=== PATIENT | male | born 1960 ===

== ENCOUNTER 2018-04-27 16:42 | Inpatient (IN) | payer OTHER ==
[2018-04-27] MEDS ORDERED: Piperacillin/Tazobact 3.375 GM in Sodium Chloride 0.9% 100 ML IVPB STA (17:17)
[2018-04-27] MEDS ORDERED: Piperacillin/Tazobact 3.375 gm Inj IVPB ONE (17:22)
--- NOTE | 2018-04-27 17:34 | RAD ---
Date of service: 04/27/2018 PROCEDURE: CHEST RADIOGRAPH, 1 VIEW HISTORY: AMS COMPARISON: None available. FINDINGS: LUNGS: Left basilar dense curvilinear opacity. Hazy change involving the mid/ lower left lung. PLEURA: No pneumothorax or pleural fluid seen. CARDIOVASCULAR: Prior sternotomy with sternal wires and surgical clips in place. Atherosclerotic aortic calcifications. Cardiomediastinal silhouette within normal limits. OSSEOUS STRUCTURES: Degenerative changes. VISUALIZED UPPER ABDOMEN: Normal. OTHER FINDINGS: None. IMPRESSION: Left basilar dense curvilinear opacity. Hazy change involving the mid/ lower left lung.
--- NOTE | 2018-04-27 17:46 | ED PDOC ---
HPI: Altered Mental Status Time Seen by Provider: 04/27/18 17:20 Chief Complaint (Nursing): Altered Mental Status Chief Complaint (Provider): Altered Mental Status History Per: Patient, Family History/Exam Limitations: None Onset/Duration Of Symptoms: Days Current Symptoms Are (Timing): Still Present Associated Symptoms: denies: Fever, Chills, Chest Pain, Vomiting, Diarrhea Additional Complaint(s): Mr. Roni Garnica is a 58 year old male who is presenting to the ED with altered mental status for 1day. History as per neighbor/friend who has been taking care of patient. As per Jose, b2b account executive/friend (NO POA), patient was discharged from [facility] yesterday and was noted to be very lethargic, weak, and difficult to arouse all day yesterday. Family and b2b account executive expressed concern that he was taking opiates aggressively and patient still appears to be partaking in alcohol consumption. Patient states that he has had fluids taken out of him (paracentesis) but otherwise he states that he feels fine. --pt positive for diarrhea --pt denied dizziness/lightheadedness, no LOC --pt denied nausea/vomiting/chills/sweats/abdominal pain --pt denied sob/chest pain/palpitations --pt denied fall/trauma/sick contact, no travel --pt denies alcohol use or medical complaints --pt is here for further eval Spoke to sister on the phone who alluded to patient's alcohol dependencies and also expressed concern of aggressive opioid use since discharge. Sister is aware that patient should not be at home given the amount of medical care needed but based on patients wishes, he has been allowed to go home (to be with his mother). Patient has been staying at home with his mother; mother was also recently admitted to the hospital and has fallen ill resulting in her inability to take care of the patient. Of note, patient arrived to ED with extensive backside pressure sores. PCP: none provided Pain Doctor: Dr. David + hx of cirrhosis + alcohol dependency + chronic pain (back) + b/l lower leg amputee Past Medical History Reviewed: Historical Data, Nursing Documentation, Vital Signs Vital Signs: Last Vital Signs Temp 98.8 F 04/27/18 16:52 Pulse 128 H 04/27/18 16:52 Resp 22 04/27/18 16:52 BP 128/70 04/27/18 16:52 Pulse Ox 98 04/27/18 16:52 - Medical History PMH: Chronic Pain - Surgical History Surgical History: No Surg Hx - Family History Family History: States: Unknown Family Hx - Living Arrangements Living Arrangements: With Family (mother) - Social History Current smoker - smoking cessation education provided: No Ex-Smoker (has not smoked in the last 12 months): Yes Alcohol: Other (Patient denies, family states he does drink) Drugs: Denies - Home Medications Home Medications: Ambulatory Orders Medication Instructions Recorded Morphine Sulfate [Arymo ER] 60 mg PO Q8 04/27/18 oxyCODONE [oxyCODONE Immediate 30 mg PO Q4 PRN 04/27/18 Release Tab] - Allergies Allergies/Adverse Reactions: Allergies Allergy/AdvReac Type Severity Reaction Status Date / Time No Known Allergies Allergy Verified 04/27/18 16:51 Review of Systems ROS Statement: Except As Marked, All Systems Reviewed And Found Negative Constitutional: Positive for: Chills, Weakness, Malaise. Negative for: Fever, Sweats Eyes: Negative for: Pain ENT: Negative for: Ear Pain, Ear Discharge Cardiovascular: Negative for: Chest Pain, Palpitations Respiratory: Negative for: Cough, Shortness of Breath, SOB with Exertion Gastrointestinal: Positive for: Diarrhea. Negative for: Nausea, Vomiting, Abdominal Pain Musculoskeletal: Positive for: Back Pain Skin: Positive for: Other (pressure sores on back) Neurological: Positive for: Weakness, Confusion, Altered Mental Status, Other ( increased lethargy) Physical Exam - Reviewed Nursing Documentation Reviewed: Yes Vital Signs Reviewed: Yes (elevated HR, mildly elevated TEMP) - Physical Exam Appears: Positive for: Non-toxic, No Acute Distress, Uncomfortable (alert/awake , GCS = 15, oriented x 2 (not to date/time), NAD, uncomfortable, follows command , cooperative) Head Exam: Positive for: ATRAUMATIC, NORMOCEPHALIC. Negative for: NORMAL INSPECTION ((+) minor bitemporal wasting) Skin: Positive for: Warm (with capillary refill at approximately 1 second), Dry (with no NIKOSKY's sign noted; + slightly diffuse tenderness over the rash site , stage I-II saccral decubitus), Pallor (slightly), Jaundice. Negative for: Normal Color ((+) back: large almost covering pt whole back skin erythema noted edges of back, petechiae, no bullae no blisters no vesicles noted) Eye Exam: Positive for: EOMI, PERRL (no pinpoint pupils noted ), Scleral icterus , Other (visual field intact no photophobia ). Negative for: Nystagmus ENT: Positive for: Normal ENT Inspection, Other (lightly moist oral mucosa with poor dentitions, no drooling no stridor, slight coarseness of voice) Neck: Positive for: Normal, Painless ROM, Supple, Trachea Midline Cardiovascular/Chest: Positive for: Chest Non Tender, Other (+S1, +S2, + tachy; + regular rhythm). Negative for: Murmur Respiratory: Positive for: Normal Breath Sounds, Other (CTA b/l, no w/r/r, no accessory muscle use noted, no tachypenia). Negative for: Decreased Breath Sounds, Respiratory Distress Pulses-Carotid (L): 2+ Pulses-Carotid (R): 2+ Gastrointestinal/Abdominal: Positive for: Bowel Sounds (decreased), Soft, Distended (slightly), Other (hepatomegaly detected, no rigidity). Negative for : Mass, Guarding, Rebound Back: Positive for: Other (no gross deformity, see skin exam). Negative for: L CVA Tenderness, R CVA Tenderness, Vertebral Tenderness Extremity: Positive for: Other (bilateral amputee above the knee) Neurologic/Psych: Positive for: Alert, unix system administrator II-XII (normal ), Oriented (x2( not to date and time) ), Other (responding normallly to commands, cooperative, no slurred speech). Negative for: Motor/Sensory Deficits, Facial Droop (no facial assymetry) - Laboratory Results Result Diagrams: 04/28/18 07:50 04/28/18 07:50 Interpretation Of Abn Labs: elevated lactate, gluc - ECG ECG: Positive for: Interpreted By Me, Viewed By Me Interpretation Of Abn EKG: SINUS tach at 125bpm, normal axis, no ectopy, diffuse low voltage inf leads, non-specific st-t changes, ABNL EKG; O2 Sat by Pulse Oximetry: 98 (RA) Pulse Ox Interpretation: Normal - Radiology X-Ray: Interpreted by Me, Viewed By Me, Read By Radiologist - Progress ED Course And Treament: pt is made aware of his medical results pt initially refused to stay but was instructed by his friend (JOSE) and sister to stay in the hospital pt/family are made aware of his medical results agrees with admission 6:30pm - I spoke to Dr Ahuja, online education manager PCP, made aware, agrees with admission Date of service: 04/27/2018 PROCEDURE: CHEST RADIOGRAPH, 1 VIEW HISTORY: AMS COMPARISON: None available. FINDINGS: LUNGS: Left basilar dense curvilinear opacity. Hazy change involving the mid/ lower left lung. PLEURA: No pneumothorax or pleural fluid seen. CARDIOVASCULAR: Prior sternotomy with sternal wires and surgical clips in place. Atherosclerotic aortic calcifications. Cardiomediastinal silhouette within normal limits. OSSEOUS STRUCTURES: Degenerative changes. VISUALIZED UPPER ABDOMEN: Normal. OTHER FINDINGS: None. IMPRESSION: Left basilar dense curvilinear opacity. Hazy change involving the mid/ lower left lung. Date of service: 04/27/2018 PROCEDURE: CT HEAD WITHOUT CONTRAST. HISTORY: fell off chair, posterior scalp swelling, no loc COMPARISON: None available. TECHNIQUE: Axial computed tomography images were obtained through the head/brain without intravenous contrast. Radiation dose: Total exam DLP = 1132.3 mGy-cm. This CT exam was performed using one or more of the following dose reduction techniques: Automated exposure control, adjustment of the mA and/or kV according to patient size, and/or use of iterative reconstruction technique. FINDINGS: HEMORRHAGE: No intracranial hemorrhage. BRAIN: No mass effect or edema. Atrophy. Chronic microvascular ischemic changes. VENTRICLES: Prominent. No hydrocephalus. CALVARIUM: Unremarkable. PARANASAL SINUSES: Unremarkable as visualized. No significant inflammatory changes. MASTOID AIR CELLS: Unremarkable as visualized. No inflammatory changes. OTHER FINDINGS: None. IMPRESSION: No acute intracranial pathology. Age-related changes. Re-evaluation Time: 18:54 Condition: Re-examined, Unchanged - Physician Consult Information Time Consulting Physican Contacted: 18:35 Physician Contacted: Cristopher Ahuja - Critical Care Total Time (In Min): 35 Comments: critical care time: 35min, excluding procedure time, excluding time teaching residents/students/mid-level providers; including initial eval/diagnosis, diagnostic interpretation, re-eval, consultations, final disposition Notes:: Orders: --Venuous Blood Gas --CT Head --EKG --Alcohol Serum --Ammonia --B-Type Natriuretic Peptide --BMP --CMP --Drug Screen --Lipase --Thyroid Stimulating Hormone --Troponin --CBC --Coag --Chest X-Ray --Glucose, POC --Enulose 20 gm PO --Vancomycin Inj --Zosyn 3.375 gm IVPB --Blood Culture Chest X-Ray: FINDINGS: LUNGS: Left basilar dense curvilinear opacity. Hazy change involving the mid/ lower left lung. PLEURA: No pneumothorax or pleural fluid seen. CARDIOVASCULAR: Prior sternotomy with sternal wires and surgical clips in place. Atherosclerotic aortic calcifications. Cardiomediastinal silhouette within normal limits. OSSEOUS STRUCTURES: Degenerative changes. VISUALIZED UPPER ABDOMEN: Normal. OTHER FINDINGS: None. IMPRESSION: Left basilar dense curvilinear opacity. Hazy change involving the mid/ lower left lung. Consult: Dr. Ahuja made aware of patient's case. He agrees with ED management and treatment. Will continue to monitor patient and Dr. Ahuja would like GI consulted for medical complaints. Will admit patient under his service. CT Head: FINDINGS: BRAIN: Involutional changes. Periventricular hypoattenuation suggestive of chronic ischemic changes. No hemorrhage. VENTRICLES: No ventriculomegaly. BONES/JOINTS: Unremarkable. No acute fracture. SOFT TISSUES: Unremarkable. VASCULATURE: Atherosclerosis. SINUSES: Unremarkable as visualized. No acute sinusitis. MASTOID AIR CELLS: Unremarkable as visualized. No mastoid effusion. IMPRESSION: Involutional changes. Periventricular hypoattenuation suggestive of chronic ischemic changes. Medical Decision Making Medical Decision Making: Impression: Altered Mental Status Differential Diagnosis: I have considered all the differential diagnosis regarding pt's chief medical complaints/clinical findings, including but are not limited to: altered mental status, unspecified hepatic encephalopathy, fever adverse sepsis, cellulitis, alcohol and drug dependency, dehydration, and unlikely [place] will continue to asses Plan: - EKG, labs CXR - supportive care - observe Scribe Attestation: Documented by, Arin Norwood acting as a scribe for Jeremy Reese MD. Provider Scribe Attestation: All medical record entries made by the Scribe were at my direction and personally dictated by me. I have reviewed the chart and agree that the record accurately reflects my personal performance of the history, physical exam, medical decision making, and the department course for this patient. I have also personally directed, reviewed, and agree with the discharge instructions and disposition. Disposition - Clinical Impression Clinical Impression: Altered mental status, unspecified, At risk for sepsis, Pneumonia, Cellulitis of back, Sacral decubitus ulcer, stage II, Dehydration, Cirrhosis, Alcohol abuse , Opioid dependence - Patient ED Disposition Is Patient to be Admitted: Yes Discussed With : Cristopher Ahuja Counseled Patient/Family Regarding: Studies Performed, Diagnosis, Need For Followup, Rx Given - Disposition Disposition Time: 18:45 Condition: STABLE - Pt Status Changed To: Hospital Disposition Of: Inpatient - Admit Certification Admit to Inpatient:: After my assessment, the patient will require hospitalization for at least two midnights. This is because of the severity of symptoms shown, intensity of services needed, and/or the medical risk in this patient being treated as an outpatient.
[2018-04-27] MEDS ORDERED: Sodium Chloride 0.9% 500 ML IV ONE (18:01)
[2018-04-27 18:03] LABS: VENOUS BLOOD GAS BASE EXCESS -2.8 mmol/L (0.0-2.0); VENOUS BLOOD GAS PCO2 32 mmHg (40-60); VENOUS BLOOD GAS PO2 29 mm/Hg (30-55); VENOUS BLOOD PH 7.42 (7.32-7.43)
[2018-04-27 18:16] LABS: BASO % 0.2 % (0.0-2.0); EOS % 0.1 % (0.0-4.0); HEMOGLOBIN 13.1 g/dL (12.0-18.0); LYMPH # 1.3 K/uL (1.0-4.3); LYMPH % 10.4 % (20.0-40.0); MEAN CELL VOLUME 89.5 fl (80.0-94.0); MEAN CORPUSCULAR HEMOGLOBIN 28.3 pg (27.0-31.0); MEAN CORPUSCULAR HGB CONC 31.7 g/dL (33.0-37.0); MEAN PLATELET VOLUME 8.2 fl (7.2-11.7); MONO # 1.6 K/uL (0.0-0.8); MONO % 13.4 % (0.0-10.0); NEUT # 9.2 K/uL (1.8-7.0); NEUT % 75.9 % (50.0-75.0); NRBC % 0.1 % (0.0-0.0); RBC 4.64 Mil/uL (4.40-5.90); RED CELL DISTRIBUTION WIDTH 21.5 % (11.5-14.5); WHITE BLOOD COUNT 12.2 K/uL (4.8-10.8)
[2018-04-27 18:21] LABS: INR 1.1 (0.9-1.2); PARTIAL THROMBOPLASTIN TIME 28.1 Seconds (25.6-37.1); PROTHROMBIN TIME 12.4 Seconds (9.8-13.1)
[2018-04-27 18:35] LABS: B-TYPE NATRIURETIC PEPTIDE 7390 pg/ml (0-900)
[2018-04-27 18:36] LABS: ALB/GLOB RATIO 0.6 (1.0-2.1); ALBUMIN 2.6 g/dL (3.5-5.0); ALT/SGPT 17 U/L (21-72); AST/SGOT 27 U/L (17-59); BLOOD UREA NITROGEN 14 mg/dl (9-20); CALCIUM 8.5 mg/dL (8.4-10.2); GFR AFRICAN-AMERICAN > 60; GFR NON-AFRICAN AMERICAN > 60; LIPASE 21 U/L (23-300)
[2018-04-27] MEDS ORDERED: Vancomycin 1 g Inj ONE (18:49)
[2018-04-27 21:14] LABS: VENOUS BLOOD GAS BASE EXCESS -5.4 mmol/L (0.0-2.0); VENOUS BLOOD GAS PCO2 38 mmHg (40-60); VENOUS BLOOD GAS PO2 24 mm/Hg (30-55); VENOUS BLOOD PH 7.33 (7.32-7.43)
[2018-04-28 08:13] LABS: HEMOGLOBIN 11.9 g/dL (12.0-18.0); MEAN CELL VOLUME 87.3 fl (80.0-94.0); MEAN CORPUSCULAR HEMOGLOBIN 28.5 pg (27.0-31.0); MEAN CORPUSCULAR HGB CONC 32.6 g/dL (33.0-37.0); RBC 4.18 Mil/uL (4.40-5.90); WHITE BLOOD COUNT 12.9 K/uL (4.8-10.8)
[2018-04-28 08:34] LABS: LDL CHOLESTEROL 53 mg/dL (0-129)
[2018-04-28 08:40] LABS: T4 6.94 ug/dl (5.5-11.0)
--- NOTE | 2018-04-28 08:46 | CT ---
Date of service: 04/27/2018 PROCEDURE: CT HEAD WITHOUT CONTRAST. HISTORY: fell off chair, posterior scalp swelling, no loc COMPARISON: None available. TECHNIQUE: Axial computed tomography images were obtained through the head/brain without intravenous contrast. Radiation dose: Total exam DLP = 1132.3 mGy-cm. This CT exam was performed using one or more of the following dose reduction techniques: Automated exposure control, adjustment of the mA and/or kV according to patient size, and/or use of iterative reconstruction technique. FINDINGS: HEMORRHAGE: No intracranial hemorrhage. BRAIN: No mass effect or edema. Atrophy. Chronic microvascular ischemic changes. VENTRICLES: Prominent. No hydrocephalus. CALVARIUM: Unremarkable. PARANASAL SINUSES: Unremarkable as visualized. No significant inflammatory changes. MASTOID AIR CELLS: Unremarkable as visualized. No inflammatory changes. OTHER FINDINGS: None. IMPRESSION: No acute intracranial pathology. Age-related changes.
[2018-04-28 09:18] LABS: ALB/GLOB RATIO 0.6 (1.0-2.1); ALBUMIN 2.6 g/dL (3.5-5.0); ALT/SGPT 13 U/L (21-72); AST/SGOT 38 U/L (17-59); BLOOD UREA NITROGEN 17 mg/dl (9-20); CALCIUM 8.2 mg/dL (8.4-10.2); GFR AFRICAN-AMERICAN > 60; GFR NON-AFRICAN AMERICAN > 60; HDL CHOLESTEROL 15 MG/DL (30-70)
[2018-04-28] MEDS ORDERED: Dextrose 5%/0.9% NS 1,000 ML IV SCH (12:45)
--- NOTE | 2018-04-28 13:05 | CP.PCM.CON ---
History of Present Illness - History of Present Illness History of Present Illness: consult requested for altered mental status Mr. Roni Garnica is a 58 year old male brought to to the ED with altered mental status f History as per neighbor/friend who has been taking care of patient and his motherreportedly patient was discharged from [facility] day before he was brought to ER and was noted to be very lethargic, weak, and difficult to arouse all day yesterday. Family and proof machine operator supervisor expressed concern that he was taking opiates aggressively and patient still appears to be consuming alcohol pt has hx of bilateral below knee amputation on evaluation pt is lethargic, oriented to person, speech underproductive, no eye contact, when asked about circumstances leading to hospitalization. pt only noding , asked if he overdosed he nodded yes, asked if it was on purpose he nodded yes unable to further assess mental status as pt is uncooperative Past Patient History - Past Social History Alcohol: Other (Patient denies, family states he does drink) Drugs: Denies - CARDIAC Hx Cardiac Disorders: Yes - PULMONARY Hx Respiratory Disorders: Yes - NEUROLOGICAL Hx Neurological Disorder: Yes - ENDOCRINE/METABOLIC Hx Diabetes Mellitus Type 2: Yes - HEMATOLOGICAL/ONCOLOGICAL Hx Blood Disorders: Yes - MUSCULOSKELETAL/RHEUMATOLOGICAL Hx Falls: Yes (in the past) Hx Herniated Disk: Yes - PSYCHIATRIC Hx Psychophysiologic Disorder: Yes - SURGICAL HISTORY Other/Comment: pacemaker, bka b/l - ANESTHESIA Hx Anesthesia: Yes Hx Anesthesia Reactions: No Hx Malignant Hyperthermia: No Has any member of the family had a problem w/ anesthesia?: No Meds Allergies/Adverse Reactions: Allergies Allergy/AdvReac Type Severity Reaction Status Date / Time No Known Allergies Allergy Verified 04/27/18 16:51 - Medications Medications: Current Medications Dextrose/Sodium Chloride (Dextrose 5%/0.9% Ns 1000 Ml) 1,000 mls @ 60 mls/hr IV .[id number] NOHEMI Stop: 04/29/18 12:34 Lactulose (Enulose) 20 gm PO BID NOHEMI Morphine Sulfate (Morphine) 4 mg IVP Q4 PRN PRN Reason: Pain, severe (8-10) Results - Vital Signs Recent Vital Signs: Last Vital Signs Temp 97.8 F 04/28/18 12:11 Pulse 124 H 04/28/18 12:11 Resp 18 07/29/18 12:11 BP 118/81 04/28/18 12:11 Pulse Ox 95 04/28/18 12:11 - Labs Result Diagrams: 04/28/18 07:50 04/28/18 07:50 Labs: Laboratory Results - last 24 hr 04/27/18 04/27/18 04/27/18 17:15 17:39 17:39 WBC 12.2 H RBC 4.64 Hgb 13.1 Hct 41.5 MCV 89.5 MCH 28.3 MCHC 31.7 L RDW 21.5 H Plt Count 331 MPV 8.2 Neut % (Auto) 75.9 H Lymph % (Auto) 10.4 L Weber % (Auto) 13.4 H Eos % (Auto) 0.1 Baso % (Auto) 0.2 Neut # (Auto) 9.2 H Lymph # (Auto) 1.3 Weber # (Auto) 1.6 H Eos # (Auto) 0.0 Baso # (Auto) 0.0 PT INR APTT pO2 VBG pH VBG pCO2 VBG HCO3 VBG Total CO2 VBG O2 Sat (Calc) VBG Base Excess VBG Potassium Glucose Lactate FiO2 Crit Value Called To Crit Value Called By Crit Value Read Back Blood Gas Notified Time Sodium 141 Potassium 4.4 Chloride 106 Carbon Dioxide 19 L Anion Gap 20 BUN 14 Creatinine 1.0 Est GFR ( Amer) > 60 Est GFR (Non-Af Amer) > 60 POC Glucose (mg/dL) 170 H Random Glucose 163 H Calcium 8.5 Total Bilirubin 1.1 AST 27 ALT 17 L Alkaline Phosphatase 80 Ammonia Troponin I 0.0910 NT-Pro-B Natriuret Pep 7390 H Total Protein 6.9 Albumin 2.6 L Globulin 4.2 H Albumin/Globulin Ratio 0.6 L Triglycerides Cholesterol LDL Cholesterol Direct HDL Cholesterol Lipase 21 L Thyroxine (T4) TSH 3rd Generation 7.01 H Venous Blood Potassium Alcohol, Quantitative < 10 04/27/18 04/27/18 04/27/18 17:39 17:39 17:56 WBC RBC Hgb Hct MCV MCH MCHC RDW Plt Count MPV Neut % (Auto) Lymph % (Auto) Weber % (Auto) Eos % (Auto) Baso % (Auto) Neut # (Auto) Lymph # (Auto) Weber # (Auto) Eos # (Auto) Baso # (Auto) PT 12.4 INR 1.1 APTT 28.1 pO2 29 L VBG pH 7.42 VBG pCO2 32 L VBG HCO3 21.6 VBG Total CO2 21.8 L VBG O2 Sat (Calc) 46.7 VBG Base Excess -2.8 L VBG Potassium Glucose 165 H Lactate 3.4 H FiO2 21.0 Crit Value Called To Dr delilah partida Crit Value Called By 6075 Crit Value Read Back Y Blood Gas Notified Time 1802 Sodium 184.0 H* Potassium Chloride 117.0 H Carbon Dioxide Anion Gap BUN Creatinine Est GFR ( Amer) Est GFR (Non-Af Amer) POC Glucose (mg/dL) Random Glucose Calcium Total Bilirubin AST ALT Alkaline Phosphatase Ammonia 11 L Troponin I NT-Pro-B Natriuret Pep Total Protein Albumin Globulin Albumin/Globulin Ratio Triglycerides Cholesterol LDL Cholesterol Direct HDL Cholesterol Lipase Thyroxine (T4) TSH 3rd Generation Venous Blood Potassium Alcohol, Quantitative 04/27/18 04/27/18 04/28/18 21:11 21:55 04:09 WBC RBC Hgb Hct MCV MCH MCHC RDW Plt Count MPV Neut % (Auto) Lymph % (Auto) Weber % (Auto) Eos % (Auto) Baso % (Auto) Neut # (Auto) Lymph # (Auto) Weber # (Auto) Eos # (Auto) Baso # (Auto) PT INR APTT pO2 24 L VBG pH 7.33 VBG pCO2 38 L VBG HCO3 19.1 VBG Total CO2 21.2 L VBG O2 Sat (Calc) 31.6 L VBG Base Excess -5.4 L VBG Potassium 5.8 H Glucose 142 H Lactate 2.9 H FiO2 21.0 Crit Value Called To Crit Value Called By Crit Value Read Back Blood Gas Notified Time Sodium 138.0 Potassium Chloride 107.0 Carbon Dioxide Anion Gap BUN Creatinine Est GFR ( Amer) Est GFR (Non-Af Amer) POC Glucose (mg/dL) 140 H 152 H Random Glucose Calcium Total Bilirubin AST ALT Alkaline Phosphatase Ammonia Troponin I NT-Pro-B Natriuret Pep Total Protein Albumin Globulin Albumin/Globulin Ratio Triglycerides Cholesterol LDL Cholesterol Direct HDL Cholesterol Lipase Thyroxine (T4) TSH 3rd Generation Venous Blood Potassium 5.8 H Alcohol, Quantitative 04/28/18 04/28/18 04/28/18 07:50 07:50 07:50 WBC 12.9 H RBC 4.18 L Hgb 11.9 L Hct 36.5 MCV 87.3 D MCH 28.5 MCHC 32.6 L RDW 20.0 H Plt Count 302 MPV Neut % (Auto) Lymph % (Auto) Weber % (Auto) Eos % (Auto) Baso % (Auto) Neut # (Auto) Lymph # (Auto) Weber # (Auto) Eos # (Auto) Baso # (Auto) PT INR APTT pO2 VBG pH VBG pCO2 VBG HCO3 VBG Total CO2 VBG O2 Sat (Calc) VBG Base Excess VBG Potassium Glucose Lactate FiO2 Crit Value Called To Crit Value Called By Crit Value Read Back Blood Gas Notified Time Sodium 142 Potassium 5.6 H Chloride 109 H Carbon Dioxide 21 L Anion Gap 18 BUN 17 Creatinine 1.0 Est GFR ( Amer) > 60 Est GFR (Non-Af Amer) > 60 POC Glucose (mg/dL) Random Glucose 133 H Calcium 8.2 L Total Bilirubin 1.1 AST 38 ALT 13 L D Alkaline Phosphatase 62 Ammonia 15 L D Troponin I NT-Pro-B Natriuret Pep Total Protein 6.8 Albumin 2.6 L Globulin 4.3 H Albumin/Globulin Ratio 0.6 L Triglycerides 149 Cholesterol 89 LDL Cholesterol Direct 53 HDL Cholesterol 15 L Lipase Thyroxine (T4) 6.94 TSH 3rd Generation 5.79 H Venous Blood Potassium Alcohol, Quantitative 04/28/18 11:05 WBC RBC Hgb Hct MCV MCH MCHC RDW Plt Count MPV Neut % (Auto) Lymph % (Auto) Weber % (Auto) Eos % (Auto) Baso % (Auto) Neut # (Auto) Lymph # (Auto) Weber # (Auto) Eos # (Auto) Baso # (Auto) PT INR APTT pO2 VBG pH VBG pCO2 VBG HCO3 VBG Total CO2 VBG O2 Sat (Calc) VBG Base Excess VBG Potassium Glucose Lactate FiO2 Crit Value Called To Crit Value Called By Crit Value Read Back Blood Gas Notified Time Sodium Potassium Chloride Carbon Dioxide Anion Gap BUN Creatinine Est GFR ( Amer) Est GFR (Non-Af Amer) POC Glucose (mg/dL) 129 H Random Glucose Calcium Total Bilirubin AST ALT Alkaline Phosphatase Ammonia Troponin I NT-Pro-B Natriuret Pep Total Protein Albumin Globulin Albumin/Globulin Ratio Triglycerides Cholesterol LDL Cholesterol Direct HDL Cholesterol Lipase Thyroxine (T4) TSH 3rd Generation Venous Blood Potassium Alcohol, Quantitative Assessment & Plan - Assessment and Plan (Free Text) Assessment: delirium opiate abuse alcohol abuse Plan: pt was vague when asked if the overdose was accidental or on purpose patient needs to be placed on 1:1 for safety unable to further assess mental status as pt is lethargic please further consult with psychiatry when pt is more alert
--- NOTE | 2018-04-28 13:49 | CP.PCM.HP ---
History of Present Illness - History of Present Illness History of Present Illness: CC: AMS. 58 y/o M, Hx of Cirrhosis, Alcohol dependence, B/L BKA, Chronic low back pain, PPM, [facility] via EMS to be evaluated for first onset of AMS that began 2 days [employer], increased episode on DOA with no improvement. After evaluation, Pt was admitted to telemetry floor. As per friend/procurement coordinator, Pt was discharged from [facility] 2 days prior to arrival to [facility] and since that date Pt appeared above normal mental base line associated to weaknesses, very lethargic, slurred speech, forgetful, confused. Worsening symptoms: Alcohol abuse/ aggressive opiates user since discharged( Oxycodone, Morphine). Rapid HR, generalized edema. As per friend, expressing that he wants to . Aggravated factor; Poor historian, vague response 2nd to clinical condition. No: Fever, chills, nausea, vomiting, but stool and urinary incontinence, No abdominal pain, dysuria, CP, SOB, cough, sick contact, recent travel out of [facility]. Head CT: No intracranial pathology. CXR: Left basilar dense curvilinear opacity, hazy change envolving the mid/ lower left lung. Present on Admission - Present on Admission Any Indicators Present on Admission: No Review of Systems - Review of Systems Systems not reviewed;Unavailable: Acuity of Condition, Altered Mental Status Past Patient History - Past Medical History & Family History Pertinent Family History: Unknown - Past Social History Smoking Status: Former Smoker Alcohol: Other (Patient denies, family states he does drink) Drugs: Denies Home Situation {Lives}: Alone - CARDIAC Hx Cardiac Disorders: Yes Hx Pacemaker: Yes - PULMONARY Hx Respiratory Disorders: Yes Hx Asthma: Yes - NEUROLOGICAL Hx Neurological Disorder: Yes Hx Dizziness: Yes - HEENT Hx HEENT Problems: No - RENAL Hx Chronic Kidney Disease: No - ENDOCRINE/METABOLIC Hx Endocrine Disorders: Yes Hx Diabetes Mellitus Type 2: Yes - HEMATOLOGICAL/ONCOLOGICAL Hx Blood Disorders: Yes Hx Cirrhosis: Yes - MUSCULOSKELETAL/RHEUMATOLOGICAL Hx Musculoskeletal Disorders: Yes Hx Back Pain: Yes Hx Falls: Yes (in the past) Hx Herniated Disk: Yes - GASTROINTESTINAL Hx Gastrointestinal Disorders: Yes - GENITOURINARY/GYNECOLOGICAL Hx Genitourinary Disorders: Yes Hx Incontinence: Yes - PSYCHIATRIC Hx Psychophysiologic Disorder: Yes Hx Anxiety: Yes Hx Depression: Yes - SURGICAL HISTORY Hx Surgeries: Yes Other/Comment: pacemaker, bka b/l - ANESTHESIA Hx Anesthesia: Yes Hx Anesthesia Reactions: No Hx Malignant Hyperthermia: No Has any member of the family had a problem w/ anesthesia?: No Meds Allergies/Adverse Reactions: Allergies Allergy/AdvReac Type Severity Reaction Status Date / Time No Known Allergies Allergy Verified 04/27/18 16:51 Physical Exam - Constitutional Appears: Chronically Ill (Generalized edema.) - Head Exam Head Exam: NORMAL INSPECTION - Eye Exam Additional comments: Unable to keep eyes open - ENT Exam ENT Exam: Normal Exam - Neck Exam Neck exam: Positive for: Normal Inspection - Respiratory Exam Respiratory Exam: NORMAL BREATHING PATTERN - Cardiovascular Exam Cardiovascular Exam: REGULAR RHYTHM - GI/Abdominal Exam GI & Abdominal Exam: Normal Bowel Sounds, Soft - Extremities Exam Additional comments: B/L BKA - Back Exam Additional comments: Sacral decubitus ulcer/DTI - Neurological Exam Additional comments: Awake, Lethargic, Ox1, forgetful, confused, generalized weakness, - Psychiatric Exam Psychiatric exam: Agitated - Skin Skin Exam: Pallor (jaundice.), Warm Additional comments: Sacral DTI Results - Vital Signs Recent Vital Signs: Last Vital Signs Temp 97.8 F 04/28/18 12:11 Pulse 124 H 04/28/18 12:11 Resp 18 04/28/18 12:11 BP 118/81 04/28/18 12:11 Pulse Ox 95 04/28/18 12:11 reviewed J.P. - Labs Result Diagrams: 04/28/18 07:50 04/28/18 22:40 Labs: Laboratory Results - last 24 hr 04/27/18 04/27/18 04/27/18 17:15 17:39 17:39 WBC 12.2 H RBC 4.64 Hgb 13.1 Hct 41.5 MCV 89.5 MCH 28.3 MCHC 31.7 L RDW 21.5 H Plt Count 331 MPV 8.2 Neut % (Auto) 75.9 H Lymph % (Auto) 10.4 L [place] % (Auto) 13.4 H Eos % (Auto) 0.1 Baso % (Auto) 0.2 Neut # (Auto) 9.2 H Lymph # (Auto) 1.3 [place] # (Auto) 1.6 H Eos # (Auto) 0.0 Baso # (Auto) 0.0 PT INR APTT pO2 VBG pH VBG pCO2 VBG HCO3 VBG Total CO2 VBG O2 Sat (Calc) VBG Base Excess VBG Potassium Glucose Lactate FiO2 Crit Value Called To Crit Value Called By Crit Value Read Back Blood Gas Notified Time Sodium 141 Potassium 4.4 Chloride 106 Carbon Dioxide 19 L Anion Gap 20 BUN 14 Creatinine 1.0 Est GFR ( Amer) > 60 Est GFR (Non-Af Amer) > 60 POC Glucose (mg/dL) 170 H Random Glucose 163 H Calcium 8.5 Total Bilirubin 1.1 AST 27 ALT 17 L Alkaline Phosphatase 80 Ammonia Troponin I 0.0910 NT-Pro-B Natriuret Pep 7390 H Total Protein 6.9 Albumin 2.6 L Globulin 4.2 H Albumin/Globulin Ratio 0.6 L Triglycerides Cholesterol LDL Cholesterol Direct HDL Cholesterol Lipase 21 L Thyroxine (T4) TSH 3rd Generation 7.01 H Venous Blood Potassium Alcohol, Quantitative < 10 04/27/18 04/27/18 04/27/18 17:39 17:39 17:56 WBC RBC Hgb Hct MCV MCH MCHC RDW Plt Count MPV Neut % (Auto) Lymph % (Auto) [place] % (Auto) Eos % (Auto) Baso % (Auto) Neut # (Auto) Lymph # (Auto) [place] # (Auto) Eos # (Auto) Baso # (Auto) PT 12.4 INR 1.1 APTT 28.1 pO2 29 L VBG pH 7.42 VBG pCO2 32 L VBG HCO3 21.6 VBG Total CO2 21.8 L VBG O2 Sat (Calc) 46.7 VBG Base Excess -2.8 L VBG Potassium Glucose 165 H Lactate 3.4 H FiO2 21.0 Crit Value Called To Dr delilah partida Crit Value Called By 6075 Crit Value Read Back Y Blood Gas Notified Time 1802 Sodium 184.0 H* Potassium Chloride 117.0 H Carbon Dioxide Anion Gap BUN Creatinine Est GFR ( Amer) Est GFR (Non-Af Amer) POC Glucose (mg/dL) Random Glucose Calcium Total Bilirubin AST ALT Alkaline Phosphatase Ammonia 11 L Troponin I NT-Pro-B Natriuret Pep Total Protein Albumin Globulin Albumin/Globulin Ratio Triglycerides Cholesterol LDL Cholesterol Direct HDL Cholesterol Lipase Thyroxine (T4) TSH 3rd Generation Venous Blood Potassium Alcohol, Quantitative 04/27/18 04/27/18 04/28/18 21:11 21:55 04:09 WBC RBC Hgb Hct MCV MCH MCHC RDW Plt Count MPV Neut % (Auto) Lymph % (Auto) [place] % (Auto) Eos % (Auto) Baso % (Auto) Neut # (Auto) Lymph # (Auto) [place] # (Auto) Eos # (Auto) Baso # (Auto) PT INR APTT pO2 24 L VBG pH 7.33 VBG pCO2 38 L VBG HCO3 19.1 VBG Total CO2 21.2 L VBG O2 Sat (Calc) 31.6 L VBG Base Excess -5.4 L VBG Potassium 5.8 H Glucose 142 H Lactate 2.9 H FiO2 21.0 Crit Value Called To Crit Value Called By Crit Value Read Back Blood Gas Notified Time Sodium 138.0 Potassium Chloride 107.0 Carbon Dioxide Anion Gap BUN Creatinine Est GFR ( Amer) Est GFR (Non-Af Amer) POC Glucose (mg/dL) 140 H 152 H Random Glucose Calcium Total Bilirubin AST ALT Alkaline Phosphatase Ammonia Troponin I NT-Pro-B Natriuret Pep Total Protein Albumin Globulin Albumin/Globulin Ratio Triglycerides Cholesterol LDL Cholesterol Direct HDL Cholesterol Lipase Thyroxine (T4) TSH 3rd Generation Venous Blood Potassium 5.8 H Alcohol, Quantitative 04/28/18 04/28/18 04/28/18 07:50 07:50 07:50 WBC 12.9 H RBC 4.18 L Hgb 11.9 L Hct 36.5 MCV 87.3 D MCH 28.5 MCHC 32.6 L RDW 20.0 H Plt Count 302 MPV Neut % (Auto) Lymph % (Auto) [place] % (Auto) Eos % (Auto) Baso % (Auto) Neut # (Auto) Lymph # (Auto) [place] # (Auto) Eos # (Auto) Baso # (Auto) PT INR APTT pO2 VBG pH VBG pCO2 VBG HCO3 VBG Total CO2 VBG O2 Sat (Calc) VBG Base Excess VBG Potassium Glucose Lactate FiO2 Crit Value Called To Crit Value Called By Crit Value Read Back Blood Gas Notified Time Sodium 142 Potassium 5.6 H Chloride 109 H Carbon Dioxide 21 L Anion Gap 18 BUN 17 Creatinine 1.0 Est GFR ( Amer) > 60 Est GFR (Non-Af Amer) > 60 POC Glucose (mg/dL) Random Glucose 133 H Calcium 8.2 L Total Bilirubin 1.1 AST 38 ALT 13 L D Alkaline Phosphatase 62 Ammonia 15 L D Troponin I NT-Pro-B Natriuret Pep Total Protein 6.8 Albumin 2.6 L Globulin 4.3 H Albumin/Globulin Ratio 0.6 L Triglycerides 149 Cholesterol 89 LDL Cholesterol Direct 53 HDL Cholesterol 15 L Lipase Thyroxine (T4) 6.94 TSH 3rd Generation 5.79 H Venous Blood Potassium Alcohol, Quantitative 04/28/18 11:05 WBC RBC Hgb Hct MCV MCH MCHC RDW Plt Count MPV Neut % (Auto) Lymph % (Auto) [place] % (Auto) Eos % (Auto) Baso % (Auto) Neut # (Auto) Lymph # (Auto) [place] # (Auto) Eos # (Auto) Baso # (Auto) PT INR APTT pO2 VBG pH VBG pCO2 VBG HCO3 VBG Total CO2 VBG O2 Sat (Calc) VBG Base Excess VBG Potassium Glucose Lactate FiO2 Crit Value Called To Crit Value Called By Crit Value Read Back Blood Gas Notified Time Sodium Potassium Chloride Carbon Dioxide Anion Gap BUN Creatinine Est GFR ( Amer) Est GFR (Non-Af Amer) POC Glucose (mg/dL) 129 H Random Glucose Calcium Total Bilirubin AST ALT Alkaline Phosphatase Ammonia Troponin I NT-Pro-B Natriuret Pep Total Protein Albumin Globulin Albumin/Globulin Ratio Triglycerides Cholesterol LDL Cholesterol Direct HDL Cholesterol Lipase Thyroxine (T4) TSH 3rd Generation Venous Blood Potassium Alcohol, Quantitative reviewed J.P. - Imaging and Cardiology Chest x-ray Status: Report reviewed by me (Brett.) CT scan - head Status: Report reviewed by me (Shobha) Assessment & Plan (1) Altered mental status, unspecified Status: Acute Priority: High (2) Alcohol abuse Status: Chronic Priority: High (3) Opioid dependence Status: Chronic Priority: High (4) Sacral decubitus ulcer, stage II Status: Acute Priority: High (5) Hx of cirrhosis Status: Chronic Priority: High (6) S/P BKA (below knee amputation) bilateral Status: Chronic Priority: High (7) Hyperglycemia Status: Acute Priority: High (8) DMII (diabetes mellitus, type 2) Status: Chronic Priority: High (9) History of pacemaker Status: Chronic Priority: High - Assessment and Plan (Free Text) Plan: F/U EKG, Abd/Pelv U-S, Blood C-S. U C-S, keep in 1:1 closed observation, continue Dextrose, Lactulose, Humalin and rest of Tx. Psychiatric consult appreciated. GI consult. - Date & Time Date: 04/28/18 Time: 11:40
[2018-04-28 23:27] LABS: ALB/GLOB RATIO 0.6 (1.0-2.1); ALBUMIN 2.6 g/dL (3.5-5.0); ALT/SGPT 21 U/L (21-72); AST/SGOT 43 U/L (17-59); BLOOD UREA NITROGEN 18 mg/dl (9-20); CALCIUM 8.5 mg/dL (8.4-10.2); GFR AFRICAN-AMERICAN > 60; GFR NON-AFRICAN AMERICAN > 60
--- NOTE | 2018-04-29 00:42 | CON ---
DATE: 04/28/2018 HISTORY OF PRESENT ILLNESS: All my history is from the ER notes as at the time of my evaluation, today, the patient although follows commands, he is not at this point very verbal or able to speak to me in terms of verbal communication, and there are no family members or friends present. However, in the ER apparently yesterday afternoon when he came in, it was quite extensive as they were able to speak with sister and shoe repairman or a friend of this patient who were with him apparently. He was brought in for altered mental status. He had chest pain at Hospital and had been discharged, but he was very lethargic and weak, and the family was concerned because the patient has known significant history of alcohol abuse, and he had been taking significant amount of opiates. He has a history of liver disease and multiple other medical problems which is why he was then admitted because of his lethargy and change in mental status. Here on my evaluation, as mentioned, he does follow commands, but he does not verbalize, and he does seem to be very lethargic, unable to assess how oriented he is, although he does respond appropriately to my questions by shaking his head yes or no and does follow my commands. Here, he was started on morphine p.r.n. as well as lactulose. ALLERGIES: APPARENTLY, HE HAS NO KNOWN DRUG ALLERGIES. PAST MEDICAL HISTORY: Extensive apparently, and it appears he has a history of coronary artery disease. He has had a peripheral vascular disease and he has a history of liver disease and alcohol abuse. PAST SURGICAL HISTORY: He has bilateral [id number] amputations of his lower extremities. He appears to have a scar from coronary artery bypass graft and other scars on the abdomen which were unclear to me what they are from. FAMILY HISTORY: Noncontributory. SOCIAL HISTORY: As mentioned, he has a history of alcohol abuse and apparently he has been abusing opioids. PHYSICAL EXAMINATION: GENERAL: He is a well-appearing male, as mentioned very lethargic, unable to verbalize, but does not appear to be in any distress. He does follow commands. VITAL SIGNS: Presently, his vital signs are stable although his pulses are in 120s. Blood pressure and respiratory rate are normal. He is afebrile. CARDIOPULMONARY: He has decreased breath sounds bilaterally. HEART: Heart rate, he is tachycardic. ABDOMEN: His abdomen is distended. There is a fluid wave appreciated. It is not tender, but it is distended from this fluid. EXTREMITIES: As mentioned on physical, his lower extremity has [id number] amputations on both sides, almost complete amputations all the way up almost to the hip bone. LABORATORY DATA: His white count is 12.9 today with an H and H of 11.9 and 33.5. His platelet count is normal at 302,000. His SMA-7 is remarkable for potassium of 5.6, chloride up to 109 with carbon dioxide of 21. BUN and creatinine however normal. LFTs are unremarkable except his albumin is low at 2.6. His ammonia is low at 15 today, was 11 last night. His alk phos was also low. Lipase was low. Alcohol level on admission was less than 10. They did a CT of the brain which apparently is unremarkable. Chest x-ray shows some opacities in the left lower lung. IMPRESSION AND PLAN: This is a complicated 58-year-old gentleman with a history apparently of alcohol abuse and opioid abuse recently who is admitted with lethargy, change in mental status. Unfortunately we do not have a urine toxicology as yet, but I suspect that his change in mental status is probably from opioid, particularly since yesterday, the sister and a friend who have been with him stated he was taking significant amount of opioids over the last 24 hours or so. At this point in time, we will hydrate the patient, monitor him carefully with vital signs. He presently is on a diet; however, given his mental status, that needs to be monitored, feedings, to see if he can tolerate this well or appropriately. I am continuing with his present care for now and await a urine drug screening and follow this patient along with you. In terms of his liver disease, he probably has ascites from that on exam that is appreciable. I would suspect that this is chronic; however, we will simply follow for now. I will not change any treatment until his mental status improves which most likely will over time as the opiates are cleared from the system. We will follow along with you. Bryan Draper MD [facility] # [id number]
--- NOTE | 2018-04-29 10:08 | CP.PCM.CON ---
History of Present Illness - History of Present Illness History of Present Illness: Psychiatry consult follow-up note CC: "I want to go home." HPI: 58 yo male w/ h/o opiate and alcohol use disorders, presented w/ altered mental status, now improving. Patient is A + O x self, "[facility]", but not date (only 2018). He reports that he uses oxycodone, but is currently minimizing his drug/etoh abuse. He denies acute depression/anxiety/AH/VH/ paranoia/SI/HI. He denies attempting suicide. He has poor insight/judgment into his medical condition and states that he wants to be discharged back to home. MSE: A + O x self, 2018, "[facility] calm, cooperative, good eye contact, speech-mumbles at times, thought process- coherent, denies AH/VH/paranoia/ delusions, poor insight/judgment, no SI/HI Impression: 58 yo male w/ opiate and alcohol use disorder, with gradually improving mental status; patient may also have chronic neurocognitive impairment. Patient denies acute suicidal ideation/plan/intent/attempt. -No 1:1 indicated for suicide precautions; patient may need 1:1 for fall precautions if primary team believes it is indicated -If ETOH withdrawal symptoms present, treat as per CIWA protocol; patient currently states that he does not abuse ETOH to health underwriter and denies acute symptoms of withdrawal -Patient has poor insight/judgment re: medical conditions and does not comprehend his medical problems or why he needs medical treatment; he does not have capacity to leave the hospital AMA Past Patient History - Past Social History Alcohol: Other (Patient denies, family states he does drink) Drugs: Denies - CARDIAC Hx Cardiac Disorders: Yes - PULMONARY Hx Respiratory Disorders: Yes - NEUROLOGICAL Hx Neurological Disorder: Yes - ENDOCRINE/METABOLIC Hx Diabetes Mellitus Type 2: Yes - HEMATOLOGICAL/ONCOLOGICAL Hx Blood Disorders: Yes - MUSCULOSKELETAL/RHEUMATOLOGICAL Hx Falls: Yes (in the past) Hx Herniated Disk: Yes - PSYCHIATRIC Hx Psychophysiologic Disorder: Yes - SURGICAL HISTORY Other/Comment: pacemaker, bka b/l - ANESTHESIA Hx Anesthesia: Yes Hx Anesthesia Reactions: No Hx Malignant Hyperthermia: No Has any member of the family had a problem w/ anesthesia?: No Meds Allergies/Adverse Reactions: Allergies Allergy/AdvReac Type Severity Reaction Status Date / Time No Known Allergies Allergy Verified 04/27/18 16:51 - Medications Medications: Current Medications Dextrose/Sodium Chloride (Dextrose 5%/0.9% Ns 1000 Ml) 1,000 mls @ 60 mls/hr IV .[id number] [facility] Stop: 04/29/18 12:34 Last Admin: 04/28/18 16:12 Dose: 60 mls/hr Lactulose (Enulose) 20 gm PO BID NOHEMI Last Admin: 04/29/18 09:07 Dose: 20 gm Morphine Sulfate (Morphine) 4 mg IVP Q4 PRN PRN Reason: Pain, severe (8-10) Results - Vital Signs Recent Vital Signs: Last Vital Signs Temp 98.2 F 04/29/18 04:00 Pulse 101 H 04/29/18 04:00 Resp 18 04/29/18 04:00 BP 125/80 04/29/18 04:00 Pulse Ox 98 04/29/18 04:00 - Labs Result Diagrams: 04/28/18 07:50 04/28/18 22:40 Labs: Laboratory Results - last 24 hr 04/28/18 04/28/18 04/28/18 11:05 16:23 21:14 Sodium Potassium Chloride Carbon Dioxide Anion Gap BUN Creatinine Est GFR ( Amer) Est GFR (Non-Af Amer) POC Glucose (mg/dL) 129 H 132 H 146 H Random Glucose Calcium Total Bilirubin AST ALT Alkaline Phosphatase Total Protein Albumin Globulin Albumin/Globulin Ratio 04/28/18 04/29/18 22:40 06:03 Sodium 144 Potassium 3.7 Chloride 110 H Carbon Dioxide 21 L Anion Gap 17 BUN 18 Creatinine 0.9 Est GFR ( Amer) > 60 Est GFR (Non-Af Amer) > 60 POC Glucose (mg/dL) 145 H Random Glucose 142 H Calcium 8.5 Total Bilirubin 0.9 AST 43 ALT 21 D Alkaline Phosphatase 78 Total Protein 6.7 Albumin 2.6 L Globulin 4.2 H Albumin/Globulin Ratio 0.6 L
[2018-04-29] MEDS ORDERED: Dextrose 50% SYRINGE Inj (50 ml) IV PRN (12:15)
[2018-04-29] MEDS ORDERED: Glucagon Recombinant 1 mg Inj IM PRN (12:15)
--- NOTE | 2018-04-29 12:20 | CP.PCM.PN ---
Subjective - Date & Time of Evaluation Date of Evaluation: 04/29/18 Time of Evaluation: 12:19 - Subjective Subjective: lethagic, but arousable Objective - Vital Signs/Intake and Output Vital Signs (last 24 hours): Temp Pulse Resp BP Pulse Ox 98.2 F 101 H 18 125/80 98 04/29/18 04:00 04/29/18 04:00 04/29/18 04:00 04/29/18 04:00 04/29/18 04:00 - Medications Medications: Current Medications Dextrose (Dextrose 50% Inj) 0 ml IV STAT PRN; Protocol PRN Reason: Hypoglycemia Protocol Dextrose (Glutose 15) 0 gm PO ONCE PRN; Protocol PRN Reason: Hypoglycemia Protocol Glucagon (Glucagen Diagnostic Kit) 0 mg IM STAT PRN; Protocol PRN Reason: Hypoglycemia Protocol Dextrose/Sodium Chloride (Dextrose 5%/0.9% Ns 1000 Ml) 1,000 mls @ 60 mls/hr IV .[id number] NOHEMI Stop: 04/29/18 12:34 Last Admin: 04/28/18 16:12 Dose: 60 mls/hr Insulin Human Regular (Humulin R) 0 units SC ACHS NOHEMI PRN Reason: Protocol Lactulose (Enulose) 20 gm PO QID NOHEMI Morphine Sulfate (Morphine) 4 mg IVP Q4 PRN PRN Reason: Pain, severe (8-10) Rifaximin (Xifaxan) 550 mg PO BID NOHEMI PRN Reason: Protocol - Labs Labs: 04/28/18 07:50 04/28/18 22:40 PT 12.4 Seconds (9.8-13.1) 04/27/18 17:39 INR 1.1 (0.9-1.2) 04/27/18 17:39 APTT 28.1 Seconds (25.6-37.1) 04/27/18 17:39 - Head Exam Head Exam: NORMAL INSPECTION, NORMOCEPHALIC - Neck Exam Neck Exam: Normal Inspection - Respiratory Exam Respiratory Exam: Clear to Ausculation Bilateral, NORMAL BREATHING PATTERN - GI/Abdominal Exam GI & Abdominal Exam: Soft, Normal Bowel Sounds Assessment and Plan - Assessment and Plan (Free Text) Assessment: 68 o male with mental status changes increase lactulose to QID add xifaxan 550 bid utox
[2018-04-29] MEDS ORDERED: Iohexol 240 (50 ml) PO ONE (13:56)
--- NOTE | 2018-04-29 16:46 | CARD ---
APPROVED REPORT Date of service: 04/29/2018 EXAM: Two-dimensional and M-mode echocardiogram with Doppler and color Doppler. Other Information Quality : GoodRhythm : Tachycardia INDICATION Elevated PRO BNP 2D DIMENSIONS IVSd1.02 (0.7-1.1cm)LVDd4.20 (3.9-5.9cm) LVOT Diameter1.93 (1.8-2.4cm)PWd0.96 (0.7-1.1cm) IVSs0.91 (0.8-1.2cm)LVDs4.45 (2.5-4.0cm) FS (%) 5.9 %PWs0.79 (0.8-1.2cm) M-Mode DIMENSIONS Left Atrium (MM)3.56 (2.5-4.0cm)IVSd0.81 (0.7-1.1cm) Aortic Root3.19 (2.2-3.7cm)LVDd5.56 (4.0-5.6cm) Aortic Cusp Exc.1.88 (1.5-2.0cm)PWd0.75 (0.7-1.1cm) IVSs1.16 cmFS (%) 16 % LVDs4.69 (2.0-3.8cm)PWs1.06 cm Aortic Valve AoV Peak Ymdvetms30.7cm/sAoV VTI12.6cmAO Peak GR.4mmHg LVOT Peak Ldahncud13.7cm/sLVOT VTI11.53cmAO Mean GR.2mmHg NICHOLAS (VMAX)1.51xa8PTR (VTI)1.65cm2 Mitral Valve MV E Fybdmmui79.3cm/sMV DECEL BELA450asRA A Sikkhnlw860.7cm/s MV FEJ626udA/A ratio0.6MVA (PHT)1.99cm2 TDI Lateral E' Peak V9.78cm/sMedial E' Peak V5.46cm/sE/Lateral E'6.2 E/Medial E'11.0 Pulmonary Valve PV Peak Giublxpf86.1cm/s Tricuspid Valve TR Peak Zjxjrfqt91fc/sRAP OPYFFKRF98lsUmZW Peak Gr.2mmHg QTMH10glZm LEFT VENTRICLE The left ventricle is normal size. There is borderline to mild concentric left ventricular hypertrophy. Left ventricle systolic function is mildly impaired. The Ejection Fraction is 45-50%. There is normal LV segmental wall motion. Transmitral Doppler flow pattern is Grade I-abnormal relaxation pattern. RIGHT VENTRICLE The right ventricle is normal size. The right ventricular systolic function is normal. ATRIA The left atrium is mildly dilated. The right atrium size is normal. AORTIC VALVE The aortic valve is normal in structure. No aortic regurgitation is present. There is no aortic valvular stenosis. MITRAL VALVE The mitral valve is normal in structure. There is no mitral valve stenosis. Mitral regurgitation is trace to mild. TRICUSPID VALVE The tricuspid valve is normal in structure. There is mild tricuspid regurgitation. PULMONIC VALVE The pulmonary valve is normal in structure. There is no pulmonic valvular regurgitation. GREAT VESSELS The aortic root is normal in size. The IVC is normal in size and collapses >50% with inspiration. PERICARDIAL EFFUSION The pericardium appears normal. <Conclusion> Left ventricle systolic function is mildly impaired. The Ejection Fraction is 45-50%. Transmitral Doppler flow pattern is Grade I-abnormal relaxation pattern. Mitral regurgitation is trace to mild. There is mild tricuspid regurgitation.
--- NOTE | 2018-04-29 17:55 | CARD ---
APPROVED REPORT Date of service: 04/27/2018 EKG Measurement Heart [id number] <Conclusion> Sinus tachycardia with occasional premature ventricular complexes Low voltage QRS Cannot rule out Anterior infarct, age undetermined Abnormal ECG
[2018-04-29] MEDS: Insulin Regular 100 units/ml SC SCH ×2 (18:42→22:28)
[2018-04-29] MEDS: Multivitamin With Minerals Tab PO SCH (18:43)
--- NOTE | 2018-04-29 18:48 | CP.PCM.PN ---
Subjective - Date & Time of Evaluation Date of Evaluation: 04/29/18 Time of Evaluation: 12:00 - Subjective Subjective: F/U AMS AO X 2, Patient states wants to sign AMA, 1:1 was DC Objective - Vital Signs/Intake and Output Vital Signs (last 24 hours): Temp Pulse Resp BP Pulse Ox 97.6 F 99 H 20 116/77 96 04/29/18 15:36 04/29/18 15:36 04/29/18 15:36 04/29/18 15:36 04/29/18 15:36 Intake and Output: 04/29/18 04/29/18 06:59 18:59 Intake Total 1200 Balance 1200 - Medications Medications: Current Medications Chlordiazepoxide (Librium) 25 mg PO Q4H PRN PRN Reason: Withdrawl Dextrose (Dextrose 50% Inj) 0 ml IV STAT PRN; Protocol PRN Reason: Hypoglycemia Protocol Dextrose (Glutose 15) 0 gm PO ONCE PRN; Protocol PRN Reason: Hypoglycemia Protocol Folic Acid (Folic Acid) 1 mg PO DAILY REPLACED BY [facility] Last Admin: 04/29/18 18:41 Dose: 1 mg Glucagon (Glucagen Diagnostic Kit) 0 mg IM STAT PRN; Protocol PRN Reason: Hypoglycemia Protocol Insulin Human Regular (Humulin R) 0 units SC ACHS [facility]HEMI PRN Reason: Protocol Last Admin: 04/29/18 18:42 Dose: 1 units Lactulose (Enulose) 20 gm PO QID REPLACED BY [facility] Last Admin: 04/29/18 18:40 Dose: Not Given Morphine Sulfate (Morphine) 4 mg IVP Q4 PRN PRN Reason: Pain, severe (8-10) Multivitamins/Minerals (Therapeutic-M Tab) 1 tab PO DAILY REPLACED BY [facility] Last Admin: 04/29/18 18:43 Dose: 1 tab Rifaximin (Xifaxan) 550 mg PO BID [facility] PRN Reason: Protocol Last Admin: 04/29/18 18:44 Dose: 550 mg Thiamine HCl (Vitamin B1 Tab) 100 mg PO DAILY REPLACED BY [facility] Last Admin: 04/29/18 18:43 Dose: 100 mg - Labs Labs: 04/28/18 07:50 04/28/18 22:40 PT 12.4 Seconds (9.8-13.1) 04/27/18 17:39 INR 1.1 (0.9-1.2) 04/27/18 17:39 APTT 28.1 Seconds (25.6-37.1) 04/27/18 17:39 - Constitutional Appears: No Acute Distress, Other (Generalized edema 2+ non pitting.) - Head Exam Head Exam: NORMAL INSPECTION - Eye Exam Eye Exam: PERRL - ENT Exam ENT Exam: Normal Exam - Neck Exam Neck Exam: Normal Inspection - Respiratory Exam Respiratory Exam: NORMAL BREATHING PATTERN - Cardiovascular Exam Cardiovascular Exam: REGULAR RHYTHM - GI/Abdominal Exam GI & Abdominal Exam: Soft, Normal Bowel Sounds - Extremities Exam Additional comments: B/L BKA - Back Exam Additional comments: Sacral decubitus ulcer/ DTI - Neurological Exam Neurological Exam: Awake Additional comments: Ox1, Confused, forgetful, generalized weakness - Skin Skin Exam: Warm Additional comments: Jaundice. Assessment and Plan (1) Altered mental status, unspecified Status: Acute (2) Alcohol abuse Status: Chronic (3) Opioid dependence Status: Chronic (4) Sacral decubitus ulcer, stage II Status: Acute (5) Hx of cirrhosis Status: Chronic (6) S/P BKA (below knee amputation) bilateral Status: Chronic (7) Hyperglycemia Status: Acute (8) DMII (diabetes mellitus, type 2) Status: Chronic (9) History of pacemaker Status: Chronic - Assessment and Plan (Free Text) Plan: no IV access as reported by Nurse, refused PICC line, Rifaxan added by GI, continue Librium, Lactulose, Morphine, folic acid, Thiamine, and rest of treatment, f/u [facility] , Hgb A1C
[2018-04-30 06:11] LABS: HEMOGLOBIN 11.5 g/dL (12.0-18.0); MEAN CELL VOLUME 87.9 fl (80.0-94.0); MEAN CORPUSCULAR HEMOGLOBIN 28.7 pg (27.0-31.0); MEAN CORPUSCULAR HGB CONC 32.6 g/dL (33.0-37.0); RED CELL DISTRIBUTION WIDTH 19.7 % (11.5-14.5); WHITE BLOOD COUNT 9.5 K/uL (4.8-10.8)
[2018-04-30 06:23] LABS: BLOOD UREA NITROGEN 14 mg/dl (9-20); CALCIUM 8.2 mg/dL (8.4-10.2); GFR AFRICAN-AMERICAN > 60; GFR NON-AFRICAN AMERICAN > 60
--- NOTE | 2018-04-30 11:21 | CP.PCM.PN ---
Subjective - Date & Time of Evaluation Date of Evaluation: 04/30/18 Time of Evaluation: 11:00 - Subjective Subjective: I had an extensive discussion with the patient yesterday. He's a long-time patient at the pain clinic. According to his sister, patient is non-compliant with his medications and continues to consume EtOH despite being on high dose opioids. Patient had denied these accusations from his families to me in the past, and he hadn't exhibited any self-destructive behaviors before. However, over the phone, patient's sister was adamant that he abuses his pain medications at home as well as EtOH. His home regimen had been MS contin 100mg q8h and Roxicodone 30mg, 5 tablets per day, along with Neurontin 1200mg q8h. Tox screens as outpatient didn't show EtOH, but family members did discuss with me over the years of his EtOH use. Prior to this admission for overdose, he had been following up with me regularly, without coming in early for early refills, except for when he's been hospitalized. His pain conditions include cervical and lumbar radiculopathy from severe spinal stenosis, bilateral LE stump and phantom pain, and prior to amputations ischemic leg pain. Objective - Vital Signs/Intake and Output Vital Signs (last 24 hours): Temp Pulse Resp BP Pulse Ox 98.3 F 110 H 20 110/66 95 04/30/18 08:29 04/30/18 08:29 04/30/18 08:29 04/30/18 08:29 04/30/18 08:29 - Medications Medications: Current Medications Chlordiazepoxide (Librium) 25 mg PO Q4H PRN PRN Reason: Withdrawl Dextrose (Dextrose 50% Inj) 0 ml IV STAT PRN; Protocol PRN Reason: Hypoglycemia Protocol Dextrose (Glutose 15) 0 gm PO ONCE PRN; Protocol PRN Reason: Hypoglycemia Protocol Folic Acid (Folic Acid) 1 mg PO DAILY [facility] Last Admin: 04/29/18 18:41 Dose: 1 mg Glucagon (Glucagen Diagnostic Kit) 0 mg IM STAT PRN; Protocol PRN Reason: Hypoglycemia Protocol Insulin Human Regular (Humulin R) 0 units SC ACHS [facility] PRN Reason: Protocol Last Admin: 04/29/18 22:28 Dose: Not Given Lactulose (Enulose) 20 gm PO QID [facility] Last Admin: 04/29/18 22:28 Dose: 20 gm Morphine Sulfate (Morphine) 4 mg IVP Q4 PRN PRN Reason: Pain, severe (8-10) Multivitamins/Minerals (Therapeutic-M Tab) 1 tab PO DAILY [facility] Last Admin: 04/29/18 18:43 Dose: 1 tab Rifaximin (Xifaxan) 550 mg PO BID NOHEMI PRN Reason: Protocol Last Admin: 04/29/18 18:44 Dose: 550 mg Thiamine HCl (Vitamin B1 Tab) 100 mg PO DAILY [facility] Last Admin: 04/29/18 18:43 Dose: 100 mg - Labs Labs: 04/30/18 05:00 04/30/18 05:00 PT 12.4 Seconds (9.8-13.1) 04/27/18 17:39 INR 1.1 (0.9-1.2) 04/27/18 17:39 APTT 28.1 Seconds (25.6-37.1) 04/27/18 17:39 - Constitutional Appears: No Acute Distress, Unkempt, Older Than Stated Age Assessment and Plan (1) Altered mental status, unspecified Assessment & Plan: 58 yo man w/ multiple medical problems with chronic pain, non-compliant with pain medications. I have informed the patient that I can no longer see him as an outpatient for pain management. His only options at this time would be placement in half-way where pain medication can be administered in a controlled setting or detox program and continual outpatient follow-up with non- opioid treatment. - psych f/u - strongly recommend half-way placement - I can no longer management patient's pain as an outpatient as he has been non- compliant with my treatment Status: Acute
[2018-04-30] MEDS: Insulin Regular 100 units/ml SC SCH ×4 (12:19→22:00)
[2018-04-30 12:21] LABS: HEPATITIS B SURFACE AG Negative (NEGATIVE)
[2018-04-30] MEDS: Multivitamin With Minerals Tab PO SCH (12:22)
[2018-04-30 12:27] LABS: HEPATITIS A IGM NEGATIVE (NEGATIVE); HEPATITIS B CORE AB NEGATIVE (NEGATIVE)
[2018-04-30 12:58] LABS: HEPATITIS C ANTIBODY REACTIVE (NEGATIVE)
--- NOTE | 2018-04-30 15:25 | CP.PCM.PN ---
Subjective - Date & Time of Evaluation Date of Evaluation: 04/30/18 Time of Evaluation: 10:40 - Subjective Subjective: F/U AMS refusing medications, denies pain Objective - Vital Signs/Intake and Output Vital Signs (last 24 hours): Temp Pulse Resp BP Pulse Ox 98.3 F 115 H 20 121/80 96 04/30/18 13:01 04/30/18 13:01 04/30/18 13:01 04/30/18 13:01 04/30/18 13:01 - Medications Medications: Current Medications Chlordiazepoxide (Librium) 25 mg PO Q4H PRN PRN Reason: Withdrawl Dextrose (Dextrose 50% Inj) 0 ml IV STAT PRN; Protocol PRN Reason: Hypoglycemia Protocol Dextrose (Glutose 15) 0 gm PO ONCE PRN; Protocol PRN Reason: Hypoglycemia Protocol Folic Acid (Folic Acid) 1 mg PO DAILY [facility] Last Admin: 04/30/18 12:23 Dose: 1 mg Glucagon (Glucagen Diagnostic Kit) 0 mg IM STAT PRN; Protocol PRN Reason: Hypoglycemia Protocol Insulin Human Regular (Humulin R) 0 units SC ACHS [facility] PRN Reason: Protocol Last Admin: 04/30/18 12:20 Dose: Not Given Lactulose (Enulose) 20 gm PO QID [facility] Last Admin: 04/30/18 12:45 Dose: Not Given Morphine Sulfate (Morphine) 4 mg IVP Q4 PRN PRN Reason: Pain, severe (8-10) Multivitamins/Minerals (Therapeutic-M Tab) 1 tab PO DAILY [facility] Last Admin: 04/30/18 12:22 Dose: 1 tab Rifaximin (Xifaxan) 550 mg PO BID [facility] PRN Reason: Protocol Last Admin: 04/30/18 12:21 Dose: 550 mg Thiamine HCl (Vitamin B1 Tab) 100 mg PO DAILY [facility] Last Admin: 04/30/18 12:22 Dose: 100 mg - Labs Labs: 04/30/18 05:00 04/30/18 05:00 PT 12.4 Seconds (9.8-13.1) 04/27/18 17:39 INR 1.1 (0.9-1.2) 04/27/18 17:39 APTT 28.1 Seconds (25.6-37.1) 04/27/18 17:39 - Constitutional Appears: No Acute Distress - Head Exam Head Exam: NORMAL INSPECTION - Eye Exam Eye Exam: PERRL - ENT Exam ENT Exam: Normal Oropharynx - Neck Exam Neck Exam: Normal Inspection - Respiratory Exam Respiratory Exam: NORMAL BREATHING PATTERN - Cardiovascular Exam Cardiovascular Exam: REGULAR RHYTHM - GI/Abdominal Exam GI & Abdominal Exam: Soft, Normal Bowel Sounds - Extremities Exam Additional comments: B/L BKA, edema - Back Exam Additional comments: Sacral decubitus ulcer/ DTI - Neurological Exam Neurological Exam: Alert Additional comments: Ox1, confused, gerneralized weakness - Psychiatric Exam Psychiatric exam: Anxious - Skin Skin Exam: Warm Assessment and Plan (1) Altered mental status, unspecified Status: Acute (2) Alcohol abuse Status: Chronic (3) Opioid dependence Status: Chronic (4) Sacral decubitus ulcer, stage II Status: Acute (5) Hx of cirrhosis Status: Chronic (6) S/P BKA (below knee amputation) bilateral Status: Chronic (7) Hyperglycemia Status: Acute (8) DMII (diabetes mellitus, type 2) Status: Chronic (9) History of pacemaker Status: Chronic (10) Hepatitis C Status: Chronic (11) Liver cirrhosis Status: Acute (12) Pneumonia Status: Acute - Assessment and Plan (Free Text) Plan: CT Chest PNA, Patient is refusing medications, Social Service for [facility] placement
--- NOTE | 2018-04-30 17:52 | CT ---
Date of service: 04/30/2018 PROCEDURE: CT Chest without contrast HISTORY: Left basilar dense opasity/AMS COMPARISON: Prior chest x-ray dated 03/28/2018 TECHNIQUE: Contiguous axial images were obtained through the chest without intravenous contrast enhancement. Sagittal and coronal reconstructions were performed. Radiation dose (DLP): 494.9 mGy-cm. This CT exam was performed using one or more of the following dose reduction techniques: Automated exposure control, adjustment of the mA and/or kV according to patient size, and/or use of iterative reconstruction technique. FINDINGS: LUNGS: Partial atelectasis of the left lower lobe due to pleural effusion. Airspace consolidation associated with bronchiectasis at the superior segment of the left lower lobe may represent a pneumonia aspiration or neoplasm. There is 9 millimeter nodule at the right lung upper lobe/or right apex. MEDIASTINUM: Unremarkable thoracic aorta. No aneurysm. Normal sized heart. Main pulmonary artery is mildly enlarged. Mild pulmonary vascular congestion is noted. Mildly enlarged pre maryellen and AP window lymph nodes noted. Diffuse esophageal mucosal thickening and mild dilate a wilks is noted. PLEURA: There is moderate to large left pleural effusion. BONES: No fracture. No destructive lesion. Status post sternotomy. UPPER ABDOMEN: CT of the abdomen and pelvis was obtained concurrently and reported separately. Ascites OTHER FINDINGS: None. IMPRESSION: Mass like airspace consolidation noted at the left lung lower lobe may represent a pneumonia versus neoplasm or atelectasis. [id number] left pleural effusion. Mild pulmonary vascular congestion. 9 millimeter nodule at the right lung apex.
--- NOTE | 2018-04-30 17:59 | CT ---
Date of service: 04/30/2018 PROCEDURE: CT Abdomen and Pelvis with Oral contrast. HISTORY: abd pain hepatic encephalopathy COMPARISON: None. TECHNIQUE: Contiguous axial images of the abdomen and pelvis. Oral contrast was administered. No IV contrast given. Coronal and Sagittal reformats generated. Radiation dose: Total exam DLP = 963.7 mGy-cm. This CT exam was performed using one or more of the following dose reduction techniques: Automated exposure control, adjustment of the mA and/or kV according to patient size, and/or use of iterative reconstruction technique. FINDINGS: LOWER THORAX: Left pleural effusion and left lower lobe consolidation are noted. CT of the chest was obtained concurrently and reported separately. LIVER: Cirrhotic manifestation of the liver are noted. Suspicious for slightly low-attenuation mass lesion at the peripheral portion of the right liver lobe best seen on image 52 series 3 measures 5.6 x 2.9 centimeter. The possibility of malignant neoplasm of the liver should be considered. GALLBLADDER AND BILE DUCTS: Mild gallbladder wall thickening. PANCREAS: Unremarkable. No mass. No ductal dilatation. SPLEEN: Unremarkable. No splenomegaly. ADRENALS: Unremarkable. KIDNEYS AND URETERS: Unremarkable. No stone or hydronephrosis. BLADDER: Grossly unremarkable. REPRODUCTIVE: Unremarkable. APPENDIX: Unremarkable. BOWEL: Unremarkable. No obstruction. No gross mural thickening. PERITONEUM: Large ascites is noted in the lower abdomen and pelvis. No evidence of free air. LYMPH NODES: Unremarkable. No enlarged lymph nodes. VASCULATURE: IVC filter is seen in place. . No aortic aneurysm. BONES: No fracture or destructive lesion. OTHER FINDINGS: None. IMPRESSION: Cirrhotic manifestation of the liver. Suspicious for right lower lobe mass. Further assessment by ultrasound and or MRI is suggested. The possibility of malignant neoplasm of the liver should be excluded. [id number] ascites in the abdomen and pelvis. [id number] anasarca.
[2018-05-01] MEDS: Insulin Regular 100 units/ml SC SCH ×4 (09:11→22:00)
[2018-05-01] MEDS: Multivitamin With Minerals Tab PO SCH (09:14)
--- NOTE | 2018-05-01 13:44 | PQF ---
PROVIDER RESPONSE TEXT: Secondary to delirium and opioid abuse REVIEWER QUERY TEXT: Altered Mental Status - Underlying Cause A mental status change is documented in the Medical Record. Please specify the underlying cause : if known after the work up is completed Such as: -- Due to medication -- Cardiac condition: please specify diagnosis -- Electrolyte/metabolic imbalance -- Infectious process:please specify diagnosis -- Neurologic condition; please specify diagnosis -- Psychiatric condition: please specify diagnosis -- Respiratory condition: please specify diagnosis H and P: - Altered mental status, unspecified Status: Acute - Alcohol abuse Status: Chronic - Opioid dependence Status: Chronic - Sacral decubitus ulcer, stage II Status: Acute - Hx of cirrhosis Status: Chronic - S/P BKA (below knee amputation) bilateral Status: Chronic - Hyperglycemia Status: Acute - DMII (diabetes mellitus, type 2) Status: Chronic - Hx of pacemaker Status: Chronic ER note: Spoke to sister on the phone who alluded to patient's alcohol dependencies and also expresse d concern of aggressive opioid use since discharge. Impression: Altered mental status, unspecified, At risk for sepsis, Pneumonia, Cellulitis of back, Sa cral decubitus ulcer, stage II, Dehydration, Cirrhosis, Alcohol abuse, Opioid dependence 04/28 Psych: Assess;delirium ,opiate abuse ,alcohol abuse Plan: pt was vague when asked if the overdos e was accidental or on purpose patient needs to be placed on 1:1 for safety 04/28 GI: admitted with lethargy, change in mental status;Unfortunately we do not have a urine toxico logy as yet, but I suspect that his change in mental status is probably from opioid, particularly sin ce yesterday, the sister and a friend who have been with him stated he was taking significant amount of opioids over the last 24 hours or so In terms of his liver disease, he probably has ascites 04/29 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
--- NOTE | 2018-05-01 13:58 | PQF ---
PROVIDER RESPONSE TEXT: Pneumonia. POA, documented follow up Ct scan chest REVIEWER QUERY TEXT: Clarification of Clinical Diagnostic Findings In agreement with the following diagnoses as documented in the ER record: 1.Pneumonia and 2. Cellulitus of the back and 3. At risk for Sepsis as documented in the ER record OR: Ruled out ? WBC: 12.2->12.9->9.5 left shift Pulse:128->122->123->123->119->126->.124->127 Bld cultures x 2: prelim. no growth after 48 hrs CXR; Impression: Left basilar dense curvilinear opacity. Hazy change involving the mid/ lower left josette ng. OR: Disagree ER: Clinical Impression: Altered mental status, unspecified, At risk for sepsis, Pneumonia, Celluliti s of back, Sacral decubitus ulcer, stage II, Dehydration, Cirrhosis, Alcohol abuse, Opioid dependence H and P: - Altered mental status, unspecified Status: Acute - Alcohol abuse Status: Chronic - Opioid dependence Status: Chronic - Sacral decubitus ulcer, stage II Status: Acute - Hx of cirrhosis Status: Chronic - S/P BKA (below knee amputation) bilateral Status: Chronic - Hyperglycemia Status: Acute - DMII (diabetes mellitus, type 2) Status: Chronic - Hx of pacemaker Status: Chronic vanco and piperacillin D/Matt, xifaxan po BID The patient's Clinical Indicators include: xx Query created by: Judy Garcia on 04/30/2018 10:40 AM Electronically signed by: Cristopher Ahuja MD 05/01/2018 1:55 PM
--- NOTE | 2018-05-01 15:14 | CP.PCM.PN ---
Subjective - Date & Time of Evaluation Date of Evaluation: 05/01/18 Time of Evaluation: 13:55 - Subjective Subjective: F/U AMS. Pt refusing all medications and Tx. Objective - Vital Signs/Intake and Output Vital Signs (last 24 hours): Temp Pulse Resp BP Pulse Ox 97.9 F 107 H 18 109/77 98 05/01/18 12:37 05/01/18 12:37 05/01/18 12:37 05/01/18 12:37 05/01/18 12:37 - Medications Medications: Current Medications Chlordiazepoxide (Librium) 25 mg PO Q4H PRN PRN Reason: Withdrawl Dextrose (Dextrose 50% Inj) 0 ml IV STAT PRN; Protocol PRN Reason: Hypoglycemia Protocol Dextrose (Glutose 15) 0 gm PO ONCE PRN; Protocol PRN Reason: Hypoglycemia Protocol Folic Acid (Folic Acid) 1 mg PO DAILY [facility] Last Admin: 05/01/18 14:51 Dose: Not Given Glucagon (Glucagen Diagnostic Kit) 0 mg IM STAT PRN; Protocol PRN Reason: Hypoglycemia Protocol Clindamycin in NS (Clindamycin 300 Mg/50 Ml-Ns) 300 mg in 50 mls @ 50 mls/hr IVPB Q8 [facility] PRN Reason: Protocol Piperacillin Sod/Tazobactam (Sod 3.375 gm/ Sodium Chloride) 100 mls @ 100 mls/ hr IVPB Q8 [facility] PRN Reason: Protocol Insulin Human Regular (Humulin R) 0 units SC ACHS [facility] PRN Reason: Protocol Last Admin: 05/01/18 14:51 Dose: Not Given Lactulose (Enulose) 20 gm PO QID [facility] Last Admin: 05/01/18 14:51 Dose: Not Given Multivitamins/Minerals (Therapeutic-M Tab) 1 tab PO DAILY [facility] Last Admin: 05/01/18 09:14 Dose: 1 tab Rifaximin (Xifaxan) 550 mg PO BID [facility] PRN Reason: Protocol Last Admin: 05/01/18 09:14 Dose: 550 mg Thiamine HCl (Vitamin B1 Tab) 100 mg PO DAILY [facility] Last Admin: 05/01/18 09:14 Dose: 100 mg - Labs Labs: 04/30/18 05:00 04/30/18 05:00 PT 12.4 Seconds (9.8-13.1) 04/27/18 17:39 INR 1.1 (0.9-1.2) 04/27/18 17:39 APTT 28.1 Seconds (25.6-37.1) 04/27/18 17:39 - Constitutional Appears: No Acute Distress - Head Exam Head Exam: NORMAL INSPECTION - Eye Exam Eye Exam: PERRL - ENT Exam ENT Exam: Normal Oropharynx - Neck Exam Neck Exam: Normal Inspection - Respiratory Exam Respiratory Exam: NORMAL BREATHING PATTERN - Cardiovascular Exam Cardiovascular Exam: REGULAR RHYTHM - GI/Abdominal Exam GI & Abdominal Exam: Soft, Normal Bowel Sounds - Extremities Exam Additional comments: B/L BKA, edema - Back Exam Additional comments: Sacral decubitus ulcer/DTI - Neurological Exam Neurological Exam: Alert Additional comments: Ox1, confused, forgetful, generalized weakness - Psychiatric Exam Psychiatric exam: Anxious - Skin Skin Exam: Warm Assessment and Plan (1) Altered mental status, unspecified Status: Acute (2) Alcohol abuse Status: Chronic (3) Opioid dependence Status: Chronic (4) Sacral decubitus ulcer, stage II Status: Acute (5) Hx of cirrhosis Status: Chronic (6) S/P BKA (below knee amputation) bilateral Status: Chronic (7) Hyperglycemia Status: Acute (8) DMII (diabetes mellitus, type 2) Status: Chronic (9) History of pacemaker Status: Chronic (10) Hepatitis C Status: Chronic (11) Liver cirrhosis Status: Acute (12) Pneumonia Status: Acute - Assessment and Plan (Free Text) Plan: Continue all Tx, Social Service working for detention placement.
[2018-05-01] MEDS: Piperacillin/Tazobact 3.375 GM in Sodium Chloride 0.9% 100 ML IVPB SCH (18:02)
[2018-05-01] MEDS: Clindamycin in NS 300 MG/50 ML BAG IVPB SCH (18:02)
[2018-05-02] MEDS: Clindamycin in NS 300 MG/50 ML BAG IVPB SCH ×3 (00:02→16:52)
[2018-05-02] MEDS: Piperacillin/Tazobact 3.375 GM in Sodium Chloride 0.9% 100 ML IVPB SCH ×3 (00:02→16:56)
[2018-05-02] MEDS: Proshield Plus GEL TOP SCH ×3 (01:38→16:54)
[2018-05-02] MEDS: Insulin Regular 100 units/ml SC SCH ×4 (06:34→21:40)
[2018-05-02] MEDS: Multivitamin With Minerals Tab PO SCH (15:03)
--- NOTE | 2018-05-02 16:22 | CP.PCM.PN ---
Subjective - Date & Time of Evaluation Date of Evaluation: 05/02/18 Time of Evaluation: 11:50 - Subjective Subjective: F/U AMS Pt awake, oriented x1, keeps saying he wants to go home. Objective - Vital Signs/Intake and Output Vital Signs (last 24 hours): Temp Pulse Resp BP Pulse Ox 98 F 104 H 20 117/81 96 05/02/18 15:35 05/02/18 15:35 05/02/18 15:35 05/02/18 15:35 05/02/18 15:35 - Medications Medications: Current Medications Dextrose (Dextrose 50% Inj) 0 ml IV STAT PRN; Protocol PRN Reason: Hypoglycemia Protocol Dextrose (Glutose 15) 0 gm PO ONCE PRN; Protocol PRN Reason: Hypoglycemia Protocol Dimethicone (Proshield Plus Skin Protectant) 1 applic TOP Q8 [facility] Last Admin: 05/02/18 15:05 Dose: 1 applic Folic Acid (Folic Acid) 1 mg PO DAILY [facility] Last Admin: 05/02/18 15:03 Dose: Not Given Glucagon (Glucagen Diagnostic Kit) 0 mg IM STAT PRN; Protocol PRN Reason: Hypoglycemia Protocol Clindamycin in NS (Clindamycin 300 Mg/50 Ml-Ns) 300 mg in 50 mls @ 50 mls/hr IVPB Q8 [facility]HE[facility] PRN Reason: Protocol Last Admin: 05/02/18 15:02 Dose: Not Given Piperacillin Sod/Tazobactam (Sod 3.375 gm/ Sodium Chloride) 100 mls @ 100 mls/ hr IVPB Q8 [facility] PRN Reason: Protocol Last Admin: 05/02/18 15:04 Dose: Not Given Insulin Human Regular (Humulin R) 0 units SC ACHS [facility] PRN Reason: Protocol Last Admin: 05/02/18 15:03 Dose: Not Given Lactulose (Enulose) 20 gm PO QID [facility] Last Admin: 05/02/18 15:02 Dose: Not Given Multivitamins/Minerals (Therapeutic-M Tab) 1 tab PO DAILY [facility] Last Admin: 05/02/18 15:03 Dose: Not Given Rifaximin (Xifaxan) 550 mg PO BID [facility] PRN Reason: Protocol Last Admin: 05/02/18 15:04 Dose: Not Given Thiamine HCl (Vitamin B1 Tab) 100 mg PO DAILY [facility] Last Admin: 05/02/18 15:04 Dose: Not Given - Labs Labs: 04/30/18 05:00 04/30/18 05:00 PT 12.4 Seconds (9.8-13.1) 04/27/18 17:39 INR 1.1 (0.9-1.2) 04/27/18 17:39 APTT 28.1 Seconds (25.6-37.1) 04/27/18 17:39 - Constitutional Appears: No Acute Distress - Head Exam Head Exam: NORMAL INSPECTION - Eye Exam Eye Exam: PERRL - ENT Exam ENT Exam: Normal Oropharynx - Neck Exam Neck Exam: Normal Inspection - Respiratory Exam Respiratory Exam: Clear to Ausculation Bilateral - Cardiovascular Exam Cardiovascular Exam: REGULAR RHYTHM - GI/Abdominal Exam GI & Abdominal Exam: Soft, Normal Bowel Sounds - Extremities Exam Additional comments: B/L BKA, edema - Back Exam Additional comments: Sacral decubitus ulcer/DTI - Neurological Exam Neurological Exam: Alert, Awake Additional comments: Ox1, confused, generalized weakness. - Psychiatric Exam Psychiatric exam: Anxious - Skin Skin Exam: Warm Assessment and Plan (1) Altered mental status, unspecified Status: Acute (2) Alcohol abuse Status: Chronic (3) Opioid dependence Status: Chronic (4) Sacral decubitus ulcer, stage II Status: Acute (5) Hx of cirrhosis Status: Chronic (6) S/P BKA (below knee amputation) bilateral Status: Chronic (7) Hyperglycemia Status: Acute (8) DMII (diabetes mellitus, type 2) Status: Chronic (9) History of pacemaker Status: Chronic (10) Hepatitis C Status: Chronic (11) Liver cirrhosis Status: Acute (12) Pneumonia Status: Acute - Assessment and Plan (Free Text) Plan: Pt uncooperative, continue refusing medications and any type of procedure.
--- NOTE | 2018-05-02 16:29 | CP.PCM.PN ---
Subjective - Date & Time of Evaluation Date of Evaluation: 04/30/18 Time of Evaluation: 18:30 - Subjective Subjective: no overnight events Objective - Vital Signs/Intake and Output Vital Signs (last 24 hours): Temp Pulse Resp BP Pulse Ox 98 F 104 H 20 117/81 96 05/02/18 15:35 05/02/18 15:35 05/02/18 15:35 05/02/18 15:35 05/02/18 15:35 - Medications Medications: Current Medications Dextrose (Dextrose 50% Inj) 0 ml IV STAT PRN; Protocol PRN Reason: Hypoglycemia Protocol Dextrose (Glutose 15) 0 gm PO ONCE PRN; Protocol PRN Reason: Hypoglycemia Protocol Dimethicone (Proshield Plus Skin Protectant) 1 applic TOP Q8 [facility] Last Admin: 05/02/18 15:05 Dose: 1 applic Folic Acid (Folic Acid) 1 mg PO DAILY [facility] Last Admin: 05/02/18 15:03 Dose: Not Given Glucagon (Glucagen Diagnostic Kit) 0 mg IM STAT PRN; Protocol PRN Reason: Hypoglycemia Protocol Clindamycin in NS (Clindamycin 300 Mg/50 Ml-Ns) 300 mg in 50 mls @ 50 mls/hr IVPB Q8 [facility] PRN Reason: Protocol Last Admin: 05/02/18 15:02 Dose: Not Given Piperacillin Sod/Tazobactam (Sod 3.375 gm/ Sodium Chloride) 100 mls @ 100 mls/ hr IVPB Q8 [facility] PRN Reason: Protocol Last Admin: 05/02/18 15:04 Dose: Not Given Insulin Human Regular (Humulin R) 0 units SC ACHS [facility] PRN Reason: Protocol Last Admin: 05/02/18 15:03 Dose: Not Given Lactulose (Enulose) 20 gm PO QID [facility] Last Admin: 05/02/18 15:02 Dose: Not Given Multivitamins/Minerals (Therapeutic-M Tab) 1 tab PO DAILY [facility] Last Admin: 05/02/18 15:03 Dose: Not Given Rifaximin (Xifaxan) 550 mg PO BID [facility] PRN Reason: Protocol Last Admin: 05/02/18 15:04 Dose: Not Given Thiamine HCl (Vitamin B1 Tab) 100 mg PO DAILY [facility] Last Admin: 05/02/18 15:04 Dose: Not Given - Labs Labs: 04/30/18 05:00 04/30/18 05:00 PT 12.4 Seconds (9.8-13.1) 04/27/18 17:39 INR 1.1 (0.9-1.2) 04/27/18 17:39 APTT 28.1 Seconds (25.6-37.1) 04/27/18 17:39 - ENT Exam ENT Exam: Normal Exam - Neck Exam Neck Exam: Normal Inspection - Respiratory Exam Respiratory Exam: Clear to Ausculation Bilateral, NORMAL BREATHING PATTERN - Cardiovascular Exam Cardiovascular Exam: REGULAR RHYTHM Assessment and Plan - Assessment and Plan (Free Text) Assessment: 48 yo male with mental status changes suspect HE liver imaging pending continue lactulose
[2018-05-03] MEDS: Proshield Plus GEL TOP SCH ×2 (00:31→10:17)
[2018-05-03] MEDS: Piperacillin/Tazobact 3.375 GM in Sodium Chloride 0.9% 100 ML IVPB SCH ×2 (01:30→10:18)
[2018-05-03] MEDS: Clindamycin in NS 300 MG/50 ML BAG IVPB SCH ×2 (01:30→10:17)
[2018-05-03] MEDS: Insulin Regular 100 units/ml SC SCH (06:50)
[2018-05-03] MEDS: Multivitamin With Minerals Tab PO SCH (10:17)
[2018-05-03 13:30] VITALS: RESP 18
[2018-05-03 15:42] VITALS: BP 102/71; PULSE 114; TEMP 97.9; O2SAT 98
--- NOTE | 2018-05-03 16:00 | CP.PCM.CON ---
History of Present Illness - History of Present Illness History of Present Illness: follow up consult requested as pt has been refusing care pt has been evaluated prior by psychiatry and found not to have capacity to make decision in reference to medical treatment pt on evaluation awake and alert , pt however has trouble to concentrate on conversation. oriented to person only not oriented to place, and when asked about season, reported it is fall time pt responded that he is currently in an elevator and needs to be escorted to his bed room, speech at times irrelevant and thought process not goal directed pt irritable, and anxious, denied suicidal or homicidal ideation denied perceptual disturbances Past Patient History - Past Social History Smoking Status: Former Smoker Alcohol: Other (Patient denies, family states he does drink) Drugs: Denies Home Situation {Lives}: Alone - CARDIAC Hx Cardiac Disorders: Yes Hx Pacemaker: Yes - PULMONARY Hx Respiratory Disorders: Yes Hx Asthma: Yes - NEUROLOGICAL Hx Neurological Disorder: Yes Hx Dizziness: Yes - HEENT Hx HEENT Problems: No - RENAL Hx Chronic Kidney Disease: No - ENDOCRINE/METABOLIC Hx Endocrine Disorders: Yes Hx Diabetes Mellitus Type 2: Yes - HEMATOLOGICAL/ONCOLOGICAL Hx Blood Disorders: Yes Hx Cirrhosis: Yes - MUSCULOSKELETAL/RHEUMATOLOGICAL Hx Musculoskeletal Disorders: Yes Hx Back Pain: Yes Hx Falls: Yes (in the past) Hx Herniated Disk: Yes - GASTROINTESTINAL Hx Gastrointestinal Disorders: Yes - GENITOURINARY/GYNECOLOGICAL Hx Genitourinary Disorders: Yes Hx Incontinence: Yes - PSYCHIATRIC Hx Psychophysiologic Disorder: Yes Hx Anxiety: Yes Hx Depression: Yes - SURGICAL HISTORY Hx Surgeries: Yes Other/Comment: pacemaker, bka b/l - ANESTHESIA Hx Anesthesia: Yes Hx Anesthesia Reactions: No Hx Malignant Hyperthermia: No Has any member of the family had a problem w/ anesthesia?: No Meds Home Medications: Home Medication List Medication Instructions Recorded Confirmed Type Azithromycin [Zithromax] 500 mg PO DAILY #5 tablet 05/02/18 Rx Dimethicone [Proshield Plus Skin 1 applic TOP Q8 gel 05/02/18 Rx Protectant] Folic Acid 1 mg PO DAILY tab 05/02/18 Rx Insulin Human Regular [HumuLIN R] 0 units SC ACHS ml 05/02/18 Rx Lactulose [Enulose] 20 gm PO QID udc 05/02/18 Rx Multimineral/Multivitamin 1 tab PO DAILY tab 05/02/18 Rx [Therapeutic-M Tab] rifAXIMin [Xifaxan] 550 mg PO BID tab 05/02/18 Rx Allergies/Adverse Reactions: Allergies Allergy/AdvReac Type Severity Reaction Status Date / Time No Known Allergies Allergy Verified 04/27/18 16:51 - Medications Medications: Current Medications Dextrose (Dextrose 50% Inj) 0 ml IV STAT PRN; Protocol PRN Reason: Hypoglycemia Protocol Dextrose (Glutose 15) 0 gm PO ONCE PRN; Protocol PRN Reason: Hypoglycemia Protocol Dimethicone (Proshield Plus Skin Protectant) 1 applic TOP Q8 [facility] Last Admin: 05/03/18 10:17 Dose: Not Given Folic Acid (Folic Acid) 1 mg PO DAILY [facility] Last Admin: 05/03/18 10:17 Dose: Not Given Glucagon (Glucagen Diagnostic Kit) 0 mg IM STAT PRN; Protocol PRN Reason: Hypoglycemia Protocol Clindamycin in NS (Clindamycin 300 Mg/50 Ml-Ns) 300 mg in 50 mls @ 50 mls/hr IVPB Q8 [facility] PRN Reason: Protocol Last Admin: 05/03/18 10:17 Dose: Not Given Piperacillin Sod/Tazobactam (Sod 3.375 gm/ Sodium Chloride) 100 mls @ 100 mls/ hr IVPB Q8 [facility] PRN Reason: Protocol Last Admin: 05/03/18 10:18 Dose: Not Given Insulin Human Regular (Humulin R) 0 units SC ACHS [facility] PRN Reason: Protocol Last Admin: 05/03/18 06:50 Dose: Not Given Lactulose (Enulose) 20 gm PO QID [facility] Last Admin: 05/03/18 10:17 Dose: Not Given Multivitamins/Minerals (Therapeutic-M Tab) 1 tab PO DAILY [facility] Last Admin: 05/03/18 10:17 Dose: Not Given Rifaximin (Xifaxan) 550 mg PO BID [facility] PRN Reason: Protocol Last Admin: 05/03/18 10:18 Dose: Not Given Thiamine HCl (Vitamin B1 Tab) 100 mg PO DAILY [facility] Last Admin: 05/03/18 10:18 Dose: Not Given Results - Vital Signs Recent Vital Signs: Last Vital Signs Temp 97.9 F 05/03/18 08:05 Pulse 85 05/03/18 09:00 Resp 19 05/03/18 08:05 BP 113/78 05/03/18 08:05 Pulse Ox 98 05/03/18 08:05 - Labs Result Diagrams: 04/30/18 05:00 04/30/18 05:00 Labs: Laboratory Results - last 24 hr 05/02/18 05/02/18 05/03/18 16:13 21:03 05:05 POC Glucose (mg/dL) 93 94 75 05/03/18 05/03/18 05/03/18 06:38 11:23 12:36 POC Glucose (mg/dL) 89 77 83 Assessment & Plan - Assessment and Plan (Free Text) Assessment: mood disorder due to medical condition with depressive features rule out hypo active delirium 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
--- NOTE | 2018-05-03 19:20 | CP.PCM.DIS ---
Provider - Provider Date of Admission: 04/27/18 18:36 Attending physician: Cristopher Ahuja MD Diagnosis - Discharge Diagnosis (1) Altered mental status, unspecified Status: Acute Priority: High (2) Alcohol abuse Status: Chronic Priority: High (3) Opioid dependence Status: Chronic Priority: High (4) Sacral decubitus ulcer, stage II Status: Acute Priority: High (5) Hx of cirrhosis Status: Chronic Priority: High (6) S/P BKA (below knee amputation) bilateral Status: Chronic Priority: High (7) Hyperglycemia Status: Acute Priority: High (8) DMII (diabetes mellitus, type 2) Status: Chronic Priority: High (9) History of pacemaker Status: Chronic Priority: High (10) Hepatitis C Status: Chronic (11) Liver cirrhosis Status: Acute (12) Pneumonia Status: Acute Hospital Course - Lab Results Lab Results: Micro Results 04/27/18 17:49 Blood Blood Culture - Final NO GROWTH AFTER 5 DAYS 04/27/18 17:49 Blood Gram Stain - Final TEST NOT PERFORMED 04/27/18 17:39 Blood Blood Culture - Final NO GROWTH AFTER 5 DAYS 04/27/18 17:39 Blood Gram Stain - Final TEST NOT PERFORMED Most Recent Lab Values WBC 9.5 K/uL (4.8-10.8) 04/30/18 05:00 RBC 4.00 Mil/uL (4.40-5.90) L 04/30/18 05:00 Hgb 11.5 g/dL (12.0-18.0) L 04/30/18 05:00 Hct 35.2 % (35.0-51.0) 04/30/18 05:00 MCV 87.9 fl (80.0-94.0) 04/30/18 05:00 MCH 28.7 pg (27.0-31.0) 04/30/18 05:00 MCHC 32.6 g/dL (33.0-37.0) L 04/30/18 05:00 RDW 19.7 % (11.5-14.5) H 04/30/18 05:00 Plt Count 296 K/uL (130-400) 04/30/18 05:00 MPV 8.2 fl (7.2-11.7) 04/27/18 17:39 Neut % (Auto) 75.9 % (50.0-75.0) H 04/27/18 17:39 Lymph % (Auto) 10.4 % (20.0-40.0) L 04/27/18 17:39 [place] % (Auto) 13.4 % (0.0-10.0) H 04/27/18 17:39 Eos % (Auto) 0.1 % (0.0-4.0) 04/27/18 17:39 Baso % (Auto) 0.2 % (0.0-2.0) 04/27/18 17:39 Neut # (Auto) 9.2 K/uL (1.8-7.0) H 04/27/18 17:39 Lymph # (Auto) 1.3 K/uL (1.0-4.3) 04/27/18 17:39 [place] # (Auto) 1.6 K/uL (0.0-0.8) H 04/27/18 17:39 Eos # (Auto) 0.0 K/uL (0.0-0.7) 04/27/18 17:39 Baso # (Auto) 0.0 K/uL (0.0-0.2) 04/27/18 17:39 PT 12.4 Seconds (9.8-13.1) 04/27/18 17:39 INR 1.1 (0.9-1.2) 04/27/18 17:39 APTT 28.1 Seconds (25.6-37.1) 04/27/18 17:39 pO2 24 mm/Hg (30-55) L 04/27/18 21:11 VBG pH 7.33 (7.32-7.43) 04/27/18 21:11 VBG pCO2 38 mmHg (40-60) L 04/27/18 21:11 VBG HCO3 19.1 mmol/L 04/27/18 21:11 VBG Total CO2 21.2 mmol/L (22-28) L 04/27/18 21:11 VBG O2 Sat (Calc) 31.6 % (40-65) L 04/27/18 21:11 VBG Base Excess -5.4 mmol/L (0.0-2.0) L 04/27/18 21:11 VBG Potassium 5.8 mmol/L (3.6-5.2) H 04/27/18 21:11 Sodium 138.0 mmol/L (132-148) 04/27/18 21:11 Chloride 107.0 mmol/L (98-107) 04/27/18 21:11 Glucose 142 mg/dL (75-110) H 04/27/18 21:11 Lactate 2.9 mmol/L (0.7-2.1) H 04/27/18 21:11 FiO2 21.0 % 04/27/18 21:11 Crit Value Called To Dr delilah partida 04/27/18 17:56 Crit Value Called By [id number] 04/27/18 17:56 Crit Value Read Back Y 04/27/18 17:56 Blood Gas Notified Time 18004/27/18 17:56 Sodium 146 mmol/l (132-148) 04/30/18 05:00 Potassium 3.4 MMOL/L (3.6-5.0) L 04/30/18 05:00 Chloride 112 mmol/L (98-107) H 04/30/18 05:00 Carbon Dioxide 24 mmol/L (22-30) 04/30/18 05:00 Anion Gap 13 (10-20) 04/30/18 05:00 BUN 14 mg/dl (9-20) 04/30/18 05:00 Creatinine 0.9 mg/dl (0.8-1.5) 04/30/18 05:00 Est GFR ( Amer) > 60 04/30/18 05:00 Est GFR (Non-Af Amer) > 60 04/30/18 05:00 POC Glucose (mg/dL) 82 mg/dL (65-110) 05/03/18 16:05 Random Glucose 129 mg/dL (75-110) H 04/30/18 05:00 Hemoglobin A1c 5.6 % (4.2-6.5) 04/30/18 05:00 Calcium 8.2 mg/dL (8.4-10.2) L 04/30/18 05:00 Total Bilirubin 0.9 mg/dl (0.2-1.3) 04/28/18 22:40 AST 43 U/L (17-59) 04/28/18 22:40 ALT 21 U/L (21-72) D 04/28/18 22:40 Alkaline Phosphatase 78 U/L (38-126) 04/28/18 22:40 Ammonia 15 umo/L (16-60) L D 04/28/18 07:50 Troponin I 0.0910 ng/mL (0.00-0.120) 04/27/18 17:39 NT-Pro-B Natriuret Pep 7390 pg/ml (0-900) H 04/27/18 17:39 Total Protein 6.7 G/DL (6.3-8.2) 04/28/18 22:40 Albumin 2.6 g/dL (3.5-5.0) L 04/28/18 22:40 Globulin 4.2 gm/dL (2.2-3.9) H 04/28/18 22:40 Albumin/Globulin Ratio 0.6 (1.0-2.1) L 04/28/18 22:40 Triglycerides 149 mg/DL (0-149) 04/28/18 07:50 Cholesterol 89 mg/dL (0-199) 04/28/18 07:50 LDL Cholesterol Direct 53 mg/dL (0-129) 04/28/18 07:50 HDL Cholesterol 15 MG/DL (30-70) L 04/28/18 07:50 Lipase 21 U/L (23-300) L 04/27/18 17:39 Carcinoembryonic Ag 53.8 ng/mL (0-3.0) H 04/30/18 05:00 Free T4 1.35 ng/dL (0.78-2.19) 04/30/18 05:00 Thyroxine (T4) 6.94 ug/dl (5.5-11.0) 04/28/18 07:50 Free T3 pg/mL 4.02 pg/mL (2.77-5.27) 04/30/18 05:00 TSH 3rd Generation 5.79 mIU/ML (0.46-4.68) H 04/28/18 07:50 Venous Blood Potassium 5.8 mmol/L (3.6-5.2) H 04/27/18 21:11 Alcohol, Quantitative < 10 mg/dl (0-10) 04/27/18 17:39 Thyroperoxidase Ab 1 IU/mL (<9) 04/30/18 05:00 Thyroglobulin Antibody <1 IU/mL (< OR = 1) 04/30/18 05:00 Hepatitis A IgM Ab Negative (NEGATIVE) 04/30/18 05:00 Hep Bs Antigen Negative (NEGATIVE) 04/30/18 05:00 Hep B Core IgM Ab Negative (NEGATIVE) 04/30/18 05:00 Hepatitis C Antibody Reactive (NEGATIVE) 04/30/18 05:00 Discharge Exam - Head Exam Head Exam: NORMAL INSPECTION Discharge Plan - Discharge Medications Prescriptions: Azithromycin [Zithromax] 500 mg PO DAILY #5 tablet - Follow Up Plan Condition: STABLE Disposition: REHAB FACILITY/REHAB UNIT Additional Instructions: pt. cleared for discharge to [facility] today by
== END 2018-05-03 16:45 | DRG 541 ==
LOC: H.ER 16:42 → H.ERHOLD 18:36 → H.TEL 21:51
PROVIDERS: ADMIT Internal Medicine Pulmonary Disease; ATTEND Internal Medicine Pulmonary Disease
DX: J18.9 Pneumonia, unspecified organism (principal); L89.152 Pressure ulcer of sacral region, stage 2; B18.2 Chronic viral hepatitis C; F11.20 Opioid dependence, uncomplicated; F06.31 Mood disorder due to known physiological condition with depressive features; K70.31 Alcoholic cirrhosis of liver with ascites; E11.51 Type 2 diabetes mellitus with diabetic peripheral angiopathy without gangrene; R32 Unspecified urinary incontinence; E11.65 Type 2 diabetes mellitus with hyperglycemia; F02.80 Dementia in other diseases classified elsewhere, unspecified severity, without behavioral disturbance, psychotic disturbance, mood disturbance, and anxiety; F10.20 Alcohol dependence, uncomplicated; G89.29 Other chronic pain; I25.10 Atherosclerotic heart disease of native coronary artery without angina pectoris; Z91.14 Patient's other noncompliance with medication regimen; Z95.0 Presence of cardiac pacemaker; Z95.1 Presence of aortocoronary bypass graft; Z89.611 Acquired absence of right leg above knee; Z89.612 Acquired absence of left leg above knee; Z87.891 Personal history of nicotine dependence; F32.9 Major depressive disorder, single episode, unspecified; F41.9 Anxiety disorder, unspecified

== ENCOUNTER 2018-08-22 07:34 | Emergency (ER) | payer OTHER ==
[2018-08-22 07:45] VITALS: RESP 18
[2018-08-22] MEDS ORDERED: Albuterol-Ipratrop 3 mg / 0.5 (3 ml) UD IH STA (07:53)
[2018-08-22] MEDS ORDERED: DiphenhydrAMINE 50 mg/ml Inj IM STA (07:54)
--- NOTE | 2018-08-22 07:59 | ED PDOC ---
HPI: General Adult Time Seen by Provider: 08/22/18 07:40 Chief Complaint (Provider): Cough, Chest Pain, Shortness of Breath History Per: Patient History/Exam Limitations: no limitations Onset/Duration Of Symptoms: Days (x2) Current Symptoms Are (Timing): Still Present Additional Complaint(s): Roni Garnica is a 58 year old male, with a PMHx of CAD, s/p CABG, COPD, diabetes, and s/p bilateral AKA, presenting for evaluation of a cough productive of yellow sputum associated with chest pain and shortness of breath x2 days. Patient reports his symptom began yesterday and states he's been using sublingual Nitro and inhalers with no improvement of symptoms. Past Medical History Reviewed: Historical Data, Nursing Documentation, Vital Signs Vital Signs: Last Vital Signs Temp 98.0 F 08/22/18 07:44 Pulse 119 H 08/22/18 07:44 Resp 18 08/22/18 07:44 BP 148/98 H 08/22/18 07:44 Pulse Ox 93 L 08/22/18 07:44 - Medical History PMH: Anxiety, Asthma, CAD, COPD, Depression, Diabetes, HTN, Chronic Pain Denies: Chronic Kidney Disease - Surgical History Surgical History: CABG, Pacemaker Other surgeries: Bilateral AKA - Family History Family History: States: Unknown Family Hx - Home Medications Home Medications: Ambulatory Orders Medication Instructions Recorded Azithromycin [Zithromax] 500 mg PO DAILY #5 tablet 05/02/18 Dimethicone [Proshield Plus Skin 1 applic TOP Q8 gel 05/02/18 Protectant] Folic Acid 1 mg PO DAILY tab 05/02/18 Insulin Human Regular [HumuLIN R] 0 units SC ACHS ml 05/02/18 Lactulose [Enulose] 20 gm PO QID udc 05/02/18 Multimineral/Multivitamin 1 tab PO DAILY tab 05/02/18 [Therapeutic-M Tab] rifAXIMin [Xifaxan] 550 mg PO BID tab 05/02/18 Amoxicillin/Potassium Clav 1 tab PO TID #30 tab 08/22/18 [Augmentin 500 mg-125 mg] Cetirizine HCl [Zyrtec] 10 mg PO DAILY #10 capsule 08/22/18 - Allergies Allergies/Adverse Reactions: Allergies Allergy/AdvReac Type Severity Reaction Status Date / Time No Known Allergies Allergy Verified 04/27/18 16:51 Review of Systems ROS Statement: Except As Marked, All Systems Reviewed And Found Negative Cardiovascular: Positive for: Chest Pain Respiratory: Positive for: Cough, Shortness of Breath, Sputum (yellow) Physical Exam - Reviewed Nursing Documentation Reviewed: Yes Vital Signs Reviewed: Yes - Physical Exam Appears: Positive for: Non-toxic, No Acute Distress Head Exam: Positive for: ATRAUMATIC, NORMAL INSPECTION, NORMOCEPHALIC Skin: Positive for: Normal Color, Warm, Dry. Negative for: Rash Eye Exam: Positive for: EOMI, Normal appearance, PERRL ENT: Positive for: Normal ENT Inspection Neck: Positive for: Normal, Painless ROM, Supple Cardiovascular/Chest: Positive for: Tachycardia Respiratory: Positive for: Rhonchi, Wheezing (bilateral expiratory wheezing) Gastrointestinal/Abdominal: Positive for: Normal Exam, Soft. Negative for: Tenderness Back: Positive for: Normal Inspection. Negative for: L CVA Tenderness, R CVA Tenderness, Vertebral Tenderness Extremity: Positive for: Deformity (bilateral AKA with putting edema and erythema at stump sites) Neurologic/Psych: Positive for: Alert, Oriented (c3). Negative for: Motor/Sensory Deficits - Laboratory Results Result Diagrams: 08/22/18 08:30 08/22/18 08:30 - ECG O2 Sat by Pulse Oximetry: 93 (RA) Medical Decision Making Medical Decision Makin Plan: -VBG Shock Panel -CMP -Troponin -Urine dip -CBC -CXR -Benadryl 50mg IM -Albuterol 3mL IH -Blood culture -Peak flow pre/post-treatment -Reevaluation Advised admission for pneumonia, hypoxia and tachycardia. Pt wishes to go home aware of risks including respiratory failure sepsis and Scribe Attestation: Documented by Zhou Curtis, acting as a scribe for Bartolo Quezada MD. Provider Scribe Attestation: All medical record entries made by the Scribe were at my direction and personally dictated by me. I have reviewed the chart and agree that the record accurately reflects my personal performance of the history, physical exam, medical decision making, and the department course for this patient. I have also personally directed, reviewed, and agree with the discharge instructions and disposition. Disposition - Clinical Impression Clinical Impression: Pneumonia - Patient ED Disposition Is Patient to be Admitted: No Counseled Patient/Family Regarding: Studies Performed, Diagnosis, Need For Followup, Rx Given - Disposition Referrals: [facility] [Outside] Disposition: Routine/Home Disposition Time: 10:36 Condition: FAIR Prescriptions: Amoxicillin/Potassium Clav [Augmentin 500 mg-125 mg] 1 tab PO TID #30 tab Cetirizine HCl [Zyrtec] 10 mg PO DAILY #10 capsule Instructions: Pneumonia in Adults
[2018-08-22] MEDS ORDERED: Albuterol-Ipratrop 3 mg / 0.5 (3 ml) UD ONE (08:03)
[2018-08-22] MEDS ORDERED: DiphenhydrAMINE 50 mg/ml Inj ONE (08:04)
[2018-08-22 08:42] LABS: VENOUS BLOOD GAS PCO2 48 mmHg (40-60); VENOUS BLOOD GAS PO2 53 mm/Hg (30-55); VENOUS BLOOD PH 7.36 (7.32-7.43)
[2018-08-22 08:54] LABS: BASO # 0.1 K/uL (0.0-0.2); BASO % 0.9 % (0.0-2.0); EOS % 0.4 % (0.0-4.0); HEMOGLOBIN 12.1 g/dL (12.0-18.0); LYMPH # 1.1 K/uL (1.0-4.3); LYMPH % 11.1 % (20.0-40.0); MEAN CELL VOLUME 89.7 fl (80.0-94.0); MEAN CORPUSCULAR HEMOGLOBIN 28.5 pg (27.0-31.0); MEAN CORPUSCULAR HGB CONC 31.8 g/dL (33.0-37.0); MEAN PLATELET VOLUME 8.2 fl (7.2-11.7); MONO # 0.7 K/uL (0.0-0.8); NEUT # 7.7 K/uL (1.8-7.0); NEUT % 80.6 % (50.0-75.0); NRBC % 0.1 % (0.0-0.0); RBC 4.25 Mil/uL (4.40-5.90); RED CELL DISTRIBUTION WIDTH 17.9 % (11.5-14.5); WHITE BLOOD COUNT 9.6 K/uL (4.8-10.8)
[2018-08-22 09:02] LABS: ALB/GLOB RATIO 0.8 (1.0-2.1); ALBUMIN 3.8 g/dL (3.5-5.0); ALT/SGPT 23 U/L (21-72); AST/SGOT 29 U/L (17-59); BLOOD UREA NITROGEN 11 mg/dl (9-20); CALCIUM 8.7 mg/dL (8.4-10.2); GFR NON-AFRICAN AMERICAN > 60
[2018-08-22] MEDS ORDERED: Piperacillin/Tazobact 3.375 GM in Sodium Chloride 0.9% 100 ML IVPB STA (09:53)
[2018-08-22] MEDS ORDERED: Sodium Chloride 0.9% 1,000 ML IV STA (09:54)
[2018-08-22] MEDS ORDERED: Piperacillin/Tazobact 3.375 gm Inj IVPB ONE (10:04)
[2018-08-22] MEDS ORDERED: Vancomycin 1 g Inj ONE (10:04)
--- NOTE | 2018-08-22 12:41 | RAD ---
Date of service: 08/22/2018 HISTORY: Cough. COMPARISON: 04/27/2018 FINDINGS: LUNGS: Progressive consolidative changes primarily affecting left lower lobe. PLEURA: Left pleural effusion inseparable from left lower lobe infiltrate. CARDIOVASCULAR: No atherosclerotic calcification present Cardiomegaly, median sternotomy changes. OSSEOUS STRUCTURES: No significant abnormalities. VISUALIZED UPPER ABDOMEN: Normal. OTHER FINDINGS: None. IMPRESSION: Worsening left lower lobe infiltrate/left pleural effusion.
[2018-08-22 13:37] VITALS: BP 127/76; PULSE 89; TEMP 98; O2SAT 97
== END 2018-08-22 13:25 | disposition home or self-care (01) ==
LOC: H.ER 07:34
DX: J18.9 Pneumonia, unspecified organism (principal); J44.0 Chronic obstructive pulmonary disease with (acute) lower respiratory infection; I10 Essential (primary) hypertension; E11.9 Type 2 diabetes mellitus without complications; Z86.59 Personal history of other mental and behavioral disorders; G89.29 Other chronic pain; Z89.611 Acquired absence of right leg above knee; Z95.0 Presence of cardiac pacemaker; Z95.1 Presence of aortocoronary bypass graft; Z89.612 Acquired absence of left leg above knee
CPT/HCPCS: 71045; 80053; 82803; 84484; 85025; 87040; 94640; 96372; 96374; 96375; 99283; J1200; J2543; J7030

== ENCOUNTER 2018-09-10 12:15 | Inpatient (IN) | payer OTHER ==
[2018-09-10] MEDS ORDERED: Morphine 4 MG/ML VIAL IV STA (13:25)
[2018-09-10] MEDS ORDERED: Morphine 4 MG/ML VIAL ONE ×2 (13:46→19:59)
[2018-09-10 13:52] LABS: VENOUS BLOOD GAS BASE EXCESS 0.5 mmol/L (0.0-2.0); VENOUS BLOOD GAS PCO2 41 mmHg (40-60); VENOUS BLOOD GAS PO2 35 mm/Hg (30-55)
[2018-09-10 13:54] LABS: BASO % 0.3 % (0.0-2.0); EOS % 0.1 % (0.0-4.0); HEMOGLOBIN 12.1 g/dL (12.0-18.0); LYMPH # 0.7 K/uL (1.0-4.3); LYMPH % 6.8 % (20.0-40.0); MEAN CELL VOLUME 88.4 fl (80.0-94.0); MEAN CORPUSCULAR HEMOGLOBIN 27.6 pg (27.0-31.0); MEAN CORPUSCULAR HGB CONC 31.3 g/dL (33.0-37.0); MEAN PLATELET VOLUME 8.5 fl (7.2-11.7); MONO # 0.5 K/uL (0.0-0.8); MONO % 5.2 % (0.0-10.0); NEUT # 8.4 K/uL (1.8-7.0); NEUT % 87.6 % (50.0-75.0); PLATELET COUNT 245 K/uL (130-400); RBC 4.39 Mil/uL (4.40-5.90); RED CELL DISTRIBUTION WIDTH 18.1 % (11.5-14.5); WHITE BLOOD COUNT 9.6 K/uL (4.8-10.8)
[2018-09-10 14:10] LABS: ALB/GLOB RATIO 0.8 (1.0-2.1); ALBUMIN 3.6 g/dL (3.5-5.0); ALT/SGPT 20 U/L (21-72); AST/SGOT 43 U/L (17-59); BLOOD UREA NITROGEN 13 mg/dl (9-20); CALCIUM 8.4 mg/dL (8.4-10.2); GFR NON-AFRICAN AMERICAN > 60; LIPASE 52 U/L (23-300)
[2018-09-10 14:11] LABS: INR 1.1; PROTHROMBIN TIME 12.9 Seconds (9.8-13.1)
[2018-09-10 14:19] LABS: B-TYPE NATRIURETIC PEPTIDE 13200 pg/ml (0-900)
--- NOTE | 2018-09-10 14:22 | ED PDOC ---
HPI: Chest Pain Time Seen by Provider: 09/10/18 12:31 Chief Complaint (Nursing): Chest Pain Chief Complaint (Provider): Chest pain, diffuse, abdominal swelling History Per: Patient History/Exam Limitations: no limitations Onset/Duration Of Symptoms: Days (began last night ) Additional Complaint(s): 58 yo male with CAD with open heart surgery, high cholesterol liver cirrhosis and DM with bilateral amputation presents with chest pain since last night. Pt denies cough. PT states he also Past Medical History Vital Signs: Last Vital Signs Temp 98.5 F 09/10/18 12:22 Pulse 109 H 09/10/18 12:22 Resp 17 09/10/18 12:22 BP 141/96 H 09/10/18 12:22 Pulse Ox 97 09/10/18 12:22 - Medical History PMH: Anxiety, Asthma, CAD, COPD, Depression, Diabetes, HTN, Chronic Pain Denies: Chronic Kidney Disease - Surgical History Surgical History: CABG, Pacemaker - Family History Family History: States: Unknown Family Hx - Home Medications Home Medications: Ambulatory Orders Medication Instructions Recorded Atorvastatin [Lipitor] 80 mg PO HS 09/10/18 Famotidine [Pepcid] 20 mg PO DAILY 09/10/18 MetFORMIN [glucoPHAGE] 1,000 mg PO BID 09/10/18 Metoprolol Succinate XL [Toprol XL] 25 mg PO DAILY 09/10/18 Nitroglycerin [Nitrostat] 0.4 mg SL Q5MIN PRN 09/10/18 Pyridoxine [Vitamin B6] 100 mg PO DAILY 09/10/18 Thiamine [Vitamin B1 Tab] 100 mg PO DAILY 09/10/18 oxyCODONE [oxyCODONE Immediate 20 mg PO Q8 09/10/18 Release Tab] - Allergies Allergies/Adverse Reactions: Allergies Allergy/AdvReac Type Severity Reaction Status Date / Time No Known Allergies Allergy Verified 04/27/18 16:51 - Laboratory Results Result Diagrams: 09/10/18 13:45 09/10/18 13:45 - ECG O2 Sat by Pulse Oximetry: 97 Medical Decision Making Medical Decision Makin08/20/18 - #90 oxycodone [address] Hernandez for admission due to chest pain, effusion, pneumonia and cardic history. Disposition - Clinical Impression Clinical Impression: Chest pain, Pneumonia, Alcohol withdrawal, Pleural effusion - Patient ED Disposition Is Patient to be Admitted: No - Disposition Disposition: Routine/Home Disposition Time: 16:53 Condition: GOOD Forms: [employer] (Mongolian) - Pt Status Changed To: Hospital Disposition Of: Inpatient - Admit Certification Admit to Inpatient:: After my assessment, the patient will require hospitalization for at least two midnights. This is because of the severity of symptoms shown, intensity of services needed, and/or the medical risk in this patient being treated as an outpatient. - POA Present On Arrival: None
[2018-09-10] MEDS ORDERED: cefTRIAXone (Rocephin) 1 gm Inj ONE (15:12)
--- NOTE | 2018-09-10 15:15 | RAD ---
Date of service: 09/10/2018 HISTORY: chest pain COMPARISON: 08/22/2018. FINDINGS: LUNGS: The right lung is well inflated and clear. There is compressive atelectasis in the left lower lobe. PLEURA: No change in moderate left pleural effusion. No pneumothorax. CARDIOVASCULAR: Mild cardiomegaly. Status post CABG no aortic atherosclerotic calcification present. OSSEOUS STRUCTURES: Within normal limits for the patient's age. VISUALIZED UPPER ABDOMEN: Normal. OTHER FINDINGS: None. IMPRESSION: Little interval change in moderate left pleural effusion and compressive atelectasis in the left lower lobe.
[2018-09-10 15:32] LABS: LYMPHOCYTE 4 % (20-50); MONOCYTE 6 % (0-10); NEUTROPHIL 90 % (42-75); TOTAL CELLS COUNTED 100
[2018-09-10 15:33] LABS: PLATELET ESTIMATE NORMAL (NORMAL)
[2018-09-10] MEDS ORDERED: Morphine 4 MG/ML VIAL IVP ONE ×2 (16:34→19:51)
[2018-09-10] MEDS ORDERED: OXYCODONE 20 MG PO SCH (20:15)
[2018-09-10] MEDS ORDERED: Alum-Mag Hydrox-Simethicone Susp (30 mL) PO PRN (20:19)
[2018-09-10] MEDS ORDERED: Iohexol 300 100 ML IJ ONE (20:35)
[2018-09-10] MEDS ORDERED: Sodium Chloride 0.9% 50 ML IV ONE (20:35)
[2018-09-10] MEDS: oxyCODONE 10 mg Immediate Release Tab PO PRN (21:48)
[2018-09-10 22:34] LABS: BENZODIAZEPINES, UR NEGATIVE (NEGATIVE)
[2018-09-10 22:43] LABS: BARBITURATES, UR NEGATIVE (NEGATIVE); OPIATES, UR POSITIVE (NEGATIVE); PHENCYCLIDINE, UR NEGATIVE (NEGATIVE)
[2018-09-11 05:47] LABS: HEMOGLOBIN 11.5 g/dL (12.0-18.0); MEAN CELL VOLUME 85.3 fl (80.0-94.0); MEAN CORPUSCULAR HEMOGLOBIN 27.6 pg (27.0-31.0); MEAN CORPUSCULAR HGB CONC 32.4 g/dL (33.0-37.0); RBC 4.18 Mil/uL (4.40-5.90); RED CELL DISTRIBUTION WIDTH 17.9 % (11.5-14.5); WHITE BLOOD COUNT 7.7 K/uL (4.8-10.8)
[2018-09-11 05:55] LABS: B-TYPE NATRIURETIC PEPTIDE 19300 pg/ml (0-900)
[2018-09-11 06:04] LABS: LDL CHOLESTEROL 46 mg/dL (0-129)
[2018-09-11 06:05] LABS: BLOOD UREA NITROGEN 12 mg/dl (9-20); GFR NON-AFRICAN AMERICAN > 60
[2018-09-11 06:06] LABS: ALB/GLOB RATIO 0.8 (1.0-2.1); ALBUMIN 3.2 g/dL (3.5-5.0); ALT/SGPT 25 U/L (21-72); AST/SGOT 33 U/L (17-59); CALCIUM 8.2 mg/dL (8.4-10.2); HDL CHOLESTEROL 34 MG/DL (30-70)
[2018-09-11] MEDS: oxyCODONE 10 mg Immediate Release Tab PO PRN ×2 (06:11→22:07)
[2018-09-11] MEDS: Enoxaparin 40 mg Syringe SC SCH (08:43)
[2018-09-11] MEDS: Pyridoxine 100 mg Tab PO SCH (08:45)
[2018-09-11] MEDS: Multivitamin With Minerals Tab PO SCH (08:45)
[2018-09-11] MEDS ORDERED: Metoprolol Succinate 25 mg XL Tab PO SCH (09:00)
--- NOTE | 2018-09-11 11:25 | CT ---
Date of service: 09/10/2018 PROCEDURE: CT Chest with contrast HISTORY: pleural effusion, h/o mass COMPARISON: 04/30/2018 TECHNIQUE: Contiguous axial images were obtained through the chest with intravenous contrast enhancement. Sagittal and coronal reconstructions were performed. IV contrast: 90 mL Omnipaque 300 Radiation dose: Total exam DLP = 597.89 mGy-cm. This CT exam was performed using one or more of the following dose reduction techniques: Automated exposure control, adjustment of the mA and/or kV according to patient size, and/or use of iterative reconstruction technique. FINDINGS: LUNGS: There is interval increased compared compression atelectasis from the interval increased left pleural effusion noted on the prior study. This now I right pleural effusions well. MEDIASTINUM: A subcarinal mass with some exerting mass effect on the posterior right pulmonary artery (axial series 4, image 25 is noted. This is also slightly right paraspinal and has been noted as such on the preliminary [facility] report. This measures at least 3.8 x 2.8 cm in size. And is 3.7 cm in cephalo caudal extent. This also exerts some mass effect on the esophagus.. No aneurysm or dissection. The heart is probably mildly enlarged. No pericardial effusion noted. Main pulmonary artery unremarkable. No vascular congestion. There is interval increased precarinal mediastinal lymphadenopathy measuring on the right 1.6 by 1.6 cm and on the left 0.9 by 1.5 cm. Coronary artery calcifications also noted. There is presence of aortic atherosclerotic calcification and mural plaque on cross sectional studies. PLEURA: The thorax. Bilateral pleural effusions which have increased since the prior exam. Also some nodular contour to the left pleural effusion on the current study also present on the prior study. BONES: No fracture. No destructive lesion. UPPER ABDOMEN: Grossly unremarkable. OTHER FINDINGS: Subcutaneous tissues are notable for extreme and sarcoma subcutaneous edema. Tip of an IVC filter noted as before. IMPRESSION: The large subcarinal/slightly right paraspinal mass is hree noted on this exam. With the after mentioned effects. There is interval increase in the extent of the prior left pleural effusion and interval increase in the extent of the left compressive atelectasis. There is now a right pleural effusion as well. Interval increasing mediastinal lymphadenopathy. Other findings as above. Concordant results (preliminary interpretation) provided by [facility].
--- NOTE | 2018-09-11 12:59 | CP.PCM.CON ---
History of Present Illness - History of Present Illness History of Present Illness: 58 y/o male with diagnosis of chronic pain, presents to ED for evaluation of left sided chest pain and difficulty breathing x1 day. Denies cough, fever, chills, LE edema, pt reported feeling down as his mother three days ago , pt was asked to leave the senior housing currently homeless. He has generalized body pain VAS 6/10 in the chest and back. Pain is sharp and intermittent. He denies inciting event but says movement worsens pain. Rest and pain medication improve pain. Review of Systems - Constitutional Constitutional: As Per HPI. absent: Anorexia, Chills, Daytime Sleepiness, Excessive Sweating, Fatigue, Fever, Frequent Falls, Headache, Increased Appetite, Lethargy, Malaise, Night Sweats, Snoring, Sleep Apnea, Weight Gain, Weight Loss, Weakness, Other - EENT Eyes: As Per HPI. absent: Blind Spots, Blurred Vision, Change in Vision, Decreased Night Vision, Diplopia, Discharge, Dry Eye, Exophthalmos, Floaters, Irritation, Itchy Eyes, Loss of Peripheral Vision, Pain, Photophobia, Requires Corrective Lenses, Sees Flashes, Spots in Vision, Tunnel Vision, Other Visual Disturbances, Loss of Vision, Other Ears: As Per HPI. absent: Decreased Hearing, Ear Discharge, Ear Pain, Tinnitus, Abnormal Hearing, Disequilibrium, Dizziness, Other Nose/Mouth/Throat: As Per HPI. absent: Epistaxis, Nasal Congestion, Nasal Discharge, Nasal Obstruction, Nasal Trauma, Nose Pain, Post Nasal Drip, Sinus Pain, Sinus Pressure, Bleeding Gums, Change in Voice, Dental Pain, Dry Mouth, Dysphagia, Halitosis, Hoarsness, Lip Swelling, Mouth Lesions, Mouth Pain, Odynophagia, Sore Throat, Throat Swelling, Tongue Swelling, Facial Pain, Neck Pain, Neck Mass, Other - Cardiovascular Cardiovascular: As Per HPI, Chest Pain with Activity, Dyspnea. absent: Acrocyanosis, Chest Pain, Chest Pain at Rest, Claudication, Diaphoresis, Dyspnea on Exertion, Edema, Irregular Heart Rhythm, Pain Radiating to Arm/Neck/Jaw, Leg Edema, Leg Ulcers, Lightheadedness, Orthopnea, Palpitations, Paroxysmal Nocturnal Dyspnea, Pedal Edema, Radiating Pain, Rapid Heart Rate, Slow Heart Rate, Syncope, Other - Respiratory Respiratory: As Per HPI. absent: Cough, Dyspnea, Hemoptysis, Dyspnea on Exertion, Wheezing, Snoring, Stridor, Pain on Inspiration, Chest Congestion, Excessive Mucous Production, Change in Mucous Color, Pain with Coughing, Other - Gastrointestinal Gastrointestinal: As Per HPI. absent: Abdominal Pain, Belching, Bloating, Change in Bowel Habits, Change in Stool Character, Coffee Ground Emesis, Constipation, Cramping, Diarrhea, Dyspepsia, Dysphagia, Early Satiety, Excessive Flatus, Fecal Incontinence, Heartburn, Hematemesis, Hematochezia, Loose Stools, Melena, Nausea, Odynophagia, Temesmus, Vomiting, Other - Genitourinary Genitourinary: As Per HPI. absent: Change in Urinary Stream, Difficulty Urinating, Dysuria, Flank Pain, Hematuria, Pyuria, Nocturia, Urinary Incontinence, Urinary Frequency, Urinary Hesitance, Urinary Urgency, Voiding Freq/Small Amts, Freq UTI, Hx Renal/Bladder Calculi, Hx /Renal Surgery, Bladder Distension, Other - Reproductive: Male Reproductive:Male: As Per HPI - Musculoskeletal Musculoskeletal: As Per HPI. absent: Abnormal Gait, Arthralgias, Atrophy, Back Pain, Deformity, Joint Swelling, Limited Range of Motion, Loss of Height, Muscle Cramps, Muscle Weakness, Myalgias, Neck Pain, Numbness, Radiating Pain into Limb, Stiffness, Tingling, Other - Integumentary Integumentary: As Per HPI. absent: Acne, Alopecia, Bleeding Lesions, Change in Hair, Change in Nails, Change in Pigmentation, Changing Lesions, Dry Skin, Erythema, Furuncle, Hirsutism, Lesions, New Lesions, Non-Healing Lesions, Photosensitivity, Pruritus, Rash, Skin Pain, Skin Ulcer, Sores, Striae, Swelling, Unusual Bruising, Wounds, Jaundice, Other - Neurological Neurological: As Per HPI. absent: Abnormal Gait, Abnormal Hearing, Abnormal Movements, Abnormal Speech, Behavioral Changes, Burning Sensations, Confusion, Convulsions, Disequilibrium, Dizziness, Numbness, Focal Weakness, Frequent Falls, Headaches, Lack of Coordination, Loss of Vision, Memory Loss, Paresthesias, Radicular Pain, Restless Legs, Sensory Deficit, Syncope, Tingling, Tremor, Vertigo, Weakness, Other Visual Disturbances, Other - Psychiatric Psychiatric: As Per HPI. absent: Abnormal Sleep Pattern, Anhedonia, Anxiety, Auditory Hallucinations, Behavioral Changes, Change in Appetite, Change in Libido, Confusion, Depression, Difficulty Concentrating, Hallucinations, Homicidal Ideation, Hopelessness, Irritability, Memory Loss, Mood Swings, Panic Attacks, Paranoia, Suicidal Ideation, Visual Hallucinations, Tactile Hallucinations, Other - Endocrine Endocrine: As Per HPI. absent: Change in Body Appearance, Change in Libido, Cold Intolorance, Deepening of Voice, Excessive Sweating, Fatigue, Flushing, Heat Intolorance, Increase in Ring/Shoe/Hat Size, Palpitations, Polydipsia, Polyphagia, Polyuria, Other - Hematologic/Lymphatic Hematologic: As Per HPI. absent: Easy Bleeding, Easy Bruising, Lymphadenopathy, Other Past Patient History - Tetanus Immunizations Tetanus Immunization: Unknown - Past Medical History & Family History Past Medical History?: Yes Past Family History: Reviewed and not pertinent - Past Social History Smoking Status: Heavy Smoker > 10 Cigarettes Daily Alcohol: None Drugs: Denies Home Situation {Lives}: Homeless Domestic Violence: Negative - CARDIAC Hx Hypercholesterolemia: Yes Hx Hypertension: Yes - PULMONARY Hx Asthma: Yes Hx Chronic Obstructive Pulmonary Disease (COPD): Yes - NEUROLOGICAL Hx Neurological Disorder: Yes Hx Dizziness: Yes - HEENT Hx HEENT Problems: No - RENAL Hx Chronic Kidney Disease: No - ENDOCRINE/METABOLIC Hx Endocrine Disorders: Yes Hx Diabetes Mellitus Type 2: Yes - HEMATOLOGICAL/ONCOLOGICAL Hx Blood Disorders: Yes Hx Cirrhosis: Yes - MUSCULOSKELETAL/RHEUMATOLOGICAL Hx Falls: Yes - GASTROINTESTINAL Hx Gastrointestinal Disorders: Yes - GENITOURINARY/GYNECOLOGICAL Hx Genitourinary Disorders: Yes Hx Incontinence: Yes - PSYCHIATRIC Hx Substance Use: Yes - SURGICAL HISTORY Hx Coronary Artery Bypass Graft: Yes - ANESTHESIA Hx Anesthesia: Yes Hx Anesthesia Reactions: No Hx Malignant Hyperthermia: No Meds Home Medications: Home Medication List Medication Instructions Recorded Confirmed Type Albuterol/Ipratropium [Duoneb 3 3 ml INH RTID PRN #30 neb 10/11/18 Rx mg/0.5 mg (3 ml) UD] Carvedilol [Coreg] 12.5 mg PO Q12 tab 10/11/18 Rx Enalapril Maleate [Vasotec] 2.5 mg PO DAILY tab 10/11/18 Rx Folic Acid 1 mg PO DAILY tab 10/11/18 Rx Furosemide [Lasix] 40 mg PO DAILY tab 10/11/18 Rx Gabapentin [Neurontin] 600 mg PO TID tab 10/11/18 Rx Multimineral/Multivitamin 1 tab PO DAILY tab 10/11/18 Rx [Therapeutic-M Tab] Nicotine 21 mg/24 hr [Nicoderm Cq] 1 patch TD DAILY patch 10/11/18 Rx Polyethylene Glycol/Polyvinyl 2 drop OU Q6 PRN bottle 10/11/18 Rx [Artificial Tears] Promethazine/Codeine 10 ml PO TID PRN #30 udc 10/11/18 Rx [Phenergan/Codeine Oral Syrup] Sennosides A and B [Senokot Tab] 17.2 mg PO HS tab 10/11/18 Rx hydrOXYzine HCl [Atarax] 25 mg PO Q12 PRN tab 10/11/18 Rx oxyCODONE [oxyCONTIN Extended 30 mg PO Q6 #10 tab 10/11/18 Rx Release Tab] traZODone [Desyrel] 50 mg PO HS tab 10/11/18 Rx Allergies/Adverse Reactions: Allergies Allergy/AdvReac Type Severity Reaction Status Date / Time No Known Allergies Allergy Verified 04/27/18 16:51 - Medications Medications: Current Medications Acetaminophen (Tylenol 325mg Tab) 650 mg PO Q4 PRN PRN Reason: Pain, Mild (1-3) Al Hydrox/Mg Hydrox/Simethicone (Maalox Plus 30 Ml) 30 ml PO QID PRN PRN Reason: Abdominal Discomfort Atorvastatin Calcium (Lipitor) 80 mg PO HS [facility] Last Admin: 09/11/18 00:30 Dose: Not Given Chlordiazepoxide (Librium) 25 mg PO Q8 PRN PRN Reason: tremors Last Admin: 09/11/18 12:28 Dose: 25 mg Clonidine HCl (Catapres) 0.1 mg PO Q4H PRN PRN Reason: Symptoms of alcohol withdrawl Last Admin: 09/10/18 21:33 Dose: 0.1 mg Enoxaparin Sodium (Lovenox) 40 mg SC DAILY [facility]; Protocol Last Admin: 09/11/18 08:43 Dose: 40 mg Famotidine (Pepcid) 20 mg PO DAILY [facility] Last Admin: 09/11/18 08:43 Dose: 20 mg Folic Acid (Folic Acid) 1 mg PO DAILY [facility] Last Admin: 09/11/18 08:43 Dose: 1 mg Furosemide (Lasix) 40 mg IVP BID [facility] Ketorolac Tromethamine (Toradol) 30 mg IVP Q6 PRN PRN Reason: Pain, moderate (4-7) Last Admin: 09/11/18 12:31 Dose: 30 mg Loperamide HCl (Imodium) 2 mg PO Q4 PRN PRN Reason: After Loose Bowel Movement Lorazepam (Ativan) 1 mg IVP Q4H PRN PRN Reason: Symptoms of alcohol withdrawl Last Admin: 09/11/18 08:42 Dose: 1 mg Metformin HCl (Glucophage) 1,000 mg PO BID [facility] Last Admin: 09/11/18 08:43 Dose: 1,000 mg Metoprolol Succinate (Toprol Xl) 25 mg PO DAILY [facility] Last Admin: 09/11/18 08:44 Dose: 25 mg Multivitamins/Minerals (Therapeutic-M Tab) 1 tab PO DAILY [facility] Last Admin: 09/11/18 08:45 Dose: 1 tab Nitroglycerin (Nitrostat Sl Tab) 0.4 mg SL Q5MIN PRN PRN Reason: Chest pain Ondansetron HCl (Zofran Inj) 4 mg IVP Q6 PRN PRN Reason: Nausea/Vomiting Oxycodone HCl (Oxycodone Immediate Release Tab) 20 mg PO Q8 PRN PRN Reason: Pain, severe (8-10) Last Admin: 09/11/18 06:11 Dose: 20 mg Pyridoxine HCl (Vitamin B6) 100 mg PO DAILY [facility] Last Admin: 09/11/18 08:45 Dose: 100 mg Sennosides (Senokot Tab) 17.2 mg PO [facility] Thiamine HCl (Vitamin B1 Tab) 100 mg PO DAILY [facility] Last Admin: 09/11/18 08:45 Dose: 100 mg Physical Exam - Constitutional Appears: Non-toxic - Head Exam Head Exam: ATRAUMATIC, NORMAL INSPECTION, NORMOCEPHALIC - Eye Exam Eye Exam: EOMI, Normal appearance, PERRL. absent: Conjunctival injection, Nystagmus, Periorbital swelling, Periorbital tenderness, Scleral icterus Pupil Exam: NORMAL ACCOMODATION, PERRL. absent: Fixed, Irregular, Miosis, Mydriatic, Unequal - ENT Exam ENT Exam: Mucous Membranes Moist, Normal Exam. absent: Mucous Membranes Dry, Normal External Ear Exam, Normal Oropharynx, TM's Normal Bilaterally - Neck Exam Neck exam: Positive for: Normal Inspection. Negative for: Full Rom, Lymp hadenopathy, Meningismus, Tenderness, Thyromegaly - Respiratory Exam Respiratory Exam: Clear to Auscultation Bilateral, NORMAL BREATHING PATTERN. absent: Accessory Muscle Use, Chest Wall Tenderness, Decreased Breath Sounds, Prolonged Expiratory Phase, Rales, Rhonchi, Wheezes, Respiratory Distress, Stridor - Cardiovascular Exam Cardiovascular Exam: REGULAR RHYTHM, +S1, +S2, Systolic Murmur. absent: Bradycardia, Tachycardia, Clicks, Diastolic murmur, Gallop, Irregular Rhythm, JVD, RRR, Rubs, +S4 - GI/Abdominal Exam GI & Abdominal Exam: Normal Bowel Sounds, Soft. absent: Bruit, Diminished Bowel Sounds, Distended, Firm, Guarding, Hernia, Hyperactive Bowel Sounds, Hypoactive Bowel Sounds, Mass, Organomegaly, Pulsatile Mass, Rebound, Rigid, Tenderness - Rectal Exam Rectal Exam: Deferred - Extremities Exam Extremities exam: Positive for: normal inspection. Negative for: calf tenderness, full ROM, joint swelling, normal capillary refill, pedal edema, tenderness, pedal pulses present - Back Exam Back exam: NORMAL INSPECTION. absent: CVA tenderness (L), CVA tenderness (R), FULL ROM, muscle spasm, paraspinal tenderness, rash noted, tenderness, vertebral tenderness - Psychiatric Exam Psychiatric exam: Normal Affect, Normal Mood - Skin Skin Exam: Dry, Intact, Normal Color, Warm Results - Vital Signs Recent Vital Signs: Last Vital Signs Temp 97.8 F 09/11/18 12:18 Pulse 99 H 09/11/18 12:18 Resp 20 09/11/18 12:18 BP 120/77 09/11/18 12:18 Pulse Ox 100 09/11/18 12:18 - Labs Result Diagrams: 10/09/18 11:50 10/09/18 11:50 Labs: Laboratory Results - last 24 hr 09/10/18 09/10/18 09/10/18 12:38 13:32 13:45 WBC 9.6 RBC 4.39 L Hgb 12.1 Hct 38.8 MCV 88.4 MCH 27.6 MCHC 31.3 L RDW 18.1 H Plt Count 245 MPV 8.5 Neut % (Auto) 87.6 H Lymph % (Auto) 6.8 L [place] % (Auto) 5.2 Eos % (Auto) 0.1 Baso % (Auto) 0.3 Neut # (Auto) 8.4 H Lymph # (Auto) 0.7 L [place] # (Auto) 0.5 Eos # (Auto) 0.0 Baso # (Auto) 0.0 Neutrophils % (Manual) 90 H Lymphocytes % (Manual) 4 L Monocytes % (Manual) 6 Platelet Estimate Normal RBC Morphology Normal PT INR APTT pO2 35 VBG pH 7.40 VBG pCO2 41 VBG HCO3 24.5 VBG Total CO2 26.7 VBG O2 Sat (Calc) 70.6 H VBG Base Excess 0.5 VBG Potassium 4.5 Sodium 137.0 Chloride 106.0 Glucose 151 H Lactate 2.8 H FiO2 21.0 Potassium Carbon Dioxide Anion Gap BUN Creatinine Est GFR ( Amer) Est GFR (Non-Af Amer) POC Glucose (mg/dL) 133 H Random Glucose Hemoglobin A1c Lactic Acid Calcium Total Bilirubin AST ALT Alkaline Phosphatase Troponin I NT-Pro-B Natriuret Pep Total Protein Albumin Globulin Albumin/Globulin Ratio Triglycerides Cholesterol LDL Cholesterol Direct HDL Cholesterol Lipase Procalcitonin Venous Blood Potassium 4.5 Urine Opiates Screen Urine Methadone Screen Ur Barbiturates Screen Ur Phencyclidine Scrn Ur Amphetamines Screen U Benzodiazepines Scrn U Oth Cocaine Metabols U Cannabinoids Screen Alcohol, Quantitative 09/10/18 09/10/18 09/10/18 13:45 13:45 21:24 WBC RBC Hgb Hct MCV MCH MCHC RDW Plt Count MPV Neut % (Auto) Lymph % (Auto) [place] % (Auto) Eos % (Auto) Baso % (Auto) Neut # (Auto) Lymph # (Auto) [place] # (Auto) Eos # (Auto) Baso # (Auto) Neutrophils % (Manual) Lymphocytes % (Manual) Monocytes % (Manual) Platelet Estimate RBC Morphology PT 12.9 INR 1.1 APTT 36.0 pO2 VBG pH VBG pCO2 VBG HCO3 VBG Total CO2 VBG O2 Sat (Calc) VBG Base Excess VBG Potassium Sodium 141 Chloride 111 H Glucose Lactate FiO2 Potassium 4.8 Carbon Dioxide 24 Anion Gap 11 BUN 13 Creatinine 0.6 L Est GFR ( Amer) > 60 Est GFR (Non-Af Amer) > 60 POC Glucose (mg/dL) Random Glucose 145 H Hemoglobin A1c Lactic Acid Calcium 8.4 Total Bilirubin 0.5 AST 43 ALT 20 L Alkaline Phosphatase 127 H Troponin I 0.0140 0.0200 NT-Pro-B Natriuret Pep 11929 H Total Protein 8.2 Albumin 3.6 Globulin 4.6 H Albumin/Globulin Ratio 0.8 L Triglycerides Cholesterol LDL Cholesterol Direct HDL Cholesterol Lipase 52 Procalcitonin Venous Blood Potassium Urine Opiates Screen Urine Methadone Screen Ur Barbiturates Screen Ur Phencyclidine Scrn Ur Amphetamines Screen U Benzodiazepines Scrn U Oth Cocaine Metabols U Cannabinoids Screen Alcohol, Quantitative 09/10/18 09/10/18 09/11/18 21:24 22:00 05:00 WBC 7.7 RBC 4.18 L Hgb 11.5 L Hct 35.6 MCV 85.3 D MCH 27.6 MCHC 32.4 L RDW 17.9 H Plt Count 233 MPV Neut % (Auto) Lymph % (Auto) [place] % (Auto) Eos % (Auto) Baso % (Auto) Neut # (Auto) Lymph # (Auto) [place] # (Auto) Eos # (Auto) Baso # (Auto) Neutrophils % (Manual) Lymphocytes % (Manual) Monocytes % (Manual) Platelet Estimate RBC Morphology PT INR APTT pO2 VBG pH VBG pCO2 VBG HCO3 VBG Total CO2 VBG O2 Sat (Calc) VBG Base Excess VBG Potassium Sodium Chloride Glucose Lactate FiO2 Potassium Carbon Dioxide Anion Gap BUN Creatinine Est GFR ( Amer) Est GFR (Non-Af Amer) POC Glucose (mg/dL) Random Glucose Hemoglobin A1c Lactic Acid Calcium Total Bilirubin AST ALT Alkaline Phosphatase Troponin I NT-Pro-B Natriuret Pep Total Protein Albumin Globulin Albumin/Globulin Ratio Triglycerides Cholesterol LDL Cholesterol Direct HDL Cholesterol Lipase Procalcitonin Venous Blood Potassium Urine Opiates Screen Positive H Urine Methadone Screen Negative Ur Barbiturates Screen Negative Ur Phencyclidine Scrn Negative Ur Amphetamines Screen Negative U Benzodiazepines Scrn Negative U Oth Cocaine Metabols Negative U Cannabinoids Screen Negative Alcohol, Quantitative < 10 09/11/18 09/11/18 09/11/18 05:00 05:00 05:00 WBC RBC Hgb Hct MCV MCH MCHC RDW Plt Count MPV Neut % (Auto) Lymph % (Auto) [place] % (Auto) Eos % (Auto) Baso % (Auto) Neut # (Auto) Lymph # (Auto) [place] # (Auto) Eos # (Auto) Baso # (Auto) Neutrophils % (Manual) Lymphocytes % (Manual) Monocytes % (Manual) Platelet Estimate RBC Morphology PT INR APTT pO2 VBG pH VBG pCO2 VBG HCO3 VBG Total CO2 VBG O2 Sat (Calc) VBG Base Excess VBG Potassium Sodium 140 Chloride 103 Glucose Lactate FiO2 Potassium 4.0 Carbon Dioxide 28 Anion Gap 13 BUN 12 Creatinine 0.7 L Est GFR ( Amer) > 60 Est GFR (Non-Af Amer) > 60 POC Glucose (mg/dL) Random Glucose 91 Hemoglobin A1c 6.5 Lactic Acid Calcium 8.2 L Total Bilirubin 0.5 AST 33 ALT 25 Alkaline Phosphatase 123 Troponin I 0.0230 NT-Pro-B Natriuret Pep 16218 H Total Protein 7.3 Albumin 3.2 L Globulin 4.1 H Albumin/Globulin Ratio 0.8 L Triglycerides 68 D Cholesterol 74 LDL Cholesterol Direct 46 HDL Cholesterol 34 Lipase Procalcitonin < 0.05 L Venous Blood Potassium Urine Opiates Screen Urine Methadone Screen Ur Barbiturates Screen Ur Phencyclidine Scrn Ur Amphetamines Screen U Benzodiazepines Scrn U Oth Cocaine Metabols U Cannabinoids Screen Alcohol, Quantitative 09/11/18 09/11/18 05:00 05:44 WBC RBC Hgb Hct MCV MCH MCHC RDW Plt Count MPV Neut % (Auto) Lymph % (Auto) [place] % (Auto) Eos % (Auto) Baso % (Auto) Neut # (Auto) Lymph # (Auto) [place] # (Auto) Eos # (Auto) Baso # (Auto) Neutrophils % (Manual) Lymphocytes % (Manual) Monocytes % (Manual) Platelet Estimate RBC Morphology PT INR APTT pO2 VBG pH VBG pCO2 VBG HCO3 VBG Total CO2 VBG O2 Sat (Calc) VBG Base Excess VBG Potassium Sodium Chloride Glucose Lactate FiO2 Potassium Carbon Dioxide Anion Gap BUN Creatinine Est GFR ( Amer) Est GFR (Non-Af Amer) POC Glucose (mg/dL) 86 Random Glucose Hemoglobin A1c Lactic Acid 1.1 Calcium Total Bilirubin AST ALT Alkaline Phosphatase Troponin I NT-Pro-B Natriuret Pep Total Protein Albumin Globulin Albumin/Globulin Ratio Triglycerides Cholesterol LDL Cholesterol Direct HDL Cholesterol Lipase Procalcitonin Venous Blood Potassium Urine Opiates Screen Urine Methadone Screen Ur Barbiturates Screen Ur Phencyclidine Scrn Ur Amphetamines Screen U Benzodiazepines Scrn U Oth Cocaine Metabols U Cannabinoids Screen Alcohol, Quantitative Assessment & Plan (1) Acute on chronic systolic and diastolic heart failure, NYHA class 3 Status: Resolved (2) Pleural effusion Status: Acute (3) DMII (diabetes mellitus, type 2) Status: Chronic Priority: High (4) History of pacemaker Status: Chronic Priority: High - Assessment and Plan (Free Text) Plan: ECHO IMAGES PERSONALLY REVIEWED RECOMMEND COREG INSTEAD OF CLONIDINE AND METOPROLOL cont other meds ro mi monitor lytes 45 min
--- NOTE | 2018-09-11 13:49 | CP.PCM.CON ---
History of Present Illness - History of Present Illness History of Present Illness: 58yM with hx of EtOH abuse, CAD, chronic pain who has seen Dr David in the past. He is admitted for treatment of alcohol withdrawal and chest pain. He has generalized body pain VAS 5-6/10 which is better with rest and medications. The re is no inciting event or specific aggravating trigger for his body pain. He states he has pain in his neck, chest, abdomen, stumps and lower back. His main concern is that he feels jittery because of possible alcohol withdrawal; his last alcohol intake was yesterday. Past Patient History - Past Social History Smoking Status: Heavy Smoker > 10 Cigarettes Daily - CARDIAC Hx Hypercholesterolemia: Yes Hx Hypertension: Yes - PULMONARY Hx Asthma: Yes Hx Chronic Obstructive Pulmonary Disease (COPD): Yes - NEUROLOGICAL Hx Neurological Disorder: Yes Hx Dizziness: Yes - HEENT Hx HEENT Problems: No - RENAL Hx Chronic Kidney Disease: No - ENDOCRINE/METABOLIC Hx Endocrine Disorders: Yes Hx Diabetes Mellitus Type 2: Yes - HEMATOLOGICAL/ONCOLOGICAL Hx Blood Disorders: Yes Hx Cirrhosis: Yes - MUSCULOSKELETAL/RHEUMATOLOGICAL Hx Falls: Yes - GASTROINTESTINAL Hx Gastrointestinal Disorders: Yes - GENITOURINARY/GYNECOLOGICAL Hx Genitourinary Disorders: Yes Hx Incontinence: Yes - PSYCHIATRIC Hx Substance Use: Yes - SURGICAL HISTORY Hx Coronary Artery Bypass Graft: Yes - ANESTHESIA Hx Anesthesia: Yes Hx Anesthesia Reactions: No Hx Malignant Hyperthermia: No Meds Allergies/Adverse Reactions: Allergies Allergy/AdvReac Type Severity Reaction Status Date / Time No Known Allergies Allergy Verified 04/27/18 16:51 - Medications Medications: Current Medications Acetaminophen (Tylenol 325mg Tab) 650 mg PO Q4 PRN PRN Reason: Pain, Mild (1-3) Al Hydrox/Mg Hydrox/Simethicone (Maalox Plus 30 Ml) 30 ml PO QID PRN PRN Reason: Abdominal Discomfort Atorvastatin Calcium (Lipitor) 80 mg PO HS NOHEMI Last Admin: 09/11/18 00:30 Dose: Not Given Carvedilol (Coreg) 12.5 mg PO Q12 NOHEMI Chlordiazepoxide (Librium) 25 mg PO Q8 PRN PRN Reason: tremors Last Admin: 09/11/18 12:28 Dose: 25 mg Enoxaparin Sodium (Lovenox) 40 mg SC DAILY NOHEMI; Protocol Last Admin: 09/11/18 08:43 Dose: 40 mg Famotidine (Pepcid) 20 mg PO DAILY [facility] Last Admin: 09/11/18 08:43 Dose: 20 mg Folic Acid (Folic Acid) 1 mg PO DAILY [facility] Last Admin: 09/11/18 08:43 Dose: 1 mg Furosemide (Lasix) 40 mg IVP BID [facility] Ketorolac Tromethamine (Toradol) 30 mg IVP Q6 PRN PRN Reason: Pain, moderate (4-7) Last Admin: 09/11/18 12:31 Dose: 30 mg Loperamide HCl (Imodium) 2 mg PO Q4 PRN PRN Reason: After Loose Bowel Movement Lorazepam (Ativan) 1 mg IVP Q4H PRN PRN Reason: Symptoms of alcohol withdrawl Last Admin: 09/11/18 08:42 Dose: 1 mg Metformin HCl (Glucophage) 1,000 mg PO BID [facility] Last Admin: 09/11/18 08:43 Dose: 1,000 mg Multivitamins/Minerals (Therapeutic-M Tab) 1 tab PO DAILY [facility] Last Admin: 09/11/18 08:45 Dose: 1 tab Nitroglycerin (Nitrostat Sl Tab) 0.4 mg SL Q5MIN PRN PRN Reason: Chest pain Ondansetron HCl (Zofran Inj) 4 mg IVP Q6 PRN PRN Reason: Nausea/Vomiting Oxycodone HCl (Oxycodone Immediate Release Tab) 20 mg PO Q8 PRN PRN Reason: Pain, severe (8-10) Last Admin: 09/11/18 06:11 Dose: 20 mg Pyridoxine HCl (Vitamin B6) 100 mg PO DAILY [facility] Last Admin: 09/11/18 08:45 Dose: 100 mg Sennosides (Senokot Tab) 17.2 mg PO [facility] Thiamine HCl (Vitamin B1 Tab) 100 mg PO DAILY [facility] Last Admin: 09/11/18 08:45 Dose: 100 mg Physical Exam - Constitutional Appears: No Acute Distress, Older Than Stated Age - Neck Exam Additional comments: limited ROM, negative spurlings - GI/Abdominal Exam GI & Abdominal Exam: Soft - Extremities Exam Additional comments: MAEW, handgrip 5/5, sensation intact - Back Exam Additional comments: limited ROM, mild tenderness over SI joints, mildly tender to palpation over lumbar paraspinals - Psychiatric Exam Psychiatric exam: Normal Affect Results - Vital Signs Recent Vital Signs: Last Vital Signs Temp 97.8 F 09/11/18 12:18 Pulse 99 H 09/11/18 12:18 Resp 20 09/11/18 12:18 BP 120/77 09/11/18 12:18 Pulse Ox 100 09/11/18 12:18 - Labs Result Diagrams: 09/11/18 05:00 09/11/18 05:00 Labs: Laboratory Results - last 24 hr 09/10/18 09/10/18 09/10/18 12:38 13:32 13:45 WBC 9.6 RBC 4.39 L Hgb 12.1 Hct 38.8 MCV 88.4 MCH 27.6 MCHC 31.3 L RDW 18.1 H Plt Count 245 MPV 8.5 Neut % (Auto) 87.6 H Lymph % (Auto) 6.8 L [place] % (Auto) 5.2 Eos % (Auto) 0.1 Baso % (Auto) 0.3 Neut # (Auto) 8.4 H Lymph # (Auto) 0.7 L [place] # (Auto) 0.5 Eos # (Auto) 0.0 Baso # (Auto) 0.0 Neutrophils % (Manual) 90 H Lymphocytes % (Manual) 4 L Monocytes % (Manual) 6 Platelet Estimate Normal RBC Morphology Normal PT INR APTT pO2 35 VBG pH 7.40 VBG pCO2 41 VBG HCO3 24.5 VBG Total CO2 26.7 VBG O2 Sat (Calc) 70.6 H VBG Base Excess 0.5 VBG Potassium 4.5 Sodium 137.0 Chloride 106.0 Glucose 151 H Lactate 2.8 H FiO2 21.0 Potassium Carbon Dioxide Anion Gap BUN Creatinine Est GFR ( Amer) Est GFR (Non-Af Amer) POC Glucose (mg/dL) 133 H Random Glucose Hemoglobin A1c Lactic Acid Calcium Total Bilirubin AST ALT Alkaline Phosphatase Troponin I NT-Pro-B Natriuret Pep Total Protein Albumin Globulin Albumin/Globulin Ratio Triglycerides Cholesterol LDL Cholesterol Direct HDL Cholesterol Lipase Procalcitonin Venous Blood Potassium 4.5 Urine Opiates Screen Urine Methadone Screen Ur Barbiturates Screen Ur Phencyclidine Scrn Ur Amphetamines Screen U Benzodiazepines Scrn U Oth Cocaine Metabols U Cannabinoids Screen Alcohol, Quantitative 09/10/18 09/10/18 09/10/18 13:45 13:45 21:24 WBC RBC Hgb Hct MCV MCH MCHC RDW Plt Count MPV Neut % (Auto) Lymph % (Auto) [place] % (Auto) Eos % (Auto) Baso % (Auto) Neut # (Auto) Lymph # (Auto) [place] # (Auto) Eos # (Auto) Baso # (Auto) Neutrophils % (Manual) Lymphocytes % (Manual) Monocytes % (Manual) Platelet Estimate RBC Morphology PT 12.9 INR 1.1 APTT 36.0 pO2 VBG pH VBG pCO2 VBG HCO3 VBG Total CO2 VBG O2 Sat (Calc) VBG Base Excess VBG Potassium Sodium 141 Chloride 111 H Glucose Lactate FiO2 Potassium 4.8 Carbon Dioxide 24 Anion Gap 11 BUN 13 Creatinine 0.6 L Est GFR ( Amer) > 60 Est GFR (Non-Af Amer) > 60 POC Glucose (mg/dL) Random Glucose 145 H Hemoglobin A1c Lactic Acid Calcium 8.4 Total Bilirubin 0.5 AST 43 ALT 20 L Alkaline Phosphatase 127 H Troponin I 0.0140 0.0200 NT-Pro-B Natriuret Pep 25679 H Total Protein 8.2 Albumin 3.6 Globulin 4.6 H Albumin/Globulin Ratio 0.8 L Triglycerides Cholesterol LDL Cholesterol Direct HDL Cholesterol Lipase 52 Procalcitonin Venous Blood Potassium Urine Opiates Screen Urine Methadone Screen Ur Barbiturates Screen Ur Phencyclidine Scrn Ur Amphetamines Screen U Benzodiazepines Scrn U Oth Cocaine Metabols U Cannabinoids Screen Alcohol, Quantitative 09/10/18 09/10/18 09/11/18 21:24 22:00 05:00 WBC 7.7 RBC 4.18 L Hgb 11.5 L Hct 35.6 MCV 85.3 D MCH 27.6 MCHC 32.4 L RDW 17.9 H Plt Count 233 MPV Neut % (Auto) Lymph % (Auto) [place] % (Auto) Eos % (Auto) Baso % (Auto) Neut # (Auto) Lymph # (Auto) [place] # (Auto) Eos # (Auto) Baso # (Auto) Neutrophils % (Manual) Lymphocytes % (Manual) Monocytes % (Manual) Platelet Estimate RBC Morphology PT INR APTT pO2 VBG pH VBG pCO2 VBG HCO3 VBG Total CO2 VBG O2 Sat (Calc) VBG Base Excess VBG Potassium Sodium Chloride Glucose Lactate FiO2 Potassium Carbon Dioxide Anion Gap BUN Creatinine Est GFR ( Amer) Est GFR (Non-Af Amer) POC Glucose (mg/dL) Random Glucose Hemoglobin A1c Lactic Acid Calcium Total Bilirubin AST ALT Alkaline Phosphatase Troponin I NT-Pro-B Natriuret Pep Total Protein Albumin Globulin Albumin/Globulin Ratio Triglycerides Cholesterol LDL Cholesterol Direct HDL Cholesterol Lipase Procalcitonin Venous Blood Potassium Urine Opiates Screen Positive H Urine Methadone Screen Negative Ur Barbiturates Screen Negative Ur Phencyclidine Scrn Negative Ur Amphetamines Screen Negative U Benzodiazepines Scrn Negative U Oth Cocaine Metabols Negative U Cannabinoids Screen Negative Alcohol, Quantitative < 10 09/11/18 09/11/18 09/11/18 05:00 05:00 05:00 WBC RBC Hgb Hct MCV MCH MCHC RDW Plt Count MPV Neut % (Auto) Lymph % (Auto) [place] % (Auto) Eos % (Auto) Baso % (Auto) Neut # (Auto) Lymph # (Auto) [place] # (Auto) Eos # (Auto) Baso # (Auto) Neutrophils % (Manual) Lymphocytes % (Manual) Monocytes % (Manual) Platelet Estimate RBC Morphology PT INR APTT pO2 VBG pH VBG pCO2 VBG HCO3 VBG Total CO2 VBG O2 Sat (Calc) VBG Base Excess VBG Potassium Sodium 140 Chloride 103 Glucose Lactate FiO2 Potassium 4.0 Carbon Dioxide 28 Anion Gap 13 BUN 12 Creatinine 0.7 L Est GFR ( Amer) > 60 Est GFR (Non-Af Amer) > 60 POC Glucose (mg/dL) Random Glucose 91 Hemoglobin A1c 6.5 Lactic Acid Calcium 8.2 L Total Bilirubin 0.5 AST 33 ALT 25 Alkaline Phosphatase 123 Troponin I 0.0230 NT-Pro-B Natriuret Pep 21503 H Total Protein 7.3 Albumin 3.2 L Globulin 4.1 H Albumin/Globulin Ratio 0.8 L Triglycerides 68 D Cholesterol 74 LDL Cholesterol Direct 46 HDL Cholesterol 34 Lipase Procalcitonin < 0.05 L Venous Blood Potassium Urine Opiates Screen Urine Methadone Screen Ur Barbiturates Screen Ur Phencyclidine Scrn Ur Amphetamines Screen U Benzodiazepines Scrn U Oth Cocaine Metabols U Cannabinoids Screen Alcohol, Quantitative 09/11/18 09/11/18 05:00 05:44 WBC RBC Hgb Hct MCV MCH MCHC RDW Plt Count MPV Neut % (Auto) Lymph % (Auto) [place] % (Auto) Eos % (Auto) Baso % (Auto) Neut # (Auto) Lymph # (Auto) [place] # (Auto) Eos # (Auto) Baso # (Auto) Neutrophils % (Manual) Lymphocytes % (Manual) Monocytes % (Manual) Platelet Estimate RBC Morphology PT INR APTT pO2 VBG pH VBG pCO2 VBG HCO3 VBG Total CO2 VBG O2 Sat (Calc) VBG Base Excess VBG Potassium Sodium Chloride Glucose Lactate FiO2 Potassium Carbon Dioxide Anion Gap BUN Creatinine Est GFR ( Amer) Est GFR (Non-Af Amer) POC Glucose (mg/dL) 86 Random Glucose Hemoglobin A1c Lactic Acid 1.1 Calcium Total Bilirubin AST ALT Alkaline Phosphatase Troponin I NT-Pro-B Natriuret Pep Total Protein Albumin Globulin Albumin/Globulin Ratio Triglycerides Cholesterol LDL Cholesterol Direct HDL Cholesterol Lipase Procalcitonin Venous Blood Potassium Urine Opiates Screen Urine Methadone Screen Ur Barbiturates Screen Ur Phencyclidine Scrn Ur Amphetamines Screen U Benzodiazepines Scrn U Oth Cocaine Metabols U Cannabinoids Screen Alcohol, Quantitative Assessment & Plan - Assessment and Plan (Free Text) Assessment: 58yM with hx of chronic pain admitted for EtOH withdrawal and chest pain Plan: 1. PT 2. Continue current RX. Patient may have dilaudid 1mg IV q3h prn breakthrough, severe pain, gabapentin 300mg po BID 3. Care as per primary team
--- NOTE | 2018-09-11 14:07 | CP.PCM.HP ---
History of Present Illness - History of Present Illness History of Present Illness: Pt is a 58 y/o male with hx of Cirrhosis, Alcohol and Opiod Abuser, presents to ED for evaluation of left sided chest pain and difficulty breathing x1 day. Denies cough, fever, chills, LE edema, recent drug use. Last Alcoholic drink 1 day ago. PMD: None Pain: Dr. 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 ProBMP 19 Troponin x3 negative Present on Admission - Present on Admission Any Indicators Present on Admission: No Past Patient History - Past Social History Smoking Status: Heavy Smoker > 10 Cigarettes Daily - CARDIAC Hx Hypercholesterolemia: Yes Hx Hypertension: Yes - PULMONARY Hx Asthma: Yes Hx Chronic Obstructive Pulmonary Disease (COPD): Yes - NEUROLOGICAL Hx Neurological Disorder: Yes Hx Dizziness: Yes - HEENT Hx HEENT Problems: No - RENAL Hx Chronic Kidney Disease: No - ENDOCRINE/METABOLIC Hx Endocrine Disorders: Yes Hx Diabetes Mellitus Type 2: Yes - HEMATOLOGICAL/ONCOLOGICAL Hx Blood Disorders: Yes Hx Cirrhosis: Yes - MUSCULOSKELETAL/RHEUMATOLOGICAL Hx Falls: Yes - GASTROINTESTINAL Hx Gastrointestinal Disorders: Yes - GENITOURINARY/GYNECOLOGICAL Hx Genitourinary Disorders: Yes Hx Incontinence: Yes - PSYCHIATRIC Hx Substance Use: Yes - SURGICAL HISTORY Hx Coronary Artery Bypass Graft: Yes - ANESTHESIA Hx Anesthesia: Yes Hx Anesthesia Reactions: No Hx Malignant Hyperthermia: No Meds Allergies/Adverse Reactions: Allergies Allergy/AdvReac Type Severity Reaction Status Date / Time No Known Allergies Allergy Verified 04/27/18 16:51 Physical Exam - Constitutional Appears: No Acute Distress, Older Than Stated Age, Chronically Ill - Head Exam Head Exam: NORMAL INSPECTION - Eye Exam Eye Exam: Normal appearance. absent: Scleral icterus - ENT Exam ENT Exam: Mucous Membranes Moist - Neck Exam Neck exam: Positive for: Full Rom. Negative for: Meningismus - Respiratory Exam Respiratory Exam: Decreased Breath Sounds. absent: Rales, Wheezes - Cardiovascular Exam Cardiovascular Exam: Tachycardia, +S1, +S2. absent: JVD, Systolic Murmur - GI/Abdominal Exam GI & Abdominal Exam: Normal Bowel Sounds, Soft. absent: Tenderness - Extremities Exam Additional comments: BL BKA - Neurological Exam Neurological exam: Alert, Oriented x3 - Psychiatric Exam Psychiatric exam: Anxious - Skin Skin Exam: Normal Color Results - Vital Signs Recent Vital Signs: Last Vital Signs Temp 97.8 F 09/11/18 12:18 Pulse 99 H 09/11/18 12:18 Resp 20 09/11/18 12:18 BP 120/77 09/11/18 12:18 Pulse Ox 100 09/11/18 12:18 - Labs Result Diagrams: 09/11/18 05:00 09/11/18 05:00 Labs: Laboratory Results - last 24 hr 09/10/18 09/10/18 09/10/18 12:38 13:45 13:45 WBC RBC Hgb Hct MCV MCH MCHC RDW Plt Count Neutrophils % (Manual) 90 H Lymphocytes % (Manual) 4 L Monocytes % (Manual) 6 Platelet Estimate Normal RBC Morphology Normal PT INR APTT Sodium 141 Potassium 4.8 Chloride 111 H Carbon Dioxide 24 Anion Gap 11 BUN 13 Creatinine 0.6 L Est GFR ( Amer) > 60 Est GFR (Non-Af Amer) > 60 POC Glucose (mg/dL) 133 H Random Glucose 145 H Hemoglobin A1c Lactic Acid Calcium 8.4 Total Bilirubin 0.5 AST 43 ALT 20 L Alkaline Phosphatase 127 H Troponin I 0.0140 NT-Pro-B Natriuret Pep 06460 H Total Protein 8.2 Albumin 3.6 Globulin 4.6 H Albumin/Globulin Ratio 0.8 L Triglycerides Cholesterol LDL Cholesterol Direct HDL Cholesterol Lipase 52 Procalcitonin Urine Opiates Screen Urine Methadone Screen Ur Barbiturates Screen Ur Phencyclidine Scrn Ur Amphetamines Screen U Benzodiazepines Scrn U Oth Cocaine Metabols U Cannabinoids Screen Alcohol, Quantitative 09/10/18 09/10/18 09/10/18 13:45 21:24 21:24 WBC RBC Hgb Hct MCV MCH MCHC RDW Plt Count Neutrophils % (Manual) Lymphocytes % (Manual) Monocytes % (Manual) Platelet Estimate RBC Morphology PT 12.9 INR 1.1 APTT 36.0 Sodium Potassium Chloride Carbon Dioxide Anion Gap BUN Creatinine Est GFR ( Amer) Est GFR (Non-Af Amer) POC Glucose (mg/dL) Random Glucose Hemoglobin A1c Lactic Acid Calcium Total Bilirubin AST ALT Alkaline Phosphatase Troponin I 0.0200 NT-Pro-B Natriuret Pep Total Protein Albumin Globulin Albumin/Globulin Ratio Triglycerides Cholesterol LDL Cholesterol Direct HDL Cholesterol Lipase Procalcitonin Urine Opiates Screen Urine Methadone Screen Ur Barbiturates Screen Ur Phencyclidine Scrn Ur Amphetamines Screen U Benzodiazepines Scrn U Oth Cocaine Metabols U Cannabinoids Screen Alcohol, Quantitative < 10 09/10/18 09/11/18 09/11/18 22:00 05:00 05:00 WBC 7.7 RBC 4.18 L Hgb 11.5 L Hct 35.6 MCV 85.3 D MCH 27.6 MCHC 32.4 L RDW 17.9 H Plt Count 233 Neutrophils % (Manual) Lymphocytes % (Manual) Monocytes % (Manual) Platelet Estimate RBC Morphology PT INR APTT Sodium 140 Potassium 4.0 Chloride 103 Carbon Dioxide 28 Anion Gap 13 BUN 12 Creatinine 0.7 L Est GFR ( Amer) > 60 Est GFR (Non-Af Amer) > 60 POC Glucose (mg/dL) Random Glucose 91 Hemoglobin A1c Lactic Acid Calcium 8.2 L Total Bilirubin 0.5 AST 33 ALT 25 Alkaline Phosphatase 123 Troponin I 0.0230 NT-Pro-B Natriuret Pep 38478 H Total Protein 7.3 Albumin 3.2 L Globulin 4.1 H Albumin/Globulin Ratio 0.8 L Triglycerides 68 D Cholesterol 74 LDL Cholesterol Direct 46 HDL Cholesterol 34 Lipase Procalcitonin Urine Opiates Screen Positive H Urine Methadone Screen Negative Ur Barbiturates Screen Negative Ur Phencyclidine Scrn Negative Ur Amphetamines Screen Negative U Benzodiazepines Scrn Negative U Oth Cocaine Metabols Negative U Cannabinoids Screen Negative Alcohol, Quantitative 09/11/18 09/11/18 09/11/18 05:00 05:00 05:00 WBC RBC Hgb Hct MCV MCH MCHC RDW Plt Count Neutrophils % (Manual) Lymphocytes % (Manual) Monocytes % (Manual) Platelet Estimate RBC Morphology PT INR APTT Sodium Potassium Chloride Carbon Dioxide Anion Gap BUN Creatinine Est GFR ( Amer) Est GFR (Non-Af Amer) POC Glucose (mg/dL) Random Glucose Hemoglobin A1c 6.5 Lactic Acid 1.1 Calcium Total Bilirubin AST ALT Alkaline Phosphatase Troponin I NT-Pro-B Natriuret Pep Total Protein Albumin Globulin Albumin/Globulin Ratio Triglycerides Cholesterol LDL Cholesterol Direct HDL Cholesterol Lipase Procalcitonin < 0.05 L Urine Opiates Screen Urine Methadone Screen Ur Barbiturates Screen Ur Phencyclidine Scrn Ur Amphetamines Screen U Benzodiazepines Scrn U Oth Cocaine Metabols U Cannabinoids Screen Alcohol, Quantitative 09/11/18 05:44 WBC RBC Hgb Hct MCV MCH MCHC RDW Plt Count Neutrophils % (Manual) Lymphocytes % (Manual) Monocytes % (Manual) Platelet Estimate RBC Morphology PT INR APTT Sodium Potassium Chloride Carbon Dioxide Anion Gap BUN Creatinine Est GFR ( Amer) Est GFR (Non-Af Amer) POC Glucose (mg/dL) 86 Random Glucose Hemoglobin A1c Lactic Acid Calcium Total Bilirubin AST ALT Alkaline Phosphatase Troponin I NT-Pro-B Natriuret Pep Total Protein Albumin Globulin Albumin/Globulin Ratio Triglycerides Cholesterol LDL Cholesterol Direct HDL Cholesterol Lipase Procalcitonin Urine Opiates Screen Urine Methadone Screen Ur Barbiturates Screen Ur Phencyclidine Scrn Ur Amphetamines Screen U Benzodiazepines Scrn U Oth Cocaine Metabols U Cannabinoids Screen Alcohol, Quantitative Assessment & Plan - Assessment and Plan (Free Text) Assessment: Pt is a 58 y/o male with hx of Cirrhosis, Alcohol and Opiod Abuser, admitted for chest pain and dyspnea, found to have BL pleural effusion (significant on the left side), elevated ProBMP and signs of alcohol withdrawal Chest pain -Likely secondary to pleural effusion which may be due to acute CHF exac -EKG no acute ischemic changes -troponin negative x3 -last Echo (03/2018)- EF 45-50%. Repeat Echo pending -Cardiology consulted Pleural effusion, acute -May be secondary to CHF exacerbation -Diurese with Lasiv 40mg BID -Pulmonology consulted -May need thoracentesis -Repeat Cxray tomorrow Alcohol withdrawal -CIWA 6 this am -Librium 50mg q8 rosa maria -Ativan 1mg prn q4 -Thiamine, Folic acid, multivitamin -Cessation advised Chronic Pain -Pain consulted: Recommendations appreciated, Dilaudid 1mg q3 prn, Gabapentin 300mg BID D/W Dr. De Santiago
--- NOTE | 2018-09-11 21:20 | CARD ---
APPROVED REPORT Date of service: 09/11/2018 EXAM: Two-dimensional and M-mode echocardiogram with Doppler and color Doppler. Other Information Quality : GoodRhythm : NSR INDICATION Pleural Effusion Chest Pain Surgery/Intervention CABG: Date: 2015 2D DIMENSIONS IVSd0.95 (0.7-1.1cm)LVDd5.72 (3.9-5.9cm) LVOT Diameter2.01 (1.8-2.4cm)PWd0.84 (0.7-1.1cm) IVSs0.80 (0.8-1.2cm)LVDs5.26 (2.5-4.0cm) FS (%) 8.0 %PWs0.86 (0.8-1.2cm) M-Mode DIMENSIONS Left Atrium (MM)5.23 (2.5-4.0cm)IVSd0.46 (0.7-1.1cm) Aortic Root2.94 (2.2-3.7cm)LVDd6.39 (4.0-5.6cm) Aortic Cusp Exc.1.95 (1.5-2.0cm)PWd0.83 (0.7-1.1cm) IVSs0.63 cmFS (%) 19 % LVDs5.19 (2.0-3.8cm)PWs1.19 cm Aortic Valve AoV Peak Noiguhat69.3cm/sAoV VTI19.0cmAO Peak GR.4mmHg LVOT Peak Mgvsbuqj80.4cm/sLVOT VTI12.28cmAO Mean GR.2mmHg NICHOLAS (VMAX)1.36jb6VGF (VTI)1.52cm2 Mitral Valve MV E Cnjnkudq36.5cm/sMV DECEL [id number] A Rikiiwft28.4cm/s MV ACT55jkB/A ratio1.3MVA (PHT)4.95cm2 TDI E/Lateral E'0.0E/Medial E'0.0 Tricuspid Valve TR Peak [id number]/sRAP [id number] Peak Gr.25mmHg [id number] LEFT VENTRICLE The left ventricle is normal size. There is normal left ventricular wall thickness. The systolic function is severely impaired. The estimated ejection fraction is 20-25% There is global hypokinesis of the left ventricle. Transmitral Doppler flow pattern is Grade II-pseudonormal filling dynamics. No left ventricle thrombus noted on this study. There is no ventricular septal defect visualized. There is no left ventricular aneurysm. There is no mass noted in the left ventricle. RIGHT VENTRICLE The right ventricle is normal size. There is normal right ventricular wall thickness. The right ventricular systolic function is normal. ATRIA The left atrium is moderately dilated. The right atrium size is normal. The interatrial septum is intact with no evidence for an atrial septal defect. AORTIC VALVE The aortic valve is normal in structure. No aortic regurgitation is present. There is no aortic valvular stenosis. There is no aortic valvular vegetation. MITRAL VALVE The mitral valve is normal in structure. There is no evidence of mitral valve prolapse. There is no mitral valve stenosis. There is mild mitral valve regurgitation noted. TRICUSPID VALVE The tricuspid valve is normal in structure. There is mild tricuspid valve regurgitation noted. RVSP is calculated at 33 mm Hg. There is no tricuspid valve prolapse or vegetation. There is no tricuspid valve stenosis. PULMONIC VALVE The pulmonary valve is normal in structure. There is no pulmonic valvular regurgitation. There is no pulmonic valvular stenosis. GREAT VESSELS The aortic root is normal in size. The ascending aorta is normal in size. The pulmonary artery is normal. The IVC is dilated in size. PERICARDIAL EFFUSION There is no pericardial effusion. There is large left pleural effusion. <Conclusion> The systolic function is severely impaired. The estimated ejection fraction is 20-25%. There is global hypokinesis of the left ventricle. Transmitral Doppler flow pattern is Grade II-pseudonormal filling dynamics. The left atrium is moderately dilated. There is mild mitral valve regurgitation noted. There is mild tricuspid valve regurgitation noted. RVSP is calculated at 33 mm Hg. The IVC is dilated in size. There is large left pleural effusion.
--- NOTE | 2018-09-11 21:24 | CON ---
DATE: 09/11/2018 HISTORY OF PRESENT ILLNESS: Mr. Garnica is a 58-year-old male who was referred by Dr. De Santiago for pulmonary evaluation because of pleural effusion. He was admitted with chest pain associated with some shortness of breath. He denies cough, but indicates that for the past 2-3 weeks, he has had some chest discomfort which worsened the night of admission. He indicates that symptoms worsened following the of his mother a few days ago. He therefore sought help in the emergency room. PAST MEDICAL HISTORY: He has a history of open heart surgery in the past, cirrhosis of the liver from chronic alcohol use. His last alcohol use was the day prior to admission. He also has a history of hyperlipidemia. He has bilateral below-knee amputation secondary to complications of diabetes mellitus. Has anxiety disorder, coronary artery disease, COPD, status post pacemaker placement, hypertension, chronic pain. FAMILY HISTORY: Remarkable for mother who of complications of heart disease, congestive heart failure and diabetes mellitus with COPD. PHYSICAL EXAMINATION: GENERAL: The patient is very anxious, is alert and oriented, appears to still have tremors due to alcohol withdrawal. VITAL SIGNS: Blood pressure 141/96 with a pulse of 109, respiratory rate is 20. He is afebrile. O2 sat 97% on nasal cannula oxygen. SKIN: Shows fair turgor. HEENT: Pupils equal and reactive to light and accommodation with muddy sclerae. Mouth shows poor hygiene. NECK: JVP flat. LUNGS: Bilateral basal dullness with rales. HEART: S1, S2. There is scar of coronary artery bypass graft. ABDOMEN: Soft. Some ascites. EXTREMITIES: Both lower extremities are amputated. CENTRAL NERVOUS SYSTEM: The patient is alert and oriented, but has episodes of anxiety and agitation and tremors of extremities. LABORATORY DATA: Remarkable for WBC of 7.7, hemoglobin 11.5, platelet count of 233,000. Sodium 140, potassium 4, BUN of 12, creatinine 0.7, proBNP 193,000, AST 33, ALT 25. Troponin 0.023. Chest x-ray is remarkable for bilateral pleural effusions, left greater than right with compressive atelectasis of lung. This is also confirmed on the CAT scan of the chest. IMPRESSION: Pleural effusion secondary to cirrhosis of the liver with sympathetic effusion, history of coronary artery disease with some element of congestive heart failure, history of chronic alcoholism, history of bilateral below-knee amputations, history of diabetes mellitus, hypertension and alcohol withdrawal syndrome. PLAN: Continue diuresis as ordered. Repeat chest x-ray in a.m. If pleural effusion persists or worsens, may need thoracentesis. Oxygen supplementation advised. Treatment for alcohol withdrawal also advised. We will continue to follow with you. Rohith Mckoy MD
[2018-09-12] MEDS: Albuterol-Ipratrop 3 mg / 0.5 (3 ml) UD INH PRN ×2 (02:13→20:39)
[2018-09-12 05:41] LABS: HEMOGLOBIN 11.3 g/dL (12.0-18.0); MEAN CELL VOLUME 85.6 fl (80.0-94.0); MEAN CORPUSCULAR HEMOGLOBIN 27.5 pg (27.0-31.0); MEAN CORPUSCULAR HGB CONC 32.1 g/dL (33.0-37.0); RBC 4.1 Mil/uL (4.40-5.90); RED CELL DISTRIBUTION WIDTH 18.2 % (11.5-14.5); WHITE BLOOD COUNT 7.5 K/uL (4.8-10.8)
[2018-09-12 05:55] LABS: B-TYPE NATRIURETIC PEPTIDE 19200 pg/ml (0-900)
[2018-09-12 06:03] LABS: BLOOD UREA NITROGEN 16 mg/dl (9-20); CALCIUM 8.1 mg/dL (8.4-10.2); GFR NON-AFRICAN AMERICAN > 60
--- NOTE | 2018-09-12 08:39 | CP.PCM.PN ---
Subjective - Date & Time of Evaluation Date of Evaluation: 09/12/18 Time of Evaluation: 08:41 - Subjective Subjective: AGGITATED REFUSING THERAPY WANTS TO GO TO MOTHER'S TODAY SOB IMPROVED NO CHEST PAINS Objective - Vital Signs/Intake and Output Vital Signs (last 24 hours): Temp Pulse Resp BP Pulse Ox 97.7 F 92 H 18 154/93 H 99 09/12/18 08:25 09/12/18 08:25 09/12/18 08:25 09/12/18 08:25 09/12/18 08:25 - Medications Medications: Current Medications Acetaminophen (Tylenol 325mg Tab) 650 mg PO Q4 PRN PRN Reason: Pain, Mild (1-3) Al Hydrox/Mg Hydrox/Simethicone (Maalox Plus 30 Ml) 30 ml PO QID PRN PRN Reason: Abdominal Discomfort Albuterol/Ipratropium (Duoneb 3 Mg/0.5 Mg (3 Ml) Ud) 3 ml INH RQ6 PRN PRN Reason: Shortness of Breath Last Admin: 09/12/18 02:13 Dose: 3 ml Atorvastatin Calcium (Lipitor) 80 mg PO HS [facility] Last Admin: 09/11/18 21:18 Dose: 80 mg Carvedilol (Coreg) 12.5 mg PO Q12 [facility] Last Admin: 09/11/18 21:17 Dose: 12.5 mg Chlordiazepoxide (Librium) 50 mg PO Q8 [facility] Last Admin: 09/12/18 00:44 Dose: 50 mg Enoxaparin Sodium (Lovenox) 40 mg SC DAILY [facility]; Protocol Last Admin: 09/11/18 08:43 Dose: 40 mg Famotidine (Pepcid) 20 mg PO DAILY [facility] Last Admin: 09/11/18 08:43 Dose: 20 mg Folic Acid (Folic Acid) 1 mg PO DAILY [facility] Last Admin: 09/11/18 08:43 Dose: 1 mg Furosemide (Lasix) 40 mg IVP BID [facility] Last Admin: 09/11/18 17:06 Dose: 40 mg Gabapentin (Neurontin) 300 mg PO BID [facility] Last Admin: 09/11/18 17:06 Dose: 300 mg Hydromorphone HCl (Dilaudid) 1 mg IVP Q3 PRN PRN Reason: Pain, severe (8-10) Ketorolac Tromethamine (Toradol) 30 mg IVP Q6 PRN PRN Reason: Pain, moderate (4-7) Last Admin: 09/11/18 12:31 Dose: 30 mg Loperamide HCl (Imodium) 2 mg PO Q4 PRN PRN Reason: After Loose Bowel Movement Lorazepam (Ativan) 1 mg IVP Q4H PRN PRN Reason: Symptoms of alcohol withdrawl Last Admin: 09/12/18 02:46 Dose: 1 mg Metformin HCl (Glucophage) 1,000 mg PO BID [facility] Last Admin: 09/11/18 17:07 Dose: 1,000 mg Multivitamins/Minerals (Therapeutic-M Tab) 1 tab PO DAILY [facility] Last Admin: 09/11/18 08:45 Dose: 1 tab Nicotine (Nicoderm Cq) 1 patch TD DAILY [facility] Nitroglycerin (Nitrostat Sl Tab) 0.4 mg SL Q5MIN PRN PRN Reason: Chest pain Ondansetron HCl (Zofran Inj) 4 mg IVP Q6 PRN PRN Reason: Nausea/Vomiting Oxycodone HCl (Oxycodone Immediate Release Tab) 20 mg PO Q8 PRN PRN Reason: Pain, severe (8-10) Last Admin: 09/11/18 22:07 Dose: 20 mg Pyridoxine HCl (Vitamin B6) 100 mg PO DAILY [facility] Last Admin: 09/11/18 08:45 Dose: 100 mg Sennosides (Senokot Tab) 17.2 mg PO HS [facility] Last Admin: 09/11/18 21:03 Dose: Not Given Thiamine HCl (Vitamin B1 Tab) 100 mg PO DAILY [facility] Last Admin: 09/11/18 08:45 Dose: 100 mg - Labs Labs: 09/12/18 05:00 09/12/18 05:00 PT 12.9 Seconds (9.8-13.1) 09/10/18 13:45 INR 1.1 09/10/18 13:45 APTT 36.0 Seconds (25.6-37.1) 09/10/18 13:45 - Constitutional Appears: Agitated - Head Exam Head Exam: ATRAUMATIC, NORMAL INSPECTION, NORMOCEPHALIC - Eye Exam Eye Exam: EOMI, Normal appearance, PERRL Pupil Exam: NORMAL ACCOMODATION, PERRL - ENT Exam ENT Exam: Mucous Membranes Moist, Normal Exam - Neck Exam Neck Exam: Full ROM, Normal Inspection. absent: Lymphadenopathy - Respiratory Exam Respiratory Exam: Decreased Breath Sounds, Prolonged Expiratory Phase, Rales, NORMAL BREATHING PATTERN - Cardiovascular Exam Cardiovascular Exam: REGULAR RHYTHM, +S1, +S2. absent: Murmur - GI/Abdominal Exam GI & Abdominal Exam: Soft, Normal Bowel Sounds. absent: Tenderness - Rectal Exam Rectal Exam: NORMAL INSPECTION - Extremities Exam Extremities Exam: Full ROM, Normal Capillary Refill. absent: Joint Swelling, Pedal Edema Additional comments: S/P BILATERAL LEG AMPUTATIONS - Back Exam Back Exam: NORMAL INSPECTION - Neurological Exam Neurological Exam: Alert, Awake, CN II-XII Intact, Oriented x3 - Psychiatric Exam Psychiatric exam: Normal Affect, Normal Mood - Skin Skin Exam: Dry, Intact, Normal Color, Warm Assessment and Plan - Assessment and Plan (Free Text) Assessment: PLEURAL EFFUSIONS CHF CIRRHOSIS OF THE LIVER ASHD DM S/P BILATERAL LEG AMPUTATIONS AGGITATION Plan: FOR CXR TODAY AND POSSIBLE THORACENTESES IF HE DECIDES TO REMAIN IN HOSPITAL ANTI-ANXIETY MEDS
[2018-09-12] MEDS: Enoxaparin 40 mg Syringe SC SCH (11:03)
[2018-09-12] MEDS: Pyridoxine 100 mg Tab PO SCH (11:06)
[2018-09-12] MEDS: Multivitamin With Minerals Tab PO SCH (11:06)
--- NOTE | 2018-09-12 12:34 | RAD ---
Date of service: 09/12/2018 PROCEDURE: CHEST RADIOGRAPH, 1 VIEW HISTORY: pleural effusion COMPARISON: 09/10/2018 single-view chest. 09/10/2018 CT thorax FINDINGS: LUNGS: Stable consolidative changes left lung. New atelectasis right lower lobe lateral segment. PLEURA: No change in pleural effusions. CARDIOVASCULAR: Atherosclerotic calcifications identified primarily aortic arch. Cardiomegaly. No evidence of acute, significant cardiovascular disease. OSSEOUS STRUCTURES: No significant abnormalities. VISUALIZED UPPER ABDOMEN: Normal. OTHER FINDINGS: None. IMPRESSION: New right lower lobe infiltrate.
--- NOTE | 2018-09-12 12:47 | CP.PCM.PN ---
Subjective - Date & Time of Evaluation Date of Evaluation: 09/12/18 Time of Evaluation: 12:00 - Subjective Subjective: feeling better less sob and chest tightness Objective - Vital Signs/Intake and Output Vital Signs (last 24 hours): Temp Pulse Resp BP Pulse Ox 97.7 F 92 H 18 154/93 H 99 09/12/18 08:25 09/12/18 11:04 09/12/18 08:25 09/12/18 11:04 09/12/18 08:25 - Medications Medications: Current Medications Acetaminophen (Tylenol 325mg Tab) 650 mg PO Q4 PRN PRN Reason: Pain, Mild (1-3) Al Hydrox/Mg Hydrox/Simethicone (Maalox Plus 30 Ml) 30 ml PO QID PRN PRN Reason: Abdominal Discomfort Albuterol/Ipratropium (Duoneb 3 Mg/0.5 Mg (3 Ml) Ud) 3 ml INH RQ6 PRN PRN Reason: Shortness of Breath Last Admin: 09/12/18 02:13 Dose: 3 ml Atorvastatin Calcium (Lipitor) 80 mg PO HS [facility] Last Admin: 09/11/18 21:18 Dose: 80 mg Carvedilol (Coreg) 12.5 mg PO Q12 [facility] Last Admin: 09/12/18 11:04 Dose: 12.5 mg Chlordiazepoxide (Librium) 50 mg PO Q8 [facility] Last Admin: 09/12/18 11:03 Dose: 50 mg Enalapril Maleate (Vasotec) 2.5 mg PO DAILY [facility] Enoxaparin Sodium (Lovenox) 40 mg SC DAILY [facility]; Protocol Last Admin: 09/12/18 11:03 Dose: Not Given Famotidine (Pepcid) 20 mg PO DAILY [facility] Last Admin: 09/12/18 11:06 Dose: 20 mg Folic Acid (Folic Acid) 1 mg PO DAILY [facility] Last Admin: 09/12/18 11:05 Dose: 1 mg Furosemide (Lasix) 40 mg IVP BID [facility] Last Admin: 09/12/18 11:03 Dose: 40 mg Gabapentin (Neurontin) 300 mg PO BID [facility] Last Admin: 09/12/18 11:03 Dose: 300 mg Hydromorphone HCl (Dilaudid) 1 mg IVP Q3 PRN PRN Reason: Pain, severe (8-10) Ketorolac Tromethamine (Toradol) 30 mg IVP Q6 PRN PRN Reason: Pain, moderate (4-7) Last Admin: 09/11/18 12:31 Dose: 30 mg Loperamide HCl (Imodium) 2 mg PO Q4 PRN PRN Reason: After Loose Bowel Movement Lorazepam (Ativan) 1 mg IVP Q4H PRN PRN Reason: Symptoms of alcohol withdrawl Last Admin: 09/12/18 02:46 Dose: 1 mg Metformin HCl (Glucophage) 1,000 mg PO BID [facility] Last Admin: 09/12/18 11:04 Dose: 1,000 mg Multivitamins/Minerals (Therapeutic-M Tab) 1 tab PO DAILY [facility] Last Admin: 09/12/18 11:06 Dose: 1 tab Nicotine (Nicoderm Cq) 1 patch TD DAILY [facility] Last Admin: 09/12/18 11:05 Dose: 1 patch Nitroglycerin (Nitrostat Sl Tab) 0.4 mg SL Q5MIN PRN PRN Reason: Chest pain Ondansetron HCl (Zofran Inj) 4 mg IVP Q6 PRN PRN Reason: Nausea/Vomiting Oxycodone HCl (Oxycodone Immediate Release Tab) 20 mg PO Q8 PRN PRN Reason: Pain, severe (8-10) Last Admin: 09/11/18 22:07 Dose: 20 mg Pyridoxine HCl (Vitamin B6) 100 mg PO DAILY [facility] Last Admin: 09/12/18 11:06 Dose: 100 mg Sennosides (Senokot Tab) 17.2 mg PO HS [facility] Last Admin: 09/11/18 21:03 Dose: Not Given Thiamine HCl (Vitamin B1 Tab) 100 mg PO DAILY [facility] Last Admin: 09/12/18 11:06 Dose: 100 mg - Labs Labs: 09/12/18 05:00 09/12/18 05:00 PT 12.9 Seconds (9.8-13.1) 09/10/18 13:45 INR 1.1 09/10/18 13:45 APTT 36.0 Seconds (25.6-37.1) 09/10/18 13:45 - Constitutional Appears: Well - Head Exam Head Exam: ATRAUMATIC, NORMAL INSPECTION, NORMOCEPHALIC - Eye Exam Eye Exam: EOMI, Normal appearance, PERRL. absent: Conjunctival injection, Nystagmus, Periorbital swelling, Periorbital tenderness, Scleral icterus Pupil Exam: NORMAL ACCOMODATION, PERRL - ENT Exam ENT Exam: Mucous Membranes Moist, Normal Exam. absent: Mucous Membranes Dry, Normal External Ear Exam, Normal Oropharynx, TM's Normal Bilaterally - Neck Exam Neck Exam: Full ROM, Normal Inspection. absent: Lymphadenopathy, Meningismus, Tenderness, Thyromegaly - Respiratory Exam Respiratory Exam: Clear to Ausculation Bilateral, NORMAL BREATHING PATTERN. absent: Accessory Muscle Use, Chest Wall Tenderness, Decreased Breath Sounds, Prolonged Expiratory Phase, Rales, Rhonchi, Wheezes, Respiratory Distress, Stridor - Cardiovascular Exam Cardiovascular Exam: REGULAR RHYTHM, +S1, +S2, Murmur. absent: Bradycardia, Tachycardia, Clicks, Diastolic murmur, Gallop, Irregular Rhythm, JVD, RRR, Rubs, +S4 - GI/Abdominal Exam GI & Abdominal Exam: Soft, Normal Bowel Sounds. absent: Bruit, Distended, Firm, Guarding, Rigid, Tenderness, Diminished Bowel Sounds, Hernia, Hyperactive Bowel Sounds, Hypoactive Bowel Sounds, Organomegaly, Pulsatile Mass, Rebound, Mass - Rectal Exam Rectal Exam: Deferred - Extremities Exam Extremities Exam: Full ROM, Normal Capillary Refill, Pedal Edema. absent: Calf Tenderness, Joint Swelling, Normal Inspection, Tenderness - Back Exam Back Exam: NORMAL INSPECTION. absent: CVA tenderness (L), CVA tenderness (R), Full ROM, muscle spasm, paraspinal tenderness, rash noted, tenderness, vertebral tenderness - Neurological Exam Neurological Exam: Alert, Awake, CN II-XII Intact, Normal Gait, Oriented x3. absent: Abnormal Gait, Altered, Motor Sensory Deficit, Reflexes Normal - Psychiatric Exam Psychiatric exam: Normal Affect, Normal Mood. absent: Agitated, Anxious, Depressed, Flat Affect, Homicidal Ideation, Manic, Suicidal Ideation - Skin Skin Exam: Dry, Intact, Normal Color, Warm. absent: Abrasion, Cyanosis, Diaphoretic, Erythema, Mottled, Pallor, Pallor, Petechiae, Rash, Urticaria, Vesicles Assessment and Plan (1) Acute on chronic systolic and diastolic heart failure, NYHA class 3 Status: Resolved (2) Pleural effusion Status: Acute (3) DMII (diabetes mellitus, type 2) Status: Chronic (4) History of pacemaker Status: Chronic - Assessment and Plan (Free Text) Plan: pts meds should be continued at home. pt doing well needs low map for optimal heart function.
--- NOTE | 2018-09-12 13:32 | CP.PCM.PN ---
Subjective - Date & Time of Evaluation Date of Evaluation: 09/12/18 Time of Evaluation: 08:00 - Subjective Subjective: Pt seen and examined this morning with Dr. De Santiago, seen yelling and agitated, throwing hospital supplies in the hallway. Refused his Chest xray this morning. States he is upset he could not make his mothers's today. Feels he is going through withdrawals. After brief discussion, pt agreed to chest xray. Objective - Vital Signs/Intake and Output Vital Signs (last 24 hours): Temp Pulse Resp BP Pulse Ox 97.7 F 92 H 18 154/93 H 99 09/12/18 08:25 09/12/18 11:04 09/12/18 08:25 09/12/18 11:04 09/12/18 08:25 - Medications Medications: Current Medications Acetaminophen (Tylenol 325mg Tab) 650 mg PO Q4 PRN PRN Reason: Pain, Mild (1-3) Al Hydrox/Mg Hydrox/Simethicone (Maalox Plus 30 Ml) 30 ml PO QID PRN PRN Reason: Abdominal Discomfort Albuterol/Ipratropium (Duoneb 3 Mg/0.5 Mg (3 Ml) Ud) 3 ml INH RQ6 PRN PRN Reason: Shortness of Breath Last Admin: 09/12/18 02:13 Dose: 3 ml Atorvastatin Calcium (Lipitor) 80 mg PO HS [facility] Last Admin: 09/11/18 21:18 Dose: 80 mg Carvedilol (Coreg) 12.5 mg PO Q12 [facility] Last Admin: 09/12/18 11:04 Dose: 12.5 mg Chlordiazepoxide (Librium) 50 mg PO Q8 [facility] Last Admin: 09/12/18 11:03 Dose: 50 mg Enalapril Maleate (Vasotec) 2.5 mg PO DAILY [facility] Enoxaparin Sodium (Lovenox) 40 mg SC DAILY [facility]; Protocol Last Admin: 09/12/18 11:03 Dose: Not Given Famotidine (Pepcid) 20 mg PO DAILY [facility] Last Admin: 09/12/18 11:06 Dose: 20 mg Folic Acid (Folic Acid) 1 mg PO DAILY [facility] Last Admin: 09/12/18 11:05 Dose: 1 mg Furosemide (Lasix) 40 mg IVP BID [facility] Last Admin: 09/12/18 11:03 Dose: 40 mg Gabapentin (Neurontin) 300 mg PO BID [facility] Last Admin: 09/12/18 11:03 Dose: 300 mg Hydromorphone HCl (Dilaudid) 1 mg IVP Q3 PRN PRN Reason: Pain, severe (8-10) Ketorolac Tromethamine (Toradol) 30 mg IVP Q6 PRN PRN Reason: Pain, moderate (4-7) Last Admin: 09/11/18 12:31 Dose: 30 mg Loperamide HCl (Imodium) 2 mg PO Q4 PRN PRN Reason: After Loose Bowel Movement Lorazepam (Ativan) 1 mg IVP Q4H PRN PRN Reason: Symptoms of alcohol withdrawl Last Admin: 09/12/18 02:46 Dose: 1 mg Metformin HCl (Glucophage) 1,000 mg PO BID [facility] Last Admin: 09/12/18 11:04 Dose: 1,000 mg Multivitamins/Minerals (Therapeutic-M Tab) 1 tab PO DAILY [facility] Last Admin: 09/12/18 11:06 Dose: 1 tab Nicotine (Nicoderm Cq) 1 patch TD DAILY [facility] Last Admin: 09/12/18 11:05 Dose: 1 patch Nitroglycerin (Nitrostat Sl Tab) 0.4 mg SL Q5MIN PRN PRN Reason: Chest pain Ondansetron HCl (Zofran Inj) 4 mg IVP Q6 PRN PRN Reason: Nausea/Vomiting Oxycodone HCl (Oxycodone Immediate Release Tab) 20 mg PO Q8 PRN PRN Reason: Pain, severe (8-10) Last Admin: 09/11/18 22:07 Dose: 20 mg Pyridoxine HCl (Vitamin B6) 100 mg PO DAILY [facility] Last Admin: 09/12/18 11:06 Dose: 100 mg Sennosides (Senokot Tab) 17.2 mg PO HS [facility] Last Admin: 09/11/18 21:03 Dose: Not Given Thiamine HCl (Vitamin B1 Tab) 100 mg PO DAILY [facility] Last Admin: 09/12/18 11:06 Dose: 100 mg - Labs Labs: 09/12/18 05:00 09/12/18 05:00 PT 12.9 Seconds (9.8-13.1) 09/10/18 13:45 INR 1.1 09/10/18 13:45 APTT 36.0 Seconds (25.6-37.1) 09/10/18 13:45 - Constitutional Appears: No Acute Distress - Head Exam Head Exam: NORMAL INSPECTION - Eye Exam Eye Exam: Normal appearance - ENT Exam ENT Exam: Mucous Membranes Moist - Respiratory Exam Respiratory Exam: Decreased Breath Sounds, NORMAL BREATHING PATTERN. absent: Accessory Muscle Use, Rales, Wheezes - Cardiovascular Exam Cardiovascular Exam: REGULAR RHYTHM, +S1, +S2 - GI/Abdominal Exam GI & Abdominal Exam: Soft. absent: Tenderness - Extremities Exam Additional comments: BL BKA - Neurological Exam Neurological Exam: Alert, Oriented x3 - Psychiatric Exam Psychiatric exam: Anxious - Skin Skin Exam: Normal Color Assessment and Plan - Assessment and Plan (Free Text) Assessment: Pt is a 58 y/o male with hx of Cirrhosis, Alcohol and Opiod Abuser, admitted for chest pain and dyspnea, found to have BL pleural effusion (significant on the left side), elevated ProBMP and signs of alcohol withdrawal Chest pain -Likely secondary to pleural effusion which may be due to acute CHF exac -EKG no acute ischemic changes -troponin negative x3 -last Echo (03/2018)- EF 45-50%. Repeat Echo pending -Cardiology consulted, Dr. Sun Pleural effusion, acute -May be secondary to CHF exacerbation -Diurese with Lasix 40mg BID -Pulmonology consulted -May need thoracentesis -Repeat Cxray today to reassess pleural effusions Alcohol withdrawal -CIWA 7 this am -Librium 50mg q8 rosa maria -Ativan 1mg prn q4 -Thiamine, Folic acid, multivitamin -Cessation advised Chronic Pain -Pain consulted: Recommendations appreciated, Dilaudid 1mg q3 prn, Gabapentin 300mg BID D/W Dr. De Santiago
[2018-09-12] MEDS: levoFLOXacin 500 mg in D5W 500 MG/100 ML BAG IVPB SCH (16:52)
[2018-09-12] MEDS: oxyCODONE 10 mg Immediate Release Tab PO PRN (20:47)
[2018-09-13] MEDS: Albuterol-Ipratrop 3 mg / 0.5 (3 ml) UD INH PRN (04:25)
[2018-09-13] MEDS: oxyCODONE 10 mg Immediate Release Tab PO PRN ×2 (04:45→12:39)
[2018-09-13] MEDS: Enoxaparin 40 mg Syringe SC SCH (10:19)
[2018-09-13] MEDS ORDERED: Lidocaine 1% Inj (20ml) ONE (10:35)
--- NOTE | 2018-09-13 11:04 | PCM.SURG1 ---
Surgeon's Initial Post Op Note - Surgeon's Notes Surgeon: Miquel Braswell MD Engine Dynamometer Tester: NONE Type of Anesthesia: Local Pre-Operative Diagnosis: Left pleural effusion Operative Findings: US showed left pleural effusion Post-Operative Diagnosis: Left pleural effusion Operation Performed: US guided left thoracentesis Specimen/Specimens Removed: 600 cc of selvin colored fluid Estimated Blood Loss: EBL {In ML}: 0 Blood Products Given: N/A Drains Used: No Drains Post-Op Condition: Fair Date of Surgery/Procedure: 09/13/18 Time of Surgery/Procedure: 11:00
--- NOTE | 2018-09-13 11:25 | RAD ---
Date of service: 09/13/2018 PROCEDURE: CHEST RADIOGRAPH, 1 VIEW HISTORY: Status post left thoracentesis. COMPARISON: Chest x-ray 09/29/2018 FINDINGS: LUNGS: Improved aeration of the lung. There is persistent blunting of the left costophrenic margin right costophrenic margin consistent with bilateral small effusions. The overall appearance is improved from previous study PLEURA: There is no pneumothorax following left thoracentesis. CARDIOVASCULAR: Median sternotomy wires are unchanged. Cardiac pericardial silhouette is enlarged. OSSEOUS STRUCTURES: No significant abnormalities. VISUALIZED UPPER ABDOMEN: Normal. OTHER FINDINGS: None. IMPRESSION: No pneumothorax following left thoracentesis.
[2018-09-13 11:36] LABS: BODY FLUID TYPE PLEURAL/THORACENTESI
[2018-09-13 12:09] LABS: AMYLASE,BODY FLUID < 30 mg/dL (NONE ESTABLISHED); GLUCOSE,BODY FLUID 102 mg/dL (NONE ESTABLISHED); TOTAL PROTEIN,BODY FLUID 3.3 g/dL (NONE ESTABLISHED)
[2018-09-13] MEDS: Pyridoxine 100 mg Tab PO SCH (12:41)
[2018-09-13] MEDS: Multivitamin With Minerals Tab PO SCH (12:41)
[2018-09-13 12:45] LABS: BF GROSS APPEARANCE CLOUDY (CLEAR)
--- NOTE | 2018-09-13 12:58 | CP.PCM.PN ---
Subjective - Date & Time of Evaluation Date of Evaluation: 09/13/18 Time of Evaluation: 12:57 - Subjective Subjective: CALMER TODAY S/P THORACENTESES CLINICALLY BETTER SOB IMPROVED AWAIT PLEURAL FLUID RESULTS CONTINUE CURRENT RX Objective - Vital Signs/Intake and Output Vital Signs (last 24 hours): Temp Pulse Resp BP Pulse Ox 97.5 F L 80 18 128/76 100 09/13/18 11:16 09/13/18 11:16 09/13/18 11:16 09/13/18 11:16 09/13/18 11:16 - Medications Medications: Current Medications Acetaminophen (Tylenol 325mg Tab) 650 mg PO Q4 PRN PRN Reason: Pain, Mild (1-3) Al Hydrox/Mg Hydrox/Simethicone (Maalox Plus 30 Ml) 30 ml PO QID PRN PRN Reason: Abdominal Discomfort Albuterol/Ipratropium (Duoneb 3 Mg/0.5 Mg (3 Ml) Ud) 3 ml INH RQ6 PRN PRN Reason: Shortness of Breath Last Admin: 09/13/18 04:25 Dose: 3 ml Atorvastatin Calcium (Lipitor) 80 mg PO HS [facility] Last Admin: 09/12/18 21:03 Dose: 80 mg Carvedilol (Coreg) 12.5 mg PO Q12 [facility] Last Admin: 09/13/18 10:16 Dose: 12.5 mg Chlordiazepoxide (Librium) 50 mg PO Q8 [facility] Last Admin: 09/13/18 10:15 Dose: 50 mg Enalapril Maleate (Vasotec) 2.5 mg PO DAILY [facility] Last Admin: 09/13/18 12:42 Dose: 2.5 mg Enoxaparin Sodium (Lovenox) 40 mg SC DAILY [facility]; Protocol Last Admin: 09/13/18 10:19 Dose: Not Given Famotidine (Pepcid) 20 mg PO DAILY [facility] Last Admin: 09/13/18 12:42 Dose: 20 mg Folic Acid (Folic Acid) 1 mg PO DAILY [facility] Last Admin: 09/13/18 12:41 Dose: 1 mg Furosemide (Lasix) 40 mg IVP BID [facility] Last Admin: 09/13/18 10:16 Dose: 40 mg Gabapentin (Neurontin) 300 mg PO BID [facility] Last Admin: 09/13/18 12:41 Dose: 300 mg Hydromorphone HCl (Dilaudid) 1 mg IVP Q3 PRN PRN Reason: Pain, severe (8-10) Levofloxacin/Dextrose (Levaquin 500mg) 500 mg in 100 mls @ 100 mls/hr IVPB DAILY [facility]; Protocol Last Admin: 09/12/18 16:52 Dose: 100 mls/hr Ketorolac Tromethamine (Toradol) 30 mg IVP Q6 PRN PRN Reason: Pain, moderate (4-7) Last Admin: 09/11/18 12:31 Dose: 30 mg Loperamide HCl (Imodium) 2 mg PO Q4 PRN PRN Reason: After Loose Bowel Movement Lorazepam (Ativan) 1 mg IVP Q4H PRN PRN Reason: Symptoms of alcohol withdrawl Last Admin: 09/13/18 02:08 Dose: 1 mg Metformin HCl (Glucophage) 1,000 mg PO BID [facility] Last Admin: 09/13/18 12:41 Dose: 1,000 mg Multivitamins/Minerals (Therapeutic-M Tab) 1 tab PO DAILY [facility] Last Admin: 09/13/18 12:41 Dose: 1 tab Nicotine (Nicoderm Cq) 1 patch TD DAILY [facility] Last Admin: 09/13/18 10:16 Dose: 1 patch Nitroglycerin (Nitrostat Sl Tab) 0.4 mg SL Q5MIN PRN PRN Reason: Chest pain Ondansetron HCl (Zofran Inj) 4 mg IVP Q6 PRN PRN Reason: Nausea/Vomiting Oxycodone HCl (Oxycodone Immediate Release Tab) 20 mg PO Q8 PRN PRN Reason: Pain, severe (8-10) Last Admin: 09/13/18 12:39 Dose: 20 mg Pyridoxine HCl (Vitamin B6) 100 mg PO DAILY [facility] Last Admin: 09/13/18 12:41 Dose: 100 mg Sennosides (Senokot Tab) 17.2 mg PO HS [facility] Last Admin: 09/12/18 21:04 Dose: Not Given Thiamine HCl (Vitamin B1 Tab) 100 mg PO DAILY [facility] Last Admin: 09/13/18 12:42 Dose: 100 mg - Labs Labs: 09/12/18 05:00 09/12/18 05:00 PT 12.9 Seconds (9.8-13.1) 09/10/18 13:45 INR 1.1 09/10/18 13:45 APTT 36.0 Seconds (25.6-37.1) 09/10/18 13:45
[2018-09-13 14:42] LABS: BODY FLUID MONO/MACROPHAGE 9 % (0-0); BODY FLUID TOTAL COUNT 100 (0-0)
--- NOTE | 2018-09-13 15:55 | CP.PCM.PN ---
Subjective - Date & Time of Evaluation Date of Evaluation: 09/13/18 Time of Evaluation: 11:00 - Subjective Subjective: patient seen and examined at bedside for thoracentesis today calmer Objective - Vital Signs/Intake and Output Vital Signs (last 24 hours): Temp Pulse Resp BP Pulse Ox 97.5 F L 80 18 128/76 100 09/13/18 11:16 09/13/18 11:16 09/13/18 11:16 09/13/18 11:16 09/13/18 11:16 - Medications Medications: Current Medications Acetaminophen (Tylenol 325mg Tab) 650 mg PO Q4 PRN PRN Reason: Pain, Mild (1-3) Al Hydrox/Mg Hydrox/Simethicone (Maalox Plus 30 Ml) 30 ml PO QID PRN PRN Reason: Abdominal Discomfort Albuterol/Ipratropium (Duoneb 3 Mg/0.5 Mg (3 Ml) Ud) 3 ml INH RQ6 PRN PRN Reason: Shortness of Breath Last Admin: 09/13/18 04:25 Dose: 3 ml Atorvastatin Calcium (Lipitor) 80 mg PO HS [facility] Last Admin: 09/12/18 21:03 Dose: 80 mg Carvedilol (Coreg) 12.5 mg PO Q12 [facility] Last Admin: 09/13/18 10:16 Dose: 12.5 mg Chlordiazepoxide (Librium) 50 mg PO Q8 [facility] Last Admin: 09/13/18 10:15 Dose: 50 mg Enalapril Maleate (Vasotec) 2.5 mg PO DAILY [facility] Last Admin: 09/13/18 12:42 Dose: 2.5 mg Enoxaparin Sodium (Lovenox) 40 mg SC DAILY [facility]; Protocol Last Admin: 09/13/18 10:19 Dose: Not Given Famotidine (Pepcid) 20 mg PO DAILY [facility] Last Admin: 09/13/18 12:42 Dose: 20 mg Folic Acid (Folic Acid) 1 mg PO DAILY [facility] Last Admin: 09/13/18 12:41 Dose: 1 mg Furosemide (Lasix) 40 mg IVP BID [facility] Last Admin: 09/13/18 10:16 Dose: 40 mg Gabapentin (Neurontin) 300 mg PO BID [facility] Last Admin: 09/13/18 12:41 Dose: 300 mg Hydromorphone HCl (Dilaudid) 1 mg IVP Q3 PRN PRN Reason: Pain, severe (8-10) Levofloxacin/Dextrose (Levaquin 500mg) 500 mg in 100 mls @ 100 mls/hr IVPB DAILY [facility]; Protocol Last Admin: 09/12/18 16:52 Dose: 100 mls/hr Ketorolac Tromethamine (Toradol) 30 mg IVP Q6 PRN PRN Reason: Pain, moderate (4-7) Last Admin: 09/11/18 12:31 Dose: 30 mg Loperamide HCl (Imodium) 2 mg PO Q4 PRN PRN Reason: After Loose Bowel Movement Lorazepam (Ativan) 1 mg IVP Q4H PRN PRN Reason: Symptoms of alcohol withdrawl Last Admin: 09/13/18 02:08 Dose: 1 mg Metformin HCl (Glucophage) 1,000 mg PO BID [facility] Last Admin: 09/13/18 12:41 Dose: 1,000 mg Multivitamins/Minerals (Therapeutic-M Tab) 1 tab PO DAILY [facility] Last Admin: 09/13/18 12:41 Dose: 1 tab Nicotine (Nicoderm Cq) 1 patch TD DAILY [facility] Last Admin: 09/13/18 10:16 Dose: 1 patch Nitroglycerin (Nitrostat Sl Tab) 0.4 mg SL Q5MIN PRN PRN Reason: Chest pain Ondansetron HCl (Zofran Inj) 4 mg IVP Q6 PRN PRN Reason: Nausea/Vomiting Oxycodone HCl (Oxycodone Immediate Release Tab) 20 mg PO Q8 PRN PRN Reason: Pain, severe (8-10) Last Admin: 09/13/18 12:39 Dose: 20 mg Pyridoxine HCl (Vitamin B6) 100 mg PO DAILY [facility] Last Admin: 09/13/18 12:41 Dose: 100 mg Sennosides (Senokot Tab) 17.2 mg PO HS [facility] Last Admin: 09/12/18 21:04 Dose: Not Given Thiamine HCl (Vitamin B1 Tab) 100 mg PO DAILY [facility] Last Admin: 09/13/18 12:42 Dose: 100 mg - Labs Labs: 09/12/18 05:00 09/12/18 05:00 PT 12.9 Seconds (9.8-13.1) 09/10/18 13:45 INR 1.1 09/10/18 13:45 APTT 36.0 Seconds (25.6-37.1) 09/10/18 13:45 - Constitutional Appears: Non-toxic, No Acute Distress - Head Exam Head Exam: NORMAL INSPECTION - Eye Exam Eye Exam: Normal appearance - Neck Exam Neck Exam: Normal Inspection - Respiratory Exam Respiratory Exam: Decreased Breath Sounds, NORMAL BREATHING PATTERN - Cardiovascular Exam Cardiovascular Exam: +S1, +S2 - GI/Abdominal Exam GI & Abdominal Exam: Soft - Neurological Exam Neurological Exam: Alert, Awake - Skin Skin Exam: Normal Color, Warm Assessment and Plan - Assessment and Plan (Free Text) Assessment: dx pleural effusion pllan thoracentesis today f/u fluid studies pulm following
[2018-09-13] MEDS: levoFLOXacin 500 mg in D5W 500 MG/100 ML BAG IVPB SCH (16:10)
--- NOTE | 2018-09-13 16:14 | PQF ---
PROVIDER RESPONSE TEXT: Confirmed and current pneumonia REVIEWER QUERY TEXT: Conflicting Documentation Clarification A single mention of Pneumonia is documented in the ER record and then the diagnosis is dropped; pleas e clarify if the dx. is : -- Confirmed and current -- Confirmed, treated and resolved -- Ruled out -- Other, please specify 09/10 CXR: Impression: Little interval change in moderate left pleural effusion and compressive atele ctasis in the left lower lobe. 09/[address]; Impression The large subcarinal/slightly right paraspinal mass is here noted on this exam. With the after mentioned effects. There is interval increase in the extent of the prior l eft pleural effusion and interval increase in the extent of the left compressive atelectasis. There is now a right pleural effusion as well. Interval increasing mediastinal lymphadenopathy. 09/12 CXR:Impression : New right lower lobe infiltrate. ER : Clinical Impression: Chest pain, Pneumonia, Alcohol withdrawal, Pleural effusion ER: Rocephin IV ->D/Matt The patient's Clinical Indicators include: -- Query created by: Judy Garcia 09/13/2018 11:56 AM Electronically signed by: Edd De Santiago 09/13/2018 4:11 PM
[2018-09-14] MEDS: oxyCODONE 10 mg Immediate Release Tab PO PRN ×2 (01:17→11:15)
--- NOTE | 2018-09-14 10:02 | CP.PCM.PN ---
Subjective - Date & Time of Evaluation Date of Evaluation: 09/14/18 Time of Evaluation: 10:02 - Subjective Subjective: NO CHEST PAINS/SOB NO COUGH INSISTS ON GOING HOME TODAY Objective - Vital Signs/Intake and Output Vital Signs (last 24 hours): Temp Pulse Resp BP Pulse Ox 97.2 F L 80 20 97/60 L 90 L 09/14/18 01:46 09/14/18 01:46 09/14/18 01:46 09/14/18 01:46 09/14/18 01:46 - Medications Medications: Current Medications Acetaminophen (Tylenol 325mg Tab) 650 mg PO Q4 PRN PRN Reason: Pain, Mild (1-3) Al Hydrox/Mg Hydrox/Simethicone (Maalox Plus 30 Ml) 30 ml PO QID PRN PRN Reason: Abdominal Discomfort Albuterol/Ipratropium (Duoneb 3 Mg/0.5 Mg (3 Ml) Ud) 3 ml INH RQ6 PRN PRN Reason: Shortness of Breath Last Admin: 09/13/18 04:25 Dose: 3 ml Atorvastatin Calcium (Lipitor) 80 mg PO HS [facility] Last Admin: 09/14/18 01:18 Dose: 80 mg Carvedilol (Coreg) 12.5 mg PO Q12 [facility] Last Admin: 09/14/18 01:21 Dose: Not Given Chlordiazepoxide (Librium) 50 mg PO Q8 [facility] Last Admin: 09/14/18 01:18 Dose: 50 mg Enalapril Maleate (Vasotec) 2.5 mg PO DAILY [facility] Last Admin: 09/13/18 12:42 Dose: 2.5 mg Famotidine (Pepcid) 20 mg PO DAILY [facility] Last Admin: 09/13/18 12:42 Dose: 20 mg Folic Acid (Folic Acid) 1 mg PO DAILY [facility] Last Admin: 09/13/18 12:41 Dose: 1 mg Furosemide (Lasix) 40 mg IVP BID [facility] Last Admin: 09/13/18 16:11 Dose: 40 mg Gabapentin (Neurontin) 300 mg PO BID [facility] Last Admin: 09/13/18 16:11 Dose: 300 mg Hydromorphone HCl (Dilaudid) 1 mg IVP Q3 PRN PRN Reason: Pain, severe (8-10) Levofloxacin/Dextrose (Levaquin 500mg) 500 mg in 100 mls @ 100 mls/hr IVPB DAILY [facility]; Protocol Last Admin: 09/13/18 16:10 Dose: 100 mls/hr Ketorolac Tromethamine (Toradol) 30 mg IVP Q6 PRN PRN Reason: Pain, moderate (4-7) Last Admin: 09/11/18 12:31 Dose: 30 mg Loperamide HCl (Imodium) 2 mg PO Q4 PRN PRN Reason: After Loose Bowel Movement Lorazepam (Ativan) 1 mg IVP Q4H PRN PRN Reason: Symptoms of alcohol withdrawl Last Admin: 09/13/18 02:08 Dose: 1 mg Metformin HCl (Glucophage) 1,000 mg PO BID [facility] Last Admin: 09/13/18 16:11 Dose: 1,000 mg Multivitamins/Minerals (Therapeutic-M Tab) 1 tab PO DAILY [facility] Last Admin: 09/13/18 12:41 Dose: 1 tab Nicotine (Nicoderm Cq) 1 patch TD DAILY [facility] Last Admin: 09/13/18 10:16 Dose: 1 patch Nitroglycerin (Nitrostat Sl Tab) 0.4 mg SL Q5MIN PRN PRN Reason: Chest pain Ondansetron HCl (Zofran Inj) 4 mg IVP Q6 PRN PRN Reason: Nausea/Vomiting Oxycodone HCl (Oxycodone Immediate Release Tab) 20 mg PO Q8 PRN PRN Reason: Pain, severe (8-10) Last Admin: 09/14/18 01:17 Dose: 20 mg Pyridoxine HCl (Vitamin B6) 100 mg PO DAILY [facility] Last Admin: 09/13/18 12:41 Dose: 100 mg Sennosides (Senokot Tab) 17.2 mg PO HS [facility] Last Admin: 09/14/18 01:19 Dose: Not Given Thiamine HCl (Vitamin B1 Tab) 100 mg PO DAILY [facility] Last Admin: 09/13/18 12:42 Dose: 100 mg - Labs Labs: 09/12/18 05:00 09/12/18 05:00 PT 12.9 Seconds (9.8-13.1) 09/10/18 13:45 INR 1.1 09/10/18 13:45 APTT 36.0 Seconds (25.6-37.1) 09/10/18 13:45 - Constitutional Appears: No Acute Distress - Head Exam Head Exam: ATRAUMATIC, NORMAL INSPECTION, NORMOCEPHALIC - Eye Exam Eye Exam: EOMI, Normal appearance, PERRL Pupil Exam: NORMAL ACCOMODATION, PERRL - ENT Exam ENT Exam: Mucous Membranes Moist, Normal Exam - Neck Exam Neck Exam: Full ROM, Normal Inspection. absent: Lymphadenopathy - Respiratory Exam Respiratory Exam: Clear to Ausculation Bilateral, NORMAL BREATHING PATTERN - Cardiovascular Exam Cardiovascular Exam: REGULAR RHYTHM, +S1, +S2. absent: Murmur - GI/Abdominal Exam GI & Abdominal Exam: Soft, Normal Bowel Sounds. absent: Tenderness - Rectal Exam Rectal Exam: NORMAL INSPECTION - Extremities Exam Extremities Exam: Full ROM, Normal Capillary Refill. absent: Joint Swelling, Pedal Edema Additional comments: BILATERAL LEG AMPUTEE - Back Exam Back Exam: NORMAL INSPECTION - Neurological Exam Neurological Exam: Alert, Awake, CN II-XII Intact, Oriented x3 - Psychiatric Exam Psychiatric exam: Normal Affect, Normal Mood - Skin Skin Exam: Dry, Intact, Normal Color, Warm Assessment and Plan - Assessment and Plan (Free Text) Assessment: PLEURAL EFFUSION IMPROVED POST THORACENTESES--EXUDATIVE FLUID HX OF CIRRHOSIS OF LIVER HX OF CABG DM Plan: CONTINUE RX ORDERED D/C PLANNING PER PMD
[2018-09-14] MEDS: Enoxaparin 40 mg Syringe SC SCH (11:00)
[2018-09-14] MEDS: Multivitamin With Minerals Tab PO SCH (11:01)
[2018-09-14] MEDS: Pyridoxine 100 mg Tab PO SCH (11:02)
[2018-09-14] MEDS: levoFLOXacin 500 mg in D5W 500 MG/100 ML BAG IVPB SCH (13:58)
[2018-09-14] MEDS: Sodium Chloride 0.9% 1,000 ML IV SCH (17:59)
[2018-09-15] MEDS: levoFLOXacin 500 mg in D5W 500 MG/100 ML BAG IVPB SCH (08:45)
[2018-09-15] MEDS: Multivitamin With Minerals Tab PO SCH (08:46)
[2018-09-15] MEDS: Pyridoxine 100 mg Tab PO SCH (08:46)
[2018-09-15] MEDS: oxyCODONE 10 mg Immediate Release Tab PO PRN ×2 (08:51→19:27)
[2018-09-15] MEDS: Sodium Chloride 0.9% 1,000 ML IV SCH ×2 (08:54→21:16)
--- NOTE | 2018-09-15 17:51 | CP.PCM.PN ---
Subjective - Date & Time of Evaluation Date of Evaluation: 09/15/18 Time of Evaluation: 17:51 - Subjective Subjective: PT ASKING TO GO HOME. BP RUNNING LOW SO RN HAS BEEN HOLDING BP MEDS AND LASIX. Objective - Vital Signs/Intake and Output Vital Signs (last 24 hours): Temp Pulse Resp BP Pulse Ox 98.5 F 95 H 16 110/71 95 09/15/18 16:18 18 16:18 09/15/18 16:18 09/15/18 16:41 09/15/18 16:18 - Medications Medications: Current Medications Acetaminophen (Tylenol 325mg Tab) 650 mg PO Q4 PRN PRN Reason: Pain, Mild (1-3) Al Hydrox/Mg Hydrox/Simethicone (Maalox Plus 30 Ml) 30 ml PO QID PRN PRN Reason: Abdominal Discomfort Albuterol/Ipratropium (Duoneb 3 Mg/0.5 Mg (3 Ml) Ud) 3 ml INH RQ6 PRN PRN Reason: Shortness of Breath Last Admin: 09/13/18 04:25 Dose: 3 ml Atorvastatin Calcium (Lipitor) 80 mg PO HS [facility] Last Admin: 09/14/18 22:29 Dose: 80 mg Carvedilol (Coreg) 12.5 mg PO Q12 [facility] Last Admin: 09/15/18 08:48 Dose: Not Given Enalapril Maleate (Vasotec) 2.5 mg PO DAILY [facility] Last Admin: 09/15/18 08:48 Dose: Not Given Famotidine (Pepcid) 20 mg PO DAILY [facility] Last Admin: 09/15/18 08:47 Dose: 20 mg Folic Acid (Folic Acid) 1 mg PO DAILY [facility] Last Admin: 09/15/18 08:46 Dose: 1 mg Furosemide (Lasix) 40 mg IVP BID [facility] Last Admin: 09/15/18 16:41 Dose: 40 mg Gabapentin (Neurontin) 300 mg PO HS [facility] Last Admin: 09/14/18 22:29 Dose: 300 mg Levofloxacin/Dextrose (Levaquin 500mg) 500 mg in 100 mls @ 100 mls/hr IVPB DAILY [facility]; Protocol Last Admin: 09/15/18 08:45 Dose: 100 mls/hr Sodium Chloride (Sodium Chloride 0.9%) 1,000 mls @ 80 mls/hr IV .[id number] [facility] Last Admin: 09/15/18 08:54 Dose: 80 mls/hr Ketorolac Tromethamine (Toradol) 30 mg IVP Q6 PRN PRN Reason: Pain, moderate (4-7) Last Admin: 09/11/18 12:31 Dose: 30 mg Loperamide HCl (Imodium) 2 mg PO Q4 PRN PRN Reason: After Loose Bowel Movement Lorazepam (Ativan) 0.5 mg IVP Q8H PRN PRN Reason: withdrawals Last Admin: 09/15/18 13:14 Dose: 0.5 mg Metformin HCl (Glucophage) 1,000 mg PO BID [facility] Last Admin: 09/15/18 16:40 Dose: 1,000 mg Multivitamins/Minerals (Therapeutic-M Tab) 1 tab PO DAILY [facility] Last Admin: 09/15/18 08:46 Dose: 1 tab Nicotine (Nicoderm Cq) 1 patch TD DAILY [facility] Last Admin: 09/15/18 08:48 Dose: 1 patch Nitroglycerin (Nitrostat Sl Tab) 0.4 mg SL Q5MIN PRN PRN Reason: Chest pain Ondansetron HCl (Zofran Inj) 4 mg IVP Q6 PRN PRN Reason: Nausea/Vomiting Oxycodone HCl (Oxycodone Immediate Release Tab) 20 mg PO Q8 PRN PRN Reason: Pain, severe (8-10) Last Admin: 09/15/18 08:51 Dose: 20 mg Pyridoxine HCl (Vitamin B6) 100 mg PO DAILY [facility] Last Admin: 09/15/18 08:46 Dose: 100 mg Sennosides (Senokot Tab) 17.2 mg PO HS [facility] Last Admin: 09/14/18 22:29 Dose: 17.2 mg Thiamine HCl (Vitamin B1 Tab) 100 mg PO DAILY [facility] Last Admin: 09/15/18 08:47 Dose: 100 mg - Labs Labs: 09/12/18 05:00 09/12/18 05:00 PT 12.9 Seconds (9.8-13.1) 09/10/18 13:45 INR 1.1 09/10/18 13:45 APTT 36.0 Seconds (25.6-37.1) 09/10/18 13:45 - Constitutional Appears: Non-toxic - Head Exam Head Exam: ATRAUMATIC, NORMAL INSPECTION, NORMOCEPHALIC - Eye Exam Eye Exam: EOMI, Normal appearance, PERRL. absent: Conjunctival injection, Nystagmus, Periorbital swelling, Periorbital tenderness, Scleral icterus Pupil Exam: NORMAL ACCOMODATION, PERRL - ENT Exam ENT Exam: Mucous Membranes Moist, Normal Exam. absent: Mucous Membranes Dry, Normal External Ear Exam, Normal Oropharynx, TM's Normal Bilaterally - Neck Exam Neck Exam: Full ROM, Normal Inspection. absent: Lymphadenopathy, Meningismus, Tenderness, Thyromegaly - Respiratory Exam Respiratory Exam: Clear to Ausculation Bilateral, NORMAL BREATHING PATTERN. absent: Accessory Muscle Use, Chest Wall Tenderness, Decreased Breath Sounds, Prolonged Expiratory Phase, Rales, Rhonchi, Wheezes, Respiratory Distress, Stridor - Cardiovascular Exam Cardiovascular Exam: REGULAR RHYTHM, +S1, +S2, Murmur. absent: Bradycardia, T achycardia, Clicks, Diastolic murmur, Gallop, Irregular Rhythm, JVD, RRR, Rubs, +S4 - GI/Abdominal Exam GI & Abdominal Exam: Soft, Normal Bowel Sounds. absent: Bruit, Distended, Firm, Guarding, Rigid, Tenderness, Diminished Bowel Sounds, Hernia, Hyperactive Bowel Sounds, Hypoactive Bowel Sounds, Organomegaly, Pulsatile Mass, Rebound, Mass - Rectal Exam Rectal Exam: Deferred - Extremities Exam Additional comments: B/L AMPUTATIONS - Back Exam Back Exam: NORMAL INSPECTION. absent: CVA tenderness (L), CVA tenderness (R), Full ROM, muscle spasm, paraspinal tenderness, rash noted, tenderness, vertebral tenderness - Neurological Exam Neurological Exam: Alert, Awake, CN II-XII Intact, Oriented x3. absent: Abnormal Gait, Altered, Motor Sensory Deficit, Normal Gait, Reflexes Normal - Psychiatric Exam Psychiatric exam: Normal Affect, Normal Mood. absent: Agitated, Anxious, Depressed, Flat Affect, Homicidal Ideation, Manic, Suicidal Ideation - Skin Skin Exam: Dry, Intact, Normal Color, Warm. absent: Abrasion, Cyanosis, Diaphoretic, Erythema, Mottled, Pallor, Pallor, Petechiae, Rash, Urticaria, Vesicles Assessment and Plan (1) Acute on chronic systolic and diastolic heart failure, NYHA class 3 Status: Resolved (2) Pleural effusion Status: Acute (3) DMII (diabetes mellitus, type 2) Status: Chronic (4) History of pacemaker Status: Chronic (5) Low BP Status: Acute - Assessment and Plan (Free Text) Plan: I RECOMMEND NOT HOLDING CARDIAC MEDS LONG PT IS NOT DIZZY AND MAP IS NOT LESS THAN 65. SYSTOLIC BP SHOULD NOT BE USED MEASURE. PT NEEDS A LOWER SYSTOLIC BP TO ALLOW INCREASED C.O. HE HAS DCM WITH LOW EF. 45 MIN TOTAL CARE TIME
--- NOTE | 2018-09-16 06:24 | CP.PCM.PN ---
Subjective - Date & Time of Evaluation Date of Evaluation: 09/14/18 Time of Evaluation: 18:20 - Subjective Subjective: Patient desires to go home. Has no SOB Has no chest pain Still with tremors. Objective - Vital Signs/Intake and Output Vital Signs (last 24 hours): Temp Pulse Resp BP Pulse Ox 98.2 F 100 H 18 113/75 95 09/15/18 20:20 09/15/18 21:10 09/15/18 20:20 09/15/18 21:10 09/15/18 20:20 - Medications Medications: Current Medications Acetaminophen (Tylenol 325mg Tab) 650 mg PO Q4 PRN PRN Reason: Pain, Mild (1-3) Al Hydrox/Mg Hydrox/Simethicone (Maalox Plus 30 Ml) 30 ml PO QID PRN PRN Reason: Abdominal Discomfort Albuterol/Ipratropium (Duoneb 3 Mg/0.5 Mg (3 Ml) Ud) 3 ml INH RQ6 PRN PRN Reason: Shortness of Breath Last Admin: 09/13/18 04:25 Dose: 3 ml Atorvastatin Calcium (Lipitor) 80 mg PO HS [facility] Last Admin: 09/15/18 21:09 Dose: 80 mg Carvedilol (Coreg) 12.5 mg PO Q12 [facility] Last Admin: 09/15/18 21:10 Dose: 12.5 mg Enalapril Maleate (Vasotec) 2.5 mg PO DAILY [facility] Last Admin: 09/15/18 08:48 Dose: Not Given Famotidine (Pepcid) 20 mg PO DAILY [facility] Last Admin: 09/15/18 08:47 Dose: 20 mg Folic Acid (Folic Acid) 1 mg PO DAILY [facility] Last Admin: 09/15/18 08:46 Dose: 1 mg Furosemide (Lasix) 40 mg IVP BID [facility] Last Admin: 09/15/18 16:41 Dose: 40 mg Gabapentin (Neurontin) 300 mg PO HS [facility] Last Admin: 09/15/18 21:47 Dose: 300 mg Levofloxacin/Dextrose (Levaquin 500mg) 500 mg in 100 mls @ 100 mls/hr IVPB DAILY [facility]; Protocol Last Admin: 09/15/18 08:45 Dose: 100 mls/hr Sodium Chloride (Sodium Chloride 0.9%) 1,000 mls @ 80 mls/hr IV .[id number] [facility] Last Admin: 09/15/18 21:16 Dose: 80 mls/hr Loperamide HCl (Imodium) 2 mg PO Q4 PRN PRN Reason: After Loose Bowel Movement Lorazepam (Ativan) 0.5 mg IVP Q8H PRN PRN Reason: withdrawals Last Admin: 09/16/18 02:59 Dose: 0.5 mg Metformin HCl (Glucophage) 1,000 mg PO BID [facility] Last Admin: 09/15/18 16:40 Dose: 1,000 mg Multivitamins/Minerals (Therapeutic-M Tab) 1 tab PO DAILY [facility] Last Admin: 09/15/18 08:46 Dose: 1 tab Nicotine (Nicoderm Cq) 1 patch TD DAILY [facility] Last Admin: 09/15/18 08:48 Dose: 1 patch Nitroglycerin (Nitrostat Sl Tab) 0.4 mg SL Q5MIN PRN PRN Reason: Chest pain Ondansetron HCl (Zofran Inj) 4 mg IVP Q6 PRN PRN Reason: Nausea/Vomiting Oxycodone HCl (Oxycodone Immediate Release Tab) 20 mg PO Q8 PRN PRN Reason: Pain, severe (8-10) Last Admin: 09/15/18 19:27 Dose: 20 mg Pyridoxine HCl (Vitamin B6) 100 mg PO DAILY [facility] Last Admin: 09/15/18 08:46 Dose: 100 mg Sennosides (Senokot Tab) 17.2 mg PO HS [facility] Last Admin: 09/15/18 21:10 Dose: 17.2 mg Thiamine HCl (Vitamin B1 Tab) 100 mg PO DAILY [facility] Last Admin: 09/15/18 08:47 Dose: 100 mg - Labs Labs: 09/12/18 05:00 09/12/18 05:00 PT 12.9 Seconds (9.8-13.1) 09/10/18 13:45 INR 1.1 09/10/18 13:45 APTT 36.0 Seconds (25.6-37.1) 09/10/18 13:45 - Head Exam Head Exam: NORMAL INSPECTION - Eye Exam Eye Exam: Normal appearance - ENT Exam ENT Exam: Mucous Membranes Moist - Respiratory Exam Respiratory Exam: Clear to Ausculation Bilateral - Cardiovascular Exam Cardiovascular Exam: REGULAR RHYTHM - GI/Abdominal Exam GI & Abdominal Exam: Normal Bowel Sounds - Neurological Exam Neurological Exam: Awake, Oriented x3 Assessment and Plan (1) Pleural effusion Status: Acute (2) Alcohol withdrawal Status: Acute (3) Liver cirrhosis Status: Acute (4) DMII (diabetes mellitus, type 2) Status: Chronic - Assessment and Plan (Free Text) Plan: Cont meds Cont tx Patient has no place to stay hence not a safe discharge phys therapy Subacute rehab eval.
--- NOTE | 2018-09-16 06:31 | CP.PCM.PN ---
Subjective - Date & Time of Evaluation Date of Evaluation: 09/15/18 Time of Evaluation: 17:25 - Subjective Subjective: Patient verbalized to a relative about " ending it all". He denied when asked about it. Family was with him, They are worried about him getting discharged as he has no place to go. He was previously admitted to [facility] but got out AMA. He has no tremors Has no chest pain or SOB. Objective - Vital Signs/Intake and Output Vital Signs (last 24 hours): Temp Pulse Resp BP Pulse Ox 98.2 F 100 H 18 113/75 95 09/15/18 20:20 09/15/18 21:10 09/15/18 20:20 09/15/18 21:10 09/15/18 20:20 - Medications Medications: Current Medications Acetaminophen (Tylenol 325mg Tab) 650 mg PO Q4 PRN PRN Reason: Pain, Mild (1-3) Al Hydrox/Mg Hydrox/Simethicone (Maalox Plus 30 Ml) 30 ml PO QID PRN PRN Reason: Abdominal Discomfort Albuterol/Ipratropium (Duoneb 3 Mg/0.5 Mg (3 Ml) Ud) 3 ml INH RQ6 PRN PRN Reason: Shortness of Breath Last Admin: 09/13/18 04:25 Dose: 3 ml Atorvastatin Calcium (Lipitor) 80 mg PO HS [facility] Last Admin: 09/15/18 21:09 Dose: 80 mg Carvedilol (Coreg) 12.5 mg PO Q12 [facility] Last Admin: 09/15/18 21:10 Dose: 12.5 mg Enalapril Maleate (Vasotec) 2.5 mg PO DAILY [facility] Last Admin: 09/15/18 08:48 Dose: Not Given Famotidine (Pepcid) 20 mg PO DAILY [facility] Last Admin: 09/15/18 08:47 Dose: 20 mg Folic Acid (Folic Acid) 1 mg PO DAILY [facility] Last Admin: 09/15/18 08:46 Dose: 1 mg Furosemide (Lasix) 40 mg IVP BID [facility] Last Admin: 09/15/18 16:41 Dose: 40 mg Gabapentin (Neurontin) 300 mg PO HS [facility] Last Admin: 09/15/18 21:47 Dose: 300 mg Levofloxacin/Dextrose (Levaquin 500mg) 500 mg in 100 mls @ 100 mls/hr IVPB DAILY [facility]; Protocol Last Admin: 09/15/18 08:45 Dose: 100 mls/hr Sodium Chloride (Sodium Chloride 0.9%) 1,000 mls @ 80 mls/hr IV .[id number] [facility] Last Admin: 09/15/18 21:16 Dose: 80 mls/hr Loperamide HCl (Imodium) 2 mg PO Q4 PRN PRN Reason: After Loose Bowel Movement Lorazepam (Ativan) 0.5 mg IVP Q8H PRN PRN Reason: withdrawals Last Admin: 09/16/18 02:59 Dose: 0.5 mg Metformin HCl (Glucophage) 1,000 mg PO BID [facility] Last Admin: 09/15/18 16:40 Dose: 1,000 mg Multivitamins/Minerals (Therapeutic-M Tab) 1 tab PO DAILY [facility] Last Admin: 09/15/18 08:46 Dose: 1 tab Nicotine (Nicoderm Cq) 1 patch TD DAILY [facility] Last Admin: 09/15/18 08:48 Dose: 1 patch Nitroglycerin (Nitrostat Sl Tab) 0.4 mg SL Q5MIN PRN PRN Reason: Chest pain Ondansetron HCl (Zofran Inj) 4 mg IVP Q6 PRN PRN Reason: Nausea/Vomiting Oxycodone HCl (Oxycodone Immediate Release Tab) 20 mg PO Q8 PRN PRN Reason: Pain, severe (8-10) Last Admin: 09/15/18 19:27 Dose: 20 mg Pyridoxine HCl (Vitamin B6) 100 mg PO DAILY [facility] Last Admin: 09/15/18 08:46 Dose: 100 mg Sennosides (Senokot Tab) 17.2 mg PO HS [facility] Last Admin: 09/15/18 21:10 Dose: 17.2 mg Thiamine HCl (Vitamin B1 Tab) 100 mg PO DAILY [facility] Last Admin: 09/15/18 08:47 Dose: 100 mg - Labs Labs: 09/12/18 05:00 09/12/18 05:00 PT 12.9 Seconds (9.8-13.1) 09/10/18 13:45 INR 1.1 09/10/18 13:45 APTT 36.0 Seconds (25.6-37.1) 09/10/18 13:45 - Head Exam Head Exam: NORMAL INSPECTION - Eye Exam Eye Exam: Normal appearance - ENT Exam ENT Exam: Mucous Membranes Moist - Respiratory Exam Respiratory Exam: Clear to Ausculation Bilateral - Cardiovascular Exam Cardiovascular Exam: REGULAR RHYTHM - GI/Abdominal Exam GI & Abdominal Exam: Normal Bowel Sounds Assessment and Plan (1) Pleural effusion Status: Acute (2) Alcohol withdrawal Status: Acute (3) Liver cirrhosis Status: Acute (4) DMII (diabetes mellitus, type 2) Status: Chronic - Assessment and Plan (Free Text) Plan: Cont meds Cont tx Cont meds Discuassed with family re subacute ro [facility] placement. Psych eval. One to one.
--- NOTE | 2018-09-16 08:58 | CP.PCM.PN ---
Subjective - Date & Time of Evaluation Date of Evaluation: 09/16/18 Time of Evaluation: 08:58 - Subjective Subjective: SOB IMPROVED ON 1 TO 1 NURSING CARE BECAUSE OF SUICIDAL IDEATION LUNGS-FAIR AERATION WITH BASAL DULLNESS WILL CONTINUE CURRENT TX REPEAT CXR MAY NEED PSYCH EVAL Objective - Vital Signs/Intake and Output Vital Signs (last 24 hours): Temp Pulse Resp BP Pulse Ox 97.8 F 90 20 97/66 L 98 09/16/18 07:49 09/16/18 07:49 09/16/18 07:49 09/16/18 07:49 09/16/18 07:49 - Medications Medications: Current Medications Acetaminophen (Tylenol 325mg Tab) 650 mg PO Q4 PRN PRN Reason: Pain, Mild (1-3) Al Hydrox/Mg Hydrox/Simethicone (Maalox Plus 30 Ml) 30 ml PO QID PRN PRN Reason: Abdominal Discomfort Albuterol/Ipratropium (Duoneb 3 Mg/0.5 Mg (3 Ml) Ud) 3 ml INH RQ6 PRN PRN Reason: Shortness of Breath Last Admin: 09/13/18 04:25 Dose: 3 ml Atorvastatin Calcium (Lipitor) 80 mg PO HS [facility] Last Admin: 09/15/18 21:09 Dose: 80 mg Carvedilol (Coreg) 12.5 mg PO Q12 [facility] Last Admin: 09/15/18 21:10 Dose: 12.5 mg Enalapril Maleate (Vasotec) 2.5 mg PO DAILY [facility] Last Admin: 09/15/18 08:48 Dose: Not Given Famotidine (Pepcid) 20 mg PO DAILY [facility] Last Admin: 09/15/18 08:47 Dose: 20 mg Folic Acid (Folic Acid) 1 mg PO DAILY [facility] Last Admin: 09/15/18 08:46 Dose: 1 mg Furosemide (Lasix) 40 mg IVP BID [facility] Last Admin: 09/15/18 16:41 Dose: 40 mg Gabapentin (Neurontin) 300 mg PO HS [facility] Last Admin: 09/15/18 21:47 Dose: 300 mg Levofloxacin/Dextrose (Levaquin 500mg) 500 mg in 100 mls @ 100 mls/hr IVPB DAILY [facility]; Protocol Last Admin: 09/15/18 08:45 Dose: 100 mls/hr Sodium Chloride (Sodium Chloride 0.9%) 1,000 mls @ 80 mls/hr IV .[id number] [facility] Last Admin: 09/15/18 21:16 Dose: 80 mls/hr Loperamide HCl (Imodium) 2 mg PO Q4 PRN PRN Reason: After Loose Bowel Movement Lorazepam (Ativan) 0.5 mg IVP Q8H PRN PRN Reason: withdrawals Last Admin: 09/16/18 02:59 Dose: 0.5 mg Metformin HCl (Glucophage) 1,000 mg PO BID [facility] Last Admin: 09/15/18 16:40 Dose: 1,000 mg Multivitamins/Minerals (Therapeutic-M Tab) 1 tab PO DAILY [facility] Last Admin: 09/15/18 08:46 Dose: 1 tab Nicotine (Nicoderm Cq) 1 patch TD DAILY [facility] Last Admin: 09/15/18 08:48 Dose: 1 patch Nitroglycerin (Nitrostat Sl Tab) 0.4 mg SL Q5MIN PRN PRN Reason: Chest pain Ondansetron HCl (Zofran Inj) 4 mg IVP Q6 PRN PRN Reason: Nausea/Vomiting Oxycodone HCl (Oxycodone Immediate Release Tab) 20 mg PO Q8 PRN PRN Reason: Pain, severe (8-10) Last Admin: 09/15/18 19:27 Dose: 20 mg Pyridoxine HCl (Vitamin B6) 100 mg PO DAILY [facility] Last Admin: 09/15/18 08:46 Dose: 100 mg Sennosides (Senokot Tab) 17.2 mg PO HS [facility] Last Admin: 09/15/18 21:10 Dose: 17.2 mg Thiamine HCl (Vitamin B1 Tab) 100 mg PO DAILY [facility] Last Admin: 09/15/18 08:47 Dose: 100 mg - Labs Labs: 09/12/18 05:00 09/12/18 05:00 PT 12.9 Seconds (9.8-13.1) 09/10/18 13:45 INR 1.1 09/10/18 13:45 APTT 36.0 Seconds (25.6-37.1) 09/10/18 13:45
[2018-09-16] MEDS: levoFLOXacin 500 mg in D5W 500 MG/100 ML BAG IVPB SCH (09:00)
[2018-09-16] MEDS: Pyridoxine 100 mg Tab PO SCH (09:03)
[2018-09-16] MEDS: Multivitamin With Minerals Tab PO SCH (09:04)
[2018-09-16] MEDS: oxyCODONE 10 mg Immediate Release Tab PO PRN ×2 (09:28→17:38)
--- NOTE | 2018-09-16 10:15 | RAD ---
Date of service: 09/16/2018 PROCEDURE: CHEST RADIOGRAPH, 1 VIEW HISTORY: PLEURAL EFFUSION COMPARISON: 09/13/2018. FINDINGS: LUNGS: There is interval improved aeration in the lungs with improving pulmonary venous congestion. Bibasilar airspace disease likely compressive atelectasis. PLEURA: Persistent pleural effusions, larger on the left. CARDIOVASCULAR: Persistent mild cardiomegaly. No aortic atherosclerotic calcifications present. Status post CABG OSSEOUS STRUCTURES: Within normal limits for the patient's age. VISUALIZED UPPER ABDOMEN: Normal. OTHER FINDINGS: None. IMPRESSION: Interval improvement in pulmonary venous congestion with persistent effusions, larger on the left.
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
--- NOTE | 2018-09-16 12:14 | US ---
PROCEDURE: Date of procedure: 09/13/2018 Procedure: 1. Ultrasound-guided left thoracentesis, CPT 85206 Medications: 5cc 1% Lidocaine HISTORY: Left pleural effusion, shortness of breath TECHNIQUE: Following informed consent ,the Patients' left chest was marked. Procedure time-out was called, and the patient was placed in the sitting position and limited ultrasound showed a moderate left effusion. The patient's left back was prepped and draped in the usual sterile fashion. After the skin was anesthetized with lidocaine, a drainage catheter was advanced under ultrasound guidance into the pleural space. Ultrasound-guided thoracentesis was performed. A total of 600 cubic centimeters of straw-colored fluid removed without complication. A Xeroform dressing was applied. IMPRESSION: Ultrasound guided left thoracentesis. There were no immediate complications.
[2018-09-16 13:09] LABS: BLOOD UREA NITROGEN 19 mg/dl (9-20); CALCIUM 7.9 mg/dL (8.4-10.2); GFR NON-AFRICAN AMERICAN > 60
[2018-09-17] MEDS: levoFLOXacin 500 mg in D5W 500 MG/100 ML BAG IVPB SCH (08:48)
[2018-09-17] MEDS: Multivitamin With Minerals Tab PO SCH (08:49)
[2018-09-17] MEDS: Pyridoxine 100 mg Tab PO SCH (08:49)
[2018-09-17] MEDS: oxyCODONE 10 mg Immediate Release Tab PO PRN ×3 (08:59→20:57)
--- NOTE | 2018-09-17 09:09 | CP.PCM.PN ---
Subjective - Date & Time of Evaluation Date of Evaluation: 09/17/18 Time of Evaluation: 09:09 - Subjective Subjective: NO CHEST PAIN/SOB ALERT AND ORIENTED X 3 Objective - Vital Signs/Intake and Output Vital Signs (last 24 hours): Temp Pulse Resp BP Pulse Ox 98.9 F 79 20 100/66 98 09/17/18 07:47 09/17/18 08:50 09/17/18 07:47 09/17/18 08:51 09/17/18 07:47 - Medications Medications: Current Medications Acetaminophen (Tylenol 325mg Tab) 650 mg PO Q4 PRN PRN Reason: Pain, Mild (1-3) Al Hydrox/Mg Hydrox/Simethicone (Maalox Plus 30 Ml) 30 ml PO QID PRN PRN Reason: Abdominal Discomfort Albuterol/Ipratropium (Duoneb 3 Mg/0.5 Mg (3 Ml) Ud) 3 ml INH RQ6 PRN PRN Reason: Shortness of Breath Last Admin: 09/13/18 04:25 Dose: 3 ml Atorvastatin Calcium (Lipitor) 80 mg PO HS [facility] Last Admin: 09/16/18 21:13 Dose: 80 mg Carvedilol (Coreg) 12.5 mg PO Q12 [facility] Last Admin: 09/17/18 08:50 Dose: 12.5 mg Chlordiazepoxide (Librium) 25 mg PO Q8 PRN PRN Reason: Symptoms of alcohol withdrawl Last Admin: 09/16/18 13:25 Dose: 25 mg Enalapril Maleate (Vasotec) 2.5 mg PO DAILY [facility] Last Admin: 09/17/18 08:49 Dose: 2.5 mg Famotidine (Pepcid) 20 mg PO DAILY [facility] Last Admin: 09/17/18 08:50 Dose: 20 mg Folic Acid (Folic Acid) 1 mg PO DAILY [facility] Last Admin: 09/17/18 08:49 Dose: 1 mg Furosemide (Lasix) 40 mg IVP BID [facility] Last Admin: 09/17/18 08:51 Dose: 40 mg Gabapentin (Neurontin) 300 mg PO HS [facility] Last Admin: 09/16/18 21:13 Dose: 300 mg Levofloxacin/Dextrose (Levaquin 500mg) 500 mg in 100 mls @ 100 mls/hr IVPB DAILY [facility]; Protocol Last Admin: 09/17/18 08:48 Dose: 100 mls/hr Loperamide HCl (Imodium) 2 mg PO Q4 PRN PRN Reason: After Loose Bowel Movement Metformin HCl (Glucophage) 1,000 mg PO BID [facility] Last Admin: 09/17/18 08:48 Dose: 1,000 mg Multivitamins/Minerals (Therapeutic-M Tab) 1 tab PO DAILY [facility] Last Admin: 09/17/18 08:49 Dose: 1 tab Nicotine (Nicoderm Cq) 1 patch TD DAILY [facility] Last Admin: 09/17/18 08:49 Dose: 1 patch Nitroglycerin (Nitrostat Sl Tab) 0.4 mg SL Q5MIN PRN PRN Reason: Chest pain Ondansetron HCl (Zofran Inj) 4 mg IVP Q6 PRN PRN Reason: Nausea/Vomiting Oxycodone HCl (Oxycodone Immediate Release Tab) 20 mg PO Q8 PRN PRN Reason: Pain, severe (8-10) Last Admin: 09/16/18 17:38 Dose: 20 mg Pyridoxine HCl (Vitamin B6) 100 mg PO DAILY [facility] Last Admin: 09/17/18 08:49 Dose: 100 mg Sennosides (Senokot Tab) 17.2 mg PO HS [facility] Last Admin: 09/16/18 21:14 Dose: Not Given Thiamine HCl (Vitamin B1 Tab) 100 mg PO DAILY [facility] Last Admin: 09/17/18 08:48 Dose: 100 mg - Labs Labs: 09/12/18 05:00 09/16/18 12:30 PT 12.9 Seconds (9.8-13.1) 09/10/18 13:45 INR 1.1 09/10/18 13:45 APTT 36.0 Seconds (25.6-37.1) 09/10/18 13:45 - Constitutional Appears: No Acute Distress - Head Exam Head Exam: ATRAUMATIC, NORMAL INSPECTION, NORMOCEPHALIC - Eye Exam Eye Exam: EOMI, Normal appearance, PERRL Pupil Exam: NORMAL ACCOMODATION, PERRL - ENT Exam ENT Exam: Mucous Membranes Moist, Normal Exam - Neck Exam Neck Exam: Full ROM, Normal Inspection. absent: Lymphadenopathy - Respiratory Exam Respiratory Exam: Decreased Breath Sounds, Prolonged Expiratory Phase, Rales, NORMAL BREATHING PATTERN - Cardiovascular Exam Cardiovascular Exam: REGULAR RHYTHM, +S1, +S2. absent: Murmur - GI/Abdominal Exam GI & Abdominal Exam: Soft, Normal Bowel Sounds. absent: Tenderness - Rectal Exam Rectal Exam: NORMAL INSPECTION - Exam Exam: NORMAL INSPECTION - Extremities Exam Extremities Exam: absent: Joint Swelling, Pedal Edema Additional comments: BILATERAL LEG AMPUTATIONS - Back Exam Back Exam: NORMAL INSPECTION - Neurological Exam Neurological Exam: Alert, Awake, CN II-XII Intact, Oriented x3 - Psychiatric Exam Psychiatric exam: Normal Affect, Normal Mood - Skin Skin Exam: Dry, Intact, Normal Color, Warm Assessment and Plan - Assessment and Plan (Free Text) Assessment: PLEURAL EFFUSIONS IMPROVED Plan: NO FURTHER PULMONARY INTERVENTION FOR NOW WILL SIGN OFF CASE AND SEE AGAIN AT YOUR REQUEST
--- NOTE | 2018-09-17 11:29 | CARD ---
APPROVED REPORT Date of service: 09/10/2018 EKG Measurement Heart [id number] <Conclusion> Sinus tachycardia with occasional premature ventricular complexes Possible Left atrial enlargement Low voltage QRS Abnormal ECG
[2018-09-18] MEDS: oxyCODONE 10 mg Immediate Release Tab PO PRN ×2 (04:39→13:40)
[2018-09-18] MEDS: Pyridoxine 100 mg Tab PO SCH (10:17)
[2018-09-18] MEDS: Multivitamin With Minerals Tab PO SCH (10:18)
[2018-09-18] MEDS: Menthol/Methyl Salicylate Oinment TOP PRN (13:43)
[2018-09-19] MEDS: oxyCODONE 10 mg Immediate Release Tab PO PRN ×3 (04:10→17:29)
[2018-09-19] MEDS: Pyridoxine 100 mg Tab PO SCH (08:41)
[2018-09-19] MEDS: Multivitamin With Minerals Tab PO SCH (08:41)
--- NOTE | 2018-09-19 12:05 | PN ---
DATE: 09/19/2018 SUBJECTIVE: The patient seen and examined. Interim events noted. The patient remains in regular medical floor. The patient feels okay. Complains of generalized pain. The patient is under pain management. Medications are helping. Denies any discharge shortness of breath or chest pain. PHYSICAL EXAMINATION: GENERAL: The patient is in no acute distress. VITAL SIGNS: Stable. HEART: S1 and S2, normal and regular. LUNGS: Good bilateral air exchange. ABDOMEN: Soft and nontender. EXTREMITIES: The patient is status post bilateral amputation. No acute problem. CENTRAL NERVOUS SYSTEM: Exam is essentially unchanged. DIAGNOSTIC DATA: Available diagnostic data reviewed. ASSESSMENT AND PLAN: Overall the patient is hemodynamically stable and medically stable. Plan as ordered. Corby Gama MD
[2018-09-19] MEDS: Albuterol-Ipratrop 3 mg / 0.5 (3 ml) UD INH PRN (23:52)
[2018-09-20] MEDS: oxyCODONE 10 mg Immediate Release Tab PO PRN ×3 (03:27→22:46)
[2018-09-20] MEDS: Multivitamin With Minerals Tab PO SCH (09:01)
[2018-09-20] MEDS: Pyridoxine 100 mg Tab PO SCH (09:05)
--- NOTE | 2018-09-20 11:48 | PN ---
DATE: 09/20/2018 SUBJECTIVE: The patient seen and examined. Interim events noted. Consults noted and appreciated. The patient remains in regular medical floor. The patient feels okay. Denies any specific complaint. The patient is sleeping, arousable but does not want to get into conversation at this time. PHYSICAL EXAMINATION: GENERAL: The patient is in no acute distress. VITAL SIGNS: Stable. HEART: S1, S2 normal and regular. LUNGS: Good bilateral air exchange. ABDOMEN: Soft, nontender. EXTREMITIES: The patient is status post amputation bilaterally. CENTRAL NERVOUS SYSTEM: Essentially unchanged. DIAGNOSTIC DATA. Available diagnostic data reviewed. ASSESSMENT AND PLAN: Overall, the patient is medically stable. Plan as ordered. Corby Gama MD
[2018-09-20] MEDS: Albuterol-Ipratrop 3 mg / 0.5 (3 ml) UD INH PRN (19:19)
[2018-09-21 07:06] LABS: HEMOGLOBIN 11.8 g/dL (12.0-18.0); MEAN CELL VOLUME 87.7 fl (80.0-94.0); MEAN CORPUSCULAR HEMOGLOBIN 27.9 pg (27.0-31.0); MEAN CORPUSCULAR HGB CONC 31.9 g/dL (33.0-37.0); RBC 4.23 Mil/uL (4.40-5.90); RED CELL DISTRIBUTION WIDTH 17.6 % (11.5-14.5); WHITE BLOOD COUNT 8.5 K/uL (4.8-10.8)
[2018-09-21 07:32] LABS: CALCIUM 8.6 mg/dL (8.4-10.2)
[2018-09-21] MEDS: oxyCODONE 10 mg Immediate Release Tab PO PRN ×2 (09:05→22:30)
[2018-09-21] MEDS: Multivitamin With Minerals Tab PO SCH (09:09)
[2018-09-21] MEDS: Pyridoxine 100 mg Tab PO SCH (09:10)
--- NOTE | 2018-09-21 10:03 | PN ---
DATE: 09/21/2018 SUBJECTIVE: The patient seen and examined. Interim events noted. The patient seen for Dr. Valles while he is away. The patient is sleeping, arousable. Does not want to get into conversation. Denies any specific complaints, but does have generalized pains. No specific issue reported by nursing staff. PHYSICAL EXAMINATION: GENERAL: The patient is in no acute distress. VITAL SIGNS: Stable. HEART EXAM: S1, S2. Normal and regular. LUNGS: Good bilateral air exchange. ABDOMEN: Soft. Nontender. EXTREMITIES: The patient is status post bilateral amputation. CENTRAL NERVOUS SYSTEM: Essentially unchanged. DIAGNOSTIC DATA: Available diagnostic data reviewed. ASSESSMENT AND PLAN: Overall, the patient's general medical condition is stable. Plan as ordered. Corby Gama MD
[2018-09-21] MEDS ORDERED: Dextrose 5%/0.45% NS 1,000 ML IV SCH (13:30)
[2018-09-22 07:48] LABS: HEMOGLOBIN 11.9 g/dL (12.0-18.0); MEAN CELL VOLUME 88.2 fl (80.0-94.0); MEAN CORPUSCULAR HEMOGLOBIN 27.5 pg (27.0-31.0); MEAN CORPUSCULAR HGB CONC 31.1 g/dL (33.0-37.0); RBC 4.33 Mil/uL (4.40-5.90); RED CELL DISTRIBUTION WIDTH 17.6 % (11.5-14.5); WHITE BLOOD COUNT 8.6 K/uL (4.8-10.8)
[2018-09-22 09:04] LABS: ALB/GLOB RATIO 0.9 (1.0-2.1); ALBUMIN 3.6 g/dL (3.5-5.0); ALT/SGPT 25 U/L (21-72); AST/SGOT 53 U/L (17-59); BLOOD UREA NITROGEN 48 mg/dl (9-20); CALCIUM 8.7 mg/dL (8.4-10.2); GFR NON-AFRICAN AMERICAN 52
[2018-09-22] MEDS: oxyCODONE 10 mg Immediate Release Tab PO PRN ×2 (09:32→17:54)
[2018-09-22] MEDS: Pyridoxine 100 mg Tab PO SCH (09:43)
[2018-09-22] MEDS: Multivitamin With Minerals Tab PO SCH (09:45)
[2018-09-23] MEDS: oxyCODONE 10 mg Immediate Release Tab PO PRN ×3 (02:34→21:14)
[2018-09-23 06:09] LABS: HEMOGLOBIN 11.6 g/dL (12.0-18.0); MEAN CELL VOLUME 87.3 fl (80.0-94.0); MEAN CORPUSCULAR HEMOGLOBIN 27.7 pg (27.0-31.0); MEAN CORPUSCULAR HGB CONC 31.7 g/dL (33.0-37.0); RBC 4.2 Mil/uL (4.40-5.90); RED CELL DISTRIBUTION WIDTH 17.3 % (11.5-14.5); WHITE BLOOD COUNT 8.6 K/uL (4.8-10.8)
[2018-09-23 06:27] LABS: ALB/GLOB RATIO 0.8 (1.0-2.1); ALBUMIN 3.4 g/dL (3.5-5.0); ALT/SGPT 26 U/L (21-72); AST/SGOT 44 U/L (17-59); BLOOD UREA NITROGEN 39 mg/dl (9-20); CALCIUM 8.8 mg/dL (8.4-10.2); GFR NON-AFRICAN AMERICAN > 60
[2018-09-23] MEDS: Multivitamin With Minerals Tab PO SCH (09:48)
[2018-09-23] MEDS: Pyridoxine 100 mg Tab PO SCH (09:48)
[2018-09-24] MEDS: oxyCODONE 10 mg Immediate Release Tab PO PRN ×2 (09:22→19:09)
[2018-09-24] MEDS: Multivitamin With Minerals Tab PO SCH (09:28)
[2018-09-24] MEDS: Pyridoxine 100 mg Tab PO SCH (09:28)
[2018-09-25] MEDS: oxyCODONE 10 mg Immediate Release Tab PO PRN ×3 (03:08→19:10)
[2018-09-25] MEDS: Pyridoxine 100 mg Tab PO SCH (10:15)
[2018-09-25] MEDS: Multivitamin With Minerals Tab PO SCH (13:21)
[2018-09-26] MEDS: oxyCODONE 10 mg Immediate Release Tab PO PRN ×3 (02:46→20:58)
[2018-09-26] MEDS: Pyridoxine 100 mg Tab PO SCH (08:29)
--- NOTE | 2018-09-26 12:36 | CP.PCM.CON ---
History of Present Illness - History of Present Illness History of Present Illness: 58 y/o male with diagnosis of chronic pain, presents to ED for evaluation of left sided chest pain and difficulty breathing x1 day. Denies cough, fever, chills, LE edema, pt reported feeling down as his mother three days ago , pt was asked to leave the senior housing currently homeless. He has generalized body pain VAS 6/10 in the chest and back. Pain is sharp and intermittent. He denies inciting event but says movement worsens pain. Rest and pain medication improve pain. Past Patient History - Past Social History Smoking Status: Heavy Smoker > 10 Cigarettes Daily - CARDIAC Hx Hypercholesterolemia: Yes Hx Hypertension: Yes - PULMONARY Hx Asthma: Yes Hx Chronic Obstructive Pulmonary Disease (COPD): Yes - NEUROLOGICAL Hx Neurological Disorder: Yes Hx Dizziness: Yes - HEENT Hx HEENT Problems: No - RENAL Hx Chronic Kidney Disease: No - ENDOCRINE/METABOLIC Hx Endocrine Disorders: Yes Hx Diabetes Mellitus Type 2: Yes - HEMATOLOGICAL/ONCOLOGICAL Hx Blood Disorders: Yes Hx Cirrhosis: Yes - MUSCULOSKELETAL/RHEUMATOLOGICAL Hx Falls: Yes - GASTROINTESTINAL Hx Gastrointestinal Disorders: Yes - GENITOURINARY/GYNECOLOGICAL Hx Genitourinary Disorders: Yes Hx Incontinence: Yes - PSYCHIATRIC Hx Substance Use: Yes - SURGICAL HISTORY Hx Coronary Artery Bypass Graft: Yes - ANESTHESIA Hx Anesthesia: Yes Hx Anesthesia Reactions: No Hx Malignant Hyperthermia: No Meds Allergies/Adverse Reactions: Allergies Allergy/AdvReac Type Severity Reaction Status Date / Time No Known Allergies Allergy Verified 04/27/18 16:51 - Medications Medications: Current Medications Acetaminophen (Tylenol 325mg Tab) 650 mg PO Q4 PRN PRN Reason: Pain, Mild (1-3) Al Hydrox/Mg Hydrox/Simethicone (Maalox Plus 30 Ml) 30 ml PO QID PRN PRN Reason: Abdominal Discomfort Albuterol/Ipratropium (Duoneb 3 Mg/0.5 Mg (3 Ml) Ud) 3 ml INH RQ6 PRN PRN Reason: Shortness of Breath Last Admin: 09/20/18 19:19 Dose: 3 ml Atorvastatin Calcium (Lipitor) 80 mg PO HS [facility] Last Admin: 09/25/18 21:00 Dose: 80 mg Camphor/Menthol (Bengay) 1 applic TOP Q6 PRN PRN Reason: Muscle spasm Last Admin: 09/18/18 13:43 Dose: 1 appl Carvedilol (Coreg) 12.5 mg PO Q12 [facility] Last Admin: 09/26/18 08:24 Dose: Not Given Enalapril Maleate (Vasotec) 2.5 mg PO DAILY [facility] Last Admin: 09/26/18 08:27 Dose: Not Given Famotidine (Pepcid) 20 mg PO DAILY [facility] Last Admin: 09/26/18 08:29 Dose: 20 mg Folic Acid (Folic Acid) 1 mg PO DAILY [facility] Last Admin: 09/26/18 08:29 Dose: 1 mg Furosemide (Lasix) 40 mg IVP BID [facility] Last Admin: 09/21/18 09:16 Dose: 40 mg Gabapentin (Neurontin) 300 mg PO TID [facility] Hydromorphone HCl (Dilaudid) 1 mg IVP Q3 PRN PRN Reason: Pain, severe (8-10) Loperamide HCl (Imodium) 2 mg PO Q4 PRN PRN Reason: After Loose Bowel Movement Metformin HCl (Glucophage) 1,000 mg PO BID [facility] Last Admin: 09/26/18 08:29 Dose: 1,000 mg Multivitamins/Minerals (Therapeutic-M Tab) 1 tab PO DAILY [facility] Last Admin: 09/25/18 13:21 Dose: 1 tab Nicotine (Nicoderm Cq) 1 patch TD DAILY [facility] Last Admin: 09/26/18 08:30 Dose: 1 patch Nitroglycerin (Nitrostat Sl Tab) 0.4 mg SL Q5MIN PRN PRN Reason: Chest pain Ondansetron HCl (Zofran Inj) 4 mg IVP Q6 PRN PRN Reason: Nausea/Vomiting Oxycodone HCl (Oxycodone Immediate Release Tab) 20 mg PO Q8 PRN PRN Reason: Pain, severe (8-10) Last Admin: 09/26/18 09:47 Dose: 20 mg Pyridoxine HCl (Vitamin B6) 100 mg PO DAILY [facility] Last Admin: 09/26/18 08:29 Dose: 100 mg Sennosides (Senokot Tab) 17.2 mg PO HS [facility] Last Admin: 09/25/18 21:05 Dose: Not Given Thiamine HCl (Vitamin B1 Tab) 100 mg PO DAILY [facility] Last Admin: 09/26/18 08:29 Dose: 100 mg Physical Exam - Constitutional Appears: No Acute Distress, Older Than Stated Age - Back Exam Additional comments: neck and lower back limited ROM mild cervical paraspinal tenderness midlly tender over cervical facets mild lumbar paravertebral tenderness no stepoff in Lspine - Neurological Exam Additional comments: Handgrip 5/5 strength, sensation grossly intact Results - Vital Signs Recent Vital Signs: Last Vital Signs Temp 98.1 F 09/26/18 08:04 Pulse 83 09/26/18 08:24 Resp 20 09/26/18 08:04 BP 93/58 L 09/26/18 08:24 Pulse Ox 93 L 09/26/18 08:04 - Labs Result Diagrams: 09/23/18 05:55 09/23/18 05:55 Labs: Laboratory Results - last 24 hr 09/24/18 09/24/18 09/24/18 10:36 16:47 21:55 POC Glucose (mg/dL) 155 H 94 86 09/25/18 09/25/18 09/25/18 05:59 10:38 15:58 POC Glucose (mg/dL) 89 93 73 09/25/18 09/26/18 09/26/18 21:44 05:22 10:51 POC Glucose (mg/dL) 93 86 116 H Assessment & Plan - Assessment and Plan (Free Text) Assessment: 58Y M with chronic pain admitted for treatment of pneumonia Plan: 1. PT 2. Dilaudid added for severe breakthrough pain, gabapentin 300mg po tid 3 care as per primary team
[2018-09-26] MEDS ORDERED: HYDROmorphone 1 mg/ml ISec IVP SCH (13:00)
[2018-09-27] MEDS: oxyCODONE 10 mg Immediate Release Tab PO PRN ×3 (05:51→22:28)
[2018-09-27] MEDS: Multivitamin With Minerals Tab PO SCH (09:53)
[2018-09-27] MEDS: Pyridoxine 100 mg Tab PO SCH (09:53)
--- NOTE | 2018-09-27 12:55 | RAD ---
Date of service: 09/27/2018 HISTORY: SOB COMPARISON: Comparison chest dated 09/16/2018. FINDINGS: LUNGS: Minor residual of pulmonary venous congestive changes Re demonstrated is opacification of the left mid to lower lung field likely representing some combination of atelectasis/infiltrate and moderately large left effusion. Minor right basilar atelectasis with small right-sided effusion. PLEURA: As above. No pneumothorax apparent. CARDIOVASCULAR: Mild aortic atherosclerotic calcification present. Cardiomegaly. Sternotomy wires.. No pulmonary vascular congestion. OSSEOUS STRUCTURES: No significant abnormalities. VISUALIZED UPPER ABDOMEN: Normal. OTHER FINDINGS: None. IMPRESSION: Minor residual of pulmonary venous congestive changes Re demonstrated is opacification of the left mid to lower lung field likely representing some combination of atelectasis/infiltrate and moderately large left effusion. Minor right basilar atelectasis with small right-sided effusion.
[2018-09-28] MEDS: oxyCODONE 10 mg Immediate Release Tab PO PRN ×3 (06:38→23:56)
[2018-09-28] MEDS: Multivitamin With Minerals Tab PO SCH (10:29)
[2018-09-28] MEDS: Pyridoxine 100 mg Tab PO SCH (10:30)
[2018-09-29] MEDS: oxyCODONE 10 mg Immediate Release Tab PO PRN ×2 (08:17→16:03)
[2018-09-29] MEDS: Pyridoxine 100 mg Tab PO SCH (08:29)
[2018-09-29] MEDS: Multivitamin With Minerals Tab PO SCH (08:34)
[2018-09-30] MEDS: oxyCODONE 10 mg Immediate Release Tab PO PRN ×3 (03:19→19:45)
[2018-09-30] MEDS: Multivitamin With Minerals Tab PO SCH (09:14)
[2018-09-30] MEDS: Pyridoxine 100 mg Tab PO SCH (09:15)
[2018-09-30] MEDS: Artificial Tears Opht Soln OU PRN ×2 (11:49→16:43)
--- NOTE | 2018-09-30 14:46 | CP.PCM.PCO ---
Assessment/Plan - Consults Consult Orders: Spoke to Dr. De Santiago regarding pt's concern for possible corneal abrasion. He will be in on Sunday to examine patient. Artificial tears ordered earlier to help lubricate eyes. Patient tolerating in no acute distress, will continue to monitor
[2018-09-30] MEDS ORDERED: Fluorescein 1 mg Ophthalmic Strip ONE (18:57)
[2018-10-01] MEDS: oxyCODONE 10 mg Immediate Release Tab PO PRN ×3 (04:38→20:37)
[2018-10-01] MEDS ORDERED: Sodium Chloride 0.9% 1,000 ML IV SCH (09:30)
[2018-10-01] MEDS: Pyridoxine 100 mg Tab PO SCH (09:42)
[2018-10-01] MEDS: Multivitamin With Minerals Tab PO SCH (09:42)
[2018-10-01] MEDS: Sodium Chloride 0.9% 1,000 ML IV SCH ×2 (11:00→20:44)
[2018-10-02] MEDS: Sodium Chloride 0.9% 1,000 ML IV SCH (06:50)
[2018-10-02] MEDS: oxyCODONE 10 mg Immediate Release Tab PO PRN ×2 (09:02→16:59)
[2018-10-02] MEDS: Multivitamin With Minerals Tab PO SCH (09:04)
[2018-10-02] MEDS: Pyridoxine 100 mg Tab PO SCH (09:06)
[2018-10-03 03:24] LABS: BARBITURATES, UR NEGATIVE (NEGATIVE); BENZODIAZEPINES, UR POSITIVE (NEGATIVE)
[2018-10-03 03:25] LABS: OPIATES, UR POSITIVE (NEGATIVE); PHENCYCLIDINE, UR NEGATIVE (NEGATIVE)
[2018-10-03] MEDS: oxyCODONE 10 mg Immediate Release Tab PO PRN ×3 (03:31→18:57)
[2018-10-03] MEDS: Albuterol-Ipratrop 3 mg / 0.5 (3 ml) UD INH PRN ×2 (05:01→11:53)
[2018-10-03] MEDS: Multivitamin With Minerals Tab PO SCH (09:13)
[2018-10-03] MEDS: Pyridoxine 100 mg Tab PO SCH (09:14)
[2018-10-04] MEDS: Albuterol-Ipratrop 3 mg / 0.5 (3 ml) UD INH PRN (00:32)
[2018-10-04] MEDS: oxyCODONE 10 mg Immediate Release Tab PO PRN ×3 (02:38→17:59)
[2018-10-04] MEDS: Pyridoxine 100 mg Tab PO SCH (09:51)
[2018-10-04] MEDS: Multivitamin With Minerals Tab PO SCH (09:51)
[2018-10-04] MEDS ORDERED: guaiFENesin DM 200 mg-20 mg/10 ml UD PO PRN (10:48)
[2018-10-04] MEDS: Albuterol-Ipratrop 3 mg / 0.5 (3 ml) UD INH SCH ×2 (13:16→20:08)
[2018-10-05] MEDS: oxyCODONE 10 mg Immediate Release Tab PO PRN ×3 (01:38→20:36)
[2018-10-05] MEDS: Albuterol-Ipratrop 3 mg / 0.5 (3 ml) UD INH SCH ×3 (07:42→19:57)
[2018-10-05] MEDS: Pyridoxine 100 mg Tab PO SCH (13:00)
[2018-10-05] MEDS: Multivitamin With Minerals Tab PO SCH (13:14)
[2018-10-05 21:17] LABS: BARBITURATES, UR NEGATIVE (NEGATIVE); BENZODIAZEPINES, UR NEGATIVE (NEGATIVE)
[2018-10-05 21:18] LABS: OPIATES, UR NEGATIVE (NEGATIVE); PHENCYCLIDINE, UR NEGATIVE (NEGATIVE)
[2018-10-06] MEDS: oxyCODONE 10 mg Immediate Release Tab PO PRN ×2 (04:32→15:58)
[2018-10-06] MEDS: Multivitamin With Minerals Tab PO SCH (08:37)
[2018-10-06] MEDS: Pyridoxine 100 mg Tab PO SCH (08:38)
[2018-10-06] MEDS: Albuterol-Ipratrop 3 mg / 0.5 (3 ml) UD INH SCH ×3 (09:09→19:36)
[2018-10-06] MEDS ORDERED: Promethazine/Cod 6.25mg-10mg/5ml Syr UD PO PRN (11:08)
[2018-10-06] MEDS: Artificial Tears Opht Soln OU PRN (22:54)
[2018-10-07] MEDS: oxyCODONE 10 mg Immediate Release Tab PO PRN ×3 (00:26→17:23)
[2018-10-07] MEDS: Albuterol-Ipratrop 3 mg / 0.5 (3 ml) UD INH SCH ×3 (07:32→19:20)
[2018-10-07] MEDS: Multivitamin With Minerals Tab PO SCH (09:33)
[2018-10-07] MEDS: Pyridoxine 100 mg Tab PO SCH (09:34)
[2018-10-08] MEDS: oxyCODONE 10 mg Immediate Release Tab PO PRN ×3 (01:38→21:43)
[2018-10-08] MEDS: Albuterol-Ipratrop 3 mg / 0.5 (3 ml) UD INH SCH ×3 (07:49→19:01)
[2018-10-08] MEDS: Multivitamin With Minerals Tab PO SCH (09:48)
[2018-10-08] MEDS: Pyridoxine 100 mg Tab PO SCH (09:48)
[2018-10-08] MEDS: Promethazine/Cod 6.25mg-10mg/5ml Syr UD PO SCH ×3 (12:41→16:50)
--- NOTE | 2018-10-08 15:39 | RAD ---
Date of service: 10/08/2018 HISTORY: cough COMPARISON: Comparison chest dated 09/27/2018. FINDINGS: LUNGS: There is opacification of the left mid to lower lung field consistent with some combination of atelectasis/infiltrate and left effusion. Questionable tiny right-sided effusion PLEURA: As above. No pneumothorax apparent. CARDIOVASCULAR: Minimal aortic atherosclerotic calcification present. Heart remains enlarged. Sternotomy wires and CABG clips again noted. OSSEOUS STRUCTURES: No significant abnormalities. VISUALIZED UPPER ABDOMEN: Normal. OTHER FINDINGS: None. IMPRESSION: Left lower lobe opacification likely representing combination of atelectasis/infiltrate and left-sided effusion. Questionable tiny right-sided effusion
[2018-10-09] MEDS: Albuterol-Ipratrop 3 mg / 0.5 (3 ml) UD INH SCH ×3 (07:29→19:59)
[2018-10-09] MEDS: oxyCODONE 10 mg Immediate Release Tab PO PRN ×2 (07:57→20:13)
[2018-10-09] MEDS: Promethazine/Cod 6.25mg-10mg/5ml Syr UD PO SCH ×3 (10:23→18:30)
[2018-10-09] MEDS: Multivitamin With Minerals Tab PO SCH (10:23)
[2018-10-09] MEDS: Pyridoxine 100 mg Tab PO SCH (10:24)
[2018-10-09 12:00] LABS: HEMOGLOBIN 11.9 g/dL (12.0-18.0); MEAN CELL VOLUME 86.5 fl (80.0-94.0); MEAN CORPUSCULAR HEMOGLOBIN 26.9 pg (27.0-31.0); MEAN CORPUSCULAR HGB CONC 31.1 g/dL (33.0-37.0); RBC 4.41 Mil/uL (4.40-5.90); RED CELL DISTRIBUTION WIDTH 16.5 % (11.5-14.5); WHITE BLOOD COUNT 7.5 K/uL (4.8-10.8)
[2018-10-09 12:31] LABS: ALB/GLOB RATIO 0.8 (1.0-2.1); ALBUMIN 3.6 g/dL (3.5-5.0); ALT/SGPT 27 U/L (21-72); AST/SGOT 39 U/L (17-59); BLOOD UREA NITROGEN 33 mg/dl (9-20); CALCIUM 9.2 mg/dL (8.4-10.2); GFR NON-AFRICAN AMERICAN > 60
[2018-10-09 13:35] LABS: BARBITURATES, UR NEGATIVE (NEGATIVE); BENZODIAZEPINES, UR POSITIVE (NEGATIVE); OPIATES, UR POSITIVE (NEGATIVE); PHENCYCLIDINE, UR NEGATIVE (NEGATIVE)
--- NOTE | 2018-10-09 16:47 | CP.PCM.PN ---
Subjective - Date & Time of Evaluation Date of Evaluation: 10/04/18 Time of Evaluation: 11:00 - Subjective Subjective: patient seen and examined at bedside. Interim events noted cough at times denies cp/fever/chills. available diagnostic data reviewed Objective Vital Signs Stable - Constitutional Appears: Non-toxic, No Acute Distress - Head Exam Head Exam: NORMAL INSPECTION - Eye Exam Eye Exam: Normal appearance - Respiratory Exam Respiratory Exam: NORMAL BREATHING PATTERN, rhonchi - Cardiovascular Exam Cardiovascular Exam: +S1, +S2 - GI/Abdominal Exam GI & Abdominal Exam: Soft - Neurological Exam Neurological Exam: Alert, Awake - Psychiatric Exam Psychiatric exam: Normal Affect, Normal Mood - Skin Skin Exam: Normal Color, Warm Assessment and Plan monitor vitals monitor labs Cont meds Cont tx consultants appreciated input reconsult pain management rest of plan as ordered Assessment and Plan (1) Cough Status: Acute (2) Chronic pain Status: Chronic (3) S/P BKA (below knee amputation) bilateral Status: Chronic
--- NOTE | 2018-10-09 16:50 | CP.PCM.PN ---
Subjective - Date & Time of Evaluation Date of Evaluation: 10/07/18 Time of Evaluation: 11:00 - Subjective Subjective: patient seen and examined at bedside. Interim events noted cough at times denies cp/fever/chills. available diagnostic data reviewed Objective Vital Signs Stable - Constitutional Appears: Non-toxic, No Acute Distress - Head Exam Head Exam: NORMAL INSPECTION - Eye Exam Eye Exam: Normal appearance - Respiratory Exam Respiratory Exam: NORMAL BREATHING PATTERN, rhonchi - Cardiovascular Exam Cardiovascular Exam: +S1, +S2 - GI/Abdominal Exam GI & Abdominal Exam: Soft - Neurological Exam Neurological Exam: Alert, Awake - Psychiatric Exam Psychiatric exam: Normal Affect, Normal Mood - Skin Skin Exam: Normal Color, Warm Assessment and Plan monitor vitals monitor labs Cont meds Cont tx consultants appreciated input reconsult pain management rest of plan as ordered Assessment and Plan (1) Cough Status: Acute (2) Chronic pain Status: Chronic (3) S/P BKA (below knee amputation) bilateral Status: Chronic
--- NOTE | 2018-10-09 16:50 | CP.PCM.PN ---
Subjective - Date & Time of Evaluation Date of Evaluation: 10/06/18 Time of Evaluation: 11:00 - Subjective Subjective: patient seen and examined at bedside. Interim events noted cough at times denies cp/fever/chills. available diagnostic data reviewed Objective Vital Signs Stable - Constitutional Appears: Non-toxic, No Acute Distress - Head Exam Head Exam: NORMAL INSPECTION - Eye Exam Eye Exam: Normal appearance - Respiratory Exam Respiratory Exam: NORMAL BREATHING PATTERN, rhonchi - Cardiovascular Exam Cardiovascular Exam: +S1, +S2 - GI/Abdominal Exam GI & Abdominal Exam: Soft - Neurological Exam Neurological Exam: Alert, Awake - Psychiatric Exam Psychiatric exam: Normal Affect, Normal Mood - Skin Skin Exam: Normal Color, Warm Assessment and Plan monitor vitals monitor labs Cont meds Cont tx consultants appreciated input reconsult pain management rest of plan as ordered Assessment and Plan (1) Cough Status: Acute (2) Chronic pain Status: Chronic (3) S/P BKA (below knee amputation) bilateral Status: Chronic
--- NOTE | 2018-10-09 16:51 | CP.PCM.PN ---
Subjective - Date & Time of Evaluation Date of Evaluation: 10/08/18 Time of Evaluation: 11:00 - Subjective Subjective: patient seen and examined at bedside. Interim events noted cough at times denies cp/fever/chills. available diagnostic data reviewed Objective Vital Signs Stable - Constitutional Appears: Non-toxic, No Acute Distress - Head Exam Head Exam: NORMAL INSPECTION - Eye Exam Eye Exam: Normal appearance - Respiratory Exam Respiratory Exam: NORMAL BREATHING PATTERN, rhonchi - Cardiovascular Exam Cardiovascular Exam: +S1, +S2 - GI/Abdominal Exam GI & Abdominal Exam: Soft - Neurological Exam Neurological Exam: Alert, Awake - Psychiatric Exam Psychiatric exam: Normal Affect, Normal Mood - Skin Skin Exam: Normal Color, Warm Assessment and Plan monitor vitals monitor labs Cont meds Cont tx consultants appreciated input reconsult pain management rest of plan as ordered Assessment and Plan (1) Cough Status: Acute (2) Chronic pain Status: Chronic (3) S/P BKA (below knee amputation) bilateral Status: Chronic
--- NOTE | 2018-10-09 16:52 | CP.PCM.PN ---
Subjective - Date & Time of Evaluation Date of Evaluation: 10/09/18 Time of Evaluation: 11:00 - Subjective Subjective: patient seen and examined at bedside. Interim events noted cough at times denies cp/fever/chills. available diagnostic data reviewed Objective Vital Signs Stable - Constitutional Appears: Non-toxic, No Acute Distress - Head Exam Head Exam: NORMAL INSPECTION - Eye Exam Eye Exam: Normal appearance - Respiratory Exam Respiratory Exam: NORMAL BREATHING PATTERN, rhonchi - Cardiovascular Exam Cardiovascular Exam: +S1, +S2 - GI/Abdominal Exam GI & Abdominal Exam: Soft - Neurological Exam Neurological Exam: Alert, Awake - Psychiatric Exam Psychiatric exam: Normal Affect, Normal Mood - Skin Skin Exam: Normal Color, Warm Assessment and Plan monitor vitals monitor labs Cont meds Cont tx consultants appreciated input reconsult pain management rest of plan as ordered Assessment and Plan (1) Cough Status: Acute (2) Chronic pain Status: Chronic (3) S/P BKA (below knee amputation) bilateral Status: Chronic
--- NOTE | 2018-10-09 16:53 | CP.PCM.PN ---
Subjective - Date & Time of Evaluation Date of Evaluation: 10/04/18 Time of Evaluation: 11:00 - Subjective Subjective: patient seen and examined at bedside. Interim events noted denies cp/fever/chills. available diagnostic data reviewed Objective Vital Signs Stable - Constitutional Appears: Non-toxic, No Acute Distress - Head Exam Head Exam: NORMAL INSPECTION - Eye Exam Eye Exam: Normal appearance - Respiratory Exam Respiratory Exam: NORMAL BREATHING PATTERN - Cardiovascular Exam Cardiovascular Exam: +S1, +S2 - GI/Abdominal Exam GI & Abdominal Exam: Soft - Neurological Exam Neurological Exam: Alert, Awake - Psychiatric Exam Psychiatric exam: Normal Affect, Normal Mood - Skin Skin Exam: Normal Color, Warm Assessment and Plan monitor vitals monitor labs Cont meds Cont tx consultants appreciated input rest of plan as ordered Assessment and Plan (1) Pneumonia Status: Resolved (2) Chronic pain Status: Chronic (3) S/P BKA (below knee amputation) bilateral Status: Chronic
[2018-10-10] MEDS: oxyCODONE 10 mg Immediate Release Tab PO PRN ×2 (04:36→12:20)
[2018-10-10] MEDS: Albuterol-Ipratrop 3 mg / 0.5 (3 ml) UD INH SCH ×3 (07:42→19:21)
[2018-10-10] MEDS: Promethazine/Cod 6.25mg-10mg/5ml Syr UD PO SCH ×3 (08:30→18:01)
[2018-10-10] MEDS: Pyridoxine 100 mg Tab PO SCH (10:25)
[2018-10-10] MEDS: Multivitamin With Minerals Tab PO SCH (10:25)
[2018-10-11] MEDS: oxyCODONE 10 mg Immediate Release Tab PO PRN ×2 (02:27→10:27)
[2018-10-11] MEDS: Sodium Chloride 0.9% 1,000 ML IV SCH ×3 (03:00→20:48)
[2018-10-11] MEDS: Promethazine/Cod 6.25mg-10mg/5ml Syr UD PO SCH ×4 (07:37→19:18)
--- NOTE | 2018-10-11 08:13 | CP.PCM.PN ---
Subjective - Date & Time of Evaluation Date of Evaluation: 10/11/18 Time of Evaluation: 08:00 - Subjective Subjective: Re-consulted for pain management. Charts reviewed. Spoke with staff regarding patient's dispo. Patient is well known to me, but discharged from pain clinic due to positive cocaine on tox screen. He does have multiple co-morbidities which result in severe pain but is noncompliant as outpatient. He's not a candidate for opioid management unless he's in a supervised setting. At one time, he was on Methadone 20mg q8h + Roxicodone 30mg q4h for his pain, as he has high tolerance. Recently it was decided that MS Contin and Methadone aren't suitable for him, and his regimen consisted of solely Roxicodone 30mg and Neurontin 1200mg q8h. He's sleeping at the time of visit. Per staff, patient can be manipulative and abusive. Objective - Vital Signs/Intake and Output Vital Signs (last 24 hours): Temp Pulse Resp BP Pulse Ox 98.0 F 98 H 22 122/77 98 10/11/18 06:00 10/11/18 06:00 10/11/18 06:00 10/11/18 06:00 10/11/18 06:00 - Medications Medications: Current Medications Albuterol/Ipratropium (Duoneb 3 Mg/0.5 Mg (3 Ml) Ud) 3 ml INH RTID [facility] Last Admin: 10/10/18 19:21 Dose: 3 ml Artificial Tears (Artificial Tears) 2 drop OU Q6 PRN PRN Reason: Dry eyes Last Admin: 10/06/18 22:54 Dose: 2 drop Atorvastatin Calcium (Lipitor) 80 mg PO HS [facility] Last Admin: 10/10/18 21:00 Dose: Not Given Camphor/Menthol (Bengay) 1 applic TOP Q6 PRN PRN Reason: Muscle spasm Last Admin: 09/18/18 13:43 Dose: 1 appl Carvedilol (Coreg) 12.5 mg PO Q12 [facility] Last Admin: 10/10/18 21:00 Dose: Not Given Enalapril Maleate (Vasotec) 2.5 mg PO DAILY [facility] Last Admin: 10/10/18 10:25 Dose: 2.5 mg Famotidine (Pepcid) 20 mg PO DAILY [facility] Last Admin: 10/10/18 10:25 Dose: 20 mg Folic Acid (Folic Acid) 1 mg PO DAILY [facility] Last Admin: 10/10/18 10:23 Dose: 1 mg Furosemide (Lasix) 40 mg PO DAILY [facility] Last Admin: 10/10/18 10:24 Dose: 40 mg Gabapentin (Neurontin) 300 mg PO TID [facility] Last Admin: 10/10/18 18:02 Dose: 300 mg Hydromorphone HCl (Dilaudid) 1 mg IVP Q3H PRN PRN Reason: Pain, severe (8-10) Last Admin: 10/11/18 06:13 Dose: 1 mg Hydroxyzine HCl (Atarax) 25 mg PO Q12 PRN PRN Reason: Itching / Pruritus Sodium Chloride (Sodium Chloride 0.9%) 1,000 mls @ 999 mls/hr IV .Q1H1M [facility] Stop: 10/12/18 02:44 Last Admin: 10/11/18 03:00 Dose: 999 mls/hr Lactic Acid (Lac-Hydrin 12% Lotion (225 G)) 1 applic TOP BID [facility] Last Admin: 10/10/18 18:03 Dose: 1 applic Metformin HCl (Glucophage) 1,000 mg PO BID [facility] Last Admin: 10/10/18 18:02 Dose: 1,000 mg Multivitamins/Minerals (Therapeutic-M Tab) 1 tab PO DAILY [facility] Last Admin: 10/10/18 10:25 Dose: 1 tab Nicotine (Nicoderm Cq) 1 patch TD DAILY [facility] Last Admin: 10/10/18 10:24 Dose: 1 patch Nitroglycerin (Nitrostat Sl Tab) 0.4 mg SL Q5MIN PRN PRN Reason: Chest pain Oxycodone HCl (Oxycodone Immediate Release Tab) 20 mg PO Q8H PRN PRN Reason: Pain, moderate (4-7) Last Admin: 10/10/18 12:20 Dose: 20 mg Promethazine HCl/Codeine (Phenergan/Codeine Oral Syrup) 10 ml PO TID [facility] Last Admin: 10/11/18 07:37 Dose: 10 ml Pyridoxine HCl (Vitamin B6) 100 mg PO DAILY [facility] Last Admin: 10/10/18 10:25 Dose: 100 mg Sennosides (Senokot Tab) 17.2 mg PO HS [facility] Last Admin: 10/10/18 21:00 Dose: Not Given Thiamine HCl (Vitamin B1 Tab) 100 mg PO DAILY [facility] Last Admin: 10/10/18 10:25 Dose: 100 mg Trazodone HCl (Desyrel) 50 mg PO HS [facility] Last Admin: 10/10/18 21:00 Dose: Not Given - Labs Labs: 10/09/18 11:50 10/09/18 11:50 PT 12.9 Seconds (9.8-13.1) 09/10/18 13:45 INR 1.1 09/10/18 13:45 APTT 36.0 Seconds (25.6-37.1) 09/10/18 13:45 - Constitutional Appears: No Acute Distress Assessment and Plan - Assessment and Plan (Free Text) Assessment: 58 yo man w/ chronic pain from PAD, phantom pain, neuropathy, radiculopathies and likely substance abuse. - for discharge to [place], would continue Roxicodone PO only and d/c Dilaudid. Can increase Roxicodone to 30mg q6h PRN as necessary - would titrate up Neurontin if he's medically stable, to 600mg q8h, and eventually back to baseline dose of 1200mg q8h - patient shouldn't be prescribed opioids as outpatient, he needs to understand that to receive opioids he needs to be in a supervised setting - please reconsult PRN
[2018-10-11] MEDS: Multivitamin With Minerals Tab PO SCH (10:27)
[2018-10-11] MEDS: Pyridoxine 100 mg Tab PO SCH (11:45)
--- NOTE | 2018-10-11 12:49 | CP.PCM.PCO ---
Assessment/Plan - Assessment/Plan Assessment (Free Text): Pt seen on rounds with Dr. Valles, Mami MOMIN and primary RN. Pt made aware that he is accepted in [facility] in [place]. Pt states he does not want to go to [place] and wants to appeal discharge. Pt examined by Dr. Valles, recent labs and tests reviewed. Pt cleared for d/c by Dr. Valles. Pt cleared by all other consultants for d/c. Per Dr. David, d/c IV dilaudid, increase Neurontin to 600 Q8 hrs and Roxicodone to 30mg Q6. Meds ordered, pt to continue same meds as per med rec. - Consults Consult Orders: Consultations
[2018-10-11] MEDS ORDERED: oxyCODONE 10 mg ER Tab (oxyCONTIN) PO SCH (15:00)
[2018-10-11] MEDS: oxyCODONE 10 mg Immediate Release Tab PO SCH ×2 (16:09→21:58)
[2018-10-11] MEDS: Albuterol-Ipratrop 3 mg / 0.5 (3 ml) UD INH SCH (19:20)
[2018-10-12] MEDS: oxyCODONE 10 mg Immediate Release Tab PO SCH ×4 (04:44→23:10)
[2018-10-12] MEDS: Albuterol-Ipratrop 3 mg / 0.5 (3 ml) UD INH SCH ×3 (08:03→19:00)
[2018-10-12] MEDS: Multivitamin With Minerals Tab PO SCH (09:34)
[2018-10-12] MEDS: Pyridoxine 100 mg Tab PO SCH (09:34)
[2018-10-12] MEDS: Promethazine/Cod 6.25mg-10mg/5ml Syr UD PO SCH ×3 (09:51→17:13)
[2018-10-13] MEDS: oxyCODONE 10 mg Immediate Release Tab PO SCH ×4 (04:57→23:39)
[2018-10-13] MEDS: Albuterol-Ipratrop 3 mg / 0.5 (3 ml) UD INH SCH ×3 (07:37→19:43)
[2018-10-13] MEDS: Pyridoxine 100 mg Tab PO SCH (08:41)
[2018-10-13] MEDS: Multivitamin With Minerals Tab PO SCH (08:41)
[2018-10-13] MEDS: Promethazine/Cod 6.25mg-10mg/5ml Syr UD PO SCH ×3 (09:31→17:54)
[2018-10-14] MEDS: oxyCODONE 10 mg Immediate Release Tab PO SCH ×4 (05:43→21:42)
[2018-10-14] MEDS: Albuterol-Ipratrop 3 mg / 0.5 (3 ml) UD INH SCH ×3 (07:59→19:33)
[2018-10-14] MEDS: Multivitamin With Minerals Tab PO SCH (08:45)
[2018-10-14] MEDS: Pyridoxine 100 mg Tab PO SCH (08:45)
[2018-10-15] MEDS: oxyCODONE 10 mg Immediate Release Tab PO SCH ×4 (03:52→21:10)
[2018-10-15] MEDS: Albuterol-Ipratrop 3 mg / 0.5 (3 ml) UD INH SCH ×3 (07:43→19:23)
[2018-10-15] MEDS: Multivitamin With Minerals Tab PO SCH (10:28)
[2018-10-15] MEDS: Pyridoxine 100 mg Tab PO SCH (10:30)
[2018-10-15] MEDS ORDERED: oxyCODONE 5 mg Immediate Release Tab PO SCH (11:30)
[2018-10-16] MEDS: oxyCODONE 10 mg Immediate Release Tab PO SCH ×4 (03:36→23:04)
[2018-10-16] MEDS: Albuterol-Ipratrop 3 mg / 0.5 (3 ml) UD INH SCH ×3 (08:07→19:53)
[2018-10-16] MEDS: Multivitamin With Minerals Tab PO SCH (09:27)
[2018-10-16] MEDS: Pyridoxine 100 mg Tab PO SCH (09:29)
[2018-10-17] MEDS: oxyCODONE 10 mg Immediate Release Tab PO SCH ×4 (05:09→22:32)
[2018-10-17] MEDS: guaiFENesin 600 mg ER Tab PO SCH ×3 (05:22→22:32)
[2018-10-17] MEDS: Albuterol-Ipratrop 3 mg / 0.5 (3 ml) UD INH SCH ×3 (08:40→19:10)
[2018-10-17] MEDS ORDERED: guaiFENesin 600 mg ER Tab PO SCH (09:00)
[2018-10-17] MEDS: Multivitamin With Minerals Tab PO SCH (09:47)
[2018-10-17] MEDS: Pyridoxine 100 mg Tab PO SCH (09:48)
[2018-10-18] MEDS: oxyCODONE 10 mg Immediate Release Tab PO SCH ×4 (05:00→22:17)
[2018-10-18] MEDS: Albuterol-Ipratrop 3 mg / 0.5 (3 ml) UD INH SCH ×3 (07:36→19:48)
[2018-10-18] MEDS: guaiFENesin 600 mg ER Tab PO SCH ×2 (09:39→21:48)
[2018-10-18] MEDS: Multivitamin With Minerals Tab PO SCH (09:42)
[2018-10-18] MEDS: Pyridoxine 100 mg Tab PO SCH (09:43)
[2018-10-18] MEDS: Tiotropium 18 mcg Cap For Inhalation INH SCH (15:22)
[2018-10-18] MEDS: Artificial Tears Opht Soln OU PRN (17:51)
--- NOTE | 2018-10-18 20:33 | CARD ---
APPROVED REPORT Date of service: 10/18/2018 EKG Measurement Heart [id number] <Conclusion> Normal sinus rhythm Possible Left atrial enlargement Low voltage QRS ST & T wave abnormality, consider lateral ischemia Prolonged QT Abnormal ECG
[2018-10-19] MEDS: oxyCODONE 10 mg Immediate Release Tab PO SCH ×4 (04:19→22:14)
[2018-10-19] MEDS: Albuterol-Ipratrop 3 mg / 0.5 (3 ml) UD INH SCH ×3 (08:00→19:10)
[2018-10-19] MEDS: Tiotropium 18 mcg Cap For Inhalation INH SCH (08:34)
[2018-10-19] MEDS: Pyridoxine 100 mg Tab PO SCH (08:36)
[2018-10-19] MEDS: guaiFENesin 600 mg ER Tab PO SCH ×2 (08:36→21:15)
[2018-10-19] MEDS: Multivitamin With Minerals Tab PO SCH (08:37)
[2018-10-20] MEDS: oxyCODONE 10 mg Immediate Release Tab PO SCH ×4 (04:34→22:18)
[2018-10-20] MEDS: Albuterol-Ipratrop 3 mg / 0.5 (3 ml) UD INH SCH ×3 (08:12→19:41)
[2018-10-20] MEDS: guaiFENesin 600 mg ER Tab PO SCH ×2 (09:19→20:58)
[2018-10-20] MEDS: Tiotropium 18 mcg Cap For Inhalation INH SCH (09:20)
[2018-10-20] MEDS: Multivitamin With Minerals Tab PO SCH (09:20)
[2018-10-20] MEDS: Pyridoxine 100 mg Tab PO SCH (09:22)
[2018-10-21] MEDS: oxyCODONE 10 mg Immediate Release Tab PO SCH ×2 (04:04→21:27)
[2018-10-21] MEDS: Albuterol-Ipratrop 3 mg / 0.5 (3 ml) UD INH SCH ×3 (07:18→19:14)
[2018-10-21] MEDS: Menthol/Methyl Salicylate Oinment TOP PRN (09:03)
[2018-10-21] MEDS: guaiFENesin 600 mg ER Tab PO SCH ×2 (09:04→21:25)
[2018-10-21] MEDS: Tiotropium 18 mcg Cap For Inhalation INH SCH (09:04)
[2018-10-21] MEDS: Multivitamin With Minerals Tab PO SCH (09:05)
[2018-10-21] MEDS: Pyridoxine 100 mg Tab PO SCH (09:06)
[2018-10-21] MEDS: oxyCODONE 5 mg Immediate Release Tab PO SCH ×2 (11:19→17:23)
--- NOTE | 2018-10-21 13:56 | RAD ---
Date of service: 10/21/2018 HISTORY: cough COMPARISON: Chest radiograph dated 10/08/2018 FINDINGS: LUNGS: Left lower lobe atelectasis. PLEURA: Small left pleural effusion. No pneumothorax. CARDIOVASCULAR: Prior sternotomy with sternal wires and surgical clips in place. Aortic atherosclerotic calcifications. Cardiomediastinal silhouette stably enlarged. OSSEOUS STRUCTURES: Unchanged. VISUALIZED UPPER ABDOMEN: Partially imaged inferior vena cava filter. OTHER FINDINGS: None. IMPRESSION: Small left pleural effusion with lower lobe atelectasis. No pneumothorax.
[2018-10-22] MEDS: oxyCODONE 10 mg Immediate Release Tab PO SCH ×4 (03:55→22:07)
[2018-10-22] MEDS: Albuterol-Ipratrop 3 mg / 0.5 (3 ml) UD INH SCH ×3 (07:28→19:07)
[2018-10-22] MEDS: guaiFENesin 600 mg ER Tab PO SCH ×2 (09:43→22:11)
[2018-10-22] MEDS: Multivitamin With Minerals Tab PO SCH (09:44)
[2018-10-22] MEDS: Tiotropium 18 mcg Cap For Inhalation INH SCH (09:44)
[2018-10-22] MEDS: Pyridoxine 100 mg Tab PO SCH (09:45)
[2018-10-22] MEDS: Acetylcysteine 10% 4 ML IH SCH (19:07)
[2018-10-23] MEDS: oxyCODONE 10 mg Immediate Release Tab PO SCH ×4 (05:20→22:15)
[2018-10-23] MEDS: Acetylcysteine 10% 4 ML IH SCH ×2 (07:33→19:54)
[2018-10-23] MEDS: Albuterol-Ipratrop 3 mg / 0.5 (3 ml) UD INH SCH ×3 (07:33→19:52)
[2018-10-23] MEDS: Multivitamin With Minerals Tab PO SCH (08:34)
[2018-10-23] MEDS: guaiFENesin 600 mg ER Tab PO SCH ×2 (08:34→22:13)
[2018-10-23] MEDS: Pyridoxine 100 mg Tab PO SCH (08:34)
[2018-10-23] MEDS: Tiotropium 18 mcg Cap For Inhalation INH SCH (08:35)
--- NOTE | 2018-10-23 14:29 | CP.PCM.PN ---
Subjective - Date & Time of Evaluation Date of Evaluation: 10/10/18 Time of Evaluation: 11:00 - Subjective Subjective: patient seen and examined at bedside. no acute events overnight. feels well. denies cp/sob/fever/chills. all available diagnostic data reviewed Objective Vital Signs Stable - Constitutional Appears: Non-toxic, No Acute Distress - Head Exam Head Exam: NORMAL INSPECTION - Eye Exam Eye Exam: Normal appearance - Respiratory Exam Respiratory Exam: NORMAL BREATHING PATTERN - Cardiovascular Exam Cardiovascular Exam: +S1, +S2 - GI/Abdominal Exam GI & Abdominal Exam: Soft - Neurological Exam Neurological Exam: Alert, Awake, Oriented x3 - Psychiatric Exam Psychiatric exam: Normal Affect, Normal Mood - Skin Skin Exam: Normal Color, Warm Assessment and Plan Cont meds Cont tx consultants appreciated input cont tx Objective - Vital Signs/Intake and Output Vital Signs (last 24 hours): Temp Pulse Resp BP Pulse Ox 97.3 F L 106 H 20 124/74 100 10/23/18 08:26 10/23/18 08:26 10/23/18 08:26 10/23/18 09:28 10/23/18 08:26 - Medications Medications: Current Medications Acetylcysteine (Mucomyst 10% 4ml) 2 ml IH RBID [facility] Last Admin: 10/23/18 07:33 Dose: 2 ml Albuterol/Ipratropium (Duoneb 3 Mg/0.5 Mg (3 Ml) Ud) 3 ml INH RTID [facility] Last Admin: 10/23/18 14:02 Dose: Not Given Artificial Tears (Artificial Tears) 2 drop OU Q6 PRN PRN Reason: Dry eyes Last Admin: 10/18/18 17:51 Dose: 2 drop Atorvastatin Calcium (Lipitor) 80 mg PO HS [facility] Last Admin: 10/22/18 22:13 Dose: 80 mg Benzonatate (Tessalon Perles) 100 mg PO Q8 [facility] Last Admin: 10/23/18 08:36 Dose: 100 mg Camphor/Menthol (Bengay) 1 applic TOP Q6 PRN PRN Reason: Muscle spasm Last Admin: 10/21/18 09:03 Dose: 1 appl Carvedilol (Coreg) 12.5 mg PO Q12 [facility] Last Admin: 10/23/18 08:38 Dose: 12.5 mg Enalapril Maleate (Vasotec) 2.5 mg PO DAILY [facility] Last Admin: 10/23/18 09:28 Dose: 2.5 mg Famotidine (Pepcid) 20 mg PO DAILY [facility] Last Admin: 10/23/18 08:33 Dose: 20 mg Folic Acid (Folic Acid) 1 mg PO DAILY [facility] Last Admin: 10/23/18 08:34 Dose: 1 mg Furosemide (Lasix) 40 mg PO DAILY [facility] Last Admin: 10/23/18 09:28 Dose: 40 mg Gabapentin (Neurontin) 600 mg PO TID [facility] Last Admin: 10/23/18 12:25 Dose: 600 mg Guaifenesin (Mucinex La) 600 mg PO Q12 [facility] Last Admin: 10/23/18 08:34 Dose: 600 mg Hydroxyzine HCl (Atarax) 25 mg PO Q12 PRN PRN Reason: Itching / Pruritus Lactic Acid (Lac-Hydrin 12% Lotion (225 G)) 1 applic TOP BID [facility] Last Admin: 10/23/18 09:38 Dose: 1 applic Loratadine (Claritin) 10 mg PO DAILY [facility] Last Admin: 10/23/18 08:34 Dose: 10 mg Metformin HCl (Glucophage) 1,000 mg PO BID [facility] Last Admin: 10/23/18 08:32 Dose: 1,000 mg Multivitamins/Minerals (Therapeutic-M Tab) 1 tab PO DAILY [facility] Last Admin: 10/23/18 08:34 Dose: 1 tab Nicotine (Nicoderm Cq) 1 patch TD DAILY [facility] Last Admin: 10/23/18 08:36 Dose: 1 patch Nitroglycerin (Nitrostat Sl Tab) 0.4 mg SL Q5MIN PRN PRN Reason: Chest pain Last Admin: 10/23/18 05:53 Dose: 0.4 mg Oxycodone HCl (Oxycodone Immediate Release Tab) 30 mg PO Q6 [facility] Last Admin: 10/23/18 09:00 Dose: 30 mg Pyridoxine HCl (Vitamin B6) 100 mg PO DAILY [facility] Last Admin: 10/23/18 08:34 Dose: 100 mg Sennosides (Senokot Tab) 17.2 mg PO HS [facility] Last Admin: 10/22/18 22:10 Dose: 17.2 mg Thiamine HCl (Vitamin B1 Tab) 100 mg PO DAILY [facility] Last Admin: 10/23/18 08:33 Dose: 100 mg Tiotropium [place] (Spiriva) 18 mcg INH DAILY [facility] Last Admin: 10/23/18 08:35 Dose: 18 mcg Trazodone HCl (Desyrel) 50 mg PO HS [facility] Last Admin: 10/22/18 22:10 Dose: 50 mg - Labs Labs: 10/09/18 11:50 10/09/18 11:50 PT 12.9 Seconds (9.8-13.1) 09/10/18 13:45 INR 1.1 09/10/18 13:45 APTT 36.0 Seconds (25.6-37.1) 09/10/18 13:45 Assessment and Plan (1) Pleural effusion Status: Acute (2) Alcohol withdrawal Status: Acute (3) Liver cirrhosis Status: Acute (4) DMII (diabetes mellitus, type 2) Status: Chronic
--- NOTE | 2018-10-23 14:31 | CP.PCM.PN ---
Subjective - Date & Time of Evaluation Date of Evaluation: 10/11/18 Time of Evaluation: 10:00 - Subjective Subjective: patient seen and examined at bedside. has recurrent cough feels well today denies cp/sob/fever/chills. all available diagnostic data reviewed Objective Vital Signs Stable - Constitutional Appears: Non-toxic, No Acute Distress - Head Exam Head Exam: NORMAL INSPECTION - Eye Exam Eye Exam: Normal appearance - Respiratory Exam Respiratory Exam: NORMAL BREATHING PATTERN - Cardiovascular Exam Cardiovascular Exam: +S1, +S2 - GI/Abdominal Exam GI & Abdominal Exam: Soft - Neurological Exam Neurological Exam: Alert, Awake, Oriented x3 - Psychiatric Exam Psychiatric exam: Normal Affect, Normal Mood - Skin Skin Exam: Normal Color, Warm Assessment and Plan Cont meds Cont tx consultants appreciated input Neb tx if necessary Objective - Vital Signs/Intake and Output Vital Signs (last 24 hours): Temp Pulse Resp BP Pulse Ox 97.3 F L 106 H 20 124/74 100 10/23/18 08:26 10/23/18 08:26 10/23/18 08:26 10/23/18 09:28 10/23/18 08:26 - Medications Medications: Current Medications Acetylcysteine (Mucomyst 10% 4ml) 2 ml IH RBID [facility] Last Admin: 10/23/18 07:33 Dose: 2 ml Albuterol/Ipratropium (Duoneb 3 Mg/0.5 Mg (3 Ml) Ud) 3 ml INH RTID [facility] Last Admin: 10/23/18 14:02 Dose: Not Given Artificial Tears (Artificial Tears) 2 drop OU Q6 PRN PRN Reason: Dry eyes Last Admin: 10/18/18 17:51 Dose: 2 drop Atorvastatin Calcium (Lipitor) 80 mg PO HS [facility] Last Admin: 10/22/18 22:13 Dose: 80 mg Benzonatate (Tessalon Perles) 100 mg PO Q8 [facility] Last Admin: 10/23/18 08:36 Dose: 100 mg Camphor/Menthol (Bengay) 1 applic TOP Q6 PRN PRN Reason: Muscle spasm Last Admin: 10/21/18 09:03 Dose: 1 appl Carvedilol (Coreg) 12.5 mg PO Q12 [facility] Last Admin: 10/23/18 08:38 Dose: 12.5 mg Enalapril Maleate (Vasotec) 2.5 mg PO DAILY [facility] Last Admin: 10/23/18 09:28 Dose: 2.5 mg Famotidine (Pepcid) 20 mg PO DAILY [facility] Last Admin: 10/23/18 08:33 Dose: 20 mg Folic Acid (Folic Acid) 1 mg PO DAILY [facility] Last Admin: 10/23/18 08:34 Dose: 1 mg Furosemide (Lasix) 40 mg PO DAILY [facility] Last Admin: 10/23/18 09:28 Dose: 40 mg Gabapentin (Neurontin) 600 mg PO TID [facility] Last Admin: 10/23/18 12:25 Dose: 600 mg Guaifenesin (Mucinex La) 600 mg PO Q12 [facility] Last Admin: 10/23/18 08:34 Dose: 600 mg Hydroxyzine HCl (Atarax) 25 mg PO Q12 PRN PRN Reason: Itching / Pruritus Lactic Acid (Lac-Hydrin 12% Lotion (225 G)) 1 applic TOP BID [facility] Last Admin: 10/23/18 09:38 Dose: 1 applic Loratadine (Claritin) 10 mg PO DAILY [facility] Last Admin: 10/23/18 08:34 Dose: 10 mg Metformin HCl (Glucophage) 1,000 mg PO BID [facility] Last Admin: 10/23/18 08:32 Dose: 1,000 mg Multivitamins/Minerals (Therapeutic-M Tab) 1 tab PO DAILY [facility] Last Admin: 10/23/18 08:34 Dose: 1 tab Nicotine (Nicoderm Cq) 1 patch TD DAILY [facility] Last Admin: 10/23/18 08:36 Dose: 1 patch Nitroglycerin (Nitrostat Sl Tab) 0.4 mg SL Q5MIN PRN PRN Reason: Chest pain Last Admin: 10/23/18 05:53 Dose: 0.4 mg Oxycodone HCl (Oxycodone Immediate Release Tab) 30 mg PO Q6 [facility] Last Admin: 10/23/18 09:00 Dose: 30 mg Pyridoxine HCl (Vitamin B6) 100 mg PO DAILY [facility] Last Admin: 10/23/18 08:34 Dose: 100 mg Sennosides (Senokot Tab) 17.2 mg PO HS [facility] Last Admin: 10/22/18 22:10 Dose: 17.2 mg Thiamine HCl (Vitamin B1 Tab) 100 mg PO DAILY [facility] Last Admin: 10/23/18 08:33 Dose: 100 mg Tiotropium [place] (Spiriva) 18 mcg INH DAILY [facility] Last Admin: 10/23/18 08:35 Dose: 18 mcg Trazodone HCl (Desyrel) 50 mg PO HS [facility] Last Admin: 10/22/18 22:10 Dose: 50 mg - Labs Labs: 10/09/18 11:50 10/09/18 11:50 PT 12.9 Seconds (9.8-13.1) 09/10/18 13:45 INR 1.1 09/10/18 13:45 APTT 36.0 Seconds (25.6-37.1) 09/10/18 13:45 Assessment and Plan (1) Pleural effusion Status: Acute (2) Alcohol withdrawal Status: Acute (3) Liver cirrhosis Status: Acute (4) DMII (diabetes mellitus, type 2) Status: Chronic
--- NOTE | 2018-10-23 21:36 | CP.PCM.PN ---
Subjective - Date & Time of Evaluation Date of Evaluation: 10/23/18 Time of Evaluation: 11:00 - Subjective Subjective: patient seen and examined at bedside. c/o cough no fever chills patient stopped smoking since admission no dyspnea or cp Objective - Vital Signs/Intake and Output Vital Signs (last 24 hours): Temp Pulse Resp BP Pulse Ox 97.5 F L 90 19 121/80 95 10/23/18 15:55 10/23/18 15:55 10/23/18 15:55 10/23/18 15:55 10/23/18 15:55 - Medications Medications: Current Medications Acetylcysteine (Mucomyst 10% 4ml) 2 ml IH RBID [facility] Last Admin: 10/23/18 19:54 Dose: Not Given Albuterol/Ipratropium (Duoneb 3 Mg/0.5 Mg (3 Ml) Ud) 3 ml INH RTID [facility] Last Admin: 10/23/18 19:52 Dose: 3 ml Artificial Tears (Artificial Tears) 2 drop OU Q6 PRN PRN Reason: Dry eyes Last Admin: 10/18/18 17:51 Dose: 2 drop Atorvastatin Calcium (Lipitor) 80 mg PO HS [facility] Last Admin: 10/22/18 22:13 Dose: 80 mg Benzonatate (Tessalon Perles) 100 mg PO Q8 [facility] Last Admin: 10/23/18 16:57 Dose: 100 mg Camphor/Menthol (Bengay) 1 applic TOP Q6 PRN PRN Reason: Muscle spasm Last Admin: 10/21/18 09:03 Dose: 1 appl Carvedilol (Coreg) 12.5 mg PO Q12 [facility] Last Admin: 10/23/18 08:38 Dose: 12.5 mg Enalapril Maleate (Vasotec) 2.5 mg PO DAILY [facility] Last Admin: 10/23/18 09:28 Dose: 2.5 mg Famotidine (Pepcid) 20 mg PO DAILY [facility] Last Admin: 10/23/18 08:33 Dose: 20 mg Folic Acid (Folic Acid) 1 mg PO DAILY [facility] Last Admin: 10/23/18 08:34 Dose: 1 mg Furosemide (Lasix) 40 mg PO DAILY [facility] Last Admin: 10/23/18 09:28 Dose: 40 mg Gabapentin (Neurontin) 600 mg PO TID [facility] Last Admin: 10/23/18 16:57 Dose: 600 mg Guaifenesin (Mucinex La) 600 mg PO Q12 [facility] Last Admin: 10/23/18 08:34 Dose: 600 mg Hydroxyzine HCl (Atarax) 25 mg PO Q12 PRN PRN Reason: Itching / Pruritus Lactic Acid (Lac-Hydrin 12% Lotion (225 G)) 1 applic TOP BID [facility] Last Admin: 10/23/18 16:58 Dose: 1 applic Loratadine (Claritin) 10 mg PO DAILY [facility] Last Admin: 10/23/18 08:34 Dose: 10 mg Metformin HCl (Glucophage) 1,000 mg PO BID [facility] Last Admin: 10/23/18 16:57 Dose: 1,000 mg Multivitamins/Minerals (Therapeutic-M Tab) 1 tab PO DAILY [facility] Last Admin: 10/23/18 08:34 Dose: 1 tab Nicotine (Nicoderm Cq) 1 patch TD DAILY [facility] Last Admin: 10/23/18 08:36 Dose: 1 patch Nitroglycerin (Nitrostat Sl Tab) 0.4 mg SL Q5MIN PRN PRN Reason: Chest pain Last Admin: 10/23/18 05:53 Dose: 0.4 mg Oxycodone HCl (Oxycodone Immediate Release Tab) 30 mg PO Q6 [facility] Last Admin: 10/23/18 16:56 Dose: 30 mg Pyridoxine HCl (Vitamin B6) 100 mg PO DAILY [facility] Last Admin: 10/23/18 08:34 Dose: 100 mg Sennosides (Senokot Tab) 17.2 mg PO [facility] Last Admin: 10/22/18 22:10 Dose: 17.2 mg Thiamine HCl (Vitamin B1 Tab) 100 mg PO DAILY [facility] Last Admin: 10/23/18 08:33 Dose: 100 mg Tiotropium Calamus (Spiriva) 18 mcg INH DAILY [facility] Last Admin: 10/23/18 08:35 Dose: 18 mcg Trazodone HCl (Desyrel) 50 mg PO [facility] Last Admin: 10/22/18 22:10 Dose: 50 mg - Labs Labs: 10/09/18 11:50 10/09/18 11:50 PT 12.9 Seconds (9.8-13.1) 09/10/18 13:45 INR 1.1 09/10/18 13:45 APTT 36.0 Seconds (25.6-37.1) 09/10/18 13:45 - Constitutional Appears: Non-toxic, No Acute Distress - Head Exam Head Exam: NORMAL INSPECTION - Eye Exam Eye Exam: Normal appearance - Respiratory Exam Respiratory Exam: Clear to Ausculation Bilateral, NORMAL BREATHING PATTERN - Cardiovascular Exam Cardiovascular Exam: +S1, +S2 - GI/Abdominal Exam GI & Abdominal Exam: Soft - Extremities Exam Additional comments: b/l aka, unremarkable - Neurological Exam Neurological Exam: Alert, Awake Assessment and Plan (1) Cough Status: Chronic (2) Chronic pain Status: Chronic - Assessment and Plan (Free Text) Plan: cough likely 2ndary to cessation of smoking recent cxr and labs unremkarable cont meds pain control prn rest of plan as ordered dispo planning
[2018-10-24] MEDS: oxyCODONE 10 mg Immediate Release Tab PO SCH ×4 (05:36→21:52)
[2018-10-24] MEDS: Albuterol-Ipratrop 3 mg / 0.5 (3 ml) UD INH SCH ×3 (07:33→20:46)
[2018-10-24] MEDS: Acetylcysteine 10% 4 ML IH SCH (07:33)
[2018-10-24] MEDS: Tiotropium 18 mcg Cap For Inhalation INH SCH (09:12)
[2018-10-24] MEDS: guaiFENesin 600 mg ER Tab PO SCH ×2 (09:13→21:53)
[2018-10-24] MEDS: Multivitamin With Minerals Tab PO SCH (09:14)
[2018-10-24] MEDS: Pyridoxine 100 mg Tab PO SCH (09:14)
[2018-10-24 12:44] LABS: ALB/GLOB RATIO 0.8 (1.0-2.1); ALBUMIN 4.1 g/dL (3.5-5.0); ALT/SGPT 23 U/L (21-72); AST/SGOT 35 U/L (17-59); BLOOD UREA NITROGEN 53 mg/dl (9-20); CALCIUM 9.4 mg/dL (8.4-10.2); GFR NON-AFRICAN AMERICAN 42
[2018-10-24 12:51] LABS: MEAN CELL VOLUME 85.4 fl (80.0-94.0); MEAN CORPUSCULAR HGB CONC 31.6 g/dL (33.0-37.0); RBC 4.43 Mil/uL (4.40-5.90); RED CELL DISTRIBUTION WIDTH 17.4 % (11.5-14.5); WHITE BLOOD COUNT 10.2 K/uL (4.8-10.8)
[2018-10-24] MEDS: Lidocaine 5% Patch TD SCH (13:37)
--- NOTE | 2018-10-24 13:45 | CARD ---
APPROVED REPORT Date of service: 10/24/2018 EKG Measurement Heart [id number] <Conclusion> Normal sinus rhythm Possible Left atrial enlargement Low voltage QRS Nonspecific ST and T wave abnormality Prolonged QT Abnormal ECG
[2018-10-24] MEDS ORDERED: Sod Polystyrene Sulf 15 gm/60 ml Susp PO ONE (19:07)
[2018-10-24] MEDS: Docusate-Senna 50 mg-8.6 mg Tab PO SCH (21:55)
[2018-10-25] MEDS: oxyCODONE 10 mg Immediate Release Tab PO SCH ×4 (04:06→22:03)
[2018-10-25 06:50] LABS: BLOOD UREA NITROGEN 52 mg/dl (9-20); CALCIUM 9.3 mg/dL (8.4-10.2); GFR NON-AFRICAN AMERICAN 52
[2018-10-25] MEDS: Albuterol-Ipratrop 3 mg / 0.5 (3 ml) UD INH SCH ×3 (07:45→19:18)
[2018-10-25] MEDS: Multivitamin With Minerals Tab PO SCH (09:35)
[2018-10-25] MEDS: Pyridoxine 100 mg Tab PO SCH (09:36)
[2018-10-25] MEDS: Lidocaine 5% Patch TD SCH (09:40)
[2018-10-25] MEDS: guaiFENesin 600 mg ER Tab PO SCH ×2 (09:48→22:05)
[2018-10-25] MEDS: Fluticasone-Salmeterol 250-50mcg Diskus IH SCH ×3 (10:53→22:07)
[2018-10-25 15:14] LABS: URINE BACTERIA RARE (<OCC); URINE BILIRUBIN NEGATIVE (NEGATIVE); URINE BLOOD MODERATE (NEGATIVE); URINE CLARITY SLIGHTY-CLOUDY (Clear); URINE COLOR YELLOW (YELLOW); URINE GLUCOSE (UA) NEG (NEGATIVE); URINE LEUKOCYTE ESTERASE NEG Leu/uL (Negative); URINE PROTEIN NEGATIVE (NEGATIVE); URINE UROBILINOGEN 0.2-1.0 mg/dL (0.2-1.0)
[2018-10-25 15:59] LABS: TOTAL PSA 0.1 ng/mL (< or = 4.0)
[2018-10-25] MEDS: Docusate-Senna 50 mg-8.6 mg Tab PO SCH (22:04)
[2018-10-26] MEDS: oxyCODONE 10 mg Immediate Release Tab PO SCH ×4 (04:06→21:38)
[2018-10-26] MEDS: Albuterol-Ipratrop 3 mg / 0.5 (3 ml) UD INH SCH ×3 (08:30→19:16)
[2018-10-26] MEDS: Fluticasone-Salmeterol 250-50mcg Diskus IH SCH ×2 (09:45→21:33)
[2018-10-26] MEDS: Lidocaine 5% Patch TD SCH (09:49)
[2018-10-26] MEDS: guaiFENesin 600 mg ER Tab PO SCH ×2 (09:49→21:35)
[2018-10-26] MEDS: Multivitamin With Minerals Tab PO SCH (09:51)
[2018-10-26] MEDS: Pyridoxine 100 mg Tab PO SCH (09:52)
--- NOTE | 2018-10-26 13:18 | CP.PCM.PN ---
Subjective - Date & Time of Evaluation Date of Evaluation: 10/26/18 Time of Evaluation: 13:16 - Subjective Subjective: No complaints noted wheeling around the [place] with electric chair Objective - Vital Signs/Intake and Output Vital Signs (last 24 hours): Temp Pulse Resp BP Pulse Ox 98.3 F 105 H 20 126/76 91 L 10/26/18 08:50 10/26/18 09:46 10/26/18 08:50 10/26/18 09:48 10/26/18 08:50 - Medications Medications: Current Medications Acetaminophen (Tylenol 325mg Tab) 650 mg PO Q6 PRN PRN Reason: Headache Albuterol/Ipratropium (Duoneb 3 Mg/0.5 Mg (3 Ml) Ud) 3 ml INH RTID [facility] Last Admin: 10/25/18 19:18 Dose: Not Given Artificial Tears (Artificial Tears) 2 drop OU Q6 PRN PRN Reason: Dry eyes Last Admin: 10/18/18 17:51 Dose: 2 drop Atorvastatin Calcium (Lipitor) 80 mg PO HS [facility] Last Admin: 10/25/18 22:05 Dose: 80 mg Benzonatate (Tessalon Perles) 100 mg PO Q8 [facility] Last Admin: 10/26/18 09:51 Dose: 100 mg Camphor/Menthol (Bengay) 1 applic TOP Q6 PRN PRN Reason: Muscle spasm Last Admin: 10/21/18 09:03 Dose: 1 appl Carvedilol (Coreg) 12.5 mg PO Q12 [facility] Last Admin: 10/26/18 09:46 Dose: 12.5 mg Enalapril Maleate (Vasotec) 2.5 mg PO DAILY [facility] Last Admin: 10/26/18 09:51 Dose: 2.5 mg Famotidine (Pepcid) 20 mg PO DAILY [facility] Last Admin: 10/26/18 09:51 Dose: 20 mg Folic Acid (Folic Acid) 1 mg PO DAILY [facility] Last Admin: 10/26/18 09:47 Dose: 1 mg Furosemide (Lasix) 40 mg PO DAILY [facility] Last Admin: 10/26/18 09:48 Dose: 40 mg Gabapentin (Neurontin) 1,200 mg PO TID [facility] Last Admin: 10/26/18 09:50 Dose: 1,200 mg Guaifenesin (Mucinex La) 1,200 mg PO Q12 [facility] Last Admin: 10/26/18 09:49 Dose: 1,200 mg Hydroxyzine HCl (Atarax) 25 mg PO Q12 PRN PRN Reason: Itching / Pruritus Lactic Acid (Lac-Hydrin 12% Lotion (225 G)) 1 applic TOP BID [facility] Last Admin: 10/25/18 09:50 Dose: 1 applic Lidocaine (Lidoderm) 1 ea TD DAILY [facility] Last Admin: 10/26/18 09:49 Dose: 1 ea Loratadine (Claritin) 10 mg PO DAILY [facility] Last Admin: 10/26/18 09:45 Dose: 10 mg Metformin HCl (Glucophage) 1,000 mg PO BID [facility] Last Admin: 10/26/18 09:48 Dose: 1,000 mg Multivitamins/Minerals (Therapeutic-M Tab) 1 tab PO DAILY [facility] Last Admin: 10/26/18 09:51 Dose: 1 tab Nicotine (Nicoderm Cq) 1 patch TD DAILY [facility] Last Admin: 10/26/18 09:50 Dose: 1 patch Nitroglycerin (Nitrostat Sl Tab) 0.4 mg SL Q5MIN PRN PRN Reason: Chest pain Last Admin: 10/23/18 05:53 Dose: 0.4 mg Oxycodone HCl (Oxycodone Immediate Release Tab) 30 mg PO Q6 [facility] Last Admin: 10/26/18 09:55 Dose: 30 mg Pyridoxine HCl (Vitamin B6) 100 mg PO DAILY [facility] Last Admin: 10/26/18 09:52 Dose: 100 mg Fluticasone/Salmeterol (Advair Diskus 250/50) 1 puff IH Q12 [facility] Last Admin: 10/26/18 09:45 Dose: 1 puff Senna/Docusate Sodium (Senokot S 50 Mg-8.6 Mg) 2 tab PO HS [facility] Last Admin: 10/25/18 22:04 Dose: 2 tab Tamsulosin HCl (Flomax) 0.4 mg PO DAILY [facility] Last Admin: 10/26/18 09:55 Dose: 0.4 mg Thiamine HCl (Vitamin B1 Tab) 100 mg PO DAILY [facility] Last Admin: 10/26/18 09:52 Dose: 100 mg Trazodone HCl (Desyrel) 50 mg PO HS [facility] Last Admin: 10/25/18 22:07 Dose: 50 mg - Labs Labs: 10/24/18 12:24 10/25/18 06:09 PT 12.9 Seconds (9.8-13.1) 09/10/18 13:45 INR 1.1 09/10/18 13:45 APTT 36.0 Seconds (25.6-37.1) 09/10/18 13:45 - Head Exam Head Exam: NORMAL INSPECTION - Eye Exam Eye Exam: Normal appearance - ENT Exam ENT Exam: Mucous Membranes Moist - Respiratory Exam Respiratory Exam: Clear to Ausculation Bilateral - Cardiovascular Exam Cardiovascular Exam: REGULAR RHYTHM Assessment and Plan (1) Pleural effusion Status: Acute (2) Alcohol withdrawal Status: Acute (3) Liver cirrhosis Status: Acute (4) DMII (diabetes mellitus, type 2) Status: Chronic - Assessment and Plan (Free Text) Plan: Cont meds Cont tx Cont nursing care follow up group home care/ subacute rehab
[2018-10-26] MEDS: Docusate-Senna 50 mg-8.6 mg Tab PO SCH (22:00)
[2018-10-27] MEDS: oxyCODONE 10 mg Immediate Release Tab PO SCH ×4 (04:44→21:17)
[2018-10-27] MEDS: Albuterol-Ipratrop 3 mg / 0.5 (3 ml) UD INH SCH ×3 (07:27→19:03)
[2018-10-27] MEDS: Pyridoxine 100 mg Tab PO SCH (09:02)
[2018-10-27] MEDS: Multivitamin With Minerals Tab PO SCH (09:04)
[2018-10-27] MEDS: Lidocaine 5% Patch TD SCH (09:06)
[2018-10-27] MEDS: guaiFENesin 600 mg ER Tab PO SCH ×2 (09:06→21:11)
[2018-10-27] MEDS: Fluticasone-Salmeterol 250-50mcg Diskus IH SCH ×2 (09:09→21:30)
--- NOTE | 2018-10-27 14:27 | CP.PCM.PN ---
Subjective - Date & Time of Evaluation Date of Evaluation: 10/27/18 Time of Evaluation: 14:23 - Subjective Subjective: I D NOTE UTI c VRE HAVE STARTED ZYVOX HAVE ALSO STARTED c MEROPENEM FOR MORGANELLA MORGANII Objective - Vital Signs/Intake and Output Vital Signs (last 24 hours): Temp Pulse Resp BP Pulse Ox 98.3 F 100 H 20 91/57 L 94 L 10/27/18 08:57 10/27/18 08:57 10/27/18 08:57 10/27/18 09:08 10/27/18 08:57 - Medications Medications: Current Medications Acetaminophen (Tylenol 325mg Tab) 650 mg PO Q6 PRN PRN Reason: Headache Albuterol/Ipratropium (Duoneb 3 Mg/0.5 Mg (3 Ml) Ud) 3 ml INH RTID [facility] Last Admin: 10/27/18 07:27 Dose: 3 ml Artificial Tears (Artificial Tears) 2 drop OU Q6 PRN PRN Reason: Dry eyes Last Admin: 10/18/18 17:51 Dose: 2 drop Atorvastatin Calcium (Lipitor) 80 mg PO HS [facility] Last Admin: 10/26/18 21:34 Dose: 80 mg Benzonatate (Tessalon Perles) 100 mg PO Q8 [facility] Last Admin: 10/27/18 09:05 Dose: 100 mg Camphor/Menthol (Bengay) 1 applic TOP Q6 PRN PRN Reason: Muscle spasm Last Admin: 10/21/18 09:03 Dose: 1 appl Carvedilol (Coreg) 12.5 mg PO Q12 [facility] Last Admin: 10/27/18 09:08 Dose: Not Given Enalapril Maleate (Vasotec) 2.5 mg PO DAILY [facility] Last Admin: 10/27/18 09:04 Dose: Not Given Famotidine (Pepcid) 20 mg PO DAILY [facility] Last Admin: 10/27/18 09:05 Dose: 20 mg Folic Acid (Folic Acid) 1 mg PO DAILY [facility] Last Admin: 10/27/18 09:08 Dose: 1 mg Furosemide (Lasix) 40 mg PO DAILY [facility] Last Admin: 10/27/18 09:07 Dose: Not Given Gabapentin (Neurontin) 1,200 mg PO TID [facility] Last Admin: 10/27/18 12:39 Dose: 1,200 mg Guaifenesin (Mucinex La) 1,200 mg PO Q12 [facility] Last Admin: 10/27/18 09:06 Dose: 1,200 mg Hydroxyzine HCl (Atarax) 25 mg PO Q12 PRN PRN Reason: Itching / Pruritus Meropenem 500 mg/ Sodium (Chloride) 100 mls @ 100 mls/hr IVPB Q12H [facility]; Protocol Lactic Acid (Lac-Hydrin 12% Lotion (225 G)) 1 applic TOP BID [facility] Last Admin: 10/27/18 09:07 Dose: 1 applic Lidocaine (Lidoderm) 1 ea TD DAILY [facility] Last Admin: 10/27/18 09:06 Dose: 1 ea Linezolid (Zyvox) 600 mg PO Q12 [facility]; Protocol Loratadine (Claritin) 10 mg PO DAILY [facility] Last Admin: 10/27/18 09:09 Dose: 10 mg Metformin HCl (Glucophage) 1,000 mg PO BID [facility] Last Admin: 10/27/18 09:07 Dose: 1,000 mg Multivitamins/Minerals (Therapeutic-M Tab) 1 tab PO DAILY [facility] Last Admin: 10/27/18 09:04 Dose: 1 tab Nicotine (Nicoderm Cq) 1 patch TD DAILY [facility] Last Admin: 10/27/18 09:05 Dose: 1 patch Nitroglycerin (Nitrostat Sl Tab) 0.4 mg SL Q5MIN PRN PRN Reason: Chest pain Last Admin: 10/23/18 05:53 Dose: 0.4 mg Oxycodone HCl (Oxycodone Immediate Release Tab) 30 mg PO Q6 [facility] Last Admin: 10/27/18 09:01 Dose: 30 mg Pyridoxine HCl (Vitamin B6) 100 mg PO DAILY [facility] Last Admin: 10/27/18 09:02 Dose: 100 mg Fluticasone/Salmeterol (Advair Diskus 250/50) 1 puff IH Q12 [facility] Last Admin: 10/27/18 09:09 Dose: 1 puff Senna/Docusate Sodium (Senokot S 50 Mg-8.6 Mg) 2 tab PO HS [facility] Last Admin: 10/26/18 22:00 Dose: Not Given Tamsulosin HCl (Flomax) 0.4 mg PO DAILY [facility] Last Admin: 10/27/18 09:08 Dose: 0.4 mg Thiamine HCl (Vitamin B1 Tab) 100 mg PO DAILY [facility] Last Admin: 10/27/18 09:02 Dose: 100 mg Trazodone HCl (Desyrel) 50 mg PO [facility] Last Admin: 10/26/18 21:34 Dose: 50 mg - Labs Labs: 10/24/18 12:24 10/25/18 06:09 PT 12.9 Seconds (9.8-13.1) 09/10/18 13:45 INR 1.1 09/10/18 13:45 APTT 36.0 Seconds (25.6-37.1) 09/10/18 13:45
[2018-10-27] MEDS: Meropenem 500 MG in Sodium Chloride 0.9% 100 ML IVPB SCH (15:36)
[2018-10-27] MEDS: Docusate-Senna 50 mg-8.6 mg Tab PO SCH (21:13)
--- NOTE | 2018-10-28 00:46 | CP.PCM.PN ---
Subjective - Date & Time of Evaluation Date of Evaluation: 10/27/18 Time of Evaluation: 13:30 - Subjective Subjective: Patient was noted to have VRE and morgognella in urine Has no fever. Objective - Vital Signs/Intake and Output Vital Signs (last 24 hours): Temp Pulse Resp BP Pulse Ox 98.0 F 107 H 20 104/61 93 L 10/27/18 23:35 10/27/18 23:35 10/27/18 23:35 10/27/18 23:35 10/27/18 23:35 - Medications Medications: Current Medications Acetaminophen (Tylenol 325mg Tab) 650 mg PO Q6 PRN PRN Reason: Headache Albuterol/Ipratropium (Duoneb 3 Mg/0.5 Mg (3 Ml) Ud) 3 ml INH RTID [facility] Last Admin: 10/27/18 19:03 Dose: 3 ml Artificial Tears (Artificial Tears) 2 drop OU Q6 PRN PRN Reason: Dry eyes Last Admin: 10/18/18 17:51 Dose: 2 drop Atorvastatin Calcium (Lipitor) 80 mg PO HS [facility] Last Admin: 10/27/18 21:13 Dose: 80 mg Benzonatate (Tessalon Perles) 100 mg PO Q8 [facility] Last Admin: 10/27/18 16:07 Dose: 100 mg Camphor/Menthol (Bengay) 1 applic TOP Q6 PRN PRN Reason: Muscle spasm Last Admin: 10/21/18 09:03 Dose: 1 appl Carvedilol (Coreg) 12.5 mg PO Q12 [facility] Last Admin: 10/27/18 21:12 Dose: Not Given Enalapril Maleate (Vasotec) 2.5 mg PO DAILY [facility] Last Admin: 10/27/18 09:04 Dose: Not Given Famotidine (Pepcid) 20 mg PO DAILY [facility] Last Admin: 10/27/18 09:05 Dose: 20 mg Folic Acid (Folic Acid) 1 mg PO DAILY [facility] Last Admin: 10/27/18 09:08 Dose: 1 mg Furosemide (Lasix) 40 mg PO DAILY [facility] Last Admin: 10/27/18 09:07 Dose: Not Given Gabapentin (Neurontin) 1,200 mg PO TID [facility] Last Admin: 10/27/18 16:07 Dose: 1,200 mg Guaifenesin (Mucinex La) 1,200 mg PO Q12 [facility] Last Admin: 10/27/18 21:11 Dose: 1,200 mg Hydroxyzine HCl (Atarax) 25 mg PO Q12 PRN PRN Reason: Itching / Pruritus Meropenem 500 mg/ Sodium (Chloride) 100 mls @ 100 mls/hr IVPB Q12H [facility]; Protocol Last Admin: 10/27/18 15:36 Dose: 100 mls/hr Lactic Acid (Lac-Hydrin 12% Lotion (225 G)) 1 applic TOP BID [facility] Last Admin: 10/27/18 16:05 Dose: 1 applic Lidocaine (Lidoderm) 1 ea TD DAILY [facility] Last Admin: 10/27/18 09:06 Dose: 1 ea Linezolid (Zyvox) 600 mg PO Q12 [facility]; Protocol Last Admin: 10/27/18 21:14 Dose: 600 mg Loratadine (Claritin) 10 mg PO DAILY [facility] Last Admin: 10/27/18 09:09 Dose: 10 mg Metformin HCl (Glucophage) 1,000 mg PO BID [facility] Last Admin: 10/27/18 16:05 Dose: 1,000 mg Multivitamins/Minerals (Therapeutic-M Tab) 1 tab PO DAILY [facility] Last Admin: 10/27/18 09:04 Dose: 1 tab Nicotine (Nicoderm Cq) 1 patch TD DAILY [facility] Last Admin: 10/27/18 09:05 Dose: 1 patch Nitroglycerin (Nitrostat Sl Tab) 0.4 mg SL Q5MIN PRN PRN Reason: Chest pain Last Admin: 10/23/18 05:53 Dose: 0.4 mg Oxycodone HCl (Oxycodone Immediate Release Tab) 30 mg PO Q6 [facility] Last Admin: 10/27/18 21:17 Dose: 30 mg Pyridoxine HCl (Vitamin B6) 100 mg PO DAILY [facility] Last Admin: 10/27/18 09:02 Dose: 100 mg Fluticasone/Salmeterol (Advair Diskus 250/50) 1 puff IH Q12 [facility] Last Admin: 10/27/18 09:09 Dose: 1 puff Senna/Docusate Sodium (Senokot S 50 Mg-8.6 Mg) 2 tab PO HS [facility] Last Admin: 10/27/18 21:13 Dose: 2 tab Tamsulosin HCl (Flomax) 0.4 mg PO DAILY [facility] Last Admin: 10/27/18 09:08 Dose: 0.4 mg Thiamine HCl (Vitamin B1 Tab) 100 mg PO DAILY [facility] Last Admin: 10/27/18 09:02 Dose: 100 mg Trazodone HCl (Desyrel) 50 mg PO HS [facility] Last Admin: 10/27/18 21:17 Dose: 50 mg - Labs Labs: 10/24/18 12:24 10/25/18 06:09 PT 12.9 Seconds (9.8-13.1) 09/10/18 13:45 INR 1.1 09/10/18 13:45 APTT 36.0 Seconds (25.6-37.1) 09/10/18 13:45 - Head Exam Head Exam: NORMAL INSPECTION - Eye Exam Eye Exam: Normal appearance - Respiratory Exam Respiratory Exam: Clear to Ausculation Bilateral - Cardiovascular Exam Cardiovascular Exam: REGULAR RHYTHM - GI/Abdominal Exam GI & Abdominal Exam: Normal Bowel Sounds Assessment and Plan (1) Pleural effusion Status: Acute (2) Alcohol withdrawal Status: Acute (3) Liver cirrhosis Status: Acute (4) DMII (diabetes mellitus, type 2) Status: Chronic - Assessment and Plan (Free Text) Plan: Follow up with Dr Geraldine hart will need new antibiotics
[2018-10-28] MEDS: Meropenem 500 MG in Sodium Chloride 0.9% 100 ML IVPB SCH ×2 (02:06→15:00)
[2018-10-28] MEDS: oxyCODONE 10 mg Immediate Release Tab PO SCH ×4 (03:37→21:28)
--- NOTE | 2018-10-28 06:58 | CP.PCM.PN ---
Subjective - Date & Time of Evaluation Date of Evaluation: 09/16/18 Time of Evaluation: 10:20 - Subjective Subjective: Has occasional cough Has no fever Objective - Vital Signs/Intake and Output Vital Signs (last 24 hours): Temp Pulse Resp BP Pulse Ox 98.0 F 107 H 20 104/61 93 L 10/27/18 23:35 10/27/18 23:35 10/27/18 23:35 10/27/18 23:35 10/27/18 23:35 - Medications Medications: Current Medications Acetaminophen (Tylenol 325mg Tab) 650 mg PO Q6 PRN PRN Reason: Headache Albuterol/Ipratropium (Duoneb 3 Mg/0.5 Mg (3 Ml) Ud) 3 ml INH RTID [facility] Last Admin: 10/27/18 19:03 Dose: 3 ml Artificial Tears (Artificial Tears) 2 drop OU Q6 PRN PRN Reason: Dry eyes Last Admin: 10/18/18 17:51 Dose: 2 drop Atorvastatin Calcium (Lipitor) 80 mg PO HS [facility] Last Admin: 10/27/18 21:13 Dose: 80 mg Benzonatate (Tessalon Perles) 100 mg PO Q8 [facility] Last Admin: 10/28/18 00:48 Dose: 100 mg Camphor/Menthol (Bengay) 1 applic TOP Q6 PRN PRN Reason: Muscle spasm Last Admin: 10/21/18 09:03 Dose: 1 appl Carvedilol (Coreg) 12.5 mg PO Q12 [facility] Last Admin: 10/27/18 21:12 Dose: Not Given Enalapril Maleate (Vasotec) 2.5 mg PO DAILY [facility] Last Admin: 10/27/18 09:04 Dose: Not Given Famotidine (Pepcid) 20 mg PO DAILY [facility] Last Admin: 10/27/18 09:05 Dose: 20 mg Folic Acid (Folic Acid) 1 mg PO DAILY [facility] Last Admin: 10/27/18 09:08 Dose: 1 mg Furosemide (Lasix) 40 mg PO DAILY [facility] Last Admin: 10/27/18 09:07 Dose: Not Given Gabapentin (Neurontin) 1,200 mg PO TID [facility] Last Admin: 10/27/18 16:07 Dose: 1,200 mg Guaifenesin (Mucinex La) 1,200 mg PO Q12 [facility] Last Admin: 10/27/18 21:11 Dose: 1,200 mg Hydroxyzine HCl (Atarax) 25 mg PO Q12 PRN PRN Reason: Itching / Pruritus Meropenem 500 mg/ Sodium (Chloride) 100 mls @ 100 mls/hr IVPB Q12H [facility]; Protocol Last Admin: 10/28/18 02:06 Dose: 100 mls/hr Lactic Acid (Lac-Hydrin 12% Lotion (225 G)) 1 applic TOP BID [facility] Last Admin: 10/27/18 16:05 Dose: 1 applic Lidocaine (Lidoderm) 1 ea TD DAILY [facility] Last Admin: 10/27/18 09:06 Dose: 1 ea Linezolid (Zyvox) 600 mg PO Q12 [facility]; Protocol Last Admin: 10/27/18 21:14 Dose: 600 mg Loratadine (Claritin) 10 mg PO DAILY [facility] Last Admin: 10/27/18 09:09 Dose: 10 mg Metformin HCl (Glucophage) 1,000 mg PO BID [facility] Last Admin: 10/27/18 16:05 Dose: 1,000 mg Multivitamins/Minerals (Therapeutic-M Tab) 1 tab PO DAILY [facility] Last Admin: 10/27/18 09:04 Dose: 1 tab Nicotine (Nicoderm Cq) 1 patch TD DAILY [facility] Last Admin: 10/27/18 09:05 Dose: 1 patch Nitroglycerin (Nitrostat Sl Tab) 0.4 mg SL Q5MIN PRN PRN Reason: Chest pain Last Admin: 10/23/18 05:53 Dose: 0.4 mg Oxycodone HCl (Oxycodone Immediate Release Tab) 30 mg PO Q6 [facility] Last Admin: 10/28/18 03:37 Dose: 30 mg Pyridoxine HCl (Vitamin B6) 100 mg PO DAILY [facility] Last Admin: 10/27/18 09:02 Dose: 100 mg Fluticasone/Salmeterol (Advair Diskus 250/50) 1 puff IH Q12 [facility] Last Admin: 10/27/18 21:30 Dose: 1 puff Senna/Docusate Sodium (Senokot S 50 Mg-8.6 Mg) 2 tab PO HS [facility] Last Admin: 10/27/18 21:13 Dose: 2 tab Tamsulosin HCl (Flomax) 0.4 mg PO DAILY [facility] Last Admin: 10/27/18 09:08 Dose: 0.4 mg Thiamine HCl (Vitamin B1 Tab) 100 mg PO DAILY [facility] Last Admin: 10/27/18 09:02 Dose: 100 mg Trazodone HCl (Desyrel) 50 mg PO HS [facility] Last Admin: 10/27/18 21:17 Dose: 50 mg - Labs Labs: 10/24/18 12:24 10/25/18 06:09 PT 12.9 Seconds (9.8-13.1) 09/10/18 13:45 INR 1.1 09/10/18 13:45 APTT 36.0 Seconds (25.6-37.1) 09/10/18 13:45 - Head Exam Head Exam: NORMAL INSPECTION - Eye Exam Eye Exam: Normal appearance - Respiratory Exam Respiratory Exam: Decreased Breath Sounds, Rhonchi - Cardiovascular Exam Cardiovascular Exam: REGULAR RHYTHM - GI/Abdominal Exam GI & Abdominal Exam: Soft Assessment and Plan (1) Pleural effusion Status: Acute (2) Alcohol withdrawal Status: Acute (3) Liver cirrhosis Status: Acute (4) DMII (diabetes mellitus, type 2) Status: Chronic - Assessment and Plan (Free Text) Assessment: Cont meds Cont tx Cont nursing care discharge plans
--- NOTE | 2018-10-28 07:01 | CP.PCM.PN ---
Subjective - Date & Time of Evaluation Date of Evaluation: 09/17/18 Time of Evaluation: 11:00 - Subjective Subjective: patient remains stable Has occasional cough from COPD and pleural effusion Objective - Vital Signs/Intake and Output Vital Signs (last 24 hours): Temp Pulse Resp BP Pulse Ox 98.0 F 107 H 20 104/61 93 L 10/27/18 23:35 10/27/18 23:35 10/27/18 23:35 10/27/18 23:35 10/27/18 23:35 - Medications Medications: Current Medications Acetaminophen (Tylenol 325mg Tab) 650 mg PO Q6 PRN PRN Reason: Headache Albuterol/Ipratropium (Duoneb 3 Mg/0.5 Mg (3 Ml) Ud) 3 ml INH RTID [facility] Last Admin: 10/27/18 19:03 Dose: 3 ml Artificial Tears (Artificial Tears) 2 drop OU Q6 PRN PRN Reason: Dry eyes Last Admin: 10/18/18 17:51 Dose: 2 drop Atorvastatin Calcium (Lipitor) 80 mg PO HS [facility] Last Admin: 10/27/18 21:13 Dose: 80 mg Benzonatate (Tessalon Perles) 100 mg PO Q8 [facility] Last Admin: 10/28/18 00:48 Dose: 100 mg Camphor/Menthol (Bengay) 1 applic TOP Q6 PRN PRN Reason: Muscle spasm Last Admin: 10/21/18 09:03 Dose: 1 appl Carvedilol (Coreg) 12.5 mg PO Q12 [facility] Last Admin: 10/27/18 21:12 Dose: Not Given Enalapril Maleate (Vasotec) 2.5 mg PO DAILY [facility] Last Admin: 10/27/18 09:04 Dose: Not Given Famotidine (Pepcid) 20 mg PO DAILY [facility] Last Admin: 10/27/18 09:05 Dose: 20 mg Folic Acid (Folic Acid) 1 mg PO DAILY [facility] Last Admin: 10/27/18 09:08 Dose: 1 mg Furosemide (Lasix) 40 mg PO DAILY [facility] Last Admin: 10/27/18 09:07 Dose: Not Given Gabapentin (Neurontin) 1,200 mg PO TID [facility] Last Admin: 10/27/18 16:07 Dose: 1,200 mg Guaifenesin (Mucinex La) 1,200 mg PO Q12 [facility] Last Admin: 10/27/18 21:11 Dose: 1,200 mg Hydroxyzine HCl (Atarax) 25 mg PO Q12 PRN PRN Reason: Itching / Pruritus Meropenem 500 mg/ Sodium (Chloride) 100 mls @ 100 mls/hr IVPB Q12H [facility]; Protocol Last Admin: 10/28/18 02:06 Dose: 100 mls/hr Lactic Acid (Lac-Hydrin 12% Lotion (225 G)) 1 applic TOP BID [facility] Last Admin: 10/27/18 16:05 Dose: 1 applic Lidocaine (Lidoderm) 1 ea TD DAILY [facility] Last Admin: 10/27/18 09:06 Dose: 1 ea Linezolid (Zyvox) 600 mg PO Q12 [facility]; Protocol Last Admin: 10/27/18 21:14 Dose: 600 mg Loratadine (Claritin) 10 mg PO DAILY [facility] Last Admin: 10/27/18 09:09 Dose: 10 mg Metformin HCl (Glucophage) 1,000 mg PO BID [facility] Last Admin: 10/27/18 16:05 Dose: 1,000 mg Multivitamins/Minerals (Therapeutic-M Tab) 1 tab PO DAILY [facility] Last Admin: 10/27/18 09:04 Dose: 1 tab Nicotine (Nicoderm Cq) 1 patch TD DAILY [facility] Last Admin: 10/27/18 09:05 Dose: 1 patch Nitroglycerin (Nitrostat Sl Tab) 0.4 mg SL Q5MIN PRN PRN Reason: Chest pain Last Admin: 10/23/18 05:53 Dose: 0.4 mg Oxycodone HCl (Oxycodone Immediate Release Tab) 30 mg PO Q6 [facility] Last Admin: 10/28/18 03:37 Dose: 30 mg Pyridoxine HCl (Vitamin B6) 100 mg PO DAILY [facility] Last Admin: 10/27/18 09:02 Dose: 100 mg Fluticasone/Salmeterol (Advair Diskus 250/50) 1 puff IH Q12 [facility] Last Admin: 10/27/18 21:30 Dose: 1 puff Senna/Docusate Sodium (Senokot S 50 Mg-8.6 Mg) 2 tab PO HS [facility] Last Admin: 10/27/18 21:13 Dose: 2 tab Tamsulosin HCl (Flomax) 0.4 mg PO DAILY [facility] Last Admin: 10/27/18 09:08 Dose: 0.4 mg Thiamine HCl (Vitamin B1 Tab) 100 mg PO DAILY [facility] Last Admin: 10/27/18 09:02 Dose: 100 mg Trazodone HCl (Desyrel) 50 mg PO HS [facility] Last Admin: 10/27/18 21:17 Dose: 50 mg - Labs Labs: 10/24/18 12:24 10/25/18 06:09 PT 12.9 Seconds (9.8-13.1) 09/10/18 13:45 INR 1.1 09/10/18 13:45 APTT 36.0 Seconds (25.6-37.1) 09/10/18 13:45 - Head Exam Head Exam: NORMAL INSPECTION - Eye Exam Eye Exam: Normal appearance - ENT Exam ENT Exam: Mucous Membranes Moist - Respiratory Exam Respiratory Exam: Clear to Ausculation Bilateral - Cardiovascular Exam Cardiovascular Exam: REGULAR RHYTHM - GI/Abdominal Exam GI & Abdominal Exam: Normal Bowel Sounds - Neurological Exam Neurological Exam: Awake Assessment and Plan (1) Pleural effusion Status: Acute (2) Alcohol withdrawal Status: Acute (3) Liver cirrhosis Status: Acute (4) DMII (diabetes mellitus, type 2) Status: Chronic - Assessment and Plan (Free Text) Plan: Cont meds Cont tx subacute rehab eval
--- NOTE | 2018-10-28 07:03 | CP.PCM.PN ---
Subjective - Date & Time of Evaluation Date of Evaluation: 09/18/18 Time of Evaluation: 11:25 - Subjective Subjective: Patient remains stable Has no chest pain or SOB Has persistent cough CXR showed persistent large pleural effusion Objective - Vital Signs/Intake and Output Vital Signs (last 24 hours): Temp Pulse Resp BP Pulse Ox 98.0 F 107 H 20 104/61 93 L 10/27/18 23:35 10/27/18 23:35 10/27/18 23:35 10/27/18 23:35 10/27/18 23:35 - Medications Medications: Current Medications Acetaminophen (Tylenol 325mg Tab) 650 mg PO Q6 PRN PRN Reason: Headache Albuterol/Ipratropium (Duoneb 3 Mg/0.5 Mg (3 Ml) Ud) 3 ml INH RTID [facility] Last Admin: 10/27/18 19:03 Dose: 3 ml Artificial Tears (Artificial Tears) 2 drop OU Q6 PRN PRN Reason: Dry eyes Last Admin: 10/18/18 17:51 Dose: 2 drop Atorvastatin Calcium (Lipitor) 80 mg PO HS [facility] Last Admin: 10/27/18 21:13 Dose: 80 mg Benzonatate (Tessalon Perles) 100 mg PO Q8 [facility] Last Admin: 10/28/18 00:48 Dose: 100 mg Camphor/Menthol (Bengay) 1 applic TOP Q6 PRN PRN Reason: Muscle spasm Last Admin: 10/21/18 09:03 Dose: 1 appl Carvedilol (Coreg) 12.5 mg PO Q12 [facility] Last Admin: 10/27/18 21:12 Dose: Not Given Enalapril Maleate (Vasotec) 2.5 mg PO DAILY [facility] Last Admin: 10/27/18 09:04 Dose: Not Given Famotidine (Pepcid) 20 mg PO DAILY [facility] Last Admin: 10/27/18 09:05 Dose: 20 mg Folic Acid (Folic Acid) 1 mg PO DAILY [facility] Last Admin: 10/27/18 09:08 Dose: 1 mg Furosemide (Lasix) 40 mg PO DAILY [facility] Last Admin: 10/27/18 09:07 Dose: Not Given Gabapentin (Neurontin) 1,200 mg PO TID [facility] Last Admin: 10/27/18 16:07 Dose: 1,200 mg Guaifenesin (Mucinex La) 1,200 mg PO Q12 [facility] Last Admin: 10/27/18 21:11 Dose: 1,200 mg Hydroxyzine HCl (Atarax) 25 mg PO Q12 PRN PRN Reason: Itching / Pruritus Meropenem 500 mg/ Sodium (Chloride) 100 mls @ 100 mls/hr IVPB Q12H [facility]; Protocol Last Admin: 10/28/18 02:06 Dose: 100 mls/hr Lactic Acid (Lac-Hydrin 12% Lotion (225 G)) 1 applic TOP BID [facility] Last Admin: 10/27/18 16:05 Dose: 1 applic Lidocaine (Lidoderm) 1 ea TD DAILY [facility] Last Admin: 10/27/18 09:06 Dose: 1 ea Linezolid (Zyvox) 600 mg PO Q12 [facility]; Protocol Last Admin: 10/27/18 21:14 Dose: 600 mg Loratadine (Claritin) 10 mg PO DAILY [facility] Last Admin: 10/27/18 09:09 Dose: 10 mg Metformin HCl (Glucophage) 1,000 mg PO BID [facility] Last Admin: 10/27/18 16:05 Dose: 1,000 mg Multivitamins/Minerals (Therapeutic-M Tab) 1 tab PO DAILY [facility] Last Admin: 10/27/18 09:04 Dose: 1 tab Nicotine (Nicoderm Cq) 1 patch TD DAILY [facility] Last Admin: 10/27/18 09:05 Dose: 1 patch Nitroglycerin (Nitrostat Sl Tab) 0.4 mg SL Q5MIN PRN PRN Reason: Chest pain Last Admin: 10/23/18 05:53 Dose: 0.4 mg Oxycodone HCl (Oxycodone Immediate Release Tab) 30 mg PO Q6 [facility] Last Admin: 10/28/18 03:37 Dose: 30 mg Pyridoxine HCl (Vitamin B6) 100 mg PO DAILY [facility] Last Admin: 10/27/18 09:02 Dose: 100 mg Fluticasone/Salmeterol (Advair Diskus 250/50) 1 puff IH Q12 [facility] Last Admin: 10/27/18 21:30 Dose: 1 puff Senna/Docusate Sodium (Senokot S 50 Mg-8.6 Mg) 2 tab PO HS [facility] Last Admin: 10/27/18 21:13 Dose: 2 tab Tamsulosin HCl (Flomax) 0.4 mg PO DAILY [facility] Last Admin: 10/27/18 09:08 Dose: 0.4 mg Thiamine HCl (Vitamin B1 Tab) 100 mg PO DAILY [facility] Last Admin: 10/27/18 09:02 Dose: 100 mg Trazodone HCl (Desyrel) 50 mg PO HS [facility] Last Admin: 10/27/18 21:17 Dose: 50 mg - Labs Labs: 10/24/18 12:24 10/25/18 06:09 PT 12.9 Seconds (9.8-13.1) 09/10/18 13:45 INR 1.1 09/10/18 13:45 APTT 36.0 Seconds (25.6-37.1) 09/10/18 13:45 - Head Exam Head Exam: NORMAL INSPECTION - Eye Exam Eye Exam: Normal appearance - ENT Exam ENT Exam: Mucous Membranes Moist - Respiratory Exam Respiratory Exam: Decreased Breath Sounds, Rhonchi - Cardiovascular Exam Cardiovascular Exam: REGULAR RHYTHM - GI/Abdominal Exam GI & Abdominal Exam: Normal Bowel Sounds Assessment and Plan (1) Pleural effusion Status: Acute (2) Alcohol withdrawal Status: Acute (3) Liver cirrhosis Status: Acute (4) DMII (diabetes mellitus, type 2) Status: Chronic - Assessment and Plan (Free Text) Plan: Cont meds Cot tx cont fluid restriction neb tx subacute rehab follow up with pulmonary/ IR
--- NOTE | 2018-10-28 07:12 | CP.PCM.PN ---
Subjective - Date & Time of Evaluation Date of Evaluation: 09/22/18 Time of Evaluation: 11:00 - Subjective Subjective: patient is doing well Has no chest pain or SOB Objective - Vital Signs/Intake and Output Vital Signs (last 24 hours): Temp Pulse Resp BP Pulse Ox 98.0 F 107 H 20 104/61 93 L 10/27/18 23:35 10/27/18 23:35 10/27/18 23:35 10/27/18 23:35 10/27/18 23:35 - Medications Medications: Current Medications Acetaminophen (Tylenol 325mg Tab) 650 mg PO Q6 PRN PRN Reason: Headache Albuterol/Ipratropium (Duoneb 3 Mg/0.5 Mg (3 Ml) Ud) 3 ml INH RTID [facility] Last Admin: 10/27/18 19:03 Dose: 3 ml Artificial Tears (Artificial Tears) 2 drop OU Q6 PRN PRN Reason: Dry eyes Last Admin: 10/18/18 17:51 Dose: 2 drop Atorvastatin Calcium (Lipitor) 80 mg PO HS [facility] Last Admin: 10/27/18 21:13 Dose: 80 mg Benzonatate (Tessalon Perles) 100 mg PO Q8 [facility] Last Admin: 10/28/18 00:48 Dose: 100 mg Camphor/Menthol (Bengay) 1 applic TOP Q6 PRN PRN Reason: Muscle spasm Last Admin: 10/21/18 09:03 Dose: 1 appl Carvedilol (Coreg) 12.5 mg PO Q12 [facility] Last Admin: 10/27/18 21:12 Dose: Not Given Enalapril Maleate (Vasotec) 2.5 mg PO DAILY [facility] Last Admin: 10/27/18 09:04 Dose: Not Given Famotidine (Pepcid) 20 mg PO DAILY [facility] Last Admin: 10/27/18 09:05 Dose: 20 mg Folic Acid (Folic Acid) 1 mg PO DAILY [facility] Last Admin: 10/27/18 09:08 Dose: 1 mg Furosemide (Lasix) 40 mg PO DAILY [facility] Last Admin: 10/27/18 09:07 Dose: Not Given Gabapentin (Neurontin) 1,200 mg PO TID [facility] Last Admin: 10/27/18 16:07 Dose: 1,200 mg Guaifenesin (Mucinex La) 1,200 mg PO Q12 [facility] Last Admin: 10/27/18 21:11 Dose: 1,200 mg Hydroxyzine HCl (Atarax) 25 mg PO Q12 PRN PRN Reason: Itching / Pruritus Meropenem 500 mg/ Sodium (Chloride) 100 mls @ 100 mls/hr IVPB Q12H [facility]; Protocol Last Admin: 10/28/18 02:06 Dose: 100 mls/hr Lactic Acid (Lac-Hydrin 12% Lotion (225 G)) 1 applic TOP BID [facility] Last Admin: 10/27/18 16:05 Dose: 1 applic Lidocaine (Lidoderm) 1 ea TD DAILY [facility] Last Admin: 10/27/18 09:06 Dose: 1 ea Linezolid (Zyvox) 600 mg PO Q12 [facility]; Protocol Last Admin: 10/27/18 21:14 Dose: 600 mg Loratadine (Claritin) 10 mg PO DAILY [facility] Last Admin: 10/27/18 09:09 Dose: 10 mg Metformin HCl (Glucophage) 1,000 mg PO BID [facility] Last Admin: 10/27/18 16:05 Dose: 1,000 mg Multivitamins/Minerals (Therapeutic-M Tab) 1 tab PO DAILY [facility] Last Admin: 10/27/18 09:04 Dose: 1 tab Nicotine (Nicoderm Cq) 1 patch TD DAILY [facility] Last Admin: 10/27/18 09:05 Dose: 1 patch Nitroglycerin (Nitrostat Sl Tab) 0.4 mg SL Q5MIN PRN PRN Reason: Chest pain Last Admin: 10/23/18 05:53 Dose: 0.4 mg Oxycodone HCl (Oxycodone Immediate Release Tab) 30 mg PO Q6 [facility] Last Admin: 10/28/18 03:37 Dose: 30 mg Pyridoxine HCl (Vitamin B6) 100 mg PO DAILY [facility] Last Admin: 10/27/18 09:02 Dose: 100 mg Fluticasone/Salmeterol (Advair Diskus 250/50) 1 puff IH Q12 [facility] Last Admin: 10/27/18 21:30 Dose: 1 puff Senna/Docusate Sodium (Senokot S 50 Mg-8.6 Mg) 2 tab PO HS [facility] Last Admin: 10/27/18 21:13 Dose: 2 tab Tamsulosin HCl (Flomax) 0.4 mg PO DAILY [facility] Last Admin: 10/27/18 09:08 Dose: 0.4 mg Thiamine HCl (Vitamin B1 Tab) 100 mg PO DAILY [facility] Last Admin: 10/27/18 09:02 Dose: 100 mg Trazodone HCl (Desyrel) 50 mg PO HS [facility] Last Admin: 10/27/18 21:17 Dose: 50 mg - Labs Labs: 10/24/18 12:24 10/25/18 06:09 PT 12.9 Seconds (9.8-13.1) 09/10/18 13:45 INR 1.1 09/10/18 13:45 APTT 36.0 Seconds (25.6-37.1) 09/10/18 13:45 - Head Exam Head Exam: NORMAL INSPECTION - Eye Exam Eye Exam: Normal appearance - ENT Exam ENT Exam: Mucous Membranes Moist - Respiratory Exam Respiratory Exam: Clear to Ausculation Bilateral - Cardiovascular Exam Cardiovascular Exam: REGULAR RHYTHM - GI/Abdominal Exam GI & Abdominal Exam: Normal Bowel Sounds - Neurological Exam Neurological Exam: Awake Assessment and Plan (1) Pleural effusion Status: Acute (2) Alcohol withdrawal Status: Acute (3) Liver cirrhosis Status: Acute (4) DMII (diabetes mellitus, type 2) Status: Chronic - Assessment and Plan (Free Text) Plan: Cont meds Cont tx Cont nursing care awaiting for subacute rehab placement
--- NOTE | 2018-10-28 07:16 | CP.PCM.PN ---
Subjective - Date & Time of Evaluation Date of Evaluation: 09/24/18 Time of Evaluation: 11:00 - Subjective Subjective: stable Has recurrent cough but no SOB. Objective - Vital Signs/Intake and Output Vital Signs (last 24 hours): Temp Pulse Resp BP Pulse Ox 98.0 F 107 H 20 104/61 93 L 10/27/18 23:35 10/27/18 23:35 10/27/18 23:35 10/27/18 23:35 10/27/18 23:35 - Medications Medications: Current Medications Acetaminophen (Tylenol 325mg Tab) 650 mg PO Q6 PRN PRN Reason: Headache Albuterol/Ipratropium (Duoneb 3 Mg/0.5 Mg (3 Ml) Ud) 3 ml INH RTID [facility] Last Admin: 10/27/18 19:03 Dose: 3 ml Artificial Tears (Artificial Tears) 2 drop OU Q6 PRN PRN Reason: Dry eyes Last Admin: 10/18/18 17:51 Dose: 2 drop Atorvastatin Calcium (Lipitor) 80 mg PO HS [facility] Last Admin: 10/27/18 21:13 Dose: 80 mg Benzonatate (Tessalon Perles) 100 mg PO Q8 [facility] Last Admin: 10/28/18 00:48 Dose: 100 mg Camphor/Menthol (Bengay) 1 applic TOP Q6 PRN PRN Reason: Muscle spasm Last Admin: 10/21/18 09:03 Dose: 1 appl Carvedilol (Coreg) 12.5 mg PO Q12 [facility] Last Admin: 10/27/18 21:12 Dose: Not Given Enalapril Maleate (Vasotec) 2.5 mg PO DAILY [facility] Last Admin: 10/27/18 09:04 Dose: Not Given Famotidine (Pepcid) 20 mg PO DAILY [facility] Last Admin: 10/27/18 09:05 Dose: 20 mg Folic Acid (Folic Acid) 1 mg PO DAILY [facility] Last Admin: 10/27/18 09:08 Dose: 1 mg Furosemide (Lasix) 40 mg PO DAILY [facility] Last Admin: 10/27/18 09:07 Dose: Not Given Gabapentin (Neurontin) 1,200 mg PO TID [facility] Last Admin: 10/27/18 16:07 Dose: 1,200 mg Guaifenesin (Mucinex La) 1,200 mg PO Q12 [facility] Last Admin: 10/27/18 21:11 Dose: 1,200 mg Hydroxyzine HCl (Atarax) 25 mg PO Q12 PRN PRN Reason: Itching / Pruritus Meropenem 500 mg/ Sodium (Chloride) 100 mls @ 100 mls/hr IVPB Q12H [facility]; Protocol Last Admin: 10/28/18 02:06 Dose: 100 mls/hr Lactic Acid (Lac-Hydrin 12% Lotion (225 G)) 1 applic TOP BID [facility] Last Admin: 10/27/18 16:05 Dose: 1 applic Lidocaine (Lidoderm) 1 ea TD DAILY [facility] Last Admin: 10/27/18 09:06 Dose: 1 ea Linezolid (Zyvox) 600 mg PO Q12 [facility]; Protocol Last Admin: 10/27/18 21:14 Dose: 600 mg Loratadine (Claritin) 10 mg PO DAILY [facility] Last Admin: 10/27/18 09:09 Dose: 10 mg Metformin HCl (Glucophage) 1,000 mg PO BID [facility] Last Admin: 10/27/18 16:05 Dose: 1,000 mg Multivitamins/Minerals (Therapeutic-M Tab) 1 tab PO DAILY [facility] Last Admin: 10/27/18 09:04 Dose: 1 tab Nicotine (Nicoderm Cq) 1 patch TD DAILY [facility] Last Admin: 10/27/18 09:05 Dose: 1 patch Nitroglycerin (Nitrostat Sl Tab) 0.4 mg SL Q5MIN PRN PRN Reason: Chest pain Last Admin: 10/23/18 05:53 Dose: 0.4 mg Oxycodone HCl (Oxycodone Immediate Release Tab) 30 mg PO Q6 [facility] Last Admin: 10/28/18 03:37 Dose: 30 mg Pyridoxine HCl (Vitamin B6) 100 mg PO DAILY [facility] Last Admin: 10/27/18 09:02 Dose: 100 mg Fluticasone/Salmeterol (Advair Diskus 250/50) 1 puff IH Q12 [facility] Last Admin: 10/27/18 21:30 Dose: 1 puff Senna/Docusate Sodium (Senokot S 50 Mg-8.6 Mg) 2 tab PO HS [facility] Last Admin: 10/27/18 21:13 Dose: 2 tab Tamsulosin HCl (Flomax) 0.4 mg PO DAILY [facility] Last Admin: 10/27/18 09:08 Dose: 0.4 mg Thiamine HCl (Vitamin B1 Tab) 100 mg PO DAILY [facility] Last Admin: 10/27/18 09:02 Dose: 100 mg Trazodone HCl (Desyrel) 50 mg PO HS [facility] Last Admin: 10/27/18 21:17 Dose: 50 mg - Labs Labs: 10/24/18 12:24 10/25/18 06:09 PT 12.9 Seconds (9.8-13.1) 09/10/18 13:45 INR 1.1 09/10/18 13:45 APTT 36.0 Seconds (25.6-37.1) 09/10/18 13:45 - Head Exam Head Exam: NORMAL INSPECTION - Eye Exam Eye Exam: Normal appearance - ENT Exam ENT Exam: Mucous Membranes Moist - Respiratory Exam Respiratory Exam: Decreased Breath Sounds, Rhonchi - Cardiovascular Exam Cardiovascular Exam: REGULAR RHYTHM - GI/Abdominal Exam GI & Abdominal Exam: Normal Bowel Sounds Assessment and Plan (1) Pleural effusion Status: Acute (2) Alcohol withdrawal Status: Acute (3) Liver cirrhosis Status: Acute (4) DMII (diabetes mellitus, type 2) Status: Chronic - Assessment and Plan (Free Text) Plan: Cont meds Cont tx Cont nursing care
--- NOTE | 2018-10-28 07:19 | CP.PCM.PN ---
Subjective - Date & Time of Evaluation Date of Evaluation: 09/26/18 Time of Evaluation: 11:00 - Subjective Subjective: Patient remains stable Has no chest pain Has ocacsional cough Objective - Vital Signs/Intake and Output Vital Signs (last 24 hours): Temp Pulse Resp BP Pulse Ox 98.0 F 107 H 20 104/61 93 L 10/27/18 23:35 10/27/18 23:35 10/27/18 23:35 10/27/18 23:35 10/27/18 23:35 - Medications Medications: Current Medications Acetaminophen (Tylenol 325mg Tab) 650 mg PO Q6 PRN PRN Reason: Headache Albuterol/Ipratropium (Duoneb 3 Mg/0.5 Mg (3 Ml) Ud) 3 ml INH RTID [facility] Last Admin: 10/27/18 19:03 Dose: 3 ml Artificial Tears (Artificial Tears) 2 drop OU Q6 PRN PRN Reason: Dry eyes Last Admin: 10/18/18 17:51 Dose: 2 drop Atorvastatin Calcium (Lipitor) 80 mg PO HS [facility] Last Admin: 10/27/18 21:13 Dose: 80 mg Benzonatate (Tessalon Perles) 100 mg PO Q8 [facility] Last Admin: 10/28/18 00:48 Dose: 100 mg Camphor/Menthol (Bengay) 1 applic TOP Q6 PRN PRN Reason: Muscle spasm Last Admin: 10/21/18 09:03 Dose: 1 appl Carvedilol (Coreg) 12.5 mg PO Q12 [facility] Last Admin: 10/27/18 21:12 Dose: Not Given Enalapril Maleate (Vasotec) 2.5 mg PO DAILY [facility] Last Admin: 10/27/18 09:04 Dose: Not Given Famotidine (Pepcid) 20 mg PO DAILY [facility] Last Admin: 10/27/18 09:05 Dose: 20 mg Folic Acid (Folic Acid) 1 mg PO DAILY [facility] Last Admin: 10/27/18 09:08 Dose: 1 mg Furosemide (Lasix) 40 mg PO DAILY [facility] Last Admin: 10/27/18 09:07 Dose: Not Given Gabapentin (Neurontin) 1,200 mg PO TID [facility] Last Admin: 10/27/18 16:07 Dose: 1,200 mg Guaifenesin (Mucinex La) 1,200 mg PO Q12 [facility] Last Admin: 10/27/18 21:11 Dose: 1,200 mg Hydroxyzine HCl (Atarax) 25 mg PO Q12 PRN PRN Reason: Itching / Pruritus Meropenem 500 mg/ Sodium (Chloride) 100 mls @ 100 mls/hr IVPB Q12H [facility]; Protocol Last Admin: 10/28/18 02:06 Dose: 100 mls/hr Lactic Acid (Lac-Hydrin 12% Lotion (225 G)) 1 applic TOP BID [facility] Last Admin: 10/27/18 16:05 Dose: 1 applic Lidocaine (Lidoderm) 1 ea TD DAILY [facility] Last Admin: 10/27/18 09:06 Dose: 1 ea Linezolid (Zyvox) 600 mg PO Q12 [facility]; Protocol Last Admin: 10/27/18 21:14 Dose: 600 mg Loratadine (Claritin) 10 mg PO DAILY [facility] Last Admin: 10/27/18 09:09 Dose: 10 mg Metformin HCl (Glucophage) 1,000 mg PO BID [facility] Last Admin: 10/27/18 16:05 Dose: 1,000 mg Multivitamins/Minerals (Therapeutic-M Tab) 1 tab PO DAILY [facility] Last Admin: 10/27/18 09:04 Dose: 1 tab Nicotine (Nicoderm Cq) 1 patch TD DAILY [facility] Last Admin: 10/27/18 09:05 Dose: 1 patch Nitroglycerin (Nitrostat Sl Tab) 0.4 mg SL Q5MIN PRN PRN Reason: Chest pain Last Admin: 10/23/18 05:53 Dose: 0.4 mg Oxycodone HCl (Oxycodone Immediate Release Tab) 30 mg PO Q6 [facility] Last Admin: 10/28/18 03:37 Dose: 30 mg Pyridoxine HCl (Vitamin B6) 100 mg PO DAILY [facility] Last Admin: 10/27/18 09:02 Dose: 100 mg Fluticasone/Salmeterol (Advair Diskus 250/50) 1 puff IH Q12 [facility] Last Admin: 10/27/18 21:30 Dose: 1 puff Senna/Docusate Sodium (Senokot S 50 Mg-8.6 Mg) 2 tab PO HS [facility] Last Admin: 10/27/18 21:13 Dose: 2 tab Tamsulosin HCl (Flomax) 0.4 mg PO DAILY [facility] Last Admin: 10/27/18 09:08 Dose: 0.4 mg Thiamine HCl (Vitamin B1 Tab) 100 mg PO DAILY [facility] Last Admin: 10/27/18 09:02 Dose: 100 mg Trazodone HCl (Desyrel) 50 mg PO HS [facility] Last Admin: 10/27/18 21:17 Dose: 50 mg - Labs Labs: 10/24/18 12:24 10/25/18 06:09 PT 12.9 Seconds (9.8-13.1) 09/10/18 13:45 INR 1.1 09/10/18 13:45 APTT 36.0 Seconds (25.6-37.1) 09/10/18 13:45 - Head Exam Head Exam: NORMAL INSPECTION - Eye Exam Eye Exam: Normal appearance - ENT Exam ENT Exam: Mucous Membranes Moist - Respiratory Exam Respiratory Exam: Decreased Breath Sounds, Rhonchi - Cardiovascular Exam Cardiovascular Exam: REGULAR RHYTHM - GI/Abdominal Exam GI & Abdominal Exam: Normal Bowel Sounds Assessment and Plan (1) Pleural effusion Status: Acute (2) Alcohol withdrawal Status: Acute (3) Liver cirrhosis Status: Acute (4) DMII (diabetes mellitus, type 2) Status: Chronic - Assessment and Plan (Free Text) Plan: ont meds Cont tx Cont nursing care awaiting for placement/ subacute rehab
--- NOTE | 2018-10-28 07:21 | CP.PCM.PN ---
Subjective - Date & Time of Evaluation Date of Evaluation: 09/28/18 Time of Evaluation: 10:40 - Subjective Subjective: Stable Has occasional cough Has no fever. Objective - Vital Signs/Intake and Output Vital Signs (last 24 hours): Temp Pulse Resp BP Pulse Ox 98.0 F 107 H 20 104/61 93 L 10/27/18 23:35 10/27/18 23:35 10/27/18 23:35 10/27/18 23:35 10/27/18 23:35 - Medications Medications: Current Medications Acetaminophen (Tylenol 325mg Tab) 650 mg PO Q6 PRN PRN Reason: Headache Albuterol/Ipratropium (Duoneb 3 Mg/0.5 Mg (3 Ml) Ud) 3 ml INH RTID [facility] Last Admin: 10/27/18 19:03 Dose: 3 ml Artificial Tears (Artificial Tears) 2 drop OU Q6 PRN PRN Reason: Dry eyes Last Admin: 10/18/18 17:51 Dose: 2 drop Atorvastatin Calcium (Lipitor) 80 mg PO HS [facility] Last Admin: 10/27/18 21:13 Dose: 80 mg Benzonatate (Tessalon Perles) 100 mg PO Q8 [facility] Last Admin: 10/28/18 00:48 Dose: 100 mg Camphor/Menthol (Bengay) 1 applic TOP Q6 PRN PRN Reason: Muscle spasm Last Admin: 10/21/18 09:03 Dose: 1 appl Carvedilol (Coreg) 12.5 mg PO Q12 [facility] Last Admin: 10/27/18 21:12 Dose: Not Given Enalapril Maleate (Vasotec) 2.5 mg PO DAILY [facility] Last Admin: 10/27/18 09:04 Dose: Not Given Famotidine (Pepcid) 20 mg PO DAILY [facility] Last Admin: 10/27/18 09:05 Dose: 20 mg Folic Acid (Folic Acid) 1 mg PO DAILY [facility] Last Admin: 10/27/18 09:08 Dose: 1 mg Furosemide (Lasix) 40 mg PO DAILY [facility] Last Admin: 10/27/18 09:07 Dose: Not Given Gabapentin (Neurontin) 1,200 mg PO TID [facility] Last Admin: 10/27/18 16:07 Dose: 1,200 mg Guaifenesin (Mucinex La) 1,200 mg PO Q12 [facility] Last Admin: 10/27/18 21:11 Dose: 1,200 mg Hydroxyzine HCl (Atarax) 25 mg PO Q12 PRN PRN Reason: Itching / Pruritus Meropenem 500 mg/ Sodium (Chloride) 100 mls @ 100 mls/hr IVPB Q12H [facility]; Protocol Last Admin: 10/28/18 02:06 Dose: 100 mls/hr Lactic Acid (Lac-Hydrin 12% Lotion (225 G)) 1 applic TOP BID [facility] Last Admin: 10/27/18 16:05 Dose: 1 applic Lidocaine (Lidoderm) 1 ea TD DAILY [facility] Last Admin: 10/27/18 09:06 Dose: 1 ea Linezolid (Zyvox) 600 mg PO Q12 [facility]; Protocol Last Admin: 10/27/18 21:14 Dose: 600 mg Loratadine (Claritin) 10 mg PO DAILY [facility] Last Admin: 10/27/18 09:09 Dose: 10 mg Metformin HCl (Glucophage) 1,000 mg PO BID [facility] Last Admin: 10/27/18 16:05 Dose: 1,000 mg Multivitamins/Minerals (Therapeutic-M Tab) 1 tab PO DAILY [facility] Last Admin: 10/27/18 09:04 Dose: 1 tab Nicotine (Nicoderm Cq) 1 patch TD DAILY [facility] Last Admin: 10/27/18 09:05 Dose: 1 patch Nitroglycerin (Nitrostat Sl Tab) 0.4 mg SL Q5MIN PRN PRN Reason: Chest pain Last Admin: 10/23/18 05:53 Dose: 0.4 mg Oxycodone HCl (Oxycodone Immediate Release Tab) 30 mg PO Q6 [facility] Last Admin: 10/28/18 03:37 Dose: 30 mg Pyridoxine HCl (Vitamin B6) 100 mg PO DAILY [facility] Last Admin: 10/27/18 09:02 Dose: 100 mg Fluticasone/Salmeterol (Advair Diskus 250/50) 1 puff IH Q12 [facility] Last Admin: 10/27/18 21:30 Dose: 1 puff Senna/Docusate Sodium (Senokot S 50 Mg-8.6 Mg) 2 tab PO HS [facility] Last Admin: 10/27/18 21:13 Dose: 2 tab Tamsulosin HCl (Flomax) 0.4 mg PO DAILY [facility] Last Admin: 10/27/18 09:08 Dose: 0.4 mg Thiamine HCl (Vitamin B1 Tab) 100 mg PO DAILY [facility] Last Admin: 10/27/18 09:02 Dose: 100 mg Trazodone HCl (Desyrel) 50 mg PO HS [facility] Last Admin: 10/27/18 21:17 Dose: 50 mg - Labs Labs: 10/24/18 12:24 10/25/18 06:09 PT 12.9 Seconds (9.8-13.1) 09/10/18 13:45 INR 1.1 09/10/18 13:45 APTT 36.0 Seconds (25.6-37.1) 09/10/18 13:45 - Head Exam Head Exam: NORMAL INSPECTION - Eye Exam Eye Exam: Normal appearance - ENT Exam ENT Exam: Mucous Membranes Moist - Respiratory Exam Respiratory Exam: Decreased Breath Sounds, Rhonchi - GI/Abdominal Exam GI & Abdominal Exam: Normal Bowel Sounds - Neurological Exam Neurological Exam: Awake, Oriented x3 Assessment and Plan (1) Pleural effusion Status: Acute (2) Alcohol withdrawal Status: Acute (3) Liver cirrhosis Status: Acute (4) DMII (diabetes mellitus, type 2) Status: Chronic - Assessment and Plan (Free Text) Plan: Cont meds Cont tx Cont nursing care
--- NOTE | 2018-10-28 07:23 | CP.PCM.PN ---
Subjective - Date & Time of Evaluation Date of Evaluation: 09/30/18 Time of Evaluation: 11:00 - Subjective Subjective: Patient is stable Has no place accepting him for subacute rehab Objective - Vital Signs/Intake and Output Vital Signs (last 24 hours): Temp Pulse Resp BP Pulse Ox 98.0 F 107 H 20 104/61 93 L 10/27/18 23:35 10/27/18 23:35 10/27/18 23:35 10/27/18 23:35 10/27/18 23:35 - Medications Medications: Current Medications Acetaminophen (Tylenol 325mg Tab) 650 mg PO Q6 PRN PRN Reason: Headache Albuterol/Ipratropium (Duoneb 3 Mg/0.5 Mg (3 Ml) Ud) 3 ml INH RTID [facility] Last Admin: 10/27/18 19:03 Dose: 3 ml Artificial Tears (Artificial Tears) 2 drop OU Q6 PRN PRN Reason: Dry eyes Last Admin: 10/18/18 17:51 Dose: 2 drop Atorvastatin Calcium (Lipitor) 80 mg PO HS [facility] Last Admin: 10/27/18 21:13 Dose: 80 mg Benzonatate (Tessalon Perles) 100 mg PO Q8 [facility] Last Admin: 10/28/18 00:48 Dose: 100 mg Camphor/Menthol (Bengay) 1 applic TOP Q6 PRN PRN Reason: Muscle spasm Last Admin: 10/21/18 09:03 Dose: 1 appl Carvedilol (Coreg) 12.5 mg PO Q12 [facility] Last Admin: 10/27/18 21:12 Dose: Not Given Enalapril Maleate (Vasotec) 2.5 mg PO DAILY [facility] Last Admin: 10/27/18 09:04 Dose: Not Given Famotidine (Pepcid) 20 mg PO DAILY [facility] Last Admin: 10/27/18 09:05 Dose: 20 mg Folic Acid (Folic Acid) 1 mg PO DAILY [facility] Last Admin: 10/27/18 09:08 Dose: 1 mg Furosemide (Lasix) 40 mg PO DAILY [facility] Last Admin: 10/27/18 09:07 Dose: Not Given Gabapentin (Neurontin) 1,200 mg PO TID [facility] Last Admin: 10/27/18 16:07 Dose: 1,200 mg Guaifenesin (Mucinex La) 1,200 mg PO Q12 [facility] Last Admin: 10/27/18 21:11 Dose: 1,200 mg Hydroxyzine HCl (Atarax) 25 mg PO Q12 PRN PRN Reason: Itching / Pruritus Meropenem 500 mg/ Sodium (Chloride) 100 mls @ 100 mls/hr IVPB Q12H [facility]; Protocol Last Admin: 10/28/18 02:06 Dose: 100 mls/hr Lactic Acid (Lac-Hydrin 12% Lotion (225 G)) 1 applic TOP BID [facility] Last Admin: 10/27/18 16:05 Dose: 1 applic Lidocaine (Lidoderm) 1 ea TD DAILY [facility] Last Admin: 10/27/18 09:06 Dose: 1 ea Linezolid (Zyvox) 600 mg PO Q12 [facility]; Protocol Last Admin: 10/27/18 21:14 Dose: 600 mg Loratadine (Claritin) 10 mg PO DAILY [facility] Last Admin: 10/27/18 09:09 Dose: 10 mg Metformin HCl (Glucophage) 1,000 mg PO BID [facility] Last Admin: 10/27/18 16:05 Dose: 1,000 mg Multivitamins/Minerals (Therapeutic-M Tab) 1 tab PO DAILY [facility] Last Admin: 10/27/18 09:04 Dose: 1 tab Nicotine (Nicoderm Cq) 1 patch TD DAILY [facility] Last Admin: 10/27/18 09:05 Dose: 1 patch Nitroglycerin (Nitrostat Sl Tab) 0.4 mg SL Q5MIN PRN PRN Reason: Chest pain Last Admin: 10/23/18 05:53 Dose: 0.4 mg Oxycodone HCl (Oxycodone Immediate Release Tab) 30 mg PO Q6 [facility] Last Admin: 10/28/18 03:37 Dose: 30 mg Pyridoxine HCl (Vitamin B6) 100 mg PO DAILY [facility] Last Admin: 10/27/18 09:02 Dose: 100 mg Fluticasone/Salmeterol (Advair Diskus 250/50) 1 puff IH Q12 [facility] Last Admin: 10/27/18 21:30 Dose: 1 puff Senna/Docusate Sodium (Senokot S 50 Mg-8.6 Mg) 2 tab PO HS [facility] 234 [facility] Last Admin: 10/27/18 21:13 Dose: 2 tab Tamsulosin HCl (Flomax) 0.4 mg PO DAILY [facility] Last Admin: 10/27/18 09:08 Dose: 0.4 mg Thiamine HCl (Vitamin B1 Tab) 100 mg PO DAILY [facility] Last Admin: 10/27/18 09:02 Dose: 100 mg Trazodone HCl (Desyrel) 50 mg PO HS [facility] 234 [facility]S [facility] Last Admin: 10/27/18 21:17 Dose: 50 mg - Labs Labs: 10/24/18 12:24 10/25/18 06:09 PT 12.9 Seconds (9.8-13.1) 09/10/18 13:45 INR 1.1 09/10/18 13:45 APTT 36.0 Seconds (25.6-37.1) 09/10/18 13:45 - Head Exam Head Exam: NORMAL INSPECTION - Eye Exam Eye Exam: Normal appearance - ENT Exam ENT Exam: Mucous Membranes Moist - Respiratory Exam Respiratory Exam: Decreased Breath Sounds, Rhonchi - Cardiovascular Exam Cardiovascular Exam: REGULAR RHYTHM - GI/Abdominal Exam GI & Abdominal Exam: Normal Bowel Sounds Assessment and Plan (1) Pleural effusion Status: Acute (2) Alcohol withdrawal Status: Acute (3) Liver cirrhosis Status: Acute (4) DMII (diabetes mellitus, type 2) Status: Chronic - Assessment and Plan (Free Text) Plan: Cont meds Cont tx Cont nursing care
--- NOTE | 2018-10-28 07:25 | CP.PCM.PN ---
Subjective - Date & Time of Evaluation Date of Evaluation: 10/13/18 Time of Evaluation: 10:35 - Subjective Subjective: Patient remains stable Has occasional cough Has no fever Objective - Vital Signs/Intake and Output Vital Signs (last 24 hours): Temp Pulse Resp BP Pulse Ox 98.0 F 107 H 20 104/61 93 L 10/27/18 23:35 10/27/18 23:35 10/27/18 23:35 10/27/18 23:35 10/27/18 23:35 - Medications Medications: Current Medications Acetaminophen (Tylenol 325mg Tab) 650 mg PO Q6 PRN PRN Reason: Headache Albuterol/Ipratropium (Duoneb 3 Mg/0.5 Mg (3 Ml) Ud) 3 ml INH RTID [facility] Last Admin: 10/27/18 19:03 Dose: 3 ml Artificial Tears (Artificial Tears) 2 drop OU Q6 PRN PRN Reason: Dry eyes Last Admin: 10/18/18 17:51 Dose: 2 drop Atorvastatin Calcium (Lipitor) 80 mg PO HS [facility] Last Admin: 10/27/18 21:13 Dose: 80 mg Benzonatate (Tessalon Perles) 100 mg PO Q8 [facility] Last Admin: 10/28/18 00:48 Dose: 100 mg Camphor/Menthol (Bengay) 1 applic TOP Q6 PRN PRN Reason: Muscle spasm Last Admin: 10/21/18 09:03 Dose: 1 appl Carvedilol (Coreg) 12.5 mg PO Q12 [facility] Last Admin: 10/27/18 21:12 Dose: Not Given Enalapril Maleate (Vasotec) 2.5 mg PO DAILY [facility] Last Admin: 10/27/18 09:04 Dose: Not Given Famotidine (Pepcid) 20 mg PO DAILY [facility] Last Admin: 10/27/18 09:05 Dose: 20 mg Folic Acid (Folic Acid) 1 mg PO DAILY [facility] Last Admin: 10/27/18 09:08 Dose: 1 mg Furosemide (Lasix) 40 mg PO DAILY [facility] Last Admin: 10/27/18 09:07 Dose: Not Given Gabapentin (Neurontin) 1,200 mg PO TID [facility] Last Admin: 10/27/18 16:07 Dose: 1,200 mg Guaifenesin (Mucinex La) 1,200 mg PO Q12 [facility] Last Admin: 10/27/18 21:11 Dose: 1,200 mg Hydroxyzine HCl (Atarax) 25 mg PO Q12 PRN PRN Reason: Itching / Pruritus Meropenem 500 mg/ Sodium (Chloride) 100 mls @ 100 mls/hr IVPB Q12H [facility]; Protocol Last Admin: 10/28/18 02:06 Dose: 100 mls/hr Lactic Acid (Lac-Hydrin 12% Lotion (225 G)) 1 applic TOP BID [facility] Last Admin: 10/27/18 16:05 Dose: 1 applic Lidocaine (Lidoderm) 1 ea TD DAILY [facility] Last Admin: 10/27/18 09:06 Dose: 1 ea Linezolid (Zyvox) 600 mg PO Q12 [facility]; Protocol Last Admin: 10/27/18 21:14 Dose: 600 mg Loratadine (Claritin) 10 mg PO DAILY [facility] Last Admin: 10/27/18 09:09 Dose: 10 mg Metformin HCl (Glucophage) 1,000 mg PO BID [facility] Last Admin: 10/27/18 16:05 Dose: 1,000 mg Multivitamins/Minerals (Therapeutic-M Tab) 1 tab PO DAILY [facility] Last Admin: 10/27/18 09:04 Dose: 1 tab Nicotine (Nicoderm Cq) 1 patch TD DAILY [facility] Last Admin: 10/27/18 09:05 Dose: 1 patch Nitroglycerin (Nitrostat Sl Tab) 0.4 mg SL Q5MIN PRN PRN Reason: Chest pain Last Admin: 10/23/18 05:53 Dose: 0.4 mg Oxycodone HCl (Oxycodone Immediate Release Tab) 30 mg PO Q6 [facility] Last Admin: 10/28/18 03:37 Dose: 30 mg Pyridoxine HCl (Vitamin B6) 100 mg PO DAILY [facility] Last Admin: 10/27/18 09:02 Dose: 100 mg Fluticasone/Salmeterol (Advair Diskus 250/50) 1 puff IH Q12 [facility] Last Admin: 10/27/18 21:30 Dose: 1 puff Senna/Docusate Sodium (Senokot S 50 Mg-8.6 Mg) 2 tab PO HS [facility] Last Admin: 10/27/18 21:13 Dose: 2 tab Tamsulosin HCl (Flomax) 0.4 mg PO DAILY [facility] Last Admin: 10/27/18 09:08 Dose: 0.4 mg Thiamine HCl (Vitamin B1 Tab) 100 mg PO DAILY [facility] Last Admin: 10/27/18 09:02 Dose: 100 mg Trazodone HCl (Desyrel) 50 mg PO HS [facility] Last Admin: 10/27/18 21:17 Dose: 50 mg - Labs Labs: 10/24/18 12:24 10/25/18 06:09 PT 12.9 Seconds (9.8-13.1) 09/10/18 13:45 INR 1.1 09/10/18 13:45 APTT 36.0 Seconds (25.6-37.1) 09/10/18 13:45 - Head Exam Head Exam: NORMAL INSPECTION - Eye Exam Eye Exam: Normal appearance - Respiratory Exam Respiratory Exam: Decreased Breath Sounds, Rhonchi - Cardiovascular Exam Cardiovascular Exam: REGULAR RHYTHM - GI/Abdominal Exam GI & Abdominal Exam: Normal Bowel Sounds Assessment and Plan (1) Pleural effusion Status: Acute (2) Alcohol withdrawal Status: Acute (3) Liver cirrhosis Status: Acute (4) DMII (diabetes mellitus, type 2) Status: Chronic - Assessment and Plan (Free Text) Plan: Cont meds Cont tx Cont nursing care / PT
--- NOTE | 2018-10-28 07:29 | CP.PCM.PN ---
Subjective - Date & Time of Evaluation Date of Evaluation: 10/15/18 Time of Evaluation: 11:00 - Subjective Subjective: Stable Has occasional cough Has fair appetite Objective - Vital Signs/Intake and Output Vital Signs (last 24 hours): Temp Pulse Resp BP Pulse Ox 98.0 F 107 H 20 104/61 93 L 10/27/18 23:35 10/27/18 23:35 10/27/18 23:35 10/27/18 23:35 10/27/18 23:35 - Medications Medications: Current Medications Acetaminophen (Tylenol 325mg Tab) 650 mg PO Q6 PRN PRN Reason: Headache Albuterol/Ipratropium (Duoneb 3 Mg/0.5 Mg (3 Ml) Ud) 3 ml INH RTID [facility] Last Admin: 10/27/18 19:03 Dose: 3 ml Artificial Tears (Artificial Tears) 2 drop OU Q6 PRN PRN Reason: Dry eyes Last Admin: 10/18/18 17:51 Dose: 2 drop Atorvastatin Calcium (Lipitor) 80 mg PO HS [facility] Last Admin: 10/27/18 21:13 Dose: 80 mg Benzonatate (Tessalon Perles) 100 mg PO Q8 [facility] Last Admin: 10/28/18 00:48 Dose: 100 mg Camphor/Menthol (Bengay) 1 applic TOP Q6 PRN PRN Reason: Muscle spasm Last Admin: 10/21/18 09:03 Dose: 1 appl Carvedilol (Coreg) 12.5 mg PO Q12 [facility] Last Admin: 10/27/18 21:12 Dose: Not Given Enalapril Maleate (Vasotec) 2.5 mg PO DAILY [facility] Last Admin: 10/27/18 09:04 Dose: Not Given Famotidine (Pepcid) 20 mg PO DAILY [facility] Last Admin: 10/27/18 09:05 Dose: 20 mg Folic Acid (Folic Acid) 1 mg PO DAILY [facility] Last Admin: 10/27/18 09:08 Dose: 1 mg Furosemide (Lasix) 40 mg PO DAILY [facility] Last Admin: 10/27/18 09:07 Dose: Not Given Gabapentin (Neurontin) 1,200 mg PO TID [facility] Last Admin: 10/27/18 16:07 Dose: 1,200 mg Guaifenesin (Mucinex La) 1,200 mg PO Q12 [facility] Last Admin: 10/27/18 21:11 Dose: 1,200 mg Hydroxyzine HCl (Atarax) 25 mg PO Q12 PRN PRN Reason: Itching / Pruritus Meropenem 500 mg/ Sodium (Chloride) 100 mls @ 100 mls/hr IVPB Q12H [facility]; Protocol Last Admin: 10/28/18 02:06 Dose: 100 mls/hr Lactic Acid (Lac-Hydrin 12% Lotion (225 G)) 1 applic TOP BID [facility] Last Admin: 10/27/18 16:05 Dose: 1 applic Lidocaine (Lidoderm) 1 ea TD DAILY [facility] Last Admin: 10/27/18 09:06 Dose: 1 ea Linezolid (Zyvox) 600 mg PO Q12 [facility]; Protocol Last Admin: 10/27/18 21:14 Dose: 600 mg Loratadine (Claritin) 10 mg PO DAILY [facility] Last Admin: 10/27/18 09:09 Dose: 10 mg Metformin HCl (Glucophage) 1,000 mg PO BID [facility] Last Admin: 10/27/18 16:05 Dose: 1,000 mg Multivitamins/Minerals (Therapeutic-M Tab) 1 tab PO DAILY [facility] Last Admin: 10/27/18 09:04 Dose: 1 tab Nicotine (Nicoderm Cq) 1 patch TD DAILY [facility] Last Admin: 10/27/18 09:05 Dose: 1 patch Nitroglycerin (Nitrostat Sl Tab) 0.4 mg SL Q5MIN PRN PRN Reason: Chest pain Last Admin: 10/23/18 05:53 Dose: 0.4 mg Oxycodone HCl (Oxycodone Immediate Release Tab) 30 mg PO Q6 [facility] Last Admin: 10/28/18 03:37 Dose: 30 mg Pyridoxine HCl (Vitamin B6) 100 mg PO DAILY [facility] Last Admin: 10/27/18 09:02 Dose: 100 mg Fluticasone/Salmeterol (Advair Diskus 250/50) 1 puff IH Q12 [facility] Last Admin: 10/27/18 21:30 Dose: 1 puff Senna/Docusate Sodium (Senokot S 50 Mg-8.6 Mg) 2 tab PO HS [facility] Last Admin: 10/27/18 21:13 Dose: 2 tab Tamsulosin HCl (Flomax) 0.4 mg PO DAILY [facility] Last Admin: 10/27/18 09:08 Dose: 0.4 mg Thiamine HCl (Vitamin B1 Tab) 100 mg PO DAILY [facility] Last Admin: 10/27/18 09:02 Dose: 100 mg Trazodone HCl (Desyrel) 50 mg PO HS [facility] Last Admin: 10/27/18 21:17 Dose: 50 mg - Labs Labs: 10/24/18 12:24 10/25/18 06:09 PT 12.9 Seconds (9.8-13.1) 09/10/18 13:45 INR 1.1 09/10/18 13:45 APTT 36.0 Seconds (25.6-37.1) 09/10/18 13:45 - Head Exam Head Exam: NORMAL INSPECTION - Eye Exam Eye Exam: Normal appearance - ENT Exam ENT Exam: Mucous Membranes Moist - Respiratory Exam Respiratory Exam: Decreased Breath Sounds - Cardiovascular Exam Cardiovascular Exam: REGULAR RHYTHM - GI/Abdominal Exam GI & Abdominal Exam: Normal Bowel Sounds Assessment and Plan (1) Pleural effusion Status: Acute (2) Alcohol withdrawal Status: Acute (3) Liver cirrhosis Status: Acute (4) DMII (diabetes mellitus, type 2) Status: Chronic - Assessment and Plan (Free Text) Plan: Cont meds Cont tx Cont PT awaiting for subacute rehab placement
--- NOTE | 2018-10-28 07:31 | CP.PCM.PN ---
Subjective - Date & Time of Evaluation Date of Evaluation: 10/17/18 Time of Evaluation: 11:00 Objective - Vital Signs/Intake and Output Vital Signs (last 24 hours): Temp Pulse Resp BP Pulse Ox 98.0 F 107 H 20 104/61 93 L 10/27/18 23:35 10/27/18 23:35 10/27/18 23:35 10/27/18 23:35 10/27/18 23:35 - Medications Medications: Current Medications Acetaminophen (Tylenol 325mg Tab) 650 mg PO Q6 PRN PRN Reason: Headache Albuterol/Ipratropium (Duoneb 3 Mg/0.5 Mg (3 Ml) Ud) 3 ml INH RTID [facility] Last Admin: 10/27/18 19:03 Dose: 3 ml Artificial Tears (Artificial Tears) 2 drop OU Q6 PRN PRN Reason: Dry eyes Last Admin: 10/18/18 17:51 Dose: 2 drop Atorvastatin Calcium (Lipitor) 80 mg PO HS [facility] Last Admin: 10/27/18 21:13 Dose: 80 mg Benzonatate (Tessalon Perles) 100 mg PO Q8 [facility] Last Admin: 10/28/18 00:48 Dose: 100 mg Camphor/Menthol (Bengay) 1 applic TOP Q6 PRN PRN Reason: Muscle spasm Last Admin: 10/21/18 09:03 Dose: 1 appl Carvedilol (Coreg) 12.5 mg PO Q12 [facility] Last Admin: 10/27/18 21:12 Dose: Not Given Enalapril Maleate (Vasotec) 2.5 mg PO DAILY [facility] Last Admin: 10/27/18 09:04 Dose: Not Given Famotidine (Pepcid) 20 mg PO DAILY [facility] Last Admin: 10/27/18 09:05 Dose: 20 mg Folic Acid (Folic Acid) 1 mg PO DAILY [facility] Last Admin: 10/27/18 09:08 Dose: 1 mg Furosemide (Lasix) 40 mg PO DAILY [facility] Last Admin: 10/27/18 09:07 Dose: Not Given Gabapentin (Neurontin) 1,200 mg PO TID [facility] Last Admin: 10/27/18 16:07 Dose: 1,200 mg Guaifenesin (Mucinex La) 1,200 mg PO Q12 [facility] Last Admin: 10/27/18 21:11 Dose: 1,200 mg Hydroxyzine HCl (Atarax) 25 mg PO Q12 PRN PRN Reason: Itching / Pruritus Meropenem 500 mg/ Sodium (Chloride) 100 mls @ 100 mls/hr IVPB Q12H [facility]; Protocol Last Admin: 10/28/18 02:06 Dose: 100 mls/hr Lactic Acid (Lac-Hydrin 12% Lotion (225 G)) 1 applic TOP BID [facility] Last Admin: 10/27/18 16:05 Dose: 1 applic Lidocaine (Lidoderm) 1 ea TD DAILY [facility] Last Admin: 10/27/18 09:06 Dose: 1 ea Linezolid (Zyvox) 600 mg PO Q12 [facility]; Protocol Last Admin: 10/27/18 21:14 Dose: 600 mg Loratadine (Claritin) 10 mg PO DAILY [facility] Last Admin: 10/27/18 09:09 Dose: 10 mg Metformin HCl (Glucophage) 1,000 mg PO BID [facility] Last Admin: 10/27/18 16:05 Dose: 1,000 mg Multivitamins/Minerals (Therapeutic-M Tab) 1 tab PO DAILY [facility] Last Admin: 10/27/18 09:04 Dose: 1 tab Nicotine (Nicoderm Cq) 1 patch TD DAILY [facility] Last Admin: 10/27/18 09:05 Dose: 1 patch Nitroglycerin (Nitrostat Sl Tab) 0.4 mg SL Q5MIN PRN PRN Reason: Chest pain Last Admin: 10/23/18 05:53 Dose: 0.4 mg Oxycodone HCl (Oxycodone Immediate Release Tab) 30 mg PO Q6 [facility] Last Admin: 10/28/18 03:37 Dose: 30 mg Pyridoxine HCl (Vitamin B6) 100 mg PO DAILY [facility] Last Admin: 10/27/18 09:02 Dose: 100 mg Fluticasone/Salmeterol (Advair Diskus 250/50) 1 puff IH Q12 [facility] Last Admin: 10/27/18 21:30 Dose: 1 puff Senna/Docusate Sodium (Senokot S 50 Mg-8.6 Mg) 2 tab PO HS [facility] Last Admin: 10/27/18 21:13 Dose: 2 tab Tamsulosin HCl (Flomax) 0.4 mg PO DAILY [facility] Last Admin: 10/27/18 09:08 Dose: 0.4 mg Thiamine HCl (Vitamin B1 Tab) 100 mg PO DAILY [facility] Last Admin: 10/27/18 09:02 Dose: 100 mg Trazodone HCl (Desyrel) 50 mg PO [facility] Last Admin: 10/27/18 21:17 Dose: 50 mg - Labs Labs: 10/24/18 12:24 10/25/18 06:09 PT 12.9 Seconds (9.8-13.1) 09/10/18 13:45 INR 1.1 09/10/18 13:45 APTT 36.0 Seconds (25.6-37.1) 09/10/18 13:45 Assessment and Plan (1) Pleural effusion Status: Acute (2) Alcohol withdrawal Status: Acute (3) Liver cirrhosis Status: Acute (4) DMII (diabetes mellitus, type 2) Status: Chronic
[2018-10-28] MEDS: Albuterol-Ipratrop 3 mg / 0.5 (3 ml) UD INH SCH ×3 (07:42→19:45)
[2018-10-28] MEDS: Lidocaine 5% Patch TD SCH (09:22)
[2018-10-28] MEDS: Fluticasone-Salmeterol 250-50mcg Diskus IH SCH ×2 (09:23→21:29)
[2018-10-28] MEDS: Pyridoxine 100 mg Tab PO SCH (09:33)
[2018-10-28] MEDS: guaiFENesin 600 mg ER Tab PO SCH ×2 (09:35→21:30)
[2018-10-28] MEDS: Multivitamin With Minerals Tab PO SCH (09:36)
[2018-10-28] MEDS ORDERED: Promethazine/Cod 6.25mg-10mg/5ml Syr UD PO PRN (10:37)
--- NOTE | 2018-10-28 15:47 | CP.PCM.PN ---
Objective - Vital Signs/Intake and Output Vital Signs (last 24 hours): Temp Pulse Resp BP Pulse Ox 97.4 F L 100 H 20 107/70 92 L 10/28/18 08:39 10/28/18 08:39 10/28/18 08:39 10/28/18 09:33 10/28/18 08:39 - Medications Medications: Current Medications Acetaminophen (Tylenol 325mg Tab) 650 mg PO Q6 PRN PRN Reason: Headache Albuterol/Ipratropium (Duoneb 3 Mg/0.5 Mg (3 Ml) Ud) 3 ml INH RTID [facility] Last Admin: 10/28/18 13:46 Dose: 3 ml Artificial Tears (Artificial Tears) 2 drop OU Q6 PRN PRN Reason: Dry eyes Last Admin: 10/18/18 17:51 Dose: 2 drop Atorvastatin Calcium (Lipitor) 80 mg PO HS [facility] Last Admin: 10/27/18 21:13 Dose: 80 mg Benzonatate (Tessalon Perles) 100 mg PO Q8 [facility] Last Admin: 10/28/18 09:33 Dose: 100 mg Camphor/Menthol (Bengay) 1 applic TOP Q6 PRN PRN Reason: Muscle spasm Last Admin: 10/21/18 09:03 Dose: 1 appl Carvedilol (Coreg) 12.5 mg PO Q12 [facility] Last Admin: 10/28/18 09:34 Dose: 12.5 mg Enalapril Maleate (Vasotec) 2.5 mg PO DAILY [facility] Last Admin: 10/28/18 09:36 Dose: 2.5 mg Famotidine (Pepcid) 20 mg PO DAILY [facility] Last Admin: 10/28/18 09:36 Dose: 20 mg Folic Acid (Folic Acid) 1 mg PO DAILY [facility] Last Admin: 10/28/18 09:33 Dose: 1 mg Furosemide (Lasix) 40 mg PO DAILY [facility] Last Admin: 10/28/18 09:33 Dose: 40 mg Gabapentin (Neurontin) 1,200 mg PO TID [facility] Last Admin: 10/28/18 13:13 Dose: 1,200 mg Guaifenesin (Mucinex La) 1,200 mg PO Q12 [facility] Last Admin: 10/28/18 09:35 Dose: 1,200 mg Hydroxyzine HCl (Atarax) 25 mg PO Q12 PRN PRN Reason: Itching / Pruritus Meropenem 500 mg/ Sodium (Chloride) 100 mls @ 100 mls/hr IVPB Q12H [facility]; Protocol Last Admin: 10/28/18 15:00 Dose: 100 mls/hr Lactic Acid (Lac-Hydrin 12% Lotion (225 G)) 1 applic TOP BID [facility] Last Admin: 10/28/18 09:35 Dose: 1 applic Lidocaine (Lidoderm) 1 ea TD DAILY [facility] Last Admin: 10/28/18 09:22 Dose: 1 ea Linezolid (Zyvox) 600 mg PO Q12 [facility]; Protocol Last Admin: 10/28/18 09:37 Dose: 600 mg Loratadine (Claritin) 10 mg PO DAILY [facility] Last Admin: 10/28/18 09:34 Dose: 10 mg Metformin HCl (Glucophage) 1,000 mg PO BID [facility] Last Admin: 10/28/18 09:35 Dose: 1,000 mg Multivitamins/Minerals (Therapeutic-M Tab) 1 tab PO DAILY [facility] Last Admin: 10/28/18 09:36 Dose: 1 tab Nicotine (Nicoderm Cq) 1 patch TD DAILY [facility] Last Admin: 10/28/18 09:22 Dose: 1 patch Nitroglycerin (Nitrostat Sl Tab) 0.4 mg SL Q5MIN PRN PRN Reason: Chest pain Last Admin: 10/23/18 05:53 Dose: 0.4 mg Oxycodone HCl (Oxycodone Immediate Release Tab) 30 mg PO Q6 [facility] Last Admin: 10/28/18 09:30 Dose: 30 mg Promethazine HCl/Codeine (Phenergan/Codeine Oral Syrup) 5 ml PO Q6 PRN PRN Reason: Cough Pyridoxine HCl (Vitamin B6) 100 mg PO DAILY [facility] Last Admin: 10/28/18 09:33 Dose: 100 mg Fluticasone/Salmeterol (Advair Diskus 250/50) 1 puff IH Q12 [facility] Last Admin: 10/28/18 09:23 Dose: 1 puff Senna/Docusate Sodium (Senokot S 50 Mg-8.6 Mg) 2 tab PO HS [facility] Last Admin: 10/27/18 21:13 Dose: 2 tab Tamsulosin HCl (Flomax) 0.4 mg PO DAILY [facility] Last Admin: 10/28/18 09:34 Dose: 0.4 mg Thiamine HCl (Vitamin B1 Tab) 100 mg PO DAILY [facility] Last Admin: 10/28/18 09:36 Dose: 100 mg Trazodone HCl (Desyrel) 50 mg PO [facility] Last Admin: 10/27/18 21:17 Dose: 50 mg - Labs Labs: 10/24/18 12:24 10/25/18 06:09 PT 12.9 Seconds (9.8-13.1) 09/10/18 13:45 INR 1.1 09/10/18 13:45 APTT 36.0 Seconds (25.6-37.1) 09/10/18 13:45
--- NOTE | 2018-10-28 18:45 | US ---
Date of service: 10/28/2018 PROCEDURE: Ultrasound of the Kidneys HISTORY: vre, suprapubic/flank pain COMPARISON: 04/30/2018. CT abdomen and pelvis.. TECHNIQUE: Sonogram of the kidneys. FINDINGS: RIGHT KIDNEY: Measures: 5.3 x 9.7 cm. Normal in size, contour and echogenicity. No stone, solid mass lesion or hydronephrosis visualized. LEFT KIDNEY: Measures: 4.7 x 11.1 cm. Normal in size, contour and echogenicity. No stone, solid mass lesion or hydronephrosis visualized. OTHER FINDINGS: Urinary bladder assessment: Prevoid volume: 342.9 ml Postvoid residual: Cannot be determined, the patient did not experience an urge to void. Intrinsic, mural, perivesical abnormalities: None Ureteral jets: Not visible Incompletely visualized pelvic ascites. IMPRESSION: No significant or acute findings to account for/ related to the clinical presentation.
[2018-10-28] MEDS: Docusate-Senna 50 mg-8.6 mg Tab PO SCH (21:30)
[2018-10-29] MEDS: Meropenem 500 MG in Sodium Chloride 0.9% 100 ML IVPB SCH ×2 (01:53→14:08)
[2018-10-29] MEDS: oxyCODONE 10 mg Immediate Release Tab PO SCH ×4 (03:13→21:06)
--- NOTE | 2018-10-29 03:36 | CON ---
DATE: 10/28/2018 INFECTIOUS DISEASE CONSULTATION The patient is a 58-year-old gentleman who has been hospitalized quite some time here and is pending transfer to a snf or assisted facility. The patient is with history of cirrhosis, alcohol and opioid abuser and recently came in on 09/11/2018 for evaluation of left-sided chest pain and difficulty breathing at that time. The patient is presently alert and oriented. He is basically chronically ill. Has a history of diabetes and once again alcoholism. 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 In regards to this, I am starting meropenem and also Zyvox. Zyvox to be given 600 mg p.o. b.i.d. Ruslan Chandler MD
[2018-10-29] MEDS: Albuterol-Ipratrop 3 mg / 0.5 (3 ml) UD INH SCH ×3 (07:50→20:11)
[2018-10-29] MEDS: Fluticasone-Salmeterol 250-50mcg Diskus IH SCH ×2 (08:37→21:05)
[2018-10-29] MEDS: Lidocaine 5% Patch TD SCH (08:40)
[2018-10-29] MEDS: guaiFENesin 600 mg ER Tab PO SCH ×2 (08:40→21:06)
[2018-10-29] MEDS: Pyridoxine 100 mg Tab PO SCH (08:44)
[2018-10-29] MEDS: Multivitamin With Minerals Tab PO SCH (08:44)
[2018-10-29] MEDS: Docusate-Senna 50 mg-8.6 mg Tab PO SCH (22:00)
[2018-10-30] MEDS: Meropenem 500 MG in Sodium Chloride 0.9% 100 ML IVPB SCH ×2 (01:21→14:30)
[2018-10-30] MEDS: oxyCODONE 10 mg Immediate Release Tab PO SCH ×4 (03:52→22:03)
[2018-10-30] MEDS: Albuterol-Ipratrop 3 mg / 0.5 (3 ml) UD INH SCH ×3 (07:51→19:43)
[2018-10-30] MEDS: Fluticasone-Salmeterol 250-50mcg Diskus IH SCH ×2 (09:36→22:02)
[2018-10-30] MEDS: Pyridoxine 100 mg Tab PO SCH (09:37)
[2018-10-30] MEDS: Multivitamin With Minerals Tab PO SCH (09:38)
[2018-10-30] MEDS: guaiFENesin 600 mg ER Tab PO SCH ×2 (09:39→22:04)
[2018-10-30] MEDS: Lidocaine 5% Patch TD SCH (09:42)
--- NOTE | 2018-10-30 11:13 | RAD ---
Date of service: 10/30/2018 PROCEDURE: CHEST RADIOGRAPH, 1 VIEW HISTORY: chronic cough COMPARISON: 10/21/2018 FINDINGS: LUNGS: The opacity over the inferior left hemithorax is similar-more medially this left lung base consolidation is denser, as it was before and that component of it is compatible with atelectasis with or without concomitant infiltrate here. Overall appearance at the left lung base is similar. Concomitant left pleural effusion with or without pleural thickening is also inferred. The left basal pulmonary process the mixed pathologies here obliterates left hemidiaphragm silhouette. No change in appearance is perceived. No interval right hemithoracic pathology noted PLEURA: No pneumothorax. Left inferolateral pleural [id number] of a mixed pathology here CARDIOVASCULAR: There is presence of aortic atherosclerotic calcification on x-ray. Mild cardiomegaly. Midline sternotomy and coronary artery bypass clips present. Minimal pulmonary venous congestion possible no significant appearing pulmonary venous congestion apparent OSSEOUS STRUCTURES: Thoracic spondylosis. Midline sternotomy. VISUALIZED UPPER ABDOMEN: Partially visualized IVC filter apex tip OTHER FINDINGS: None. IMPRESSION: Mixed pathology process at left lung base-as detailed above-no change here or elsewhere appreciated.
[2018-10-30 14:59] LABS: URINE BILIRUBIN NEGATIVE (NEGATIVE); URINE BLOOD MODERATE (NEGATIVE); URINE CLARITY CLEAR (Clear); URINE COLOR YELLOW (YELLOW); URINE GLUCOSE (UA) NEG (NEGATIVE); URINE LEUKOCYTE ESTERASE NEG Leu/uL (Negative); URINE PROTEIN NEGATIVE (NEGATIVE); URINE UROBILINOGEN 0.2-1.0 mg/dL (0.2-1.0)
[2018-10-30] MEDS: Docusate-Senna 50 mg-8.6 mg Tab PO SCH (22:00)
--- NOTE | 2018-10-30 23:02 | CP.PCM.PN ---
Subjective - Date & Time of Evaluation Date of Evaluation: 10/30/18 Time of Evaluation: 08:30 - Subjective Subjective: Pt seen and assessed at bedside. Currently being treated for UTI containing Morganella Morganii and VRE. At this time, the pt reports having an intermittent cough, and chronic body pain. Chart reviewed, discussed plan of care with staff. Review of Systems - EENT Eyes: UNREMARKABLE Ears: UNREMARKABLE Nose/Mouth/Throat: UNREMARKABLE - Cardiovascular Cardiovascular: UNREMARKABLE - Respiratory Respiratory: Cough - Gastrointestinal Additional comments: occasional diarrhea - Genitourinary Genitourinary: UNREMARKABLE - Reproductive: Male Reproductive:Male: UNREMARKABLE - Musculoskeletal Musculoskeletal: Back Pain, Tingling Additional comments: c/o occasional neuropathy to hands, as well as phantom limb pain. - Integumentary Integumentary: UNREMARKABLE - Neurological Neurological: Paresthesias, Tingling - Psychiatric Psychiatric: UNREMARKABLE - Endocrine Endocrine: UNREMARKABLE - Hematologic/Lymphatic Hematologic: UNREMARKABLE Objective - Vital Signs/Intake and Output Vital Signs (last 24 hours): Temp Pulse Resp BP Pulse Ox 97.7 F 98 H 20 100/64 99 10/30/18 08:33 10/30/18 22:19 10/30/18 08:33 10/30/18 22:19 10/30/18 08:33 - Medications Medications: Current Medications Acetaminophen (Tylenol 325mg Tab) 650 mg PO Q6 PRN PRN Reason: Headache Albuterol/Ipratropium (Duoneb 3 Mg/0.5 Mg (3 Ml) Ud) 3 ml INH RTID [facility] Last Admin: 10/30/18 19:43 Dose: 3 ml Artificial Tears (Artificial Tears) 2 drop OU Q6 PRN PRN Reason: Dry eyes Last Admin: 10/18/18 17:51 Dose: 2 drop Atorvastatin Calcium (Lipitor) 80 mg PO HS [facility] Last Admin: 10/30/18 22:02 Dose: 80 mg Benzonatate (Tessalon Perles) 100 mg PO Q8 [facility] Last Admin: 10/30/18 16:23 Dose: 100 mg Camphor/Menthol (Bengay) 1 applic TOP Q6 PRN PRN Reason: Muscle spasm Last Admin: 10/21/18 09:03 Dose: 1 appl Carvedilol (Coreg) 12.5 mg PO Q12 [facility] Last Admin: 10/30/18 22:19 Dose: Not Given Enalapril Maleate (Vasotec) 2.5 mg PO DAILY [facility] Last Admin: 10/30/18 09:38 Dose: 2.5 mg Famotidine (Pepcid) 20 mg PO DAILY [facility] Last Admin: 10/30/18 09:36 Dose: 20 mg Folic Acid (Folic Acid) 1 mg PO DAILY [facility] Last Admin: 10/30/18 09:39 Dose: 1 mg Furosemide (Lasix) 40 mg PO DAILY [facility] Last Admin: 10/30/18 09:36 Dose: 40 mg Gabapentin (Neurontin) 1,200 mg PO TID [facility] Last Admin: 10/30/18 16:24 Dose: 1,200 mg Guaifenesin (Mucinex La) 1,200 mg PO Q12 [facility] Last Admin: 10/30/18 22:04 Dose: 1,200 mg Hydroxyzine HCl (Atarax) 25 mg PO Q12 PRN PRN Reason: Itching / Pruritus Meropenem 500 mg/ Sodium (Chloride) 100 mls @ 100 mls/hr IVPB Q12H [facility]; Michelle col Last Admin: 10/30/18 14:30 Dose: 100 mls/hr Lactic Acid (Lac-Hydrin 12% Lotion (225 G)) 1 applic TOP BID [facility] Last Admin: 10/30/18 16:26 Dose: Not Given Lidocaine (Lidoderm) 1 ea TD DAILY [facility] Last Admin: 10/30/18 09:42 Dose: 1 ea Linezolid (Zyvox) 600 mg PO Q12 [facility]; Protocol Last Admin: 10/30/18 22:03 Dose: 600 mg Loperamide HCl (Imodium) 4 mg PO Q6 PRN PRN Reason: Diarrhea Loratadine (Claritin) 10 mg PO DAILY [facility] Last Admin: 10/30/18 09:39 Dose: 10 mg Metformin HCl (Glucophage) 1,000 mg PO BID [facility] Last Admin: 10/30/18 16:25 Dose: 1,000 mg Multivitamins/Minerals (Therapeutic-M Tab) 1 tab PO DAILY [facility] Last Admin: 10/30/18 09:38 Dose: 1 tab Nicotine (Nicoderm Cq) 1 patch TD DAILY [facility] Last Admin: 10/30/18 09:42 Dose: 1 patch Nitroglycerin (Nitrostat Sl Tab) 0.4 mg SL Q5MIN PRN PRN Reason: Chest pain Last Admin: 10/23/18 05:53 Dose: 0.4 mg Oxycodone HCl (Oxycodone Immediate Release Tab) 30 mg PO Q6 [facility] Last Admin: 10/30/18 22:03 Dose: 30 mg Promethazine HCl/Codeine (Phenergan/Codeine Oral Syrup) 5 ml PO Q6 PRN PRN Reason: Cough Pyridoxine HCl (Vitamin B6) 100 mg PO DAILY [facility] Last Admin: 10/30/18 09:37 Dose: 100 mg Fluticasone/Salmeterol (Advair Diskus 250/50) 1 puff IH Q12 [facility] Last Admin: 10/30/18 22:02 Dose: 1 puff Senna/Docusate Sodium (Senokot S 50 Mg-8.6 Mg) 2 tab PO HS [facility] Last Admin: 10/29/18 22:00 Dose: Not Given Tamsulosin HCl (Flomax) 0.4 mg PO DAILY [facility] Last Admin: 10/30/18 09:38 Dose: 0.4 mg Thiamine HCl (Vitamin B1 Tab) 100 mg PO DAILY [facility] Last Admin: 10/30/18 09:37 Dose: 100 mg Trazodone HCl (Desyrel) 50 mg PO HS [facility] Last Admin: 10/30/18 22:03 Dose: 50 mg - Labs Labs: 10/24/18 12:24 10/25/18 06:09 PT 12.9 Seconds (9.8-13.1) 09/10/18 13:45 INR 1.1 09/10/18 13:45 APTT 36.0 Seconds (25.6-37.1) 09/10/18 13:45 - Constitutional Appears: Unkempt - Head Exam Head Exam: NORMAL INSPECTION - ENT Exam ENT Exam: Mucous Membranes Moist - Neck Exam Neck Exam: Full ROM - Respiratory Exam Respiratory Exam: Decreased Breath Sounds - Cardiovascular Exam Cardiovascular Exam: REGULAR RHYTHM, +S1, +S2 - GI/Abdominal Exam GI & Abdominal Exam: Normal Bowel Sounds - Neurological Exam Neurological Exam: Alert, Awake, Oriented x3 - Psychiatric Exam Psychiatric exam: Normal Affect - Skin Skin Exam: Dry, Normal Color, Warm Assessment and Plan (1) UTI (urinary tract infection) Assessment & Plan: Assessment/Impression/Major problems now: 1.) UTI, containing Morganella Morganii and VRE. -ID consult appreciated. -currently on Zyvox and Meropenem -Repeat urine culture ordered. Status: Acute
[2018-10-31] MEDS: Meropenem 500 MG in Sodium Chloride 0.9% 100 ML IVPB SCH (02:28)
[2018-10-31] MEDS: oxyCODONE 10 mg Immediate Release Tab PO SCH ×4 (03:40→21:57)
[2018-10-31 07:23] LABS: BASO # 0.1 K/uL (0.0-0.2); BASO % 0.6 % (0.0-2.0); EOS # 0.5 K/uL (0.0-0.7); HEMOGLOBIN 11.5 g/dL (12.0-18.0); LYMPH # 1.9 K/uL (1.0-4.3); LYMPH % 19.4 % (20.0-40.0); MEAN CELL VOLUME 85.9 fl (80.0-94.0); MEAN CORPUSCULAR HEMOGLOBIN 27.7 pg (27.0-31.0); MEAN CORPUSCULAR HGB CONC 32.2 g/dL (33.0-37.0); MEAN PLATELET VOLUME 8.8 fl (7.2-11.7); MONO # 0.9 K/uL (0.0-0.8); MONO % 8.6 % (0.0-10.0); NEUT # 6.7 K/uL (1.8-7.0); NEUT % 66.4 % (50.0-75.0); RBC 4.14 Mil/uL (4.40-5.90); RED CELL DISTRIBUTION WIDTH 17.2 % (11.5-14.5)
[2018-10-31 07:30] LABS: ALB/GLOB RATIO 0.9 (1.0-2.1)
[2018-10-31] MEDS: Fluticasone-Salmeterol 250-50mcg Diskus IH SCH ×2 (10:32→21:14)
[2018-10-31] MEDS: Lidocaine 5% Patch TD SCH (10:35)
[2018-10-31] MEDS: guaiFENesin 600 mg ER Tab PO SCH ×2 (10:36→21:15)
[2018-10-31] MEDS: Multivitamin With Minerals Tab PO SCH (10:38)
[2018-10-31] MEDS: Pyridoxine 100 mg Tab PO SCH (10:39)
[2018-10-31] MEDS ORDERED: Lidocaine 1% Inj (20ml) ONE (12:28)
--- NOTE | 2018-10-31 13:30 | PCM.SURG1 ---
Surgeon's Initial Post Op Note - Surgeon's Notes Surgeon: Miquel Braswell MD Engineering Instructor: NONE Type of Anesthesia: Local Pre-Operative Diagnosis: Poor venous access Operative Findings: US showed a patent left basilic vein Post-Operative Diagnosis: Poor venous access Operation Performed: Single lumen picc placement left arm, 40 CM. Tip is in the SVC. Specimen/Specimens Removed: None Estimated Blood Loss: EBL {In ML}: 2 Blood Products Given: N/A Drains Used: No Drains Post-Op Condition: Fair Date of Surgery/Procedure: 10/31/18 Time of Surgery/Procedure: 13:25
--- NOTE | 2018-10-31 13:40 | CP.PCM.PCO ---
Assessment & Plan - Assessment and Plan (Free Text) Assessment: patient s/p picc line insertion today Renal fx note; Merrem dose decreased to 500mg iv daily cont. zyvox 600 mg po q 12 pt. will require 9 more day of Merrem 500mg iv daily and zyvox q12 , d/w f/u renal fx in am hold SAM,Lasix
--- NOTE | 2018-10-31 13:48 | VASCULAR ---
PROCEDURE: Date of procedure: 10/31/2018 Procedure: 1. Placement of a left arm PICC with ultrasound and fluoroscopic guidance, CPT 67318 2. PICC tip confirmation with spot radiograph and is in the superior vena cava Medications: 1 percent lidocaine Total Fluoro time:3.5 seconds Radiation: 0.39 MGy EBL: 3 cc HISTORY: Infection requiring long-term IV antibiotics TECHNIQUE: Following informed consent and procedure time-out, the patient placed supine on the interventional table and the left arm prepped and draped in the usual sterile fashion. Ultrasound showed a patent and compressible left basilic vein. After the skin was anesthetized with lidocaine, the basilic vein was accessed with micro micropuncture technique using ultrasound guidance. A guidewire was then advanced under fluoroscopic guidance into the superior vena cava. An image documenting ultrasound guidance for vascular access was permanently saved. The length of a single-lumen 4 Indonesian PICC was trimmed to 40 cm and advanced through a peel-away sheath. The PICC was position with tip of PICC confirm a spot radiograph the superior vena cava. The PICC was secured to the patient's skin. The PICC was flushed. A biopatch and sterile dressing was applied. IMPRESSION: Placement of a single-lumen 4 Indonesian PICC left basilic vein trimmed to 40 cm. The tip of the PICC is confirmed with spot radiograph and is in the superior vena cava.
[2018-10-31] MEDS: Albuterol-Ipratrop 3 mg / 0.5 (3 ml) UD INH SCH ×3 (13:50→19:22)
[2018-10-31 16:12] VITALS: RESP 20
[2018-10-31] MEDS: Docusate-Senna 50 mg-8.6 mg Tab PO SCH (21:22)
[2018-11-01] MEDS: oxyCODONE 10 mg Immediate Release Tab PO SCH ×4 (04:00→16:50)
[2018-11-01 06:42] LABS: BLOOD UREA NITROGEN 42 mg/dl (9-20); CALCIUM 8.7 mg/dL (8.4-10.2); GFR NON-AFRICAN AMERICAN 52
[2018-11-01] MEDS: Albuterol-Ipratrop 3 mg / 0.5 (3 ml) UD INH SCH ×2 (07:28→13:29)
[2018-11-01 08:24] VITALS: BP 100/56; PULSE 101; TEMP 97.5; O2SAT 95
[2018-11-01] MEDS ORDERED: Meropenem 500 MG in Sodium Chloride 0.9% 100 ML IVPB SCH (09:00)
[2018-11-01] MEDS: Fluticasone-Salmeterol 250-50mcg Diskus IH SCH (09:50)
[2018-11-01] MEDS: Lidocaine 5% Patch TD SCH (09:51)
[2018-11-01] MEDS: Multivitamin With Minerals Tab PO SCH (09:57)
[2018-11-01] MEDS: Pyridoxine 100 mg Tab PO SCH (09:59)
[2018-11-01] MEDS: guaiFENesin 600 mg ER Tab PO SCH (10:00)
== END 2018-11-01 17:46 | DRG 544 ==
LOC: H.ER 12:15 → H.ERHOLD 18:00 → H.TEL 09-11 00:06 → H.MEDSURG1 09-18 20:30
PROVIDERS: ADMIT Family Medicine; ATTEND Family Medicine
PROC: 0W9B3ZX Drainage of Left Pleural Cavity, Percutaneous Approach, Diagnostic (ICD-10-PCS; principal; 2018-09-13)
PROC: 02HV33Z Insertion of Infusion Device into Superior Vena Cava, Percutaneous Approach (ICD-10-PCS; 2018-10-31)
DX: I11.0 Hypertensive heart disease with heart failure (principal); J18.9 Pneumonia, unspecified organism; K70.30 Alcoholic cirrhosis of liver without ascites; F06.30 Mood disorder due to known physiological condition, unspecified; J44.0 Chronic obstructive pulmonary disease with (acute) lower respiratory infection; N39.0 Urinary tract infection, site not specified; J91.8 Pleural effusion in other conditions classified elsewhere; F10.231 Alcohol dependence with withdrawal delirium; F11.20 Opioid dependence, uncomplicated; E11.9 Type 2 diabetes mellitus without complications; I50.43 Acute on chronic combined systolic (congestive) and diastolic (congestive) heart failure; Z89.511 Acquired absence of right leg below knee; Z89.512 Acquired absence of left leg below knee; F43.21 Adjustment disorder with depressed mood; R45.851 Suicidal ideations; G54.6 Phantom limb syndrome with pain; Z91.19 Patient's noncompliance with other medical treatment and regimen; G89.29 Other chronic pain; F17.210 Nicotine dependence, cigarettes, uncomplicated; Z95.1 Presence of aortocoronary bypass graft; E78.5 Hyperlipidemia, unspecified; F41.9 Anxiety disorder, unspecified; Z95.0 Presence of cardiac pacemaker; Y90.0 Blood alcohol level of less than 20 mg/100 ml; Z59.0 Homelessness; B96.89 Other specified bacterial agents as the cause of diseases classified elsewhere; E78.00 Pure hypercholesterolemia, unspecified; I25.10 Atherosclerotic heart disease of native coronary artery without angina pectoris; F32.9 Major depressive disorder, single episode, unspecified; Z79.84 Long term (current) use of oral hypoglycemic drugs